=== PATIENT | male | born 1965 | race Caucasian/White ===

== ENCOUNTER 2019-05-23 15:41 | Emergency (ER) | payer MEDICAID, OTHER ==
[~2019-05-23] VITALS: Ht 176.5 cm; Wt 53.1 kg
[2019-05-23 16:18] LABS: WHITE BLOOD COUNT 4.7 10^3/uL (4.3-11.0)
[2019-05-23 16:19] LABS: EOSINOPHILS % (AUTO) 3 % (0-10); HEMATOCRIT 44 % (40-54); HEMOGLOBIN 15.2 G/DL (13.3-17.7); LYMPHOCYTES % (AUTO) 33 % (12-44); MEAN CORPUSCULAR HEMOGLOBIN 38 PG (25-34); MEAN CORPUSCULAR HGB CONC 34 G/DL (32-36); MEAN CORPUSCULAR VOLUME 110 FL (80-99); MEAN PLATELET VOLUME 10.6 FL (7.4-10.4); MONOCYTES % (AUTO) 8 % (0-12); NEUTROPHILS % (AUTO) 56 % (42-75); PLATELET COUNT 169 10^3/uL (130-400); RED CELL DISTRIBUTION WIDTH 13.9 % (10.0-14.5)
[2019-05-23 16:20] LABS: BASOPHILS % (AUTO) 1 % (0-10); EOSINOPHILS # (AUTO) 0.1 10^3/uL (0.0-0.3); LYMPHOCYTES # (AUTO) 1.6 X 10^3 (1.0-4.0); MONOCYTES # (AUTO) 0.4 X 10^3 (0.0-1.0); NEUTROPHILS # (AUTO) 2.6 X 10^3 (1.8-7.8)
--- NOTE | 2019-05-23 16:26 | Diagnostic Imaging Report ---
EXAMINATION: Chest one view. HISTORY: Cough. COMPARISON: No comparison available. FINDINGS: Lungs are clear. No edema. No pneumonia. No pleural effusion. No pneumothorax. Heart size is normal. IMPRESSION: Clear lungs. Dictated by: Dictated on workstation # [id number]
[2019-05-23 16:34] LABS: PROTHROMBIN TIME PATIENT 13.3 SEC (12.2-14.7)
[2019-05-23 16:54] LABS: POTASSIUM 3.8 MMOL/L (3.6-5.0); SODIUM 145 MMOL/L (135-145)
[2019-05-23 16:55] LABS: ALANINE AMINOTRANSFERASE 23 U/L (0-55); ALBUMIN 3.9 GM/DL (3.2-4.5); ALKALINE PHOSPHATASE 108 U/L (40-136); BILIRUBIN,TOTAL 0.4 MG/DL (0.1-1.0); BUN/CREATININE RATIO 9; CALCIUM 8.9 MG/DL (8.5-10.1); CARBON DIOXIDE 23 MMOL/L (21-32); CHLORIDE 103 MMOL/L (98-107); CREATININE SERUM 0.54 MG/DL (0.60-1.30); GFR ESTIMATED > 60; GLUCOSE 101 MG/DL (70-105)
--- NOTE | 2019-05-23 17:14 | ED Lower Extremity ---
General Chief Complaint: Lower Extremity Stated Complaint: LT LEG SWELLING Nursing Triage Note: Patient c/o pain, swelling, and redness in left lower leg. Patient states that he has lower extremity swelling since the year 2014 and the edema using subsides with elevation of his leg. He reports that the current episode of swelling has been going on for the past month and it has not improved with elevation. Nursing Sepsis Screen: No Definite Risk Source: patient Exam Limitations: no limitations History of Present Illness Date Seen by Provider: May 23, 2019 Time Seen by Provider: 13:30 Initial Comments Patient is a 53-year-old male with history of peripheral vascular disease and right gwngh-obe-gjmq amputation who presents with left leg swelling which is been prevalent for the past 3 years. Swelling is slightly over the past month. Patient denies trauma to this injury to this region. He has not followed up with his primary care physician and states that his past 3 appointments have been canceled. Patient denies fever chills, nausea vomiting and sweats. Patient smokes 20 unfiltered cigarettes daily drinks alcohol throughout the day. No other acute symptoms or complaints. Onset: other Pain/Injury Location: left leg, left knee, left thigh, left foot, left ankle, left heel Method of Injury: unknown Allergies and Home Medications Allergies Coded Allergies: No Known Drug Allergies (Unverified , 05/23/19) Patient Home Medication List Home Medication List Reviewed: Yes Review of Systems Constitutional: no symptoms reported EENTM: no symptoms reported Respiratory: no symptoms reported Cardiovascular: no symptoms reported Gastrointestinal: no symptoms reported Genitourinary: no symptoms reported Musculoskeletal: no symptoms reported Skin: see HPI Psychiatric/Neurological: No Symptoms Reported Past Swgqend-Aqdwef-Qcgrvy Hx Past Med/Social Hx: Reviewed Nursing Past Med/Soc Hx Patient Social History Alcohol Use: Regular Use Alcohol Beverage of Choice: Whiskey, [place] Recreational Drug Use: No Smoking Status: Current Everyday Smoker Type Used: Cigarettes 2nd Hand Smoke Exposure: No Recent Foreign Travel: No Contact w/Someone Who Travel: No Recent Infectious Disease Expo: No Recent Hopitalizations: No Physical Abuse: No Sexual Abuse: No Mistreated: No Fear: No Seasonal Allergies Seasonal Allergies: No Past Medical History Surgeries: Yes (R Above the knee amputation, ) Orthopedic Respiratory: No (Hypoxia) Cardiac: Yes (Buerger Disease) Hypertension, Peripheral Vascular Neurological: No Genitourinary: No Gastrointestinal: Yes (Chronic Alcohol gastritis) Gastroesophageal Reflux Musculoskeletal: Yes (Right above the knee amputation) Amputee HEENT: No Cancer: No Psychosocial: Yes (Substance abuse, Alcohol dependence) Integumentary: Yes (Cellulitis) Blood Disorders: No Physical Exam Vital Signs Vital Signs - First Documented 05/23/19 15:48 Temp 97.3 Pulse 88 Resp 20 B/P (MAP) 136/94 (108) Pulse Ox 91 O2 Delivery Nasal Cannula O2 Flow Rate 3.00 Capillary Refill : Less Than 3 Seconds Height, Weight, BMI Height: 5'9.50" Weight: 117lbs. oz. 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, no motor/sensory deficits, alert, oriented x 3 Skin: other (erythema left lower extremity) Progress/Results/Core Measures Results/Orders Lab Results Laboratory Tests Test 05/23/19 16:10 Range/Units White Blood Count 4.7 4.3-11.0 10^3/uL Red Blood Count 4.03 L 4.35-5.85 10^6/uL Hemoglobin 15.2 13.3-17.7 G/DL Hematocrit 44 40-54 % Mean Corpuscular Volume 110 H 80-99 FL Mean Corpuscular Hemoglobin 38 H 25-34 PG Mean Corpuscular Hemoglobin Concent 34 32-36 G/DL Red Cell Distribution Width 13.9 10.0-14.5 % Platelet Count 169 130-400 10^3/uL Mean Platelet Volume 10.6 H 7.4-10.4 FL Neutrophils (%) (Auto) 56 42-75 % Lymphocytes (%) (Auto) 33 12-44 % Monocytes (%) (Auto) 8 0-12 % Eosinophils (%) (Auto) 3 0-10 % Basophils (%) (Auto) 1 0-10 % Neutrophils # (Auto) 2.6 1.8-7.8 X 10^3 Lymphocytes # (Auto) 1.6 1.0-4.0 X 10^3 Monocytes # (Auto) 0.4 0.0-1.0 X 10^3 Eosinophils # (Auto) 0.1 0.0-0.3 10^3/uL Basophils # (Auto) 0.0 0.0-0.1 10^3/uL Prothrombin Time 13.3 12.2-14.7 SEC INR Comment 1.0 0.8-1.4 Activated Partial Thromboplast Time 26 24-35 SEC Sodium Level 145 135-145 MMOL/L Potassium Level 3.8 3.6-5.0 MMOL/L Chloride Level 103 98-107 MMOL/L Carbon Dioxide Level 23 21-32 MMOL/L Anion Gap 19 H 5-14 MMOL/L Blood Urea Nitrogen 5 L 7-18 MG/DL Creatinine 0.54 L 0.60-1.30 MG/DL Estimat Glomerular Filtration Rate > 60 BUN/Creatinine Ratio 9 Glucose Level 101 70-105 MG/DL Calcium Level 8.9 8.5-10.1 MG/DL Corrected Calcium 9.0 8.5-10.1 MG/DL Total Bilirubin 0.4 0.1-1.0 MG/DL Aspartate Amino Transf (AST/SGOT) 52 H 5-34 U/L Alanine Aminotransferase (ALT/SGPT) 23 0-55 U/L Alkaline Phosphatase 108 40-136 U/L Troponin I < 0.30 <0.30 NG/ML Pro-B-Type Natriuretic Peptide 128.7 H <75.0 PG/ML Total Protein 7.0 6.4-8.2 GM/DL Albumin 3.9 3.2-4.5 GM/DL My Orders Orders - TESSA CERVANTES DO Cbc With Automated Diff (05/23/19 15:58) Comprehensive Metabolic Panel (05/23/19 15:58) Protime With Inr (05/23/19 15:58) Partial Thromboplastin Time (05/23/19 15:58) Probnp Fs (05/23/19 15:58) Ekg Tracing (05/23/19 15:58) Troponin I (05/23/19 15:58) Chest 1 View Ap/Pa Only (05/23/19 15:58) Vital Signs/I&O 05/23/19 15:48 Temp 97.3 Pulse 88 Resp 20 B/P (MAP) 136/94 (108) Pulse Ox 91 O2 Delivery Nasal Cannula O2 Flow Rate 3.00 Blood Pressure Mean: 108 Departure Communication (Admissions) Patient with chronic left leg swelling setting of all cause him and artery disease. Patient with 1+ anterior tibial dorsalis pedis pulses. Suspect swelling is related to alcohol related disease or possible right-sided heart failure. Ne ither of which would appear to be acute process. Recommend staying from alcohol, tobacco, compression stocking, Lasix. Will also place on brief course of antibiotics and close PCP follow-up. Return precautions reviewed. History verbalizes understanding and agreement with discharge instructions prior to discharge. Impression Primary Impression: Peripheral edema Disposition: HOME, SELF-CARE Condition: Unchanged Departure-Patient Inst. Decision time for Depature: 17:15 Referrals: SARA HARTLEY MD (PCP/Family) Primary Care Physician Patient Instructions: Swelling Add. Discharge Instructions: Please take newly prescribed medications as directed. Keep leg elevated at rest and wear compression stocking at night. With your PCP in 3-5 days for reevaluation. Return to the ED if new or worsening symptoms All discharge instructions reviewed with patient and/or family. Voiced understanding. Scripts Furosemide (Lasix) 20 Mg Tablet 20 MG PO DAILY, #3 TAB Prov: TESSA CERVANTES DO 05/23/19 Cephalexin (Keflex) 500 Mg Capsule 500 MG PO TID, #30 CAP Prov: TESSA CERVANTES DO 05/23/19 TESSA CERVANTES DO May 23, 2019 17:14
[2019-05-23] MEDS ORDERED: CEPH-507 PO (17:16)
[2019-05-23] MEDS ORDERED: FURO-125 PO (17:16)
[2019-05-23 17:22] VITALS: BP 136/94
== END 2019-05-23 17:22 | disposition home or self-care (01) ==
LOC: ER FS 15:44
DX: R60.9 Edema, unspecified (principal); I73.9 Peripheral vascular disease, unspecified; I10 Essential (primary) hypertension; R09.02 Hypoxemia; F10.20 Alcohol dependence, uncomplicated; K21.9 Gastro-esophageal reflux disease without esophagitis; F17.210 Nicotine dependence, cigarettes, uncomplicated; Z89.611 Acquired absence of right leg above knee; Y90.9 Presence of alcohol in blood, level not specified
CPT/HCPCS: 36415; 71045; 80053; 83880; 84484; 85025; 85610; 85730; 93005

== ENCOUNTER 2019-08-03 12:58 | Emergency (ER) | payer MEDICAID | END 2019-08-03 13:22 | disposition home or self-care (01) | LOC: ER FS 12:58 ==

== ENCOUNTER 2019-08-10 10:52 | Emergency (ER) | payer MEDICAID ==
[~2019-08-10] VITALS: Ht 177.8 cm; Wt 53.2 kg
[~2019-08-10 10:52] MED LIST: BACI28.4 TP; CEPH-507 PO; FURO-125 PO
[2019-08-10] MEDS ORDERED: morphine INJ 10 MG/ML 1ML (SYR OR VIAL) IVP STA (11:13)
[2019-08-10] MEDS ORDERED: NS IV 1000 ML 1,000 ML IV SCH (11:13)
[2019-08-10] MEDS ORDERED: PIPERACILLIN/TAZOBACTAM (BULK) 3.375 GM in NS (IVPB) 100 ML IV ONE (11:15)
[2019-08-10] MEDS ORDERED: PIPERACILLIN/TAZO 4.5 GM VIAL (ZOSYN) IV ONE (11:36)
[2019-08-10] MEDS ORDERED: NS (IVPB) 100 ML ONE (11:36)
--- NOTE | 2019-08-10 11:45 | Diagnostic Imaging Report ---
PATIENT HISTORY: Left foot pain and swelling, Buerger's disease. TECHNIQUE: Three views of the left foot were performed. COMPARISON: None. FINDINGS: No acute fracture or dislocation is seen in the left foot. The alignment is normal. There is mild irregularity of the second proximal phalangeal head which may be from remote trauma. There is a bipartite medial hallux sesamoid. No cortical erosions are seen. There is moderate dorsal soft tissue swelling with a dorsal soft tissue ulceration. No soft tissue gas or radiopaque foreign body is seen. IMPRESSION: 1. Dorsal soft tissue swelling and ulceration with no soft tissue gas or radiopaque foreign body seen. 2. No acute osseous abnormality is seen in the left foot. Dictated by: Dictated on workstation # [id number]
--- NOTE | 2019-08-10 11:52 | ED Integumentary General ---
General Chief Complaint: Skin/Wound Problems Stated Complaint: LT FOOT PAIN Nursing Triage Note: PT HAS SWELLING, WEEPING, AND PAIN IN THE LEFT FOOT. 3 OF THE PTS TOES ARE TURNING BLACK. 3RD THRU 5TH TOES. History of Present Illness Date Seen by Provider: Aug 10, 2019 Time Seen by Provider: 11:00 Initial Comments The patient is a 53-year-old male with a history of hypertension, alcohol abuse, tobacco abuse, COPD and what is evidently a fairly recent diagnosis of Buerger disease / thromboangiitis obliterans. Patient is status post previous right mtudt-iyv-wsso amputation. He does not have a history of diabetes. The patient presents with concern for several days of worsening discomfort, erythema and swelling to the lateral aspect of his left forefoot and midfoot. Patient is followed up with his primary care physician within the past couple of days and was started on a course of Bactrim for this issue. He return to his primary for a follow-up appointment today and the third, fourth and fifth digits of his left foot as well as parts of his dorsal and plantar lateral forefoot and midfoot appeared dusky and ischemic and so he was sent to the emergency department for evaluation. Patient denies fevers, nausea or vomiting, chest pain, shortness of breath or any symptoms aside from quite significantly worsened discomfort to his left foot over the past couple of days. He continues to smoke. A strong dorsalis pedis pulse is Dopplerable on the left, but no pulse is palpable. Allergies and Home Medications Allergies Coded Allergies: No Known Drug Allergies (Unverified , 05/23/19) Home Medications Bacitracin 28.4 Gm Oint...g., 28.4 GM TP BID Prescribed by: JOSÉ MIGUEL BELLO on 08/03/19 1320 Cephalexin 500 Mg Capsule, 500 MG PO TID Prescribed by: TESSA CERVANTES on 05/23/19 171 Furosemide 20 Mg Tablet, 20 MG PO DAILY Prescribed by: TESSA CERVANTES on 05/23/19 1716 Patient Home Medication List Home Medication List Reviewed: Yes Review of Systems Review of Systems Constitutional: see HPI All Other Systems Reviewed Negative Unless Noted: Yes (Negative excepted noted.) Past Reywrok-Mhucxp-Uyfsmx Hx Past Med/Social Hx: Reviewed Nursing Past Med/Soc Hx Patient Social History Alcohol Use: Regular Use Alcohol Beverage of Choice: Whiskey Recreational Drug Use: No Smoking Status: Current Everyday Smoker Type Used: Cigarettes 2nd Hand Smoke Exposure: Yes Recent Foreign Travel: No Contact w/Someone Who Travel: No Recent Infectious Disease Expo: No Recent Hopitalizations: No Physical Abuse: No Sexual Abuse: No Mistreated: No Fear: No Seasonal Allergies Seasonal Allergies: No Past Medical History Surgeries: Yes (R Above the knee amputation, ) Orthopedic Respiratory: No (Hypoxia) Cardiac: Yes (Buerger Disease) Hypertension, Peripheral Vascular Neurological: No Genitourinary: No Gastrointestinal: Yes (Chronic Alcohol gastritis) Gastroesophageal Reflux Musculoskeletal: Yes (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, Insulin dep HEENT: No Cancer: No Psychosocial: Yes (Substance abuse, Alcohol dependence) Integumentary: Yes (Cellulitis) Blood Disorders: No Family Medical History Reviewed Nursing Family Hx Physical Exam Vital Signs Vital Signs - First Documented 08/10/19 11:37 Temp 37.0 Pulse 91 Resp 18 B/P (MAP) 100/61 (74) Pulse Ox 98 O2 Delivery Room Air Capillary Refill : Less Than 3 Seconds General Appearance: no apparent distress Comments This is an older male appearing nontoxic and in no acute distress. The patient appears disheveled and rather dirty. Head is normocephalic and atraumatic. Neck is supple and nontender. Oropharynx is moist. Lungs are clear to auscultation in all stations. There is a normal S1 and S2 without rubs or gallops and capillary refill is appropriate, less than 2 seconds globally. Abdomen is soft, nontender and nondistended. Skin is warm and dry without cyanosis, clubbing or edema. Psychiatrically, the patient demonstrates appropriate mood and affect and is alert. There is a right above-knee amputation. Evaluation of the left lower extremity is remarkable for tenderness and swelling to the lateral left midfoot and forefoot, as well as toes 3, 4 and 5, without crepitus / subcutaneous emphysema by exam. The digits noted are dusky and discolored. There are also areas of discoloration/duskiness to the lateral dorsal and plantar midfoot and forefoot. Strength and sensation are generally intact to the left foot. Capillary refill is mildly delayed. There is 2+ pitting edema to the foot. A dorsalis pedis pulse is Dopplerable but not palpable. Progress/Results/Core Measures Results/Orders Lab Results Laboratory Tests Test 08/10/19 11:25 Range/Units White Blood Count 7.4 4.3-11.0 10^3/uL Red Blood Count 3.53 L 4.35-5.85 10^6/uL Hemoglobin 12.8 L 13.3-17.7 G/DL Hematocrit 38 L 40-54 % Mean Corpuscular Volume 107 H 80-99 FL Mean Corpuscular Hemoglobin 36 H 25-34 PG Mean Corpuscular Hemoglobin Concent 34 32-36 G/DL Red Cell Distribution Width 13.5 10.0-14.5 % Platelet Count 326 130-400 10^3/uL Mean Platelet Volume 10.7 H 7.4-10.4 FL Neutrophils (%) (Auto) 78 H 42-75 % Lymphocytes (%) (Auto) 13 12-44 % Monocytes (%) (Auto) 7 0-12 % Eosinophils (%) (Auto) 0 0-10 % Basophils (%) (Auto) 1 0-10 % Neutrophils # (Auto) 5.8 1.8-7.8 X 10^3 Lymphocytes # (Auto) 1.0 1.0-4.0 X 10^3 Monocytes # (Auto) 0.5 0.0-1.0 X 10^3 Eosinophils # (Auto) 0.0 0.0-0.3 10^3/uL Basophils # (Auto) 0.0 0.0-0.1 10^3/uL My Orders Orders - JOS GILL MD Cbc With Automated Diff (08/10/19 11:13) Comprehensive Metabolic Panel (08/10/19 11:13) Erythrocyte Sedimentation Rate (08/10/19 11:13) Hs C Reactive Protein (08/10/19 11:13) Blood Culture (08/10/19 11:13) Lactic Acid Analyzer (08/10/19 11:13) Foot 3 View Left (08/10/19 11:13) Piperacillin/Tazobactam (Bulk) (Zosyn In (08/10/19 11:15) Morphine Injection (Morphine Injection (08/10/19 11:13) Alcohol (08/10/19 11:13) Ed Iv/Invasive Line Start (08/10/19 11:13) Ns Iv 1000 Ml (Sodium Chloride 0.9%) (08/10/19 11:13) Piperacillin Sodium/Tazobactam (Zosyn Vi (08/10/19 11:36) Ns (Ivpb) (Sodium Chloride 0.9% Ivpb Bag (08/10/19 11:36) Medications Given in ED Current Medications Medications Dose Ordered Sig/Junior Route Start Time Stop Time Status Last Admin Dose Admin Piperacillin Sod/ Tazobactam Sod 3.375 gm/Sodium Chloride 115 ml @ 240 mls/hr ONCE ONCE IV 08/10/19 11:15 08/10/19 11:43 DC 08/10/19 11:48 240 MLS/HR Vital Signs/I&O 08/10/19 11:37 Temp 37.0 Pulse 91 Resp 18 B/P (MAP) 100/61 (74) Pulse Ox 98 O2 Delivery Room Air Blood Pressure Mean: 74 Progress Progress Note : Time: 12:04 Progress Note Unfortunate 53-year-old gentleman with history of tobacco abuse and thromboangiitis obliterans who appears to be infarcting part of his left foot. Will start IV and give IV fluids and draw cultures and administer broad-spectrum parenteral antibiotics. We will obtain plain films. We will treat pain. Patient will require transfer for urgent vascular evaluation. No vascular surgery at [facility] per nursing staff so the patient will require outside hospital transfer. Discussed options with him and he requests [facility]. Contact made with who graciously accepted the patient in transfer. Patient will likely require CT angiography with runoff for further characterization of his left lower extremity vasculature but in discussion with the receiving center we will defer this study to them. Case discussed with Dr. Giang of vascular surgery who recommends that we heparinize the patient prior to transport which we will do. Departure Impression Primary Impression: Ischemia of left lower extremity Additional Impression: Cellulitis of left foot Disposition: XFER SHT-TRM HOSP Condition: Stable Departure-Patient Inst. Referrals: SARA HARTLEY MD (PCP/Family) Primary Care Physician JOS GILL MD Aug 10, 2019 11:52
[2019-08-10 12:05] LABS: BASOPHILS % (AUTO) 1 % (0-10); EOSINOPHILS % (AUTO) 0 % (0-10); HEMATOCRIT 38 % (40-54); HEMOGLOBIN 12.8 G/DL (13.3-17.7); LYMPHOCYTES % (AUTO) 13 % (12-44); MEAN CORPUSCULAR HEMOGLOBIN 36 PG (25-34); MEAN CORPUSCULAR HGB CONC 34 G/DL (32-36); MEAN CORPUSCULAR VOLUME 107 FL (80-99); MEAN PLATELET VOLUME 10.7 FL (7.4-10.4); MONOCYTES % (AUTO) 7 % (0-12); NEUTROPHILS % (AUTO) 78 % (42-75); PLATELET COUNT 326 10^3/uL (130-400); RED CELL DISTRIBUTION WIDTH 13.5 % (10.0-14.5); WHITE BLOOD COUNT 7.4 10^3/uL (4.3-11.0)
[2019-08-10 12:06] LABS: MONOCYTES # (AUTO) 0.5 X 10^3 (0.0-1.0); NEUTROPHILS # (AUTO) 5.8 X 10^3 (1.8-7.8)
[2019-08-10] MEDS ORDERED: HEParin DRIP 25000 UNIT/500ML 500 ML IV ONE (12:21)
[2019-08-10] MEDS ORDERED: HEParin 1000 UNIT/ML (10ML VIAL) FOR BOLUS IV ONE (12:30)
[2019-08-10 12:45] LABS: CHLORIDE 97 MMOL/L (98-107); POTASSIUM 3.5 MMOL/L (3.6-5.0); SODIUM 134 MMOL/L (135-145)
[2019-08-10 12:46] LABS: ALANINE AMINOTRANSFERASE 16 U/L (0-55); ALKALINE PHOSPHATASE 108 U/L (40-136); BILIRUBIN,TOTAL 0.4 MG/DL (0.1-1.0); BUN/CREATININE RATIO 10; CALCIUM 8.7 MG/DL (8.5-10.1); CARBON DIOXIDE 24 MMOL/L (21-32); GFR ESTIMATED > 60; GLUCOSE 94 MG/DL (70-105); TOTAL PROTEIN 6.8 GM/DL (6.4-8.2)
[2019-08-10 12:47] LABS: ALBUMIN 3.5 GM/DL (3.2-4.5)
[2019-08-10 13:03] LABS: ERYTHROCYTE SEDIMENTATION RATE 31 MM/HR (0-30)
[2019-08-10] MEDS ORDERED: fentaNYL INJECTION 100 MCG/2 ML AMP IVP PRN (16:15)
[2019-08-10] MEDS ORDERED: KCL 20 MEQ TAB (K-DUR) PO ONE (17:45)
--- NOTE | 2019-08-10 17:55 | NUR ---
[facility] HAS ACCEPTED FLIGHT FROM [facility]. [facility] CALLED AND THE BED RESERVED IS IN [place] AND THE VASCULAR SURGEON IS WAITING ON THE PT TO ARRIVE. DR. GILL ADVISED THIS RN TO CALL A FLIGHT SERVICE WITH THE LARGE DELAY IN TRASFERRING THE PT WE HAVE INCURRED WITH [facility]. THE ER STAFF WAS ADVISED THAT [facility] WOULD BE FURTHER DELAYED AT LEAST ANOTHER HOUR OR POSSIBLY MORE.
[2019-08-10 18:04] VITALS: BP 110/70
--- NOTE | 2019-08-10 18:28 | NUR ---
MED FLIGHT IS HERE AT THIS TIME. REPORT AND CARE TRANSFERRED TO THE [facility]W AT THIS TIME. REPORT GIVEN TO KETTY ALVARADO AT [facility].
== END 2019-08-10 18:35 | disposition short-term general hospital (02) ==
LOC: EDUNIT# 10:52 → ER FS 10:53
DX: I99.8 Other disorder of circulatory system (principal); L03.116 Cellulitis of left lower limb; I10 Essential (primary) hypertension; E11.9 Type 2 diabetes mellitus without complications; J44.9 Chronic obstructive pulmonary disease, unspecified; K21.9 Gastro-esophageal reflux disease without esophagitis; F17.210 Nicotine dependence, cigarettes, uncomplicated; Z89.611 Acquired absence of right leg above knee
CPT/HCPCS: 36415; 73630; 80053; 80320; 83605; 85025; 85652; 86141; 87040; 96374; 96375

== ENCOUNTER → 2019-08-27 | Outpatient (CLI) | payer MEDICAID | LOC: WOUNDCARE 13:53 | PROVIDERS: ATTEND Surgery | DX: L97.422 Non-pressure chronic ulcer of left heel and midfoot with fat layer exposed (principal); I70.244 Atherosclerosis of native arteries of left leg with ulceration of heel and midfoot; I73.1 Thromboangiitis obliterans [Buerger's disease]; J44.9 Chronic obstructive pulmonary disease, unspecified; T65.222A Toxic effect of tobacco cigarettes, intentional self-harm, initial encounter; F17.218 Nicotine dependence, cigarettes, with other nicotine-induced disorders | CPT/HCPCS: 99204 ==

== ENCOUNTER → 2019-09-03 | Outpatient (CLI) | payer MEDICAID | LOC: WOUNDCARE 11:41 | PROVIDERS: ATTEND Surgery | DX: I70.262 Atherosclerosis of native arteries of extremities with gangrene, left leg (principal); L97.422 Non-pressure chronic ulcer of left heel and midfoot with fat layer exposed; L97.522 Non-pressure chronic ulcer of other part of left foot with fat layer exposed; I73.1 Thromboangiitis obliterans [Buerger's disease]; J44.9 Chronic obstructive pulmonary disease, unspecified; T65.222A Toxic effect of tobacco cigarettes, intentional self-harm, initial encounter; F17.218 Nicotine dependence, cigarettes, with other nicotine-induced disorders | CPT/HCPCS: 99212 ==

== ENCOUNTER → 2019-09-10 | Outpatient (CLI) | payer MEDICAID | LOC: WOUNDCARE 13:52 | PROVIDERS: ATTEND Surgery | DX: I70.262 Atherosclerosis of native arteries of extremities with gangrene, left leg (principal); L97.522 Non-pressure chronic ulcer of other part of left foot with fat layer exposed; I73.1 Thromboangiitis obliterans [Buerger's disease]; J44.9 Chronic obstructive pulmonary disease, unspecified; T65.222A Toxic effect of tobacco cigarettes, intentional self-harm, initial encounter; F17.218 Nicotine dependence, cigarettes, with other nicotine-induced disorders | CPT/HCPCS: 99212 ==

== ENCOUNTER → 2019-09-24 | Outpatient (CLI) | payer MEDICAID | LOC: WOUNDCARE 13:47 | PROVIDERS: ATTEND Surgery | DX: L97.522 Non-pressure chronic ulcer of other part of left foot with fat layer exposed (principal); I70.234 Atherosclerosis of native arteries of right leg with ulceration of heel and midfoot; I73.1 Thromboangiitis obliterans [Buerger's disease]; J44.9 Chronic obstructive pulmonary disease, unspecified; T65.222A Toxic effect of tobacco cigarettes, intentional self-harm, initial encounter; F17.218 Nicotine dependence, cigarettes, with other nicotine-induced disorders | CPT/HCPCS: 99212 ==

== ENCOUNTER 2019-11-05 16:31 | Emergency (ER) | payer MEDICAID ==
[~2019-11-05] VITALS: Ht 175 cm; Wt 49.0 kg
[2019-11-05] MEDS ORDERED: NS IV 1000 ML 1,000 ML IV SCH (16:45)
--- NOTE | 2019-11-05 16:55 | Diagnostic Imaging Report ---
INDICATION: Weakness. COMPARISON: 05/23/2019 FINDINGS: Single frontal view of the chest demonstrates normal heart size and pulmonary vascularity. The lungs are well aerated and clear. No large pleural effusion or pneumothorax is seen. The visualized osseous structures show no acute abnormalities. IMPRESSION: 1. No acute cardiopulmonary process. Dictated by: Dictated on workstation # [id number]
[2019-11-05 17:20] LABS: HEMATOCRIT 37 % (40-54); HEMOGLOBIN 13.5 G/DL (13.3-17.7); MEAN CORPUSCULAR HEMOGLOBIN 37 PG (25-34); WHITE BLOOD COUNT 6.7 10^3/uL (4.3-11.0)
--- NOTE | 2019-11-05 17:20 | ED General ---
General Chief Complaint: General Problems/Pain Stated Complaint: NAUSEA Nursing Triage Note: PT REPORTS HE "IS SICKER THAN A DOG" AND CALLED EMS FOR LEG PAIN, CHRONIC NEUROPATHY. HE STATES HE ONLY HAD 4 SHOTS OF WHISKEY TODAY AND HE FEELS NAUSEATED. Nursing Sepsis Screen: No Definite Risk Source of Information: Patient, EMS Exam Limitations: No Limitations History of Present Illness Date Seen by Provider: Nov 05, 2019 Time Seen by Provider: 16:40 Initial Comments Patient is a chronic alcoholic and he has history of neuropathy. He called EMS today with complaint of having right leg pain. Patient denies having any fever or chills. He said he feels lightheaded and he also had a 4 shots of whiskey today. He denies having any chest pain and abdominal pain. He does have mild cough. He is afebrile in the emergency room. He does have good pedal pulse. He is a chronic smoker TOO. He is not taking his medications regularly. Timing/Duration: 1 Day Modifying Factors: worse with Eating, worse with Immobilization, worse with Medication, worse with Movement, worse with Rest Associated Systoms: No Chest Pain; Cough; No Fever/Chills, No Headaches; Weakness Allergies and Home Medications Allergies Coded Allergies: No Known Drug Allergies (Unverified , 05/23/19) Home Medications Bacitracin 28.4 Gm Oint...g., 28.4 GM TP BID Prescribed by: JOSÉ MIGUEL BELLO on 08/03/19 1320 Cephalexin 500 Mg Capsule, 500 MG PO TID Prescribed by: TESSA CERVANTES on 05/23/19 171 Furosemide 20 Mg Tablet, 20 MG PO DAILY Prescribed by: TESSA CERVANTES on 05/23/191715 Review of Systems Review of Systems Constitutional: see HPI EENTM: no symptoms reported Respiratory: cough; No short of breath Cardiovascular: no symptoms reported Gastrointestinal: other (PIGASTRIC) Genitourinary: see HPI Musculoskeletal: other (RT FOOT PAIN) Skin: dryness Psychiatric/Neurological: Other (LIGHTHEADED) Past Jwtvala-Pvsyzz-Qgspyf Hx Patient Social History Alcohol Use: Regular Use Number of Drinks Today: GG Alcohol Beverage of Choice: Whiskey Recreational Drug Use: No Smoking Status: Current Everyday Smoker Type Used: Cigarettes 2nd Hand Smoke Exposure: Yes Recent Foreign Travel: No Contact w/Someone Who Travel: No Recent Infectious Disease Expo: No Recent Hopitalizations: No Physical Abuse: No Sexual Abuse: No Mistreated: No Fear: No Seasonal Allergies Seasonal Allergies: No Past Medical History Surgeries: Yes (R Above the knee amputation, ) Orthopedic Respiratory: No (Hypoxia) Cardiac: Yes (Buerger Disease) Hypertension, Peripheral Vascular Neurological: Yes Stroke Genitourinary: No Gastrointestinal: Yes (Chronic Alcohol gastritis) Gastroesophageal Reflux Musculoskeletal: 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 oz. 53.453185dk; 16.00 BMI Method:Stated General Appearance: No Apparent Distress, WD/WN Eyes: Bilateral Eye Normal Inspection, Bilateral Eye PERRL, Bilateral Eye EOMI HEENT: PERRL/EOMI, TMs Normal, Normal ENT Inspection, Pharynx Normal Neck: Full Range of Motion, Normal Inspection, Non Tender, Supple, Carotid Bruit Respiratory: Chest Non Tender, Normal Breath Sounds, No Accessory Muscle Use, No Respiratory Distress, Wheezing (MILD) Cardiovascular: Regular Rate, Rhythm, No Edema, No Gallop, No JVD, No Murmur, Normal Peripheral Pulses Gastrointestinal: Normal Bowel Sounds, No Organomegaly, No Pulsatile Mass, Soft, Tenderness (IN EPIGASTRIC AREA) Back: Normal Inspection, No CVA Tenderness Extremity: Normal Capillary Refill, No Calf Tenderness, Other (NO RASH OR CELLULITIS) Neurologic/Psychiatric: Alert, Oriented x3, No Motor/Sensory Deficits, Normal Mood/Affect, magistrate II-XII Norm as Tested Skin: Normal Color Progress/Results/Core Measures Suspected Sepsis Recent Fever Within 48 Hours: No Infection Criteria Present: None New/Unexplained Altered Menta: No Sepsis Screen: No Definite Risk SIRS Temperature: Pulse: 115 Respiratory Rate: 18 Laboratory Tests 11/05/19 17:05: White Blood Count 6.7 Blood Pressure 128 /94 Mean: 105 Laboratory Tests 11/05/19 17:05: Creatinine 0.36L, INR Comment 0.9, Platelet Count 131, Total Bilirubin 1.2H Results/Orders Lab Results Laboratory Tests Test 11/05/19 17:05 Range/Units White Blood Count 6.7 4.3-11.0 10^3/uL Red Blood Count 3.62 L 4.35-5.85 10^6/uL Hemoglobin 13.5 13.3-17.7 G/DL Hematocrit 37 L 40-54 % Mean Corpuscular Volume 103 H 80-99 FL Mean Corpuscular Hemoglobin 37 H 25-34 PG Mean Corpuscular Hemoglobin Concent 36 32-36 G/DL Red Cell Distribution Width 17.1 H 10.0-14.5 % Platelet Count 131 130-400 10^3/uL Mean Platelet Volume 10.6 H 7.4-10.4 FL Neutrophils (%) (Auto) 63 42-75 % Lymphocytes (%) (Auto) 28 12-44 % Monocytes (%) (Auto) 8 0-12 % Eosinophils (%) (Auto) 1 0-10 % Basophils (%) (Auto) 0 0-10 % Neutrophils # (Auto) 4.2 1.8-7.8 X 10^3 Lymphocytes # (Auto) 1.9 1.0-4.0 X 10^3 Monocytes # (Auto) 0.6 0.0-1.0 X 10^3 Eosinophils # (Auto) 0.1 0.0-0.3 10^3/uL Basophils # (Auto) 0.0 0.0-0.1 10^3/uL Prothrombin Time 12.7 12.2-14.7 SEC INR Comment 0.9 0.8-1.4 Sodium Level 136 135-145 MMOL/L Potassium Level 3.1 L 3.6-5.0 MMOL/L Chloride Level 97 L 98-107 MMOL/L Carbon Dioxide Level 21 21-32 MMOL/L Anion Gap 18 H 5-14 MMOL/L Blood Urea Nitrogen 5 L 7-18 MG/DL Creatinine 0.36 L 0.60-1.30 MG/DL Estimat Glomerular Filtration Rate > 60 BUN/Creatinine Ratio 14 Glucose Level 109 H 70-105 MG/DL Calcium Level 8.6 8.5-10.1 MG/DL Corrected Calcium 8.8 8.5-10.1 MG/DL Total Bilirubin 1.2 H 0.1-1.0 MG/DL Aspartate Amino Transf (AST/SGOT) 48 H 5-34 U/L Alanine Aminotransferase (ALT/SGPT) 15 0-55 U/L Alkaline Phosphatase 152 H 40-136 U/L Total Protein 6.8 6.4-8.2 GM/DL Albumin 3.7 3.2-4.5 GM/DL Lipase 26 8-78 U/L Serum Alcohol 321 *H <10 MG/DL My Orders Orders - SHEELA BALDERAS MD Comprehensive Metabolic Panel (11/05/19 16:41) Lipase (11/05/19 16:41) Ua Culture If Indicated (11/05/19 16:41) Ed Iv/Invasive Line Start (11/05/19 16:41) Cbc With Automated Diff (11/05/19 16:41) Protime With Inr (11/05/19 16:41) Alcohol (11/05/19 16:41) Chest 1 View Ap/Pa Only (11/05/19 16:41) Ns Iv 1000 Ml (Sodium Chloride 0.9%) (11/05/19 16:45) Vital Signs/I&O 11/05/19 11/05/19 16:51 17:51 Temp 36.2 36.3 Pulse 115 92 Resp 18 18 B/P (MAP) 128/94 (105) 128/67 Pulse Ox 92 97 O2 Delivery Room Air Room Air Capillary Refill : Less Than 3 Seconds Blood Pressure Mean: 105 Progress Note : Time: 17:30 Progress Note Patient told nurse that he wants to leave and signed AMA PAPERS and left. Patient is clinically sober and ariented x3. adviced to return to ed if wants any treatment. Departure Impression Primary Impression: Alcohol abuse Disposition: 07 AGAINST MEDICAL ADVICE Condition: Against Medical Advice Departure-Patient Inst. Decision time for Depature: 18:01 Referrals: KRISTIAN BOYD APRN (PCP/Family) Primary Care Physician SHEELA BALDERAS MD Nov 05, 2019 17:20
[2019-11-05 17:21] LABS: MEAN CORPUSCULAR HGB CONC 36 G/DL (32-36); MEAN CORPUSCULAR VOLUME 103 FL (80-99); RED CELL DISTRIBUTION WIDTH 17.1 % (10.0-14.5)
[2019-11-05 17:22] LABS: BASOPHILS % (AUTO) 0 % (0-10); EOSINOPHILS % (AUTO) 1 % (0-10); LYMPHOCYTES % (AUTO) 28 % (12-44); MEAN PLATELET VOLUME 10.6 FL (7.4-10.4); MONOCYTES % (AUTO) 8 % (0-12); NEUTROPHILS % (AUTO) 63 % (42-75); PLATELET COUNT 131 10^3/uL (130-400)
[2019-11-05 17:23] LABS: EOSINOPHILS # (AUTO) 0.1 10^3/uL (0.0-0.3); LYMPHOCYTES # (AUTO) 1.9 X 10^3 (1.0-4.0); MONOCYTES # (AUTO) 0.6 X 10^3 (0.0-1.0); NEUTROPHILS # (AUTO) 4.2 X 10^3 (1.8-7.8)
[2019-11-05 17:35] LABS: INR 0.9 (0.8-1.4); PROTHROMBIN TIME PATIENT 12.7 SEC (12.2-14.7)
[2019-11-05 17:36] LABS: CARBON DIOXIDE 21 MMOL/L (21-32); CHLORIDE 97 MMOL/L (98-107); POTASSIUM 3.1 MMOL/L (3.6-5.0); SODIUM 136 MMOL/L (135-145)
[2019-11-05 17:37] LABS: ALANINE AMINOTRANSFERASE 15 U/L (0-55); ALBUMIN 3.7 GM/DL (3.2-4.5); ALKALINE PHOSPHATASE 152 U/L (40-136); BILIRUBIN,TOTAL 1.2 MG/DL (0.1-1.0); BUN/CREATININE RATIO 14; CALCIUM 8.6 MG/DL (8.5-10.1); CREATININE SERUM 0.36 MG/DL (0.60-1.30); GFR ESTIMATED > 60; GLUCOSE 109 MG/DL (70-105); TOTAL PROTEIN 6.8 GM/DL (6.4-8.2)
[2019-11-05 17:51] VITALS: BP 128/67
[2019-11-05 17:52] LABS: LIPASE 26 U/L (8-78)
--- NOTE | 2019-11-08 17:28 | NUR ---
[employer] laboratory assistant Narda, called about an hour ago stating a patient seen at [facility] had positive blood cultures, but there wasn't any orders. She stated she could not put the results in without an order. Dr. Patrick working today put in an order for the cultures. Narda was called back and notified. She stated she would send the results. She asked about sensitivity and Darnell stated to run it.
--- NOTE | 2019-11-08 17:34 | NUR ---
Patient was contacted at this time. Patient was asked how he was feeling and he said fine. Pt was informed that he had positive blood cultures and needs to follow up with his primary care doctor. He stated that Dr. Arredondo is his doctor and she is quitting. I informed him to call her tomorrow and get an appointment. He was informed that Dr. Arredondo will still be in town after the first of the year, but will be working for [employer]. Pt was informed that if he starts feeling bad, that he needs to come back to the ER. Pt asked if something was wrong and he was informed that his blood cultures came back positive, so he has some sort of infection that needs to be treated. Pt stated thank you.
== END 2019-11-05 17:50 | disposition left against medical advice (07) ==
LOC: EDUNIT# 16:31 → ER FS 16:32
DX: F10.20 Alcohol dependence, uncomplicated (principal); E11.40 Type 2 diabetes mellitus with diabetic neuropathy, unspecified; I10 Essential (primary) hypertension; K21.9 Gastro-esophageal reflux disease without esophagitis; F17.210 Nicotine dependence, cigarettes, uncomplicated; Z89.611 Acquired absence of right leg above knee; Z86.73 Personal history of transient ischemic attack (TIA), and cerebral infarction without residual deficits; Y90.8 Blood alcohol level of 240 mg/100 ml or more
CPT/HCPCS: 36415; 71045; 80053; 80320; 83690; 85025; 85610; 87040; 87077; 87186; 96360

== ENCOUNTER → 2019-12-05 | Outpatient (CLI) | payer MEDICAID ==
--- NOTE | 2019-12-05 13:53 | Diagnostic Imaging Report ---
INDICATION: Foot ulcers. FINDINGS: Three views of the left foot show no acute fracture or dislocation. There is no osteolysis. There are no radiopaque foreign objects. IMPRESSION: Unremarkable left foot. Dictated by: Dictated on workstation # [id number]
== END ==
LOC: RAD 13:20
PROVIDERS: ATTEND Orthopaedic Surgery Hand Surgery
DX: L97.523 Non-pressure chronic ulcer of other part of left foot with necrosis of muscle (principal); L97.522 Non-pressure chronic ulcer of other part of left foot with fat layer exposed; L03.032 Cellulitis of left toe; I73.1 Thromboangiitis obliterans [Buerger's disease]; R78.81 Bacteremia; Z72.0 Tobacco use
CPT/HCPCS: 73630

== ENCOUNTER → 2019-12-05 | Outpatient (CLI) | payer MEDICAID | LOC: WOUNDCARE 12:08 | PROVIDERS: ATTEND Orthopaedic Surgery Hand Surgery | DX: I96 Gangrene, not elsewhere classified (principal); L97.523 Non-pressure chronic ulcer of other part of left foot with necrosis of muscle; L97.522 Non-pressure chronic ulcer of other part of left foot with fat layer exposed; L03.032 Cellulitis of left toe; Z72.0 Tobacco use | CPT/HCPCS: 99214 ==

== ENCOUNTER → 2019-12-20 | Outpatient (CLI) | payer MEDICAID | LOC: WOUNDCARE 14:01 | PROVIDERS: ATTEND Orthopaedic Surgery Hand Surgery | DX: L97.523 Non-pressure chronic ulcer of other part of left foot with necrosis of muscle (principal); L97.522 Non-pressure chronic ulcer of other part of left foot with fat layer exposed; L97.529 Non-pressure chronic ulcer of other part of left foot with unspecified severity; I73.9 Peripheral vascular disease, unspecified; L03.032 Cellulitis of left toe; Z72.0 Tobacco use; I73.1 Thromboangiitis obliterans [Buerger's disease]; R78.81 Bacteremia | CPT/HCPCS: 99213 ==

== ENCOUNTER → 2020-01-03 | Outpatient (CLI) | payer MEDICAID | LOC: WOUNDCARE 12:16 | PROVIDERS: ATTEND Orthopaedic Surgery Hand Surgery | DX: L97.523 Non-pressure chronic ulcer of other part of left foot with necrosis of muscle (principal); L97.522 Non-pressure chronic ulcer of other part of left foot with fat layer exposed; I96 Gangrene, not elsewhere classified; L03.032 Cellulitis of left toe; R78.81 Bacteremia; R60.0 Localized edema; Z72.0 Tobacco use | CPT/HCPCS: 99213 ==

== ENCOUNTER → 2020-01-10 | Outpatient (CLI) | payer MEDICAID | LOC: WOUNDCARE 13:25 | PROVIDERS: ATTEND Orthopaedic Surgery Hand Surgery | DX: L97.523 Non-pressure chronic ulcer of other part of left foot with necrosis of muscle (principal); I73.9 Peripheral vascular disease, unspecified; L03.032 Cellulitis of left toe; I73.1 Thromboangiitis obliterans [Buerger's disease]; L97.528 Non-pressure chronic ulcer of other part of left foot with other specified severity; I96 Gangrene, not elsewhere classified; R60.0 Localized edema; R78.81 Bacteremia; Z72.0 Tobacco use | CPT/HCPCS: 99215 ==

== ENCOUNTER → 2020-01-17 | Outpatient (CLI) | payer MEDICAID | LOC: WOUNDCARE 13:04 | PROVIDERS: ATTEND Surgery | DX: I70.261 Atherosclerosis of native arteries of extremities with gangrene, right leg (principal); L97.523 Non-pressure chronic ulcer of other part of left foot with necrosis of muscle; T65.222A Toxic effect of tobacco cigarettes, intentional self-harm, initial encounter; I73.1 Thromboangiitis obliterans [Buerger's disease] | CPT/HCPCS: 99214 ==

== ENCOUNTER 2020-01-25 19:23 | Emergency (ER) | payer MEDICAID ==
[~2020-01-25] VITALS: Ht 175.2 cm; Wt 53.0 kg
--- NOTE | 2020-01-25 19:30 | ED Integumentary General ---
General Stated Complaint: LEG INFECTION Source: patient History of Present Illness Date Seen by Provider: Jan 25, 2020 Time Seen by Provider: 19:28 Initial Comments Patient brought in by EMS from urgent care. Patient reports he went to urgent care because he just wants his dressing changed on a wound on his left foot. Patient reports he has appointments Tuesday and Tuesday of next week with wound care. Patient states he has no idea why he is here because all he wanted was a wound change. Patient has no complaints at this time patient with extremely necrotic foot consistent with long-standing infection and peripheral vascular di sease. Patient is adamant he does not want anything else done. He will allow me to give him an IM Rocephin shot since he is oriented on Keflex. He reports he has an appointment Tuesday in [place] and he will go to that because he suspects they will admit him to the hospital. Patient voices understanding of his disease process and the risk and is willing to take it. Allergies and Home Medications Allergies Coded Allergies: No Known Drug Allergies (Unverified , 05/23/19) Home Medications Bacitracin 28.4 Gm Oint...g., 28.4 GM TP BID Prescribed by: JOSÉ MIGUEL BELLO on 08/03/19 1320 Cephalexin 500 Mg Capsule, 500 MG PO TID Prescribed by: TESSA CERVANTES on 05/23/19 171 Furosemide 20 Mg Tablet, 20 MG PO DAILY Prescribed by: TESSA CERVANTES on 05/23/191715 Patient Home Medication List Home Medication List Reviewed: Yes Review of Systems Review of Systems Constitutional: No chills, No fever Respiratory: no symptoms reported Cardiovascular: no symptoms reported Gastrointestinal: no symptoms reported Musculoskeletal: no symptoms reported Skin: see HPI Past Ymrafyu-Xuikyx-Qxdmkl Hx Past Med/Social Hx: Reviewed Nursing Past Med/Soc Hx Patient Social History Alcohol Beverage of Choice: Whiskey Type Used: Cigarettes 2nd Hand Smoke Exposure: Yes Recent Hopitalizations: No Seasonal Allergies Seasonal Allergies: No Past Medical History Surgeries: Yes (R Above the knee amputation, ) Orthopedic Respiratory: No (Hypoxia) Cardiac: Yes (Buerger Disease) Hypertension, Peripheral Vascular Neurological: Yes Stroke Genitourinary: No Gastrointestinal: Yes (Chronic Alcohol gastritis) Gastroesophageal Reflux Musculoskeletal: Yes (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, Insulin dep HEENT: No Cancer: No Psychosocial: Yes (Substance abuse, Alcohol dependence) Integumentary: Yes (Cellulitis) Blood Disorders: No Physical Exam Vital Signs Vital Signs - First Documented 01/25/20 19:36 Temp 36.3 Pulse 86 Resp 18 B/P (MAP) 104/74 (84) Pulse Ox 97 O2 Delivery Room Air Capillary Refill : General Appearance: other (very disheveled and unkept) Cardiovascular: normal peripheral pulses Respiratory: normal breath sounds, no respiratory distress Gastrointestinal: non tender, soft Extremities: other (right leg with a BKA, left foot with chronic infection with obvious peripheral artery disease with necrosis.) Progress/Results/Core Measures Results/Orders Vital Signs/I&O 01/25/20 19:36 Temp 36.3 Pulse 86 Resp 18 B/P (MAP) 104/74 (84) Pulse Ox 97 O2 Delivery Room Air Progress Progress Note : Time: 19:44 Progress Note Patient requested a dressing change and no further evaluation or workup. Due to patient's request we will do a dressing change. He was encouraged to keep his appointment with his primary care providers next week. Patient is discharged home as requested Departure Impression Primary Impression: Encounter for change of dressing Additional Impression: Buergers disease Disposition: HOME, SELF-CARE Condition: Stable Departure-Patient Inst. Referrals: NO,LOCAL PHYSICIAN (PCP/Family) Primary Care Physician Patient Instructions: Wound Care (DC), Diabetic Foot Ulcer (DC) Add. Discharge Instructions: Follow-up with your primary care provider next week with your appointments with already scheduled appointment BRYANNA CESPEDES DO Jan 25, 2020 19:30
[2020-01-25] MEDS ORDERED: cefTRIAXone 1,000 MG/2.86 ml vial (IM ONLY) ONE (20:08)
[2020-01-25] MEDS ORDERED: LIDOCAINE 1% INJ 20 ML 20 ML VIAL INJ ONE (20:15)
[2020-01-25 20:21] VITALS: BP 104/74
[2020-01-26] MEDS ORDERED: cefTRIAXone 1,000 MG/2.86 ml vial (IM ONLY) IM SCH (09:00)
--- OUTSIDE RECORDS SUMMARY | 2020-01-27 15:21 | XMS REPORT ---
Author Author Denys HARTLEY [facility]ARA [facility] Address [address] [place] [address] Care Team Providers Care Clinical Dental Technician Name Role Phone SARA HARTLEY Unavailable PROBLEMS Type Condition ICD9-CM Code SYF30-MF Code Onset Dates Condition S tatus SNOMED Code Problem Gastroesophageal reflux disease with esophagitis K 21.0 Active 021009919 Problem Chronic migraine G43.709 Active 377 50786 Problem PVD (peripheral vascular disease) I73.9 Active 242364248 Problem Urinary incontinence, unspecified type R32 Active 916747166 Problem Alcoholism F10.20 Active 3107916 Problem Essential hypertension I10 Active 05739199 Problem Other chronic pain G89.29 Active 8 4178253 Problem Skin ulcer of left foot with fat layer exposed L97 .522 Active 62079188 ALLERGIES No Information ENCOUNTERS Encounter Location Date Diagnosis [address] [place] [address] 16 Nov, 2019 [address] [place] [address] 10 Nov, 2019 [address] [place] [address] 09 Nov, [address] [place] [address] 08 Nov, 2019 PVD (peripheral vascular dis ease) I73.9 ; Essential hypertension I10 ; Infection of left foot L08.9 ; Skin ulcer of left foot with fat layer exposed L97.522 ; Urinary incontinence, unspecified type R32 and Diarrhea, unspecified type R19.7 [facility] [address] [id number] [place] [address] 02 Nov, [address] [place] [address] Oct, [facility] [place] [address] [place] [address] Oct, [facility] [place] [address] [place] [address] Oct, [facility] [place] [facility] [address] [place] [address] Oct, [facility] [place] [address] [place] [address] Sep, [facility] [place] [facility] [address] [place] [address] Sep, [facility] [place] [address] [place] [address] Sep, [facility] [place] [address] [place] [address] Aug, [facility] [place] [place] [address] [place] [address] Aug, [facility] [place] [place] [address] [place] [address] Aug, [facility] [place] [place] [address] [place] [address] Aug, PVD (peripheral vascular dis ease) I73.9 ; Skin ulcer of left foot with fat layer exposed L97.522 ; Alcoholism F10.20 ; Pain in left knee M25.562 and Other chronic pain G89.29 [facility] [address] [place] [address] Aug, [facility] [address] [facility] [id number] [place] [address] Aug, [facility] [place] [address] [place] [address] Aug, [facility] [place] [address] [place] [address] Aug, PVD (peripheral vascular dis ease) I73.9 ; 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 ; Shortness of breath R06.02 ; Pain at surgical incision L76.82 and Wound of left foot S91.302A [facility] [place] [address] [place] [address] Aug, [address] [place] [address] Aug, [address] [place] [address] Jul, [address] [place] [address] Jul, Cellulitis of left lower ext remity L03.116 and Black toe I96 [address] [place] [address] Jul, Infection of left foot L08.9 ; Encounter for immunization Z23 ; Foot pain, left M79.672 ; Tobacco abuse Z72.0 and Wheezing R06.[address] [place] [address] Jul, [address] [place] [address] Jul, [address] [place] [address] Jun, [address] [place] [address] May, [address] [place] [address] May, Buerger disease I73.1 ; Cell ulitis of left lower extremity L03.116 ; Tobacco abuse Z72.0 and Essential hypertension I10 [facility] [address] [facility] [id number] [place] [address] May, [address] [place] [address] May, [facility] [address] [place] [address] May, [facility] [address] [place] [address] May, [facility] [address] [place] [address] May, [facility] [address] [place] [address] Apr, [facility] [address] [place] [address] March, [facility] [address] [place] [address] Feb, [facility] [address] [place] [address] Feb, [facility] [address] [facility] [id number] [place] [address] Feb, [facility] [place] [place] [address] [place] [address] Feb, Essential hypertension I10 ; Alcoholism F10.20 ; Chronic migraine G43.709 ; Gastroesophageal reflux disease with esophagitis K21.0 ; Dysuria R30.0 and Colon cancer screening Z12.11 [facility] [place] [address] [place] [address] Jan, [facility] [address] [place] [address] Jan, IMMUNIZATIONS No Known Immunizations SOCIAL HISTORY Never Assessed REASON FOR VISIT Routine nurse call PLAN OF CARE VITAL SIGNS MEDICATIONS Unknown Medications RESULTS No Results PROCEDURES No Known procedures INSTRUCTIONS MEDICATIONS ADMINISTERED No Known Medications MEDICAL (GENERAL) HISTORY Type Description Date Medical History alcohol abuse Medical History tobacco use Medical History Buerger disease Medical History hypertension Medical History Rheumatoid arthritis Medical History scalp laceration Medical History chest pain Medical History right foot pain Medical History atherosclerotic peripheral vascular dise ase with rest pain Medical History alcohol dependence with intoxication wit h complication Medical History cellulitis of right lower extremity Medical History postoperatice wound dehiscence Medical History dermatomycosis Medical History noncompliance with treatment Medical History pain of right lower extremith Medical History seroma Medical History Vasculitis Medical History wrist injury, left, initial encounter Medical History headache around eyes Surgical History Hemodialysis Surgical History vascular surgery Surgical History bypass graft Surgical History amputate thigh, thru femur Hospitalization History Surgery(s) only
--- OUTSIDE RECORDS SUMMARY | 2020-01-27 15:21 | XMS REPORT | Continuity of Care Document ---
Author Organization Unknown Address Unknown Phone Unavailable Allergies Active Description Code Type Severity Reaction Onset Reported/Identified Relationship to Patient Clinical Status Yes No Known Drug Allergies [id number] Drug Allergy Unknown N/A 05/23/2019 Medications There is no data. Problems Date Dx Coded Attending Type Code Diagnosis Diagnosed By 05/23/2019 CERVANTES DO, TESAS Ot F10.20 ALCOHOL DEPENDENCE, UNCOMPLICATED 05/23/2019 CERVANTES DO, TESSA Ot F17.210 NICOTINE DEPENDENCE, CIGARETTES, UNCOMPL 05/23/2019 CERVANTES DO, TESSA Ot I10 ESSENTIAL (PRIMARY) HYPERTENSION 05/23/2019 CERVANTES DO, TESSA Ot I73.9 PERIPHERAL VASCULAR DISEASE, UNSPECIFIED 05/23/2019 CERVANTES DO, TESSA Ot K21.9 GASTRO-ESOPHAGEAL REFLUX DISEASE WITHOUT 05/23/2019 CERVANTES DO, TESSA Ot M79.89 OTHER SPECIFIED SOFT TISSUE DISORDERS 05/23/2019 CERVANTES DO, TESSA Ot R09.02 HYPOXEMIA 05/23/2019 CERVANTES DO, TESSA Ot R60.9 EDEMA, UNSPECIFIED 05/23/2019 CERVANTES DO, TESSA Ot Y90.9 PRESENCE OF ALCOHOL IN BLOOD, LEVEL NOT 05/23/2019 CERVANTES DO, TESSA Ot 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 05/29/2019 CERVANTES DO, TESSA Ot F10.20 ALCOHOL DEPENDENCE, UNCOMPLICATED 05/29/2019 CERVANTES DO, TESSA Ot F17.210 NICOTINE DEPENDENCE, CIGARETTES, UNCOMPL 05/29/2019 CERVANTES DO, TESSA Ot I10 ESSENTIAL (PRIMARY) HYPERTENSION 05/29/2019 CERVANTES DO, TESSA Ot I73.9 PERIPHERAL VASCULAR DISEASE, UNSPECIFIED 05/29/2019 CERVANTES DO, TESSA Ot K21.9 GASTRO-ESOPHAGEAL REFLUX DISEASE WITHOUT 05/29/2019 CERVANTES DO, TESSA Ot M79.89 OTHER SPECIFIED SOFT TISSUE DISORDERS 05/29/2019 CERVANTES DO, TESSA Ot R09.02 HYPOXEMIA 05/29/2019 CERVANTES DO, TESSA Ot R60.9 EDEMA, UNSPECIFIED 05/29/2019 CERVANTES DO, TESSA Ot Y90.9 PRESENCE OF ALCOHOL IN BLOOD, LEVEL NOT 05/29/2019 CERVANTES DO, TESSA Ot 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 08/03/2019 ROVENSTINE DO, JOSÉ MIGUEL L Ot E11.9 TYPE 2 DIABETES MELLITUS WITHOUT COMPLIC 08/03/2019 ROVENSTINE DO, JOSÉ MIGUEL L Ot F42.4 EXCORIATION (SKIN-PICKING) DISORDER 08/03/2019 ROVENSTINE DO, JOSÉ MIGUEL L Ot I10 ESSENTIAL (PRIMARY) HYPERTENSION 08/03/2019 ROVENSTINE DO, JOSÉ MIGUEL L Ot K21.9 GASTRO-ESOPHAGEAL REFLUX DISEASE WITHOUT 08/03/2019 ROVENSTINE DO, JOSÉ MIGUEL L Ot M79.605 PAIN IN LEFT LEG 08/03/2019 ROVENSTINE DO, JOSÉ MIGUEL L Ot R60.0 LOCALIZED EDEMA 08/03/2019 ROVENSTINE DO, JOSÉ MIGUEL L Ot 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 08/07/2019 ROVENSTINE DO, JOSÉ MIGUEL L Ot E11.9 TYPE 2 DIABETES MELLITUS WITHOUT COMPLIC 08/07/2019 ROVENSTINE DO, JOSÉ MIGUEL L Ot F42.4 EXCORIATION (SKIN-PICKING) DISORDER 08/07/2019 ROVENSTINE DO, JOSÉ MIGUEL L Ot I10 ESSENTIAL (PRIMARY) HYPERTENSION 08/07/2019 ROVENSTINE DO, JOSÉ MIGUEL L Ot K21.9 GASTRO-ESOPHAGEAL REFLUX DISEASE WITHOUT 08/07/2019 ROVENSTINE DO, JOSÉ MIGUEL L Ot M79.605 PAIN IN LEFT LEG 08/07/2019 ROVENSTINE DO, JOSÉ MIGUEL L Ot R60.0 LOCALIZED EDEMA 08/07/2019 ROVENSTINE DO, JOSÉ MIGUEL L Ot 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 9 TYPE 2 DIABETES MELLITUS WITHOUT COMPLIC 08/10/2019 JOS GILL MD, Ot F17.210 NICOTINE DEPENDENCE, CIGARETTES, UNCOMPL 08/10/2019 JOS GILL MD, Ot I10 ESSENTIAL (PRIMARY) HYPERTENSION 08/10/2019 JOS GILL MD Ot I99. 8 OTHER DISORDER OF CIRCULATORY SYSTEM 08/10/2019 JOS GILL MD, Ot J44. 9 CHRONIC OBSTRUCTIVE PULMONARY DISEASE, U 08/10/2019 JOS GILL MD, Ot K21. 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 9 TYPE 2 DIABETES MELLITUS WITHOUT COMPLIC 08/14/2019 JOS GILL MD, Ot F17.210 NICOTINE DEPENDENCE, CIGARETTES, UNCOMPL 08/14/2019 JOS GILL MD, Ot I10 ESSENTIAL (PRIMARY) HYPERTENSION 08/14/2019 JOS GILL MD Ot I99. 8 OTHER DISORDER OF CIRCULATORY SYSTEM 08/14/2019 JOS GILL MD, Ot J44. 9 CHRONIC OBSTRUCTIVE PULMONARY DISEASE, U 08/14/2019 JOS GILL MD, Ot K21. 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 09/02/2019 JAIMEE FUENTES MD, Ot F17.218 NICOTINE DEPENDENCE, CIGARETTES, W OTH D 09/02/2019 JAIMEE FUENTES MD Ot I70.244 ATHSCL [place] ART OF LEFT LEG W ULCER OF 09/02/2019 JAIMEE FUENTES MD, Ot I73 .1 THROMBOANGIITIS OBLITERANS [BUERGER'S DI 09/02/2019 JAIMEE FUENTES MD, Ot J44 .9 CHRONIC OBSTRUCTIVE PULMONARY DISEASE, U 09/02/2019 JAIMEE FUENTES MD Ot L97.422 NON-PRS CHR ULCER OF LEFT HEEL AND MIDFO 09/02/2019 JAIMEE FUENTES MD Ot T65.222A TOXIC EFFECT OF TOBACCO CIGARETTES, SELF 09/25/2019 JAIMEE FUENTES MD, Ot F17.218 NICOTINE DEPENDENCE, CIGARETTES, W OTH D 09/25/2019 JAIMEE FUENTES MD Ot I70.262 ATHSCL [place] ARTERIES OF EXTREMITIES W 09/25/2019 JAIMEE FUENTES MD, Ot I73 .1 THROMBOANGIITIS OBLITERANS [BUERGER'S DI 09/25/2019 JAIMEE FUENTES MD, Ot J44 .9 CHRONIC OBSTRUCTIVE PULMONARY DISEASE, U 09/25/2019 JAIMEE FUENTES MD, Ot L97.422 NON-PRS CHR ULCER OF LEFT HEEL AND MIDFO 09/25/2019 JAIMEE FUENTES MD, Ot L97.522 NON-PRS CHRONIC ULCER OTH PRT LEFT FOOT 09/25/2019 JAIMEE FUENTES MD, Ot T65.222A TOXIC EFFECT OF TOBACCO CIGARETTES, SELF 09/26/2019 JAIMEE FUENTES MD Ot F17.218 NICOTINE DEPENDENCE, CIGARETTES, W OTH D 09/26/2019 JAIMEE FUENTES MD Ot I70.262 ATHSCL [place] ARTERIES OF EXTREMITIES W 09/26/2019 JAIMEE FUENTES MD Ot I73 .1 THROMBOANGIITIS OBLITERANS [BUERGER'S DI 09/26/2019 JAIMEE FUENTES MD, Ot J44 .9 CHRONIC OBSTRUCTIVE PULMONARY DISEASE, U 09/26/2019 JAIMEE FUENTES MD, Ot L97.522 NON-PRS CHRONIC ULCER OTH PRT LEFT FOOT 09/26/2019 JAIMEE FUENTES MD Ot T65.222A TOXIC EFFECT OF TOBACCO CIGARETTES, SELF 10/10/2019 JAIMEE FUENTES MD Ot F17.218 NICOTINE DEPENDENCE, CIGARETTES, W OTH D 10/10/2019 JAIMEE FUENTES MD Ot I70.262 ATHSCL [place] ARTERIES OF EXTREMITIES W 10/10/2019 JAIMEE FUENTES MD Ot I73 .1 THROMBOANGIITIS OBLITERANS [BUERGER'S DI 10/10/2019 JAIMEE FUENTES MD Ot J44 .9 CHRONIC OBSTRUCTIVE PULMONARY DISEASE, U 10/10/2019 JAIMEE FUENTES MD Ot L97.522 NON-PRS CHRONIC ULCER OTH PRT LEFT FOOT 10/10/2019 JAIMEE FUENTES MD Ot T65.222A TOXIC EFFECT OF TOBACCO CIGARETTES, SELF 10/10/2019 JAIMEE FUENTES MD Ot F17.218 NICOTINE DEPENDENCE, CIGARETTES, W OTH D 10/10/2019 JAIMEE FUENTES MD Ot I70.234 ATHSCL [place] ART OF RIGHT LEG W ULCER O 10/10/2019 JAIMEE FUENTES MD Ot I73 .1 THROMBOANGIITIS OBLITERANS [BUERGER'S DI 10/10/2019 JAIMEE FUENTES MD, Ot J44 .9 CHRONIC OBSTRUCTIVE PULMONARY DISEASE, U 10/10/2019 JAIMEE FUENTES MD, Ot L97.522 NON-PRS CHRONIC ULCER OTH PRT LEFT FOOT 10/10/2019 JAIMEE FUENTES MD, Ot T65.222A TOXIC EFFECT OF TOBACCO CIGARETTES, SELF 11/05/2019 LISSA LAZAR MD Ot E11. 40 TYPE 2 DIABETES MELLITUS WITH DIABETIC N 11/05/2019 LISSA LAZAR MD Ot F10. 20 ALCOHOL DEPENDENCE, UNCOMPLICATED 11/05/2019 LISSA LAZAR MD Ot F17.210 NICOTINE DEPENDENCE, CIGARETTES, UNCOMPL 11/05/2019 LISSA LAZAR MD Ot I10 ESSENTIAL (PRIMARY) HYPERTENSION 11/05/2019 LISSA LAZAR MD Ot K21. 9 GASTRO-ESOPHAGEAL REFLUX DISEASE WITHOUT 11/05/2019 LISSA LAZAR MD Ot R11. 0 NAUSEA 11/05/2019 LISSA LAZAR MD Ot Y90. 8 BLOOD ALCOHOL LEVEL OF 240 MG/100 ML OR 11/05/2019 LISSA LAZAR MD Ot Z86. 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 40 TYPE 2 DIABETES MELLITUS WITH DIABETIC N 11/12/2019 LISSA LAZAR MD Ot F10. 20 ALCOHOL DEPENDENCE, UNCOMPLICATED 11/12/2019 LISSA LAZAR MD Ot F17.210 NICOTINE DEPENDENCE, CIGARETTES, UNCOMPL 11/12/2019 LISSA LAZAR MD Ot I10 ESSENTIAL (PRIMARY) HYPERTENSION 11/12/2019 LISSA LAZAR MD Ot K21. 9 GASTRO-ESOPHAGEAL REFLUX DISEASE WITHOUT 11/12/2019 LISSA LAZAR MD Ot R11. 0 NAUSEA 11/12/2019 LISSA LAZAR MD Ot Y90. 8 BLOOD ALCOHOL LEVEL OF 240 MG/100 ML OR 11/12/2019 LISSA LAZAR MD Ot Z86. 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 40 TYPE 2 DIABETES MELLITUS WITH DIABETIC N 11/13/2019 LISSA LAZAR MD Ot F10. 20 ALCOHOL DEPENDENCE, UNCOMPLICATED 11/13/2019 LISSA LAZAR MD Ot F17.210 NICOTINE DEPENDENCE, CIGARETTES, UNCOMPL 11/13/2019 LISSA LAZAR MD Ot I10 ESSENTIAL (PRIMARY) HYPERTENSION 11/13/2019 LISSA LAZAR MD Ot K21. 9 GASTRO-ESOPHAGEAL REFLUX DISEASE WITHOUT 11/13/2019 LISSA LAZAR MD Ot R11. 0 NAUSEA 11/13/2019 LISSA LAZAR MD Ot Y90. 8 BLOOD ALCOHOL LEVEL OF 240 MG/100 ML OR 11/13/2019 LISSA LAZAR MD Ot Z86. 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 12/07/2019 ERIBERTO SCOTT MD Ot I96 GANGRENE, NOT ELSEWHERE CLASSIFIED 12/07/2019 ERIBERTO SCOTT MD Ot L03.032 CELLULITIS OF LEFT TOE 12/07/2019 ERIBERTO SCOTT MD Ot L97.522 NON- PRS CHRONIC ULCER OTH PRT LEFT FOOT 12/07/2019 ERIBERTO SCOTT MD Ot L97.523 NON- PRS CHRONIC ULCER OTH PRT LEFT FOOT 12/07/2019 ERIBERTO SCOTT MD Ot Z72.0 TOBACCO USE 12/07/2019 ERIBERTO SCOTT MD Ot 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 12/07/2019 LO , KIRTIE Ot L03.032 CELLULITIS OF LEFT TOE 12/07/2019 LO , LATOYATIE Ot L97.522 NON- PRS CHRONIC ULCER OTH PRT LEFT FOOT 12/07/2019 LO , KIRTIE Ot L97.523 NON- PRS CHRONIC ULCER OTH PRT LEFT FOOT 12/07/2019 LO , KIRTIE Ot R78.81 BACTEREMIA 12/07/2019 LO , KIRTIE Ot Z72.0 TOBACCO USE 12/21/2019 LO , KIRTIE Ot 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 12/21/2019 LO , KIRTIE Ot I73.9 PERIPHERAL VASCULAR DISEASE, UNSPECIFIED 12/21/2019 SONIA WILL, KIRTIE Ot L03.032 CELLULITIS OF LEFT TOE 12/21/2019 SONIA WILL, LATOYATIE Ot L97.522 NON- PRS CHRONIC ULCER OTH PRT LEFT FOOT 12/21/2019 LO , KIRTIE Ot L97.523 NON- PRS CHRONIC ULCER OTH PRT LEFT FOOT 12/21/2019 SONIA WILL, KIRTIE Ot L97.529 NON- PRESSURE CHRONIC ULCER OTH PRT LEFT 12/21/2019 LO , KIRTIE Ot R78.81 BACTEREMIA 12/21/2019 LO , LATOYATIE Ot Z72.0 TOBACCO USE 12/26/2019 SONIA WILL, LATOYATIE Ot I96 GANGRENE, NOT ELSEWHERE CLASSIFIED 12/26/2019 SONIA WILL, KIRTIE Ot L03.032 CELLULITIS OF LEFT TOE 12/26/2019 SONIA WILL, LATOYATIE Ot L97.522 NON- PRS CHRONIC ULCER OTH PRT LEFT FOOT 12/26/2019 SONIA WILL, KIRTIE Ot L97.523 NON- PRS CHRONIC ULCER OTH PRT LEFT FOOT 12/26/2019 LO , KIRTIE Ot Z72.0 TOBACCO USE 12/26/2019 LO , LATOYATIE Ot 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 12/26/2019 SONIA WILL, KIRTIE Ot L03.032 CELLULITIS OF LEFT TOE 12/26/2019 SONIA WILL, LATOYATIE Ot L97.522 NON- PRS CHRONIC ULCER OTH PRT LEFT FOOT 12/26/2019 SONIA WILL, KIRTIE Ot L97.523 NON- PRS CHRONIC ULCER OTH PRT LEFT FOOT 12/26/2019 LO , ERIBERTO Ot R78.81 BACTEREMIA 12/26/2019 LO , ERIBERTO Ot Z72.0 TOBACCO USE 01/14/2020 SONIA WILL, ERIBERTO Ot 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 01/14/2020 LO , ERIBERTO Ot I73.9 PERIPHERAL VASCULAR DISEASE, UNSPECIFIED 01/14/2020 SONIA WILL, ERIBERTO Ot I96 GANGRENE, NOT ELSEWHERE CLASSIFIED 01/14/2020 SONIA WILL, ERIBERTO Ot L03.032 CELLULITIS OF LEFT TOE 01/14/2020 SONIA WILL, ERIBERTO Ot L97.523 NON- PRS CHRONIC ULCER OTH PRT LEFT FOOT 01/14/2020 LO , ERIBERTO Ot L97.528 NON- PRS CHRONIC ULCER OTH PRT LEFT FOOT 01/14/2020 SONIA WILL, LATOYATIE Ot R60.0 LOCALIZED EDEMA 01/14/2020 SONIA WILL, ERIBERTO Ot R78.81 BACTEREMIA 01/14/2020 LO , ERIBERTO Ot Z72.0 TOBACCO USE 01/23/2020 SONIA WILL, LATOYATIE Ot I96 GANGRENE, NOT ELSEWHERE CLASSIFIED 01/23/2020 LO , ERIBERTO Ot L03.032 CELLULITIS OF LEFT TOE 01/23/2020 LO , ERIBERTO Ot L97.522 NON- PRS CHRONIC ULCER OTH PRT LEFT FOOT 01/23/2020 SONIA WILL, ERIBERTO Ot L97.523 NON- PRS CHRONIC ULCER OTH PRT LEFT FOOT 01/23/2020 SONIA WILL, LATOYATIE Ot R60.0 LOCALIZED EDEMA 01/23/2020 SONIA WILL, ERIBERTO Ot R78.81 BACTEREMIA 01/23/2020 SONIA WILL, LATOYATIE Ot Z72.0 TOBACCO USE Procedures There is no data. Results Test Result Range UA W/ MICROSCOPY - 02/13/19 12:27 COLOR TNP NRG COMMENTS NRG VITAMIN B12/FOLATE, SERUM PANEL - 12:27 VITAMIN B12 573 pg/mL 200-1100 FOLATE, SERUM 4.9 ng/mL NRG Complete blood count (CBC) with automate d white blood cell (WBC) differential - 05/23/19 16:10 Blood leukocytes automated count (number/volume) 4.7 10*3/uL 4.3-11.0 Blood erythrocytes automated count (number/volume) 4.03 10*6/uL 4.35-5.85 Venous blood hemoglobin measurement (mass/volume) 15.2 g/dL 13.3-17.7 Blood hematocrit (volume fraction) 44 % 40-54 Automated erythrocyte mean corpuscular volume 110 [foz_us] 80-99 Automated erythrocyte mean corpuscular h emoglobin (mass per erythrocyte) 38 pg 25-34 Automated erythrocyte mean corpuscular h emoglobin concentration measurement (mass/volume) 34 g/dL 32-36 Automated erythrocyte distribution width ratio 13. 9 % 10.0- 14.5 Automated blood platelet count (count/volume) 169 10*3/uL 130-400 Automated blood platelet mean volume measurement 10.6 [foz_us] 7.4-10.4 Automated blood neutrophils/100 leukocytes 56 % 42-75 Automated blood lymphocytes/100 leukocytes 33 % 12-44 Blood monocytes/100 leukocytes 8 % 0-12 Automated blood eosinophils/100 leukocytes 3 % 0-10 Automated blood basophils/100 leukocytes 1 % 0-10 Blood neutrophils automated count (number/volume) 2.6 10*3 1.8-7.8 Blood lymphocytes automated count (number/volume) 1.6 10*3 1.0-4.0 Blood monocytes automated count (number/volume) 0. 4 10*3 0.0-1.0 Automated eosinophil count 0.1 10*3/uL 0 .0-0.3 Automated blood basophil count (count/volume) 0.0 10*3/uL 0.0-0.1 PT panel in platelet poor plasma by coag ulation assay - 05/23/19 16:10 Prothrombin time (PT) in platelet poor plasma by coagu lation assay 13.3 s 12.2-14.7 INR in platelet poor plasma or blood by coagulation as say 1.0 0.8-1.4 Activated partial thromboplastin time (a PTT) in platelet poor plasma bycoagulation assay - 05/23/19 16:10 Activated partial thromboplastin time (a PTT) in platelet poor plasma bycoagulation assay 26 s 24-35 Comprehensive metabolic panel - 05/23/19 16:10 Serum or plasma sodium measurement (moles/volume) 145 mmol/L 135-145 Serum or plasma potassium measurement (moles/volume) 3.8 mmol/L 3.6-5.0 Serum or plasma chloride measurement (moles/volume) 103 mmol/L 98-107 Carbon dioxide 23 mmol/L 21-32 Serum or plasma anion gap determination (moles/volume) 19 mmol/L 5-14 Serum or plasma urea nitrogen measurement (mass/volume ) 5 mg/dL 7-18 Serum or plasma creatinine measurement (mass/volume) 0.54 mg/dL 0.60-1.30 Serum or plasma urea nitrogen/creatinine mass ratio 9 NRG Serum or plasma creatinine measurement w ith calculation of estimated glomerular filtration rate > NRG Serum or plasma glucose measurement (mass/volume) 101 mg/dL 70-105 Serum or plasma calcium measurement (mass/volume) 8.9 mg/dL 8.5-10.1 Serum or plasma total bilirubin measurement (mass/volu me) 0.4 mg/dL 0.1-1.0 Serum or plasma alkaline phosphatase dejuan surement (enzymatic activity/volume) 108 U/L 40-136 Serum or plasma aspartate aminotransfera se measurement (enzymatic activity/volume) 52 U/L 5-34 Serum or plasma alanine aminotransferase measurement (enzymatic activity/volume) 23 U/L 0-55 Serum or plasma protein measurement (mass/volume) 7.0 g/dL 6.4-8.2 Serum or plasma albumin measurement (mass/volume) 3.9 g/dL 3.2-4.5 CALCIUM CORRECTED 9.0 mg/dL 8.5-10.1 Serum or plasma troponin i.cardiac measu rement (mass/volume) - 05/23/19 16:10 Serum or plasma troponin i.cardiac measurement (mass/v olume) < ng/mL <0.30 PROBNP FS - 05/23/19 16:10 PROBNP FS 128.7 pg/mL <75.0 Complete blood count (CBC) with automate d white blood cell (WBC) differential - 08/10/19 11:25 Blood leukocytes automated count (number/volume) 7.4 10*3/uL 4.3-11.0 Blood erythrocytes automated count (number/volume) 3.53 10*6/uL 4.35-5.85 Venous blood hemoglobin measurement (mass/volume) 12.8 g/dL 13.3-17.7 Blood hematocrit (volume fraction) 38 % 40-54 Automated erythrocyte mean corpuscular volume 107 [foz_us] 80-99 Automated erythrocyte mean corpuscular h emoglobin (mass per erythrocyte) 36 pg 25-34 Automated erythrocyte mean corpuscular h emoglobin concentration measurement (mass/volume) 34 g/dL 32-36 Automated erythrocyte distribution width ratio 13. 5 % 10.0- 14.5 Automated blood platelet count (count/volume) 326 10*3/uL 130-400 Automated blood platelet mean volume measurement 10.7 [foz_us] 7.4-10.4 Automated blood neutrophils/100 leukocytes 78 % 42-75 Automated blood lymphocytes/100 leukocytes 13 % 12-44 Blood monocytes/100 leukocytes 7 % 0-12 Automated blood eosinophils/100 leukocytes 0 % 0-10 Automated blood basophils/100 leukocytes 1 % 0-10 Blood neutrophils automated count (number/volume) 5.8 10*3 1.8-7.8 Blood lymphocytes automated count (number/volume) 1.0 10*3 1.0-4.0 Blood monocytes automated count (number/volume) 0. 5 10*3 0.0-1.0 Automated eosinophil count 0.0 10*3/uL 0 .0-0.3 Automated blood basophil count (count/volume) 0.0 10*3/uL 0.0-0.1 Blood lactic acid measurement (moles/vol ume) - 08/10/19 11:25 Blood lactic acid measurement (moles/volume) 2.45 mmol/L 0.50-2.00 Comprehensive metabolic panel - 08/10/19 11:25 Serum or plasma sodium measurement (moles/volume) 134 mmol/L 135-145 Serum or plasma potassium measurement (moles/volume) 3.5 mmol/L 3.6-5.0 Serum or plasma chloride measurement (moles/volume) 97 mmol/L 98-107 Carbon dioxide 24 mmol/L 21-32 Serum or plasma anion gap determination (moles/volume) 13 mmol/L 5-14 Serum or plasma urea nitrogen measurement (mass/volume ) 5 mg/dL 7-18 Serum or plasma creatinine measurement (mass/volume) 0.50 mg/dL 0.60-1.30 Serum or plasma urea nitrogen/creatinine mass ratio 10 NRG Serum or plasma creatinine measurement w ith calculation of estimated glomerular filtration rate > NRG Serum or plasma glucose measurement (mass/volume) 94 mg/dL 70-105 Serum or plasma calcium measurement (mass/volume) 8.7 mg/dL 8.5-10.1 Serum or plasma total bilirubin measurement (mass/volu me) 0.4 mg/dL 0.1-1.0 Serum or plasma alkaline phosphatase dejuan surement (enzymatic activity/volume) 108 U/L 40-136 Serum or plasma aspartate aminotransfera se measurement (enzymatic activity/volume) 46 U/L 5-34 Serum or plasma alanine aminotransferase measurement (enzymatic activity/volume) 16 U/L 0-55 Serum or plasma protein measurement (mass/volume) 6.8 g/dL 6.4-8.2 Serum or plasma albumin measurement (mass/volume) 3.5 g/dL 3.2-4.5 CALCIUM CORRECTED 9.1 mg/dL 8.5-10.1 Serum or plasma ethanol measurement (mas s/volume) - 08/10/19 11:25 Serum or plasma ethanol measurement (mass/volume) 7 mg/dL <10 Erythrocyte sedimentation rate by nikky gren method - 08/10/19 11:25 Erythrocyte sedimentation rate by westergren method 31 mm 0- 30 Bacterial blood culture - 08/10/19 11:25 Bacterial blood culture NG NRG Bacterial blood culture - 08/10/19 11:50 Bacterial blood culture NG NRG Complete blood count (CBC) with automate d white blood cell (WBC) differential - 11/05/19 17:05 Blood leukocytes automated count (number/volume) 6.7 10*3/uL 4.3-11.0 Blood erythrocytes automated count (number/volume) 3.62 10*6/uL 4.35-5.85 Venous blood hemoglobin measurement (mass/volume) 13.5 g/dL 13.3-17.7 Blood hematocrit (volume fraction) 37 % 40-54 Automated erythrocyte mean corpuscular volume 103 [foz_us] 80-99 Automated erythrocyte mean corpuscular h emoglobin (mass per erythrocyte) 37 pg 25-34 Automated erythrocyte mean corpuscular h emoglobin concentration measurement (mass/volume) 36 g/dL 32-36 Automated erythrocyte distribution width ratio 17. 1 % 10.0- 14.5 Automated blood platelet count (count/volume) 131 10*3/uL 130-400 Automated blood platelet mean volume measurement 10.6 [foz_us] 7.4-10.4 Automated blood neutrophils/100 leukocytes 63 % 42-75 Automated blood lymphocytes/100 leukocytes 28 % 12-44 Blood monocytes/100 leukocytes 8 % 0-12 Automated blood eosinophils/100 leukocytes 1 % 0-10 Automated blood basophils/100 leukocytes 0 % 0-10 Blood neutrophils automated count (number/volume) 4.2 10*3 1.8-7.8 Blood lymphocytes automated count (number/volume) 1.9 10*3 1.0-4.0 Blood monocytes automated count (number/volume) 0. 6 10*3 0.0-1.0 Automated eosinophil count 0.1 10*3/uL 0 .0-0.3 Automated blood basophil count (count/volume) 0.0 10*3/uL 0.0-0.1 PT panel in platelet poor plasma by coag ulation assay - 11/05/19 17:05 Prothrombin time (PT) in platelet poor plasma by coagu lation assay 12.7 s 12.2-14.7 INR in platelet poor plasma or blood by coagulation as say 0.9 0.8-1.4 Comprehensive metabolic panel - 11/05/19 17:05 Serum or plasma sodium measurement (moles/volume) 136 mmol/L 135-145 Serum or plasma potassium measurement (moles/volume) 3.1 mmol/L 3.6-5.0 Serum or plasma chloride measurement (moles/volume) 97 mmol/L 98-107 Carbon dioxide 21 mmol/L 21-32 Serum or plasma anion gap determination (moles/volume) 18 mmol/L 5-14 Serum or plasma urea nitrogen measurement (mass/volume ) 5 mg/dL 7-18 Serum or plasma creatinine measurement (mass/volume) 0.36 mg/dL 0.60-1.30 Serum or plasma urea nitrogen/creatinine mass ratio 14 NRG Serum or plasma creatinine measurement w ith calculation of estimated glomerular filtration rate > NRG Serum or plasma glucose measurement (mass/volume) 109 mg/dL 70-105 Serum or plasma calcium measurement (mass/volume) 8.6 mg/dL 8.5-10.1 Serum or plasma total bilirubin measurement (mass/volu me) 1.2 mg/dL 0.1-1.0 Serum or plasma alkaline phosphatase dejuan surement (enzymatic activity/volume) 152 U/L 40-136 Serum or plasma aspartate aminotransfera se measurement (enzymatic activity/volume) 48 U/L 5-34 Serum or plasma alanine aminotransferase measurement (enzymatic activity/volume) 15 U/L 0-55 Serum or plasma protein measurement (mass/volume) 6.8 g/dL 6.4-8.2 Serum or plasma albumin measurement (mass/volume) 3.7 g/dL 3.2-4.5 CALCIUM CORRECTED 8.8 mg/dL 8.5-10.1 Serum or plasma ethanol measurement (mas s/volume) - 11/05/19 17:05 Serum or plasma ethanol measurement (mass/volume) 321 mg/dL <10 Lipase - 11/05/19 17:05 Lipase 26 U/L 8-78 Bacterial blood culture - 11/05/19 17:05 FREE TEXT EXTERNAL NO SUSCEPTIBILITY PERFORMED NRG QUANTITY OF GROWTH Isolated NRG Bacterial blood culture [id number] NR [facility] - 11/05/19 17:0 5 Gentamicin susceptibility test by minimum inhibitory c oncentration <= NRG Trimethoprim/sulfamethoxazole susceptibi lity test by minimum inhibitoryconcentration S NRG Levofloxacin susceptibility test by minimum inhibitory concentration <= NRG Ceftriaxone susceptibility test by minimum inhibitory concentration 8 NRG Ciprofloxacin susceptibility test by minimum inhibitor y concentration S NRG Meropenem susceptibility test by minimum inhibitory co ncentration <= NRG Imipenem susceptibility test by minimum inhibitory con centration S NRG CMP - 11/21/19 12:01 GLUCOSE 92 mg/dL 65-99 UREA NITROGEN (BUN) 14 mg/dL 7-25 CREATININE 0.37 mg/dL 0.70-1.33 eGFR NON-AFR. ARMENIAN 138 mL/min/1.73m2 > OR = 60 eGFR 160 mL/min/1.73m2 > OR = 60 BUN/CREATININE RATIO 38 (calc) 6-22 SODIUM 138 mmol/L 135-146 POTASSIUM 5.1 mmol/L 3.5-5.3 CHLORIDE 103 mmol/L 98-110 CARBON DIOXIDE 28 mmol/L 20-32 CALCIUM 8.6 mg/dL 8.6-10.3 PROTEIN, TOTAL 5.9 g/dL 6.1-8.1 ALBUMIN 3.4 g/dL 3.6-5.1 GLOBULIN 2.5 g/dL (calc) 1.9-3.7 ALBUMIN/GLOBULIN RATIO 1.4 (calc) 1.0-2. 5 BILIRUBIN, TOTAL 0.4 mg/dL 0.2-1.2 ALKALINE PHOSPHATASE 119 U/L 40-115 AST 64 U/L 10-35 ALT 23 U/L 9-46 CBC - 11/21/19 12:01 WHITE BLOOD CELL COUNT 6.2 Thousand/uL 3 .8-10.8 RED BLOOD CELL COUNT 3.05 Million/uL 4.2 0-5.80 HEMOGLOBIN 11.8 g/dL 13.2-17.1 HEMATOCRIT 33.7 % 38.5-50.0 MCV 110.5 fL 80.0-100.0 MCH 38.7 pg 27.0-33.0 MCHC 35.0 g/dL 32.0-36.0 RDW 15.7 % 11.0-15.0 PLATELET COUNT 235 Thousand/uL 140-400 MPV 11.2 fL 7.5-12.5 ABSOLUTE NEUTROPHILS 4253 cells/uL 1500- 7800 ABSOLUTE LYMPHOCYTES 1252 cells/uL 850-3 900 ABSOLUTE MONOCYTES 608 cells/uL 200-950 ABSOLUTE EOSINOPHILS 37 cells/uL 15-500 ABSOLUTE BASOPHILS 50 cells/uL 0-200 NEUTROPHILS 68.6 % NRG LYMPHOCYTES 20.2 % NRG MONOCYTES 9.8 % NRG EOSINOPHILS 0.6 % NRG BASOPHILS 0.8 % NRG Encounters ACCT No. Visit Date/Time Discharge Status Pt. Type Provider Facility Loc./Unit Complaint [id number] 08/06/2019 10:00:00 08/06/2019 23:59: 59 CLS [facility] [id number] 11/21/2019 10:20:00 Document Registration [id number] 02/13/2019 11:15:00 Document Registration [id number] 01/17/2020 13:04:00 23:59:59 CLS Outpatient JAIMEE FUENTES MD Via [facility] [id number] 01/10/2020 13:25:00 23:59:59 CLS Outpatient ERIBERTO SCOTT MD Via [facility] [id number] 01/03/2020 12:16:00 23:59:59 CLS Outpatient ERIBERTO SCOTT MD Via [facility] [id number] 12/20/2019 14:01:00 23:59:59 CLS Outpatient ERIBERTO SCOTT MD Via [facility] [id number] 12/05/2019 13:20:00 23:59:59 CLS Outpatient ERIBERTO SCOTT MD Via [facility] RAD LEFT, CHRONIC ULCER [id number] 12/05/2019 12:08:00 23:59:59 CLS Outpatient ERIBERTO SCOTT MD Via [facility] [id number] 11/05/2019 16:32:00 17:50:00 DIS Emergency LISSA LAZAR MD Via [facility] ER FS NAUSEA [id number] 09/24/2019 13:47:00 23:59:59 CLS Outpatient JAIMEE FUENTES MD Via [facility] [id number] 09/10/2019 13:52:00 23:59:59 CLS Outpatient JAIMEE FUENTES MD Via [facility] [id number] 09/03/2019 11:41:00 23:59:59 CLS Outpatient JAIMEE FUENTES MD Via [facility] [id number] 08/27/2019 13:53:00 23:59:59 CLS Outpatient JAIMEE FUENTES MD Via [facility] [id number] 08/10/2019 10:53:00 18:35:00 DIS Emergency JOS GILL MD Via [facility] ER FS LT FOOT PAIN [id number] 08/03/2019 12:58:00 13:22:00 DIS Emergency MAGDALENOVENSTJOSÉ MIGUEL BARRIOS DO Via [facility] ER FS LT LEG PAIN [id number] 05/23/2019 15:44:00 17:22:00 DIS Emergency TESSA CERVANTES DO Via [facility] ER FS LT LEG SWELLING
== END 2020-01-25 20:21 | disposition home or self-care (01) ==
LOC: EDUNIT# 19:23 → ER FS 19:24
DX: S91.302D Unspecified open wound, left foot, subsequent encounter (principal); I73.1 Thromboangiitis obliterans [Buerger's disease]; I10 Essential (primary) hypertension; Z77.22 Contact with and (suspected) exposure to environmental tobacco smoke (acute) (chronic); Z89.611 Acquired absence of right leg above knee; Z86.73 Personal history of transient ischemic attack (TIA), and cerebral infarction without residual deficits; X58.XXXD Exposure to other specified factors, subsequent encounter

== ENCOUNTER 2020-02-16 19:00 | Emergency (ER) | payer MEDICAID ==
[~2020-02-16] VITALS: Ht 177.8 cm; Wt 48.7 kg
--- OUTSIDE RECORDS SUMMARY | 2020-02-16 19:05 | XMS REPORT | Continuity of Care Document ---
Author Organization Unknown Address Unknown Phone Unavailable Allergies Active Description Code Type Severity Reaction Onset Reported/Identified Relationship to Patient Clinical Status Yes No Known Drug Allergies [id number] Drug Allergy Unknown N/A 05/23/2019 Medications There is no data. Problems Date Dx Coded Attending Type Code Diagnosis Diagnosed By 05/23/2019 CERVANTES DO, TESSA Ot F10.20 ALCOHOL DEPENDENCE, UNCOMPLICATED 05/23/2019 CERVANTES [...] RIGHT LEG ABOVE KNEE 05/29/2019 CERVANTES DO, TESAS Ot F10.20 ALCOHOL DEPENDENCE, UNCOMPLICATED 05/29/2019 CERVANTES [...] 09/02/2019 JAIMEE FUENTES MD Ot I70.244 ATHSCL [place] ART OF LEFT LEG W ULCER OF [...] 09/25/2019 JAIMEE FUENTES MD Ot I70.262 ATHSCL [place] ARTERIES OF EXTREMITIES W 09/25/2019 JAIMEE FUENTES [...] 09/26/2019 JAIMEE FUENTES MD Ot I70.262 ATHSCL [place] ARTERIES OF EXTREMITIES W 09/26/2019 JAIMEE FUENTES MD Ot I73 .1 THROMBOANGIITIS OBLITERANS [BUERGER'S DI 09/26/2019 JAIMEE FUENTES MD, Ot J44 .9 CHRONIC OBSTRUCTIVE PULMONARY DISEASE, U 09/26/2019 JAIMEE FUENTES MD, Ot L97.522 NON-PRS CHRONIC ULCER OTH PRT LEFT FOOT 09/26/2019 JAIMEE FUENTSE MD Ot T65.222A TOXIC EFFECT OF TOBACCO CIGARETTES, SELF 10/10/2019 JAIMEE FUENTES MD Ot F17.218 NICOTINE DEPENDENCE, CIGARETTES, W OTH D 10/10/2019 JAIMEE FUENTES MD Ot I70.262 ATHSCL [place] ARTERIES OF EXTREMITIES W 10/10/2019 JAIMEE FUENTES [...] 10/10/2019 JAIMEE FUENTES MD Ot I70.234 ATHSCL [place] ART OF RIGHT LEG W ULCER O [...] DIABETES MELLITUS WITH DIABETIC N 11/12/2019 LISSA LAAZR MD Ot F10. 20 ALCOHOL DEPENDENCE, UNCOMPLICATED [...] MD Ot R11. 0 NAUSEA 11/13/2019 LISSA LZAAR MD Ot Y90. 8 BLOOD ALCOHOL LEVEL OF 240 MG/100 ML OR 11/13/2019 LISAS LAZAR MD Ot Z86. 73 PRSNL HX [...] CELLULITIS OF LEFT TOE 12/21/2019 SONIA WILL, LTAOYATIE Ot L97.522 NON- PRS CHRONIC ULCER OTH [...] LEFT FOOT 12/26/2019 LO , KIRTIE Ot R78.81 BACTEREMIA 12/26/2019 LO , KIRTIE Ot Z72.0 TOBACCO USE 01/14/2020 LO , KIRTIE Ot 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 01/14/2020 LO , KIRTIE Ot I73.9 PERIPHERAL VASCULAR DISEASE, UNSPECIFIED 01/14/2020 LO , KIRTIE Ot I96 GANGRENE, NOT ELSEWHERE CLASSIFIED 01/14/2020 LO , KIRTIE Ot L03.032 CELLULITIS OF LEFT TOE 01/14/2020 LO , KIRTIE Ot L97.523 NON- PRS CHRONIC ULCER OTH PRT LEFT FOOT 01/14/2020 LO , KIRTIE Ot L97.528 NON- PRS CHRONIC ULCER OTH PRT LEFT FOOT 01/14/2020 LO , KIRTIE Ot R60.0 LOCALIZED EDEMA 01/14/2020 LO , KIRTIE Ot R78.81 BACTEREMIA 01/14/2020 LO , KIRTIE Ot Z72.0 TOBACCO USE 01/23/2020 LO , KIRTIE Ot I96 GANGRENE, NOT ELSEWHERE CLASSIFIED 01/23/2020 LO , KIRTIE Ot L03.032 CELLULITIS OF LEFT TOE 01/23/2020 LO , KIRTIE Ot L97.522 NON- PRS CHRONIC ULCER OTH PRT LEFT FOOT 01/23/2020 LO , KIRTIE Ot L97.523 NON- PRS CHRONIC ULCER OTH PRT LEFT FOOT 01/23/2020 LO , KIRTIE Ot R60.0 LOCALIZED EDEMA 01/23/2020 SONIA WILL, KIRTIE Ot R78.81 BACTEREMIA 01/23/2020 LO , KIRTIE Ot Z72.0 TOBACCO USE 01/29/2020 Ot I10 ESSENT IAL (PRIMARY) HYPERTENSION 01/29/2020 Ot I73.1 THRO MBOANGIITIS OBLITERANS [BUERGER'S DI 01/29/2020 Ot S91.302D U NSPECIFIED OPEN WOUND, LEFT FOOT, SUBSE 01/29/2020 Ot X58.XXXD E XPOSURE TO OTHER SPECIFIED FACTORS, SUB 01/29/[address] W AND EXPSR TO ENVIRON TOBACCO SMO 01/29/2020 Ot 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 Results Test [...] - 08/10/19 11:50 Bacterial blood culture NG NR Complete blood count (CBC) with automate d [...] SUSCEPTIBILITY PERFORMED NRG QUANTITY OF GROWTH Isolated NR Bacterial blood culture [id number] NR [facility] - 11/05/19 [...] 7-25 CREATININE 0.37 mg/dL 0.70-1.33 eGFR NON-AFR. [place] 138 mL/min/1.73m2 > OR = 60 eGFR [...] Status Pt. Type Provider Facility Loc./Unit Complaint [id number] 01/30/2020 09:00:00 01/30/2020 23:59: 59 CLS Outpatient [facility] [id number] 11/21/2019 10:20:00 Document Registration [id number] 02/13/2019 11:15:00 Document Registration [id number] 01/17/2020 13:04:00 23:59:59 CLS Outpatient JAIMEE FUENTES MD [facility] [id number] 01/10/2020 13:25:00 23:59:59 CLS Outpatient ERIBERTO SCOTT MD [facility] [id number] 01/03/2020 12:16:00 23:59:59 CLS Outpatient ERIBERTO SCOTT MD [facility] [id number] 12/20/2019 14:01:00 23:59:59 CLS Outpatient ERIBERTO SCOTT MD [facility] [id number] 12/05/2019 13:20:00 23:59:59 CLS Outpatient ERIBERTO SCOTT MD Via [facility] RAD LEFT, CHRONIC ULCER [id number] 12/05/2019 12:08:00 23:59:59 CLS Outpatient ERIBERTO SCOTT MD [facility] [id number] 11/05/2019 16:32:00 17:50:00 DIS Emergency LISSA LAZAR MD Via [facility] ER FS NAUSEA [id number] 09/24/2019 13:47:00 23:59:59 CLS Outpatient JAIMEE FUENTES MD Via [facility] [id number] 09/10/2019 13:52:00 23:59:59 CLS Outpatient JAIMEE FUENTES MD [facility] [id number] 09/03/2019 11:41:00 23:59:59 CLS Outpatient JAIMEE FUENTES MD Via [facility] [id number] 08/27/2019 13:53:00 23:59:59 CLS Outpatient JAIMEE FUENTES MD Via [facility] [id number] 08/10/2019 10:53:00 18:35:00 DIS Emergency JOS GILL MD Via [facility] ER FS LT FOOT PAIN [id number] 08/03/2019 12:58:00 13:22:00 DIS Emergency JOSÉ MIGUEL BELLO DO Via [facility] ER FS LT LEG PAIN [id number] 05/23/2019 15:44:00 17:22:00 DIS Emergency TESSA CERVANTES DO Via [facility] ER FS LT LEG SWELLING [id number] 01/25/2020 19:24:00 Document Registration
[2020-02-16 19:08] VITALS: BP 121/93
--- NOTE | 2020-02-16 19:14 | NUR ---
pt brought in per ems and now states he wants to go home and is refusing treatment
[2020-02-16] MEDS ORDERED: NS IV 500 ML 500 ML IV SCH (19:15)
--- NOTE | 2020-02-16 19:16 | ED Integumentary General ---
General Chief Complaint: Skin/Wound Problems History of Present Illness Date Seen by Provider: Feb 16, 2020 Time Seen by Provider: 19:05 Initial Comments Discharged from [facility] yesterday after having a partial left foot amputation (and likely a bypass of his popliteal a.) .......called EMS to come to [facility] and shortly after initial eval he states he wants to go home and wants nothing done. Hx of alcoholism and R above the knee amputation. Currently intoxicated, admits to drinking whiskey today. Allergies and Home Medications Allergies Coded Allergies: No Known Drug Allergies (Unverified , 05/23/19) Home Medications Bacitracin 28.4 Gm Oint...g., 28.4 GM TP BID Prescribed by: JOSÉ MIGUEL BELLO on 08/03/19 1320 Cephalexin 500 Mg Capsule, 500 MG PO TID Prescribed by: TESSA CERVANTES on 05/23/19 171 Furosemide 20 Mg Tablet, 20 MG PO DAILY Prescribed by: TESSA CERVANTES on 05/23/191715 Patient Home Medication List Home Medication List Reviewed: Yes Review of Systems Review of Systems Constitutional: No chills, No fever; malaise Respiratory: No cough, No short of breath Cardiovascular: No chest pain, No edema, No palpitations, No syncope Gastrointestinal: No abdominal pain, No constipation, No diarrhea, No vomiting Musculoskeletal: other (LE pain (left foot)) Psychiatric/Neurological: See HPI Past Xsfypmm-Koubqs-Bxpxlc Hx Past Med/Social Hx: Reviewed Nursing Past Med/Soc Hx Patient Social History Alcohol Use: Denies Use Number of Drinks Today: GG Alcohol Beverage of Choice: Whiskey Recreational Drug Use: No Type Used: Cigarettes 2nd Hand Smoke Exposure: Yes Recent Hopitalizations: No Physical Abuse: No Sexual Abuse: No Mistreated: No Fear: No Seasonal Allergies Seasonal Allergies: No Past Medical History Surgeries: Yes (R Above the knee amputation, ) Orthopedic Respiratory: No (Hypoxia) Cardiac: Yes (Buerger Disease) Hypertension, Peripheral Vascular Neurological: Yes Stroke Genitourinary: No Gastrointestinal: Yes (Chronic Alcohol gastritis) Gastroesophageal Reflux Musculoskeletal: Yes (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, Insulin dep HEENT: No Cancer: No Psychosocial: Yes (Substance abuse, Alcohol dependence) Integumentary: Yes (Cellulitis) Blood Disorders: No Physical Exam Vital Signs Capillary Refill : General Appearance: no apparent distress, thin HEENT: normal ENT inspection Neck: non-tender, supple Cardiovascular: regular rate, rhythm, no edema Respiratory: chest non-tender, lungs clear Gastrointestinal: non tender, soft; No guarding, No rebound, No tenderness Neurologic/Psychiatric: alert, normal mood/affect Skin: normal color, warm/dry Departure Impression Primary Impression: Malaise Additional Impressions: Intoxication Peripheral vascular disease Disposition: HOME, SELF-CARE Condition: Stable Departure-Patient Inst. Referrals: NO,LOCAL PHYSICIAN (PCP/Family) Primary Care Physician Patient Instructions: Alcohol Abuse and Alcoholism (DC) JOSÉ MIGUEL BELLO DO Feb 16, 2020 19:16
== END 2020-02-16 19:22 | disposition home or self-care (01) ==
LOC: EDUNIT# 19:00 → ER FS 19:01
DX: F10.229 Alcohol dependence with intoxication, unspecified (principal); R53.81 Other malaise; E11.51 Type 2 diabetes mellitus with diabetic peripheral angiopathy without gangrene; Z89.611 Acquired absence of right leg above knee; Z77.22 Contact with and (suspected) exposure to environmental tobacco smoke (acute) (chronic); Z86.73 Personal history of transient ischemic attack (TIA), and cerebral infarction without residual deficits

== ENCOUNTER 2020-02-19 17:31 | Emergency (ER) | payer MEDICAID ==
[~2020-02-19] VITALS: Ht 177 cm; Wt 49.0 kg
[2020-02-19] MEDS ORDERED: NS IV 1000 ML 1,000 ML IV STA (17:38)
--- NOTE | 2020-02-19 17:44 | ED General ---
General Chief Complaint: Neuro-Stroke Like Symptoms Stated Complaint: RIGHT ARM WEAKNESS Source of Information: Patient, EMS, EMS Notes Reviewed, RN Notes Reviewed Exam Limitations: Intoxication History of Present Illness Date Seen by Provider: Feb 19, 2020 Time Seen by Provider: 17:42 Initial Comments This patient is a 54-year-old male with a well-known history of alcoholism presents to the emergency department complaining of numbness to his right hand. EMS reports that they were called to the scene early this morning around 8:00 for the same complaint patient was heavily intoxicated at that time refused transport. Patient admits that he is been drinking ulnae but is only had one glass of whiskey today the patient states he has not been in bed since yesterday. Some patient appears to be intoxicated which appears to be this patient's baseline. Patient is a qmuxt-zqh-erfw amputation on the right. And recently had told amputated on the left this past week. Patient has full range of motion of his right arm. And has no significant deficits and no. Patient does have old residual issues with the left arm that has been there for some time and is not a new finding. Patient understands his problems with alcoholism but stat es he still chooses to drink. We'll do medical evaluation treatment is needed. Timing/Duration: 12 Hours Severity: Mild Modifying Factors: worse with Cold Therapy, worse with Eating, worse with Immobilization, worse with Medication, worse with Movement, worse with Rest, worse with Other Associated Systoms: No Denies Symptoms, No Chest Pain, No Cough, No Diaphoresis, No Fever/Chills, No Headaches, No Loss of Appetite, No Malaise, No Nausea/Vomiting, No Rash, No Seizure, No Shortness of Air, No Syncope, No Weakness, No Other Allergies and Home Medications Allergies Coded Allergies: No Known Drug Allergies (Unverified , 05/23/19) Home Medications Bacitracin 28.4 Gm Oint...g., 28.4 GM TP BID Prescribed by: JOSÉ MIGUEL BELLO on 08/03/19 1320 Cephalexin 500 Mg Capsule, 500 MG PO TID Prescribed by: TESSA CERVANTES on 05/23/191715 Furosemide 20 Mg Tablet, 20 MG PO DAILY Prescribed by: TESSA CERVANTES on 05/23/19 171 Patient Home Medication List Home Medication List Reviewed: Yes Review of Systems Review of Systems Constitutional: No no symptoms reported; see HPI; No chills, No diaphoresis, No dizziness, No fever, No malaise, No weakness, No weight gain, No weight loss, No other EENTM: No see HPI, No no symptoms reported, No ear discharge, No hearing loss, No ear pain, No blurred vision, No double vision, No eye pain, No tearing, No vision loss, No dental problems, No hoarseness, No mouth pain, No mouth swelling, No epistaxis, No nose congestion, No nose pain, No throat pain, No throat swelling, No other Respiratory: No no symptoms reported, No see HPI, No cough, No dyspnea on exertion, No hemoptysis, No orthopnea, No phlegm, No short of breath, No stridor, No wheezing, No other Cardiovascular: No no symptoms reported, No see HPI, No chest pain, No edema, No Hx of Intervention, No palpitations, No syncope, No vascular heart diseas, No other Gastrointestinal: No RUQ, No LUQ, No RLQ, No LLQ, No no symptoms reported, No see HPI, No abdominal pain, No constipation, No diarrhea, No dysphagia, No he matemesis, No heartburn, No jaundice, No loss of appetite, No melena, No nausea, No vomiting, No other Musculoskeletal: No no symptoms reported, No see HPI, No back pain, No gout, No joint pain, No joint swelling, No muscle pain, No muscle stiffness, No muscle cramps, No muscle twitching, No muscle weakness, No neck pain, No other Skin: No no symptoms reported, No see HPI, No change in color, No change in hair/nails, No dryness, No hx of skin cancer, No lesions, No lumps, No pruritus, No rash, No other Psychiatric/Neurological: Denies No Symptoms Reported, Denies See HPI, Denies Anxiety, Denies Depressed, Denies Emotional Problems, Denies Headache; Numbness; Denies Paresthesia, Denies Pre-Existing Deficit, Denies Seizure, Denies Tingling, Denies Tremors, Denies Weakness, Denies Other All Other Systems Reviewed Negative Unless Noted: Yes Past Epyddgt-Ponigx-Igjaay Hx Patient Social History Alcohol Beverage of Choice: Whiskey Type Used: Cigarettes 2nd Hand Smoke Exposure: Yes Recent Hopitalizations: No Seasonal Allergies Seasonal Allergies: No Past Medical History Surgeries: Yes (R Above the knee amputation, ) Orthopedic Respiratory: No (Hypoxia) Cardiac: Yes (Buerger Disease) Hypertension, Peripheral Vascular Neurological: Yes Stroke Genitourinary: No Gastrointestinal: Yes (Chronic Alcohol gastritis) Gastroesophageal Reflux Musculoskeletal: Yes (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, Insulin dep HEENT: No Cancer: No Psychosocial: Yes (Substance abuse, Alcohol dependence) Integumentary: Yes (Cellulitis) Blood Disorders: No Physical Exam Vital Signs Vital Signs - First Documented 02/19/20 17:35 Temp 37.1 Pulse 100 Resp 18 B/P (MAP) 116/75 (89) Pulse Ox 93 O2 Delivery Room Air Capillary Refill : Height, Weight, BMI Height: 5'9.50" Weight: 117lbs. oz. 53.487152ov; 15.00 BMI Method:Stated General Appearance: No Apparent Distress, WD/WN, Thin, Other (patient appears to be intoxicated) Eyes: Bilateral Eye Normal Inspection, Bilateral Eye PERRL, Bilateral Eye EOMI HEENT: PERRL/EOMI, TMs Normal, Normal ENT Inspection, Pharynx Normal Neck: Full Range of Motion, Normal Inspection, Non Tender, Supple, Carotid Bruit Respiratory: Chest Non Tender, Lungs Clear, Normal Breath Sounds, No Accessory Muscle Use, No Respiratory Distress Cardiovascular: Regular Rate, Rhythm, No Edema, No Gallop, No JVD, No Murmur, Normal Peripheral Pulses Gastrointestinal: Normal Bowel Sounds, No Organomegaly, No Pulsatile Mass, Non Tender, Soft Extremity: Normal Capillary Refill, Normal Inspection, Normal Range of Motion, Non Tender, No Calf Tenderness, No Pedal Edema Neurologic/Psychiatric: Alert, Oriented x3, No Motor/Sensory Deficits, Normal Mood/Affect Skin: Normal Color, Warm/Dry Progress/Results/Core Measures Suspected Sepsis SIRS Temperature: Pulse: Respiratory Rate: Laboratory Tests 02/19/20 17:40: White Blood Count 5.9 Blood Pressure / Mean: Laboratory Tests 02/19/20 17:40: Creatinine 0.38L, Platelet Count 706H, Total Bilirubin 0.4 Results/Orders Lab Results Laboratory Tests Test 02/19/20 17:39 02/19/20 17:40 Range/Units Glucometer 117 H 70-110 MG/DL White Blood Count 5.9 4.3-11.0 10^3/uL Red Blood Count 3.09 L 4.35-5.85 10^6/uL Hemoglobin 11.5 L 13.3-17.7 G/DL Hematocrit 34 L 40-54 % Mean Corpuscular Volume 109 H 80-99 FL Mean Corpuscular Hemoglobin 37 H 25-34 PG Mean Corpuscular Hemoglobin Concent 37 H 32-36 G/DL Red Cell Distribution Width 12.1 10.0-14.5 % Platelet Count 706 H 130-400 10^3/uL Mean Platelet Volume 9.1 7.4-10.4 FL Neutrophils (%) (Auto) 60 42-75 % Lymphocytes (%) (Auto) 29 12-44 % Monocytes (%) (Auto) 7 0-12 % Eosinophils (%) (Auto) 3 0-10 % Basophils (%) (Auto) 1 0-10 % Neutrophils # (Auto) 3.5 1.8-7.8 X 10^3 Lymphocytes # (Auto) 1.7 1.0-4.0 X 10^3 Monocytes # (Auto) 0.4 0.0-1.0 X 10^3 Eosinophils # (Auto) 0.2 0.0-0.3 10^3/uL Basophils # (Auto) 0.1 0.0-0.1 10^3/uL Sodium Level 138 135-145 MMOL/L Potassium Level 3.9 3.6-5.0 MMOL/L Chloride Level 100 98-107 MMOL/L Carbon Dioxide Level 22 21-32 MMOL/L Anion Gap 16 H 5-14 MMOL/L Blood Urea Nitrogen 6 L 7-18 MG/DL Creatinine 0.38 L 0.60-1.30 MG/DL Estimat Glomerular Filtration Rate > 60 BUN/Creatinine Ratio 16 Glucose Level 109 H 70-105 MG/DL Calcium Level 9.2 8.5-10.1 MG/DL Corrected Calcium 9.5 8.5-10.1 MG/DL Total Bilirubin 0.4 0.1-1.0 MG/DL Aspartate Amino Transf (AST/SGOT) 43 H 5-34 U/L Alanine Aminotransferase (ALT/SGPT) 20 0-55 U/L Alkaline Phosphatase 104 40-136 U/L Total Protein 6.6 6.4-8.2 GM/DL Albumin 3.6 3.2-4.5 GM/DL Amylase Level 112 25-125 U/L Lipase 22 8-78 U/L Serum Alcohol 246 H <10 MG/DL My Orders Orders - MANDA HANSEN MD Comprehensive Metabolic Panel (02/19/20 17:38) Lipase (02/19/20 17:38) Amylase (02/19/20 17:38) Hcg,Qualitative Serum (02/19/20 17:38) Ed Iv/Invasive Line Start (02/19/20 17:38) Cbc With Automated Diff (02/19/20 17:38) Alcohol (02/19/20 17:38) Drug Screen Stat (Urine) (02/19/20 17:38) Urinalysis (02/19/20 17:38) Ns Iv 1000 Ml (Sodium Chloride 0.9%) (02/19/20 17:38) Ct Head Wo (02/19/20 17:38) Ekg Tracing (02/19/20 17:38) Vital Signs/I&O 02/19/20 17:35 Temp 37.1 Pulse 100 Resp 18 B/P (MAP) 116/75 (89) Pulse Ox 93 O2 Delivery Room Air Capillary Refill : Progress Note : Time: 18:47 Progress Note Patient is much improved after IV fluids. Has no complaints. Patient's had a negative exam in the emergency department. Other than elevated alcohol which is chronic for this patient. Patient is requested be discharged home multiple times throughout his stay. I did discuss at length with patient about options the patient declined wishes to be discharged home. Patient advised any stop drinking and he states understanding. Patient should seek alcohol anonymous or other avenues to stop drinking. Follow- up with his primary care physician. In 2-3 days. Encourage by mouth fluids. ECG Initial ECG Impression Date: Feb 19, 2020 Initial ECG Impression Time: 17:45 Initial ECG Rate: 94 Initial ECG Rhythm: Normal Sinus Initial ECG Intervals: Normal Initial ECG Impression: Nonspecific Changes Comment Sinus rhythm a rate 94. Left anterior fascicular block. Nonspecific ST changes. Nondiagnostic EKG. Departure Impression Primary Impression: Alcohol abuse Additional Impression: Chronic alcoholism Disposition: 01 HOME, SELF-CARE Condition: Stable Departure-Patient Inst. Decision time for Depature: 18:49 Referrals: NO,LOCAL PHYSICIAN (PCP/Family) Primary Care Physician Patient Instructions: Alcohol Abuse and Alcoholism (DC) Add. Discharge Instructions: Negative evaluation in the emergency department. Urine encourage to stop drinking. Follow-up with primary care physician and discuss possible alcohol rehabilitation options. Follow-up through primary care physician in 2-3 days. All discharge instructions reviewed with patient and/or family. Voiced understanding. MANDA HANSEN MD Feb 19, 2020 17:44
[2020-02-19 17:52] LABS: BASOPHILS # (AUTO) 0.1 10^3/uL (0.0-0.1); BASOPHILS % (AUTO) 1 % (0-10); EOSINOPHILS # (AUTO) 0.2 10^3/uL (0.0-0.3); EOSINOPHILS % (AUTO) 3 % (0-10); HEMATOCRIT 34 % (40-54); HEMOGLOBIN 11.5 G/DL (13.3-17.7); LYMPHOCYTES # (AUTO) 1.7 X 10^3 (1.0-4.0); LYMPHOCYTES % (AUTO) 29 % (12-44); MEAN CORPUSCULAR HEMOGLOBIN 37 PG (25-34); MEAN CORPUSCULAR HGB CONC 37 G/DL (32-36); MEAN CORPUSCULAR VOLUME 109 FL (80-99); MEAN PLATELET VOLUME 9.1 FL (7.4-10.4); MONOCYTES # (AUTO) 0.4 X 10^3 (0.0-1.0); MONOCYTES % (AUTO) 7 % (0-12); NEUTROPHILS # (AUTO) 3.5 X 10^3 (1.8-7.8); NEUTROPHILS % (AUTO) 60 % (42-75); PLATELET COUNT 706 10^3/uL (130-400); RED CELL DISTRIBUTION WIDTH 12.1 % (10.0-14.5); WHITE BLOOD COUNT 5.9 10^3/uL (4.3-11.0)
[2020-02-19 18:07] LABS: ALANINE AMINOTRANSFERASE 20 U/L (0-55); ALKALINE PHOSPHATASE 104 U/L (40-136); BILIRUBIN,TOTAL 0.4 MG/DL (0.1-1.0); BUN/CREATININE RATIO 16; CALCIUM 9.2 MG/DL (8.5-10.1); CARBON DIOXIDE 22 MMOL/L (21-32); CHLORIDE 100 MMOL/L (98-107); CREATININE SERUM 0.38 MG/DL (0.60-1.30); GFR ESTIMATED > 60; GLUCOSE 109 MG/DL (70-105); POTASSIUM 3.9 MMOL/L (3.6-5.0); SODIUM 138 MMOL/L (135-145)
[2020-02-19 18:08] LABS: ALBUMIN 3.6 GM/DL (3.2-4.5); AMYLASE 112 U/L (25-125); LIPASE 22 U/L (8-78); TOTAL PROTEIN 6.6 GM/DL (6.4-8.2)
--- NOTE | 2020-02-19 18:37 | Diagnostic Imaging Report ---
PROCEDURE: CT head without contrast. TECHNIQUE: Multiple contiguous axial images were obtained through the brain without the use of intravenous contrast. Auto Exposure Controls were utilized during the CT exam to meet ALARA standards for radiation dose reduction. INDICATION: Right-sided arm and head pain. Weakness. Slurred speech. FINDINGS: Noncontrasted images show diffuse cortical atrophy. Ventricles are slightly prominent throughout. No shift of the midline or mass effect. No extra-axial fluid collection. No intracranial hemorrhage. Basal cisterns are clear. Pituitary is not enlarged. Mastoid air cells are clear. Paranasal sinuses are clear where visualized. No evidence of calvarial fracture. IMPRESSION: Rather marked cortical atrophy with prominence of the ventricles. No acute abnormalities demonstrated. Dictated by: Dictated on workstation # [id number]
[2020-02-19 18:55] VITALS: BP 107/66
--- OUTSIDE RECORDS SUMMARY | 2020-02-19 21:58 | XMS REPORT | Continuity of Care Document ---
Author Organization Unknown Address Unknown Phone Unavailable Allergies Active Description Code Type Severity Reaction Onset Reported/Identified Relationship to Patient Clinical Status Yes No Known Drug Allergies [id number] Drug Allergy Unknown N/A 05/23/2019 Medications There [...] 09/02/2019 JAIMEE FUENTES MD Ot I70.244 ATHSCL [place] ART OF LEFT LEG W ULCER OF [...] 09/25/2019 JAIMEE FUENTES MD Ot I70.262 ATHSCL [place] ARTERIES OF EXTREMITIES W 09/25/2019 JAIMEE FUENTES [...] 09/26/2019 JAIMEE FUENTES MD Ot I70.262 ATHSCL [place] ARTERIES OF EXTREMITIES W 09/26/2019 JAIMEE FUENTES [...] 10/10/2019 JAIMEE FUENTES MD Ot I70.262 ATHSCL [place] ARTERIES OF EXTREMITIES W 10/10/2019 JAIMEE FUENTES [...] 10/10/2019 JAIMEE FUENTES MD Ot I70.234 ATHSCL [place] ART OF RIGHT LEG W ULCER O [...] 02/06/2020 JAIMEE FUENTES MD Ot I70.261 ATHSCL [place] ARTERIES OF EXTREMITIES W 02/06/2020 JAIMEE FUENTES [...] OF GROWTH Isolated NR Bacterial blood culture [id number] NR [facility] - 11/05/19 [...] 7-25 CREATININE 0.37 mg/dL 0.70-1.33 eGFR NON-AFR. [place] 138 mL/min/1.73m2 > OR = 60 eGFR [...] 0.6 % NRG BASOPHILS 0.8 % NRG Capillary blood glucose measurement by g lucometer (mass/volume) - 02/19/20 17:39 Capillary blood glucose measurement by glucometer (mas s/volume) 117 mg/dL 70-110 Complete blood count (CBC) with automate d white blood cell (WBC) differential - 02/19/20 17:40 Blood leukocytes automated count (number/volume) 5.9 10*3/uL 4.3-11.0 Blood erythrocytes automated count (number/volume) 3.09 10*6/uL 4.35-5.85 Venous blood hemoglobin measurement (mass/volume) 11.5 g/dL 13.3-17.7 Blood hematocrit (volume fraction) 34 % 40-54 Automated erythrocyte mean corpuscular volume 109 [foz_us] 80-99 Automated erythrocyte mean corpuscular h emoglobin (mass per erythrocyte) 37 pg 25-34 Automated erythrocyte mean corpuscular h emoglobin concentration measurement (mass/volume) 37 g/dL 32-36 Automated erythrocyte distribution width ratio 12. 1 % 10.0- 14.5 Automated blood platelet count (count/volume) 706 10*3/uL 130-400 Automated blood platelet mean volume measurement 9.1 [foz_us] 7.4-10.4 Automated blood neutrophils/100 leukocytes 60 % 42-75 Automated blood lymphocytes/100 leukocytes 29 % 12-44 Blood monocytes/100 leukocytes 7 % 0-12 Automated blood eosinophils/100 leukocytes 3 % 0-10 Automated blood basophils/100 leukocytes 1 % 0-10 Blood neutrophils automated count (number/volume) 3.5 10*3 1.8-7.8 Blood lymphocytes automated count (number/volume) 1.7 10*3 1.0-4.0 Blood monocytes automated count (number/volume) 0. 4 10*3 0.0-1.0 Automated eosinophil count 0.2 10*3/uL 0 .0-0.3 Automated blood basophil count (count/volume) 0.1 10*3/uL 0.0-0.1 Serum or plasma ethanol measurement (mas s/volume) - 02/19/20 17:40 Serum or plasma ethanol measurement (mass/volume) 246 mg/dL <10 Comprehensive metabolic panel - 02/19/20 17:40 Serum or plasma sodium measurement (moles/volume) 138 mmol/L 135-145 Serum or plasma potassium measurement (moles/volume) 3.9 mmol/L 3.6-5.0 Serum or plasma chloride measurement (moles/volume) 100 mmol/L 98-107 Carbon dioxide 22 mmol/L 21-32 Serum or plasma anion gap determination (moles/volume) 16 mmol/L 5-14 Serum or plasma urea nitrogen measurement (mass/volume ) 6 mg/dL 7-18 Serum or plasma creatinine measurement (mass/volume) 0.38 mg/dL 0.60-1.30 Serum or plasma urea nitrogen/creatinine mass ratio 16 NRG Serum or plasma creatinine measurement w ith calculation of estimated glomerular filtration rate > NRG Serum or plasma glucose measurement (mass/volume) 109 mg/dL 70-105 Serum or plasma calcium measurement (mass/volume) 9.2 mg/dL 8.5-10.1 Serum or plasma total bilirubin measurement (mass/volu me) 0.4 mg/dL 0.1-1.0 Serum or plasma alkaline phosphatase dejuan surement (enzymatic activity/volume) 104 U/L 40-136 Serum or plasma aspartate aminotransfera se measurement (enzymatic activity/volume) 43 U/L 5-34 Serum or plasma alanine aminotransferase measurement (enzymatic activity/volume) 20 U/L 0-55 Serum or plasma protein measurement (mass/volume) 6.6 g/dL 6.4-8.2 Serum or plasma albumin measurement (mass/volume) 3.6 g/dL 3.2-4.5 CALCIUM CORRECTED 9.5 mg/dL 8.5-10.1 Serum or plasma amylase measurement (enz ymatic activity/volume) - 02/19/20 17:40 Serum or plasma amylase measurement (enzymatic activit y/volume) 112 U/L 25-125 Lipase - 02/19/20 17:40 Lipase 22 U/L 8-78 Encounters ACCT No. Visit Date/Time Discharge Status Pt. Type Provider Facility Loc./Unit Complaint [id number] 01/30/2020 09:00:00 01/30/2020 23:59: 59 CLS Outpatient [facility] [id number] 11/21/2019 10:20:00 Document Registration [id number] 02/13/2019 11:15:00 Document Registration [id number] 02/16/2020 19:01:00 19:22:00 DIS Emergency ROVENSTINE JOSÉ MIGUEL KEITH [facility] ER FS [id number] 01/17/2020 13:04:00 23:59:59 CLS Outpatient JAIMEE FUENTES MD [facility] WOUNDCARE [id number] 01/10/2020 13:25:00 23:59:59 CLS Outpatient ERIBERTO SCOTT MD [facility] [id number] 01/03/2020 12:16:00 23:59:59 CLS Outpatient ERIBERTO SCOTT MD [facility] [id number] 12/20/2019 14:01:00 23:59:59 CLS Outpatient ERIBERTO SCOTT MD [facility] [id number] 12/05/2019 13:20:00 23:59:59 CLS Outpatient ERIBERTO SCOTT MD [facility] RAD LEFT, CHRONIC ULCER [id number] 12/05/2019 12:08:00 23:59:59 CLS Outpatient ERIBERTO SCOTT MD [facility] [id number] 11/05/2019 16:32:00 17:50:00 DIS Emergency LISSA LAZAR MD [facility] ER FS NAUSEA [id number] 09/24/2019 13:47:00 23:59:59 CLS Outpatient JAIMEE FUENTES MD [facility] WOUNDCARE [id number] 09/10/2019 13:52:00 23:59:59 CLS Outpatient JAIMEE FUENTES MD [facility] [id number] 09/03/2019 11:41:00 23:59:59 CLS Outpatient JAIMEE FUENTES MD [facility] WOUND[facility]ARE [id number] 08/27/2019 13:53:00 23:59:59 CLS Outpatient JAIMEE FUENTES MD G [facility] WOUND[facility] [id number] 08/10/2019 10:53:00 18:35:00 DIS Emergency BRIDGET WILL, JOS Walters [facility] ER FS LT FOOT PAIN [id number] 08/03/2019 12:58:00 13:22:00 DIS Emergency JOSÉ MIGUEL BELLO DO [facility] ER FS LT LEG PAIN [id number] 05/23/2019 15:44:00 17:22:00 DIS Emergency TESSA CERVANTES DO [facility] ER FS LT LEG SWELLING [id number] 02/19/2020 17:52:00 Document Registration [id number] 01/25/2020 19:24:00 Document Registration
== END 2020-02-19 18:51 | disposition home or self-care (01) ==
LOC: EDUNIT# 17:31 → ER FS 17:32
DX: F10.229 Alcohol dependence with intoxication, unspecified (principal); I10 Essential (primary) hypertension; E11.9 Type 2 diabetes mellitus without complications; Z77.22 Contact with and (suspected) exposure to environmental tobacco smoke (acute) (chronic); Z86.73 Personal history of transient ischemic attack (TIA), and cerebral infarction without residual deficits; Z89.611 Acquired absence of right leg above knee
CPT/HCPCS: 36415; 70450; 80053; 80320; 82150; 82962; 83690; 85025; 96360

== ENCOUNTER 2020-03-07 10:21 | Emergency (ER) | payer MEDICAID ==
[~2020-03-07] VITALS: Ht 177.8 cm; Wt 53.2 kg
--- OUTSIDE RECORDS SUMMARY | 2020-03-07 10:31 | XMS REPORT | Continuity of Care Document ---
Author Organization Unknown Address Unknown Phone Unavailable Allergies Active Description Code Type Severity Reaction Onset Reported/Identified Relationship to Patient Clinical Status Yes No Known Drug Allergies [id number] Drug Allergy Unknown N/A 05/23/2019 Medications There [...] F42.4 EXCORIATION (SKIN-PICKING) DISORDER 08/09/2019 ROVENSTINE DO, OJSÉ MIGUEL L Ot I10 ESSENTIAL (PRIMARY) HYPERTENSION 08/09/2019 ROVENSTINE DO, JOSÉ MIGUEL L Ot K21.9 GASTRO-ESOPHAGEAL REFLUX DISEASE WITHOUT 08/09/2019 ROVENSTINE DO, JOSÉ MIGEUL L Ot M79.605 PAIN IN LEFT LEG [...] 09/02/2019 JAIMEE FUENTES MD Ot I70.244 ATHSCL [place] ART OF LEFT LEG W ULCER OF [...] 09/25/2019 JAIMEE FUENTES MD Ot I70.262 ATHSCL [place] ARTERIES OF EXTREMITIES W 09/25/2019 JAIMEE FUENTES [...] 09/26/2019 JAIMEE FUENTES MD Ot I70.262 ATHSCL [place] ARTERIES OF EXTREMITIES W 09/26/2019 JAIMEE FUENTES [...] 10/10/2019 JAIMEE FUENTES MD Ot I70.262 ATHSCL [place] ARTERIES OF EXTREMITIES W 10/10/2019 JAIMEE FUENTES [...] 10/10/2019 JAIMEE FUENTES MD Ot I70.234 ATHSCL [place] ART OF RIGHT LEG W ULCER O [...] LO , KIRTIE Ot Z72.0 TOBACCO USE 01/25/2020 Ot I10 ESSENT IAL (PRIMARY) HYPERTENSION 01/25/2020 Ot I73.1 THRO MBOANGIITIS OBLITERANS [BUERGER'S DI 01/25/2020 Ot S91.302D U NSPECIFIED OPEN WOUND, LEFT FOOT, SUBSE 01/25/2020 Ot X58.XXXD E XPOSURE TO OTHER SPECIFIED FACTORS, SUB 01/25/[address] W AND EXPSR TO ENVIRON TOBACCO SMO 01/25/2020 Ot 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), AND CEREB INFRC W 01/25/2020 Ot Z89.611 AC QUIRED ABSENCE OF RIGHT LEG ABOVE KNEE 01/29/2020 Ot I10 ESSENT IAL (PRIMARY) HYPERTENSION [...] 02/06/2020 JAIMEE FUENTES MD Ot I70.261 ATHSCL [place] ARTERIES OF EXTREMITIES W 02/06/2020 JAIMEE FUENTES MD Ot I73 .1 THROMBOANGIITIS OBLITERANS [BUERGER'S DI 02/06/2020 JAIMEE FUENTES MD Ot L97.523 NON-PRS CHRONIC ULCER OTH PRT LEFT FOOT 02/06/2020 JAIMEE FUENTES MD Ot T65.222A TOXIC EFFECT OF TOBACCO CIGARETTES, SELF 02/19/2020 MANDA HANSEN MD Ot E11.9 TYPE 2 DIABETES MELLITUS WITHOUT COMPLIC 02/19/2020 MANDA HANSEN MD Ot F10.10 ALCOHOL ABUSE, UNCOMPLICATED 02/19/2020 MANDA HANSEN MD Ot F10.229 ALCOHOL DEPENDENCE WITH INTOXICATION, UN 02/19/2020 MANDA HANSEN MD Ot I1 0 ESSENTIAL (PRIMARY) HYPERTENSION 02/19/2020 MANDA HANSEN MD Ot Z77.22 CNTCT W AND EXPSR TO ENVIRON TOBACCO SMO 02/19/2020 MANDA HANSEN MD Ot Z86.73 PRSNL HX OF TIA (TIA), AND CEREB INFRC W 02/19/2020 MANDA HANSEN MD Ot 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 02/20/2020 ROVENSTINE DO, JOSÉ MIGUEL L Ot E11.51 TYPE 2 DIABETES W DIABETIC PERIPHERAL AN 02/20/2020 ROVENSTINE DO JOSÉ MIGUEL L Ot F10.229 ALCOHOL DEPENDENCE WITH INTOXICATION, UN 02/20/2020 ROVENSTINE DO, JOSÉ MIGUEL L Ot R53.81 OTHER MALAISE 02/20/2020 ROVENSTINE DO, JOSÉ MIGUEL Andrade Ot Z77.22 CNTCT W AND EXPSR TO ENVIRON TOBACCO SMO 02/20/2020 ROVENSTINE DO, JOSÉ MIGUEL Andrade Ot Z86.73 PRSNL HX OF TIA (TIA), AND CEREB INFRC W 02/20/2020 ROVENSTINE DO, JOSÉ MIGUEL Andrade Ot 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 02/21/2020 MANDA HANSEN MD Ot E11.9 TYPE 2 DIABETES MELLITUS WITHOUT COMPLIC 02/21/2020 MANDA HANSEN MD Ot F10.10 ALCOHOL ABUSE, UNCOMPLICATED 02/21/2020 MANDA HANSEN MD, Ot F10.229 ALCOHOL DEPENDENCE WITH INTOXICATION, UN 02/21/2020 MANDA HANSEN MD Ot I1 0 ESSENTIAL (PRIMARY) HYPERTENSION 02/21/2020 MANDA HANSEN MD, Ot Z77.22 CNTCT W AND EXPSR TO ENVIRON TOBACCO SMO 02/21/2020 MANDA HANSEN MD, Ot Z86.73 PRSNL HX OF TIA (TIA), AND CEREB INFRC W 02/21/2020 MANDA HANSEN MD, Ot 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 Procedures There is no data. Results Test [...] mg/dL 0.1-1.0 Serum or plasma alkaline phosphatase dejuna surement (enzymatic activity/volume) 152 U/L 40-136 Serum [...] OF GROWTH Isolated NRG Bacterial blood culture [id number] NRG [facility] - 11/05/19 17:0 [...] 7-25 CREATININE 0.37 mg/dL 0.70-1.33 eGFR NON-AFR. [place] 138 mL/min/1.73m2 > OR = 60 eGFR [...] Status Pt. Type Provider Facility Loc./Unit Complaint [id number] 01/30/2020 09:00:00 01/30/2020 23:59: 59 C[facility] [id number] 11/21/2019 10:20:00 Document Registration [id number] 02/13/2019 11:15:00 Document Registration [id number] 02/19/2020 17:32:00 18:51:00 DIS Emergency MANDA HANSEN MD [facility] ER FS RIGHT ARM WEAKNESS [id number] 02/16/2020 19:01:00 19:22:00 DIS Outpatient JOSÉ MIGUEL BELLO DO [facility] ER FS [id number] 01/17/2020 13:04:00 23:59:59 CLS Outpatient JAIMEE FUENTES MD [facility] WOUNDCARE [id number] 01/10/2020 13:25:00 23:59:59 CLS Outpatient ERIBERTO SCOTT MD [facility] WOUNDCARE [id number] 01/03/2020 12:16:00 23:59:59 CLS Outpatient ERIBERTO SCOTT MD [facility] WOUNDCARE [id number] 12/20/2019 14:01:00 23:59:59 CLS Outpatient ERIBERTO SCOTT MD [facility] WOUND[facility] [id number] 12/05/2019 13:20:00 23:59:59 CLS Outpatient ERIBERTO SCOTT MD [facility] RAD LEFT, CHRONIC ULCER [id number] 12/05/2019 12:08:00 23:59:59 CLS Outpatient ERIBERTO SCOTT MD [facility] WOUNDCARE [id number] 11/05/2019 16:32:00 17:50:00 DIS Emergency LISSA LAZAR MD [facility] ER FS NAUSEA [id number] 09/24/2019 13:47:00 23:59:59 CLS Outpatient JAIMEE FUENTES MD [facility] WOUNDCARE [id number] 09/10/2019 13:52:00 23:59:59 CLS Outpatient JAIMEE FUENTES MD [facility] WOUNDCARE [id number] 09/03/2019 11:41:00 23:59:59 CLS Outpatient JAIMEE FUENTES MD [facility] WOUNDC[facility] [id number] 08/27/2019 13:53:00 23:59:59 CLS Outpatient JAIMEE FUENTES MD [facility] WOUNDC[facility] [id number] 08/10/2019 10:53:00 18:35:00 DIS Emergency JOS GILL MD [facility] ER FS LT FOOT PAIN [id number] 08/03/2019 12:58:00 13:22:00 DIS Emergency JOSÉ MIGUEL BELLO DO [facility] ER FS LT LEG PAIN [id number] 05/23/2019 15:44:00 17:22:00 DIS Emergency TESSA CERVANTES DO [facility] ER FS LT LEG SWELLING [id number] 01/25/2020 19:24:00 Document Registration
--- NOTE | 2020-03-07 10:35 | ED Lower Extremity ---
General Chief Complaint: Lower Extremity Stated Complaint: FOOT PAIN Source: patient Exam Limitations: no limitations History of Present Illness Date Seen by Provider: Mar 07, 2020 Time Seen by Provider: 10:35 Initial Comments presents w swelling and redness of left leg and foot. Recent amputation of toes left foot and bypass of LLE (likely fem-pop) 2 weeks ago @ [facility] by Dr Gee. Has follow up scheduled 03/10. Started Bactrim 2 days ago per PCP. PmHx signif for RLE amputation, PVD and alcoholism. Allergies and Home Medications Allergies Coded Allergies: No Known Drug Allergies (Unverified , 05/23/19) Home Medications Bacitracin 28.4 Gm Oint...g., 28.4 GM TP BID Prescribed by: JOSÉ MIGUEL BELLO on 08/03/19 1320 Cephalexin 500 Mg Capsule, 500 MG PO TID Prescribed by: TESSA CERVANTES on 05/23/19 171 Furosemide 20 Mg Tablet, 20 MG PO DAILY Prescribed by: TESSA CERVANTES on 05/23/19 171 Patient Home Medication List Home Medication List Reviewed: Yes Review of Systems Constitutional: see HPI; No chills, No fever, No malaise Respiratory: No cough, No short of breath Cardiovascular: No chest pain; edema (Left leg/ foot); No palpitations Gastrointestinal: No abdominal pain, No constipation, No diarrhea, No vomiting Musculoskeletal: No back pain, No neck pain; other (Left leg pain and swelling) Skin: change in color, other (see HPI) Past Vprvnsd-Bjivos-Wvpifg Hx Past Med/Social Hx: Reviewed Nursing Past Med/Soc Hx Patient Social History Alcohol Beverage of Choice: Whiskey Type Used: Cigarettes 2nd Hand Smoke Exposure: Yes Recent Foreign Travel: No Contact w/Someone Who Travel: No Recent Hopitalizations: No Seasonal Allergies Seasonal Allergies: No Past Medical History Surgeries: Yes (R Above the knee amputation, Left toe amputations) Orthopedic Respiratory: No (Hypoxia) Cardiac: Yes (Buerger Disease) Hypertension, Peripheral Vascular Neurological: Yes Stroke Genitourinary: No Gastrointestinal: Yes (Chronic Alcohol gastritis) Gastroesophageal Reflux Musculoskeletal: Yes (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, Insulin dep HEENT: No Cancer: No Psychosocial: Yes (Substance abuse, Alcohol dependence) Integumentary: Yes (Cellulitis) Blood Disorders: No Physical Exam Vital Signs Vital Signs - First Documented 03/07/20 10:35 Temp 36.7 Pulse 92 Resp 16 B/P (MAP) 123/74 (90) Pulse Ox 97 O2 Delivery Room Air Capillary Refill : Height, Weight, BMI Height: 5'9.50" Weight: 117lbs. oz. 53.561660ry; 15.00 BMI Method:Stated General Appearance: no apparent distress, cachetic Neck: non-tender, supple Cardiovascular: regular rate, rhythm, no JVD Respiratory: chest non-tender, lungs clear, normal breath sounds Gastrointestinal: normal bowel sounds, non tender, soft Back: normal inspection, no CVA tenderness Neurologic/Psychiatric: alert, normal mood/affect, oriented x 3 Skin: other (circumferential warmth and erythema Left foot, ankle, leg) Progress/Results/Core Measures Results/Orders Lab Results Laboratory Tests Test 03/07/20 10:45 Range/Units White Blood Count 5.6 4.3-11.0 10^3/uL Red Blood Count 3.64 L 4.35-5.85 10^6/uL Hemoglobin 13.2 L 13.3-17.7 G/DL Hematocrit 38 L 40-54 % Mean Corpuscular Volume 105 H 80-99 FL Mean Corpuscular Hemoglobin 36 H 25-34 PG Mean Corpuscular Hemoglobin Concent 35 32-36 G/DL Red Cell Distribution Width 11.9 10.0-14.5 % Platelet Count 112 L 130-400 10^3/uL Mean Platelet Volume 11.2 H 7.4-10.4 FL Neutrophils (%) (Auto) 63 42-75 % Lymphocytes (%) (Auto) 27 12-44 % Monocytes (%) (Auto) 8 0-12 % Eosinophils (%) (Auto) 2 0-10 % Basophils (%) (Auto) 0 0-10 % Neutrophils # (Auto) 3.5 1.8-7.8 X 10^3 Lymphocytes # (Auto) 1.5 1.0-4.0 X 10^3 Monocytes # (Auto) 0.4 0.0-1.0 X 10^3 Eosinophils # (Auto) 0.1 0.0-0.3 10^3/uL Basophils # (Auto) 0.0 0.0-0.1 10^3/uL Sodium Level 138 135-145 MMOL/L Potassium Level 3.4 L 3.6-5.0 MMOL/L Chloride Level 98 98-107 MMOL/L Carbon Dioxide Level 23 21-32 MMOL/L Anion Gap 17 H 5-14 MMOL/L Blood Urea Nitrogen 4 L 7-18 MG/DL Creatinine 0.43 L 0.60-1.30 MG/DL Estimat Glomerular Filtration Rate > 60 BUN/Creatinine Ratio 9 Glucose Level 103 70-105 MG/DL Lactic Acid Level 2.32 *H 0.50-2.00 MMOL/L Calcium Level 9.3 8.5-10.1 MG/DL Corrected Calcium 9.4 8.5-10.1 MG/DL Total Bilirubin 0.7 0.1-1.0 MG/DL Aspartate Amino Transf (AST/SGOT) 50 H 5-34 U/L Alanine Aminotransferase (ALT/SGPT) 17 0-55 U/L Alkaline Phosphatase 132 40-136 U/L Total Protein 6.7 6.4-8.2 GM/DL Albumin 3.9 3.2-4.5 GM/DL Serum Alcohol 221 H <10 MG/DL My Orders Orders - JOSÉ MIGUEL BELLO DO Ed Iv/Invasive Line Start (03/07/20 10:36) Cbc With Automated Diff (03/07/20 10:36) Comprehensive Metabolic Panel (03/07/20 10:36) Lactic Acid Analyzer (03/07/20 10:36) Blood Culture (03/07/20 10:36) Alcohol (03/07/20 10:36) Blood Culture (03/07/20 10:52) Vital Signs/I&O 03/07/20 03/07/20 10:35 11:55 Temp 36.7 36.4 Pulse 92 83 Resp 16 18 B/P (MAP) 123/74 (90) 118/82 Pulse Ox 97 97 O2 Delivery Room Air Room Air Progress Progress Note : Progress Note Initial exam done while pt seated in his Wheelchair. After pt placed in gown and put in bed and supine, edema and erythema significantly better. No longer appears to have "cellulitis". Some erythema of foot consistent w post surgical healing and likely mild cellulitis of foot. Agree w continuing Bactrim. Will encourage to not sit in WC all day and to elevate leg 4 times daily. Also will see Dr Gee in 3 days for re-eval. Advised to Return to the ER if worse. Departure Impression Primary Impression: Cellulitis of left lower extremity Additional Impressions: Edema, leg History of left lower extremity amputation Disposition: XFER SHT-TRM HOSP Condition: Stable Departure-Patient Inst. Decision time for Depature: 11:49 Referrals: [facility] (PCP/Family) Primary Care Physician Patient Instructions: Foot Pumping Exercises, Swelling, Amputation of the Foot or Toe (DC) Add. Discharge Instructions: Keep your appointment with Dr Gee on Tuesday as previously scheduled. Elevate your leg above your chest 4 times daily for 15 minutes. Take all of your antibiotic as you were instructed. All discharge instructions reviewed with patient and/or family. Voiced understanding. JOSÉ MIGUEL BELLO DO Mar 07, 2020 10:35
[2020-03-07 10:57] LABS: HEMATOCRIT 38 % (40-54); HEMOGLOBIN 13.2 G/DL (13.3-17.7); MEAN CORPUSCULAR HEMOGLOBIN 36 PG (25-34); MEAN CORPUSCULAR HGB CONC 35 G/DL (32-36); MEAN CORPUSCULAR VOLUME 105 FL (80-99); WHITE BLOOD COUNT 5.6 10^3/uL (4.3-11.0)
[2020-03-07 10:58] LABS: BASOPHILS % (AUTO) 0 % (0-10); EOSINOPHILS # (AUTO) 0.1 10^3/uL (0.0-0.3); EOSINOPHILS % (AUTO) 2 % (0-10); LYMPHOCYTES # (AUTO) 1.5 X 10^3 (1.0-4.0); LYMPHOCYTES % (AUTO) 27 % (12-44); MEAN PLATELET VOLUME 11.2 FL (7.4-10.4); MONOCYTES # (AUTO) 0.4 X 10^3 (0.0-1.0); MONOCYTES % (AUTO) 8 % (0-12); NEUTROPHILS # (AUTO) 3.5 X 10^3 (1.8-7.8); NEUTROPHILS % (AUTO) 63 % (42-75); PLATELET COUNT 112 10^3/uL (130-400); RED CELL DISTRIBUTION WIDTH 11.9 % (10.0-14.5)
[2020-03-07 11:14] LABS: ALKALINE PHOSPHATASE 132 U/L (40-136); BILIRUBIN,TOTAL 0.7 MG/DL (0.1-1.0); BUN/CREATININE RATIO 9; CALCIUM 9.3 MG/DL (8.5-10.1); CARBON DIOXIDE 23 MMOL/L (21-32); CHLORIDE 98 MMOL/L (98-107); CREATININE SERUM 0.43 MG/DL (0.60-1.30); GFR ESTIMATED > 60; GLUCOSE 103 MG/DL (70-105); POTASSIUM 3.4 MMOL/L (3.6-5.0); SODIUM 138 MMOL/L (135-145)
[2020-03-07 11:15] LABS: ALANINE AMINOTRANSFERASE 17 U/L (0-55); ALBUMIN 3.9 GM/DL (3.2-4.5); TOTAL PROTEIN 6.7 GM/DL (6.4-8.2)
[2020-03-07 11:55] VITALS: BP 118/82
== END 2020-03-07 11:55 ==
LOC: EDUNIT# 10:21 → ER FS 10:23
DX: L03.116 Cellulitis of left lower limb (principal); I10 Essential (primary) hypertension; Z89.422 Acquired absence of other left toe(s); Z89.611 Acquired absence of right leg above knee; Z77.22 Contact with and (suspected) exposure to environmental tobacco smoke (acute) (chronic); Z86.73 Personal history of transient ischemic attack (TIA), and cerebral infarction without residual deficits
CPT/HCPCS: 36415; 80053; 80320; 83605; 85025; 87040

== ENCOUNTER 2020-03-26 09:58 | Emergency (ER) | payer MEDICAID ==
[~2020-03-26] VITALS: Ht 177 cm; Wt 53.0 kg
--- OUTSIDE RECORDS SUMMARY | 2020-03-26 10:25 | XMS REPORT | Continuity of Care Document ---
Author Organization Unknown Address Unknown Phone Unavailable Allergies Active Description Code Type Severity Reaction Onset Reported/Identified Relationship to Patient Clinical Status Yes No Known Drug Allergies [id number] Drug Allergy Unknown N/A 05/23/2019 Medications There [...] 09/02/2019 JAIMEE FUENTES MD Ot I70.244 ATHSCL [place] ART OF LEFT LEG W ULCER OF [...] 09/25/2019 JAIMEE FUENTES MD Ot I70.262 ATHSCL [place] ARTERIES OF EXTREMITIES W 09/25/2019 JAIMEE FUENTES [...] 09/26/2019 JAIMEE FUENTES MD Ot I70.262 ATHSCL [place] ARTERIES OF EXTREMITIES W 09/26/2019 JAIMEE FUENTES [...] 10/10/2019 JAIMEE FUENTES MD Ot I70.262 ATHSCL [place] ARTERIES OF EXTREMITIES W 10/10/2019 JAIMEE FUENTES [...] 10/10/2019 JAIMEE FUENTES MD Ot I70.234 ATHSCL [place] ART OF RIGHT LEG W ULCER O [...] F10. 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 02/21/2020 MANDA HANSEN MD Ot E11.9 TYPE 2 DIABETES MELLITUS WITHOUT COMPLIC 02/21/2020 MANDA HANSEN MD Ot F10.10 ALCOHOL ABUSE, UNCOMPLICATED 02/21/2020 MANDA HANSEN MD Ot F10.229 ALCOHOL DEPENDENCE WITH INTOXICATION, UN 02/21/2020 MANDA HANSEN MD Ot I1 0 ESSENTIAL (PRIMARY) HYPERTENSION 02/21/2020 MANDA HANSEN MD, Ot Z77.22 CNTCT W AND EXPSR TO ENVIRON TOBACCO SMO 02/21/2020 MANDA HANSEN MD, Ot Z86.73 PRSNL HX OF TIA (TIA), AND CEREB INFRC W 02/21/2020 MANDA HANSEN MD Ot 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 03/10/2020 ROVENSTINE DO, JOSÉ MIGUEL L Ot I10 ESSENTIAL (PRIMARY) HYPERTENSION 03/10/2020 ROVENSTINE DO, JOSÉ MIGUEL L Ot L03.116 CELLULITIS OF LEFT LOWER LIMB 03/10/2020 ROVENSTINE DO, JOSÉ MIGUEL Andrade Ot R60.0 LOCALIZED EDEMA 03/10/2020 ROVENSTINE DO, JOSÉ MIGUEL Andrade Ot Z77.22 CNTCT W AND EXPSR TO ENVIRON TOBACCO SMO 03/10/2020 ROVENSTINE DO, JOSÉ MIGUEL Lupe Ot Z86.73 PRSNL HX OF TIA (TIA), AND CEREB INFRC W 03/10/2020 ROVENSTINE DO, JOSÉ MIGUEL L Ot Z89.422 ACQUIRED ABSENCE OF OTHER LEFT TOE(S) 03/10/2020 ROVENSTINE DO, JOSÉ MIGUEL L Ot 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 03/13/2020 ROVENSTINE DO, JOSÉ MIGUEL L Ot I10 ESSENTIAL (PRIMARY) HYPERTENSION 03/13/2020 ROVENSTINE DO, JOSÉ MIGUEL L Ot L03.116 CELLULITIS OF LEFT LOWER LIMB 03/13/2020 ROVENSTINE DO, JOSÉ MIGUEL Andrade Ot R60.0 LOCALIZED EDEMA 03/13/2020 ROVENSTINE DO, JOSÉ MIGUEL Andrade Ot Z77.22 CNTCT W AND EXPSR TO ENVIRON TOBACCO SMO 03/13/2020 ROVENSTINE DO, JOSÉ MIGUEL Andrade Ot Z86.73 PRSNL HX OF TIA (TIA), AND CEREB INFRC W 03/13/2020 ROVENSTINE DO, JOSÉ MIGUEL Andrade Ot Z89.422 ACQUIRED ABSENCE OF OTHER LEFT TOE(S) 03/13/2020 ROVENSTINE DO, JOSÉ MIGUEL Andrade Ot Z89.611 [...] OF GROWTH Isolated NRG Bacterial blood culture [id number] NR [facility] - 11/05/19 [...] test by minimum inhibitory con centration S G CMP - 11/21/19 12:01 GLUCOSE 92 mg/dL 65-99 UREA NITROGEN (BUN) 14 mg/dL 7-25 CREATININE 0.37 mg/dL 0.70-1.33 eGFR NON-AFR. BOLIVIAN 138 mL/min/1.73m2 > OR = 60 eGFR [...] - 02/19/20 17:40 Lipase 22 U/L 8-78 Complete blood count (CBC) with automate d white blood cell (WBC) differential - 03/07/20 10:45 Blood leukocytes automated count (number/volume) 5.6 10*3/uL 4.3-11.0 Blood erythrocytes automated count (number/volume) 3.64 10*6/uL 4.35-5.85 Venous blood hemoglobin measurement (mass/volume) 13.2 g/dL 13.3-17.7 Blood hematocrit (volume fraction) 38 % 40-54 Automated erythrocyte mean corpuscular volume 105 [foz_us] 80-99 Automated erythrocyte mean corpuscular h emoglobin (mass per erythrocyte) 36 pg 25-34 Automated erythrocyte mean corpuscular h emoglobin concentration measurement (mass/volume) 35 g/dL 32-36 Automated erythrocyte distribution width ratio 11. 9 % 10.0- 14.5 Automated blood platelet count (count/volume) 112 10*3/uL 130-400 Automated blood platelet mean volume measurement 11.2 [foz_us] 7.4-10.4 Automated blood neutrophils/100 leukocytes 63 % 42-75 Automated blood lymphocytes/100 leukocytes 27 % 12-44 Blood monocytes/100 leukocytes 8 % 0-12 Automated blood eosinophils/100 leukocytes 2 % 0-10 Automated blood basophils/100 leukocytes 0 % 0-10 Blood neutrophils automated count (number/volume) 3.5 10*3 1.8-7.8 Blood lymphocytes automated count (number/volume) 1.5 10*3 1.0-4.0 Blood monocytes automated count (number/volume) 0. 4 10*3 0.0-1.0 Automated eosinophil count 0.1 10*3/uL 0 .0-0.3 Automated blood basophil count (count/volume) 0.0 10*3/uL 0.0-0.1 Comprehensive metabolic panel - 03/07/20 10:45 Serum or plasma sodium measurement (moles/volume) 138 mmol/L 135-145 Serum or plasma potassium measurement (moles/volume) 3.4 mmol/L 3.6-5.0 Serum or plasma chloride measurement (moles/volume) 98 mmol/L 98-107 Carbon dioxide 23 mmol/L 21-32 Serum or plasma anion gap determination (moles/volume) 17 mmol/L 5-14 Serum or plasma urea nitrogen measurement (mass/volume ) 4 mg/dL 7-18 Serum or plasma creatinine measurement (mass/volume) 0.43 mg/dL 0.60-1.30 Serum or plasma urea nitrogen/creatinine mass ratio 9 NRG Serum or plasma creatinine measurement w ith calculation of estimated glomerular filtration rate > NRG Serum or plasma glucose measurement (mass/volume) 103 mg/dL 70-105 Serum or plasma calcium measurement (mass/volume) 9.3 mg/dL 8.5-10.1 Serum or plasma total bilirubin measurement (mass/volu me) 0.7 mg/dL 0.1-1.0 Serum or plasma alkaline phosphatase dejuan surement (enzymatic activity/volume) 132 U/L 40-136 Serum or plasma aspartate aminotransfera se measurement (enzymatic activity/volume) 50 U/L 5-34 Serum or plasma alanine aminotransferase measurement (enzymatic activity/volume) 17 U/L 0-55 Serum or plasma protein measurement (mass/volume) 6.7 g/dL 6.4-8.2 Serum or plasma albumin measurement (mass/volume) 3.9 g/dL 3.2-4.5 CALCIUM CORRECTED 9.4 mg/dL 8.5-10.1 Serum or plasma ethanol measurement (mas s/volume) - 03/07/20 10:45 Serum or plasma ethanol measurement (mass/volume) 221 mg/dL <10 Blood lactic acid measurement (moles/vol ume) - 03/07/20 10:45 Blood lactic acid measurement (moles/volume) 2.32 mmol/L 0.50-2.00 Bacterial blood culture - 03/07/20 10:45 Bacterial blood culture NG NRG Bacterial blood culture - 03/07/20 10:52 Bacterial blood culture NG NRG Encounters ACCT No. Visit Date/Time Discharge Status Pt. Type Provider Facility Loc./Unit Complaint [id number] 01/30/2020 09:00:00 01/30/2020 23:59: 59 [facility] Outpatient [facility] [id number] 11/21/2019 10:20:00 Document Registration [id number] 02/13/2019 11:15:00 Document Registration [id number] 03/07/2020 10:23:00 11:55:00 DIS Outpatient ROJOSÉ MIGUEL BURGOS DO [facility] ER FS FOOT PAIN [id number] 02/19/2020 17:32:00 18:51:00 DIS Emergency MANDA HANSEN MD [facility] ER FS RIGHT ARM WEAKNESS [id number] 02/16/2020 19:01:00 19:22:00 DIS Outpatient ROVENSTINE DO JOSÉ MIGUEL Andrade [facility] ER FS [id number] 01/17/2020 13:04:00 23:59:59 CLS Outpatient JAIMEE FUENTES [id number] 01/10/2020 13:25:00 23:59:59 CLS Outpatient ERIBERTO SCOTT MD [facility] [id number] 01/03/2020 12:16:00 23:59:59 CLS Outpatient ERIBERTO SCOTT MD [facility] [id number] 12/20/2019 14:01:00 23:59:59 CLS Outpatient ERIBERTO SCOTT MD [facility] [id number] 12/05/2019 13:20:00 23:59:59 CLS Outpatient ERIBERTO SCOTT MD [facility] RAD LEFT, CHRONIC ULCER [id number] 12/05/2019 12:08:00 23:59:59 CLS Outpatient ERIBERTO SCOTT MD [facility] [id number] 11/05/2019 16:32:00 17:50:00 DIS Emergency LISSA LAZAR MD [facility] ER FS NAUSEA [id number] 09/24/2019 13:47:00 23:59:59 CLS Outpatient AJIMEE FUENTES MD [facility] WOUNDCARE [id number] 09/10/2019 13:52:00 23:59:59 CLS Outpatient JAIMEE FUENTES MD [facility] [id number] 09/03/2019 11:41:00 23:59:59 CLS Outpatient JAIMEE FUENTES MD [facility] [id number] 08/27/2019 13:53:00 23:59:59 CLS Outpatient JAIMEE FUENTES MD [facility] WOUNDCARE [id number] 08/10/2019 10:53:00 18:35:00 DIS Emergency JOS GILL MD [facility] ER FS LT FOOT PAIN [id number] 08/03/2019 12:58:00 13:22:00 DIS Emergency JOSÉ MIGUEL BELLO DO [facility] ER FS LT LEG PAIN [id number] 05/23/2019 15:44:00 17:22:00 DIS Emergency TESSA CERVANTES DO [facility] ER FS LT LEG SWELLING [id number] 01/25/2020 19:24:00 Document Registration
[2020-03-26] MEDS ORDERED: fentaNYL INJECTION 100 MCG/2 ML AMP IVP PRN (10:45)
--- NOTE | 2020-03-26 11:11 | Diagnostic Imaging Report ---
INDICATION: Foot pain. Time of exam 10:48 AM Comparison is made with prior chest from 11/05/2019. Heart size is normal. The lungs are clear. No infiltrates are detected. No effusion or pneumothorax is identified. IMPRESSION: No acute cardiopulmonary process is detected. Dictated by: Dictated on workstation # [id number]
--- NOTE | 2020-03-26 11:15 | Diagnostic Imaging Report ---
INDICATION: Left foot pain. TIME OF EXAM: 10:52 AM. COMPARISON: 12/05/2019. FINDINGS: Since the prior study, the patient has undergone partial amputation. Amputation is at the level of the distal metatarsals. The resection margins appear to be fairly smooth. No bony destructive changes are seen. There may be some skin ulceration and minimal soft tissue gas at the level of the stump. The midfoot and hindfoot are unremarkable. There is a questionable fracture at the level of the distal 5th metatarsal. IMPRESSION: Amputation at the level of the 1st through 4th distal metatarsals with smooth resection margins. There is some overlying soft tissue swelling as well as some ulceration and possible gas at the level of the stump. There is a questionable fracture involving the distal 5th metatarsal. Dictated by: Dictated on workstation # [id number]
[2020-03-26 11:21] LABS: HEMATOCRIT 37 % (40-54); HEMOGLOBIN 12.9 G/DL (13.3-17.7); LYMPHOCYTES % (AUTO) 23 % (12-44); MEAN CORPUSCULAR HEMOGLOBIN 37 PG (25-34); MEAN CORPUSCULAR HGB CONC 35 G/DL (32-36); MEAN CORPUSCULAR VOLUME 106 FL (80-99); MEAN PLATELET VOLUME 11.3 FL (7.4-10.4); NEUTROPHILS % (AUTO) 65 % (42-75); PLATELET COUNT 166 10^3/uL (130-400); RED CELL DISTRIBUTION WIDTH 13.9 % (10.0-14.5); WHITE BLOOD COUNT 4.5 10^3/uL (4.3-11.0)
[2020-03-26 11:22] LABS: BASOPHILS % (AUTO) 1 % (0-10); EOSINOPHILS # (AUTO) 0.1 10^3/uL (0.0-0.3); EOSINOPHILS % (AUTO) 2 % (0-10); MONOCYTES # (AUTO) 0.4 X 10^3 (0.0-1.0); MONOCYTES % (AUTO) 9 % (0-12); NEUTROPHILS # (AUTO) 2.9 X 10^3 (1.8-7.8)
[2020-03-26 12:03] LABS: INR 0.9 (0.8-1.4); PROTHROMBIN TIME PATIENT 12.6 SEC (12.2-14.7)
[2020-03-26 12:08] LABS: ALANINE AMINOTRANSFERASE 31 U/L (0-55); ALBUMIN 3.5 GM/DL (3.2-4.5); ALKALINE PHOSPHATASE 175 U/L (40-136); BILIRUBIN,TOTAL 0.4 MG/DL (0.1-1.0); BUN/CREATININE RATIO 15; CARBON DIOXIDE 25 MMOL/L (21-32); CHLORIDE 99 MMOL/L (98-107); GFR ESTIMATED > 60; GLUCOSE 97 MG/DL (70-105); POTASSIUM 3.3 MMOL/L (3.6-5.0); SODIUM 139 MMOL/L (135-145); TOTAL PROTEIN 6.3 GM/DL (6.4-8.2)
[2020-03-26 12:24] LABS: ERYTHROCYTE SEDIMENTATION RATE 1 MM/HR (0-30)
--- NOTE | 2020-03-26 13:00 | NUR ---
SECOND BUTLER INÉS WAS CALLED AT THIS TIME. SHE IS GOING TO HOTLINE PT. PT IS NOT TAKING GOOD CARE OF HIMSELF.
--- NOTE | 2020-03-26 14:07 | ED Lower Extremity ---
General Chief Complaint: Lower Extremity Stated Complaint: LT FOOT PAIN Nursing Triage Note: Pt to ED via [facility]. Pt has hx of recent L toe amputations. Pt reports his surgeon stated he should return to ED if increased pain. Pt reports pain to L foot since Tuesday (03/21). Nursing Sepsis Screen: No Definite Risk Source: patient, EMS Exam Limitations: intoxication History of Present Illness Date Seen by Provider: March 26, 2020 Time Seen by Provider: 10:00 Initial Comments Patient was brought in by ambulance because of pain in his left foot. He has a history of a recent forefoot amputation with open wound it's being treated with wound care at home. He is a right AK amputation for peripheral vascular disease no fever he has been drinking alcohol excessively today is any injury to the f oot Onset: other (chronic) Pain/Injury Location: left foot Method of Injury: incised Allergies and Home Medications Allergies Coded Allergies: No Known Drug Allergies (Unverified , 05/23/19) Home Medications Bacitracin 28.4 Gm Oint...g., 28.4 GM TP BID Prescribed by: JOSÉ MIGUEL BELLO on 08/03/19 1320 Cephalexin 500 Mg Capsule, 500 MG PO TID Prescribed by: TESSA CERVANTES on 05/23/19 171 Furosemide 20 Mg Tablet, 20 MG PO DAILY Prescribed by: TESSA CERVANTES on 05/23/19 171 Patient Home Medication List Home Medication List Reviewed: Yes Review of Systems Constitutional: no symptoms reported EENTM: no symptoms reported Respiratory: no symptoms reported Cardiovascular: no symptoms reported Musculoskeletal: see HPI Skin: see HPI Past Rwmklcr-Ankopr-Ewzlsy Hx Patient Social History Alcohol Use: Regular Use Number of Drinks Today: GG Alcohol Beverage of Choice: Whiskey Recreational Drug Use: No Type Used: Cigarettes 2nd Hand Smoke Exposure: Yes Recent Foreign Travel: No Contact w/Someone Who Travel: No Recent Infectious Disease Expo: No Recent Hopitalizations: No Seasonal Allergies Seasonal Allergies: No Past Medical History Surgeries: Yes (R Above the knee amputation, Left toes amputationed) Orthopedic Respiratory: No (Hypoxia) Cardiac: Yes (Buerger Disease) Hypertension, Peripheral Vascular Neurological: Yes Stroke Genitourinary: No Gastrointestinal: Yes (Chronic Alcohol gastritis) Gastroesophageal Reflux Musculoskeletal: Yes (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, Insulin dep HEENT: No Cancer: No Psychosocial: Yes (Substance abuse, Alcohol dependence) Integumentary: Yes (Cellulitis) Blood Disorders: No Physical Exam Vital Signs Vital Signs - First Documented 03/26/20 09:58 Temp 36.3 Pulse 92 Resp 18 B/P (MAP) 107/72 (84) Pulse Ox 99 O2 Delivery Room Air Capillary Refill : Greater Than 3 Seconds Height, Weight, BMI Height: 5'9.50" Weight: 117lbs. oz. 53.393041vb; 16.00 BMI Method:Stated General Appearance: WD/WN, no apparent distress, other HEENT: PERRL/EOMI (intoxicated), normal ENT inspection Neck: non-tender, full range of motion, supple Cardiovascular: regular rate, rhythm, no edema Respiratory: chest non-tender, lungs clear, normal breath sounds Gastrointestinal: normal bowel sounds, non tender, soft Back: normal inspection, no CVA tenderness Feet: left foot deformity (is a forefoot amputation wound is open the sutures are still intact there is no cellulitis there's no erythema is no discharge the Refill in the surrounding tissue is normal there is very minimal to no dorsalis pedis palpable 1+ edema from about mid tibia down) Neurologic/Tendon: normal sensation Neurologic/Psychiatric: visual manager II-XII nml as tested, no motor/sensory deficits Skin: normal color, warm/dry Progress/Results/Core Measures Results/Orders Lab Results Laboratory Tests Test 03/26/20 11:08 03/26/20 11:30 03/26/20 14:05 Range/Units White Blood Count 4.5 4.3-11.0 10^3/uL Red Blood Count 3.46 L 4.35-5.85 10^6/uL Hemoglobin 12.9 L 13.3-17.7 G/DL Hematocrit 37 L 40-54 % Mean Corpuscular Volume 106 H 80-99 FL Mean Corpuscular Hemoglobin 37 H 25-34 PG Mean Corpuscular Hemoglobin Concent 35 32-36 G/DL Red Cell Distribution Width 13.9 10.0-14.5 % Platelet Count 166 130-400 10^3/uL Mean Platelet Volume 11.3 H 7.4-10.4 FL Neutrophils (%) (Auto) 65 42-75 % Lymphocytes (%) (Auto) 23 12-44 % Monocytes (%) (Auto) 9 0-12 % Eosinophils (%) (Auto) 2 0-10 % Basophils (%) (Auto) 1 0-10 % Neutrophils # (Auto) 2.9 1.8-7.8 X 10^3 Lymphocytes # (Auto) 1.0 1.0-4.0 X 10^3 Monocytes # (Auto) 0.4 0.0-1.0 X 10^3 Eosinophils # (Auto) 0.1 0.0-0.3 10^3/uL Basophils # (Auto) 0.0 0.0-0.1 10^3/uL Erythrocyte Sedimentation Rate 1 0-30 MM/HR Prothrombin Time 12.6 12.2-14.7 SEC INR Comment 0.9 0.8-1.4 Sodium Level 139 135-145 MMOL/L Potassium Level 3.3 L 3.6-5.0 MMOL/L Chloride Level 99 98-107 MMOL/L Carbon Dioxide Level 25 21-32 MMOL/L Anion Gap 15 H 5-14 MMOL/L Blood Urea Nitrogen 6 L 7-18 MG/DL Creatinine 0.40 L 0.60-1.30 MG/DL Estimat Glomerular Filtration Rate > 60 BUN/Creatinine Ratio 15 Glucose Level 97 70-105 MG/DL Lactic Acid Level 1.58 0.50-2.00 MMOL/L Calcium Level 9.0 8.5-10.1 MG/DL Corrected Calcium 9.4 8.5-10.1 MG/DL Total Bilirubin 0.4 0.1-1.0 MG/DL Aspartate Amino Transf (AST/SGOT) 105 H 5-34 U/L Alanine Aminotransferase (ALT/SGPT) 31 0-55 U/L Alkaline Phosphatase 175 H 40-136 U/L C-Reactive Protein 0.56 H <0.50 MG/DL Total Protein 6.3 L 6.4-8.2 GM/DL Albumin 3.5 3.2-4.5 GM/DL Urine Color YELLOW Urine Clarity CLEAR Urine pH 7.0 5-9 Urine Specific [place] 1.015 L 1.016-1.022 Urine Protein NEGATIVE NEGATIVE Urine Glucose (UA) NEGATIVE NEGATIVE Urine Ketones NEGATIVE NEGATIVE Urine Nitrite NEGATIVE NEGATIVE Urine Bilirubin NEGATIVE NEGATIVE Urine Urobilinogen 1.0 < = 1.0 MG/DL Urine Leukocyte Esterase NEGATIVE NEGATIVE Urine RBC (Auto) NEGATIVE NEGATIVE Urine RBC NONE /HPF Urine WBC NONE /HPF Urine Squamous Epithelial Cells NONE /HPF Urine Crystals NONE /LPF Urine Leucine Crystals NONE /LPF Urine Bacteria TRACE /HPF Urine Mucus SMALL H /LPF Urine Culture Indicated NO My Orders Orders - GERA ESQUIVEL DO Cbc With Automated Diff (03/26/20 10:31) Comprehensive Metabolic Panel (03/26/20 10:31) Blood Culture (03/26/20 10:31) Urinalysis (03/26/20 10:31) Urine Culture (03/26/20 10:31) Protime With Inr (03/26/20 10:31) Chest 1 View Ap/Pa Only (03/26/20 10:31) Ed Iv/Invasive Line Start (03/26/20 10:31) Wound Culture (03/26/20 10:31) Lactic Acid Analyzer (03/26/20 10:31) Erythrocyte Sedimentation Rate (03/26/20 10:31) Foot 3 View Left (03/26/20 10:31) Fentanyl Injection (Sublimaze Injection (03/26/20 10:45) Crp Fs (03/26/20 11:30) Medications Given in ED Current Medications Medications Dose Ordered Sig/Junior Route Start Time Stop Time Status Last Admin Dose Admin Fentanyl Citrate 25 mcg Q1H PRN IVP 03/26/20 10:45 03/26/20 14:48 DC 03/26/20 12:29 25 MCG Vital Signs/I&O 03/26/20 03/26/20 09:58 14:46 Temp 36.3 37.0 Pulse 92 77 Resp 18 16 B/P (MAP) 107/72 (84) 142/80 Pulse Ox 99 98 O2 Delivery Room Air Room Air Blood Pressure Mean: 84 Progress Progress Note : Progress Note Patient is presented as a chronic alcoholic with peripheral vascular disease with an opened wound healing of his left distal forefoot with a right AK amputation. He has not really had close follow-up has been taking care of the wound home and it looks reasonably adequate. Implanted increasing pain today no fever no discharge the plan will be infectious screening cultures wound care try to arrange follow-up. 1400 had not been able to reach the vascular surgeon but it's not been amputated bowl issue at this point it is a matter of wound care so have contacted social work patient is declined intermediate placement does not seem to meet any specific admission criteria as he predominantly needs wound care we have contacted social work we have contacted home health to do every other day wound management at home Departure Communication (Admissions) Time/Spoke to Consulting Phy: 14:25 Spoke with the advanced practice nurse Daphne on-call for Dr. Gee at [facility]. Labs and case were presented outpatient follow-up was a rranged for next week. The office will call him he was given the phone number and home health/manager social work was also given the number to facilitate this follow-up Impression Primary Impression: Amput foot, unilat-complicated Additional Impression: Peripheral vascular disease Disposition: HOME, SELF-CARE Condition: Improved Transfer Method of Transfer: EMS (patient is a and bilateral amputee without his wheelchair and is bedbound and will require EMS transfer home due to his inabili ty to ambulate.) Departure-Patient Inst. Referrals: [facility] (PCP/Family) Primary Care Physician Patient needs close follow-up organize for home health every other day wound care needs to revisit his operative surgeon for follow-up will need transportation requirements social work is been contact Add. Discharge Instructions: Please have home health clean year wound and dress it every other day Please see Dr. Gee early next week concerning the wound management and need for further treatment Return for fever or chills or worsening drainage from the wound. All discharge instructions reviewed with patient and/or family. Voiced understanding. GERA ESQUIVEL DO March 26, 2020 14:07
--- NOTE | 2020-03-26 14:12 | NUR ---
CM/SS: Based on concerns for pt condition, self neglect, and frequent visits to the ER. Adult Protective Services Report is filed -ID number #[id number].
[2020-03-26 14:16] LABS: COLOR,URINE YELLOW
[2020-03-26 14:17] LABS: BILIRUBIN,URINE NEGATIVE (NEGATIVE); CLARITY,URINE CLEAR; GLUCOSE, URINE (UA) NEGATIVE (NEGATIVE); KETONES,URINE NEGATIVE (NEGATIVE); LEUKOCYTE ESTERASE ,URINE NEGATIVE (NEGATIVE); NITRITE,URINE NEGATIVE (NEGATIVE); PROTEIN,URINE NEGATIVE (NEGATIVE)
[2020-03-26 14:18] LABS: BACTERIA,URINE TRACE /HPF
[2020-03-26 14:46] VITALS: BP 142/80
--- NOTE | 2020-03-26 15:05 | NUR ---
Pt is bed bound and requires EMS to take pt home.
--- NOTE | 2020-03-26 15:19 | NUR ---
Appointment with Dr. Quiroga set for Tuesday at 1315. Wound care order for every other day.
--- NOTE | 2020-03-26 15:20 | NUR ---
EMS arrived at this time to take pt home, because he is bed bound and can't get himself home.
--- NOTE | 2020-03-26 15:20 | NUR ---
Dr. Gee's office is called at this moment to get follow-up appointment made.
--- NOTE | 2020-03-26 15:22 | NUR ---
Appointment was made at Dr. Gee's office on 04/10/2020 at 1000.
--- NOTE | 2020-03-26 15:39 | NUR ---
Spoke to Randy with [employer] transportation. Pt has transportation for appointment on tuesday. He will be picked up at 1130. Call # is [phone]. Has transportation [place] on 04/10 [place]15[place] [phone].
--- NOTE | 2020-03-26 15:47 | NUR ---
Called brother MAURO and let him know about his appointments and his pickup time.
== END 2020-03-26 14:48 | disposition home or self-care (01) ==
LOC: EDUNIT# 09:58 → ER FS 09:59
DX: T87.89 Other complications of amputation stump (principal); E11.51 Type 2 diabetes mellitus with diabetic peripheral angiopathy without gangrene; I10 Essential (primary) hypertension; Z77.22 Contact with and (suspected) exposure to environmental tobacco smoke (acute) (chronic); Z86.73 Personal history of transient ischemic attack (TIA), and cerebral infarction without residual deficits
CPT/HCPCS: 36415; 71045; 73630; 80053; 81000; 83605; 85025; 85610; 85652; 86141; 87040; 87070; 87088; 87205

== ENCOUNTER 2020-04-16 12:53 | Inpatient (IN) | payer MEDICAID ==
[~2020-04-16] VITALS: Ht 177.8 cm; Wt 53.0 kg
[2020-04-16] MEDS ORDERED: fentaNYL INJECTION 100 MCG/2 ML AMP IVP STA (13:39)
[2020-04-16 13:42] LABS: BASOPHILS % (AUTO) 0 % (0-10); EOSINOPHILS # (AUTO) 0.1 10^3/uL (0.0-0.3); EOSINOPHILS % (AUTO) 1 % (0-10); HEMATOCRIT 36 % (40-54); HEMOGLOBIN 13.1 G/DL (13.3-17.7); LYMPHOCYTES # (AUTO) 1.2 X 10^3 (1.0-4.0); LYMPHOCYTES % (AUTO) 14 % (12-44); MEAN CORPUSCULAR HEMOGLOBIN 37 PG (25-34); MEAN CORPUSCULAR HGB CONC 37 G/DL (32-36); MEAN CORPUSCULAR VOLUME 102 FL (80-99); MEAN PLATELET VOLUME 9.8 FL (7.4-10.4); MONOCYTES # (AUTO) 0.8 X 10^3 (0.0-1.0); MONOCYTES % (AUTO) 10 % (0-12); NEUTROPHILS # (AUTO) 6.2 X 10^3 (1.8-7.8); NEUTROPHILS % (AUTO) 75 % (42-75); PLATELET COUNT 381 10^3/uL (130-400); RED CELL DISTRIBUTION WIDTH 13.2 % (10.0-14.5); WHITE BLOOD COUNT 8.3 10^3/uL (4.3-11.0)
[2020-04-16 13:43] LABS: BILIRUBIN,URINE NEGATIVE (NEGATIVE); CLARITY,URINE CLEAR; COLOR,URINE DARK YELLOW; GLUCOSE, URINE (UA) NEGATIVE (NEGATIVE); KETONES,URINE NEGATIVE (NEGATIVE); LEUKOCYTE ESTERASE ,URINE NEGATIVE (NEGATIVE); NITRITE,URINE NEGATIVE (NEGATIVE); PROTEIN,URINE NEGATIVE (NEGATIVE)
[2020-04-16 13:56] LABS: ALBUMIN 3.4 GM/DL (3.2-4.5); CHLORIDE 99 MMOL/L (98-107); POTASSIUM 2.8 MMOL/L (3.6-5.0); SODIUM 136 MMOL/L (135-145)
[2020-04-16 13:57] LABS: INR 0.9 (0.8-1.4); PROTHROMBIN TIME PATIENT 12.6 SEC (12.2-14.7)
[2020-04-16 13:58] LABS: CALCIUM 8.5 MG/DL (8.5-10.1)
[2020-04-16 13:59] LABS: GLUCOSE 104 MG/DL (70-105); TOTAL PROTEIN 6.6 GM/DL (6.4-8.2)
[2020-04-16 14:00] LABS: CARBON DIOXIDE 23 MMOL/L (21-32)
[2020-04-16 14:01] LABS: BILIRUBIN,TOTAL 0.7 MG/DL (0.1-1.0)
[2020-04-16 14:02] LABS: ALKALINE PHOSPHATASE 184 U/L (40-136)
[2020-04-16 14:03] LABS: CREATININE SERUM 0.51 MG/DL (0.60-1.30); GFR ESTIMATED > 60
[2020-04-16 14:04] LABS: BUN/CREATININE RATIO 8
[2020-04-16 14:05] LABS: ALANINE AMINOTRANSFERASE 31 U/L (0-55)
[2020-04-16 14:07] LABS: BACTERIA,URINE TRACE /HPF
--- NOTE | 2020-04-16 14:11 | Diagnostic Imaging Report ---
INDICATION: Diabetes and sepsis. TECHNIQUE: Frontal chest obtained at 01:46 p.m. and compared to 03/26/2020. FINDINGS: Patient is somewhat rotated. Heart is normal in size. There is no focal infiltrate or pneumothorax or pleural fluid. IMPRESSION: No acute process in the chest. Dictated by: Dictated on workstation # [id number]
[2020-04-16] MEDS ORDERED: LACTATED RINGERS 1,000 ML IV ONE (14:20)
[2020-04-16] MEDS ORDERED: KETOROLAC 30 MG/ML VIAL IVP STA (14:20)
--- NOTE | 2020-04-16 14:22 | Diagnostic Imaging Report ---
INDICATION: Left foot pain and diabetes. TIME OF EXAM: 01:48 p.m. EXAMINATION: Three views of the left foot were obtained. FINDINGS: Postsurgical changes of amputation at the level of the distal metatarsals is noted. Resection margins appear to be fairly smooth. Overlying soft tissues do demonstrate some soft tissue gas. No definite bony destructive changes are seen. Midfoot and hindfoot are unremarkable. There are no fractures. IMPRESSION: Amputation of the forefoot with overlying soft tissue gas, perhaps owing to soft tissue infection. No bony destructive changes are seen to suggest osteomyelitis. If there is concern for osteomyelitis, MRI could be performed. Dictated by: Dictated on workstation # [id number]
[2020-04-16] MEDS ORDERED: VANCOMYCIN INJECTION 1,000 MG in NS (IVPB) 250 ML IV ONE (14:30)
[2020-04-16] MEDS ORDERED: HYDROmorphone 2 MG/ML VIAL (DILAUDID) IV ONE (14:30)
[2020-04-16] MEDS ORDERED: PIPERACILLIN SODIUM/TAZOBACTAM 4.5 GM in NS (IVPB) 100 ML IV ONE (14:30)
--- NOTE | 2020-04-16 14:47 | ED General ---
General Chief Complaint: Lower Extremity Stated Complaint: L FOOT PAIN Nursing Triage Note: PT TO ROOM 06 VIA W/C WITH C/O LEFT FOOT PAIN. PT SENT FROM [facility] IN [place] FOR ABX. 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 Nursing Sepsis Screen: No Definite Risk Source of Information: Patient Exam Limitations: No Limitations History of Present Illness Date Seen by Provider: Apr 16, 2020 Time Seen by Provider: 13:21 Initial Comments Here with report of foul-smelling drainage from the wound of the left foot. Does have long-standing wound care issues related to that foot and has had forefoot amputation. He was seen at clinic in [place] and they transported him here for further evaluation do to concerns of how smell and the need for wound care. Patient was adamant with him that he was not in and be admitted although he states he will at least listen to the story. He is concerned about amputation toes he does not want to go to the retirement. He was told by surgeon in [facility] that he needed his foot amputated due to the wound. Admits to drinking alcohol daily and states that he drinks quite a bit. Is complaining of pain to the foot currently. Does have dressing in place. Timing/Duration: Getting Worse, Other (weeks) Severity: Moderate Associated Systoms: No Chest Pain, No Cough, No Fever/Chills, No Nausea/Vomiting, No Shortness of Air; Weakness Allergies and Home Medications Allergies Coded Allergies: No Known Drug Allergies (Unverified , 05/23/19) Home Medications Bacitracin 28.4 Gm Oint...g., 28.4 GM TP BID Prescribed by: JOSÉ MIGUEL BELLO on 08/03/19 1320 Cephalexin 500 Mg Capsule, 500 MG PO TID Prescribed by: TESSA CERVANTES on 05/23/19 171 Furosemide 20 Mg Tablet, 20 MG PO DAILY Prescribed by: TESSA CERVANTES on 05/23/19 1716 Patient Home Medication List Home Medication List Reviewed: Yes Review of Systems Review of Systems Constitutional: see HPI; No chills, No fever EENTM: no symptoms reported Respiratory: no symptoms reported Cardiovascular: no symptoms reported Gastrointestinal: No diarrhea, No nausea, No vomiting Genitourinary: No dysuria, No pain Musculoskeletal: see HPI, joint pain, muscle pain Skin: change in color, lesions Psychiatric/Neurological: No Symptoms Reported All Other Systems Reviewed Negative Unless Noted: Yes Past Klkohtn-Xolipt-Xqmqhg Hx Past Med/Social Hx: Reviewed Nursing Past Med/Soc Hx Patient Social History Alcohol Use: Regular Use Number of Drinks Today: GG Alcohol Beverage of Choice: Whiskey Recreational Drug Use: Yes Drug of Choice: POT Smoking Status: Current Everyday Smoker Type Used: Cigarettes 2nd Hand Smoke Exposure: Yes Recent Foreign Travel: No Contact w/Someone Who Travel: No Recent Infectious Disease Expo: No Recent Hopitalizations: No Physical Abuse: No Sexual Abuse: No Mistreated: No Fear: No Seasonal Allergies Seasonal Allergies: No Past Medical History Surgeries: Yes (R Above the knee amputation, Left toes amputationed) Orthopedic Respiratory: No (Hypoxia) Cardiac: Yes (Buerger Disease) Hypertension, Peripheral Vascular Neurological: Yes Stroke Genitourinary: No Gastrointestinal: Yes (Chronic Alcohol gastritis) Gastroesophageal Reflux Musculoskeletal: Yes (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 oz. [id number]; 16.00 BMI Method:Stated General Appearance: No Apparent Distress, Chronically ill, Thin HEENT: PERRL/EOMI, Pharynx Normal, Other (poor dentition overall) Neck: Non Tender, Supple Respiratory: Lungs Clear, Normal Breath Sounds Cardiovascular: No Murmur, Tachycardia Gastrointestinal: Non Tender, Soft Back: Normal Inspection, No CVA Tenderness, No Vertebral Tenderness Extremity: Normal Range of Motion, Non Tender Neurologic/Psychiatric: Alert, Oriented x3 Skin: ulcerations, other (dressing to left lower extremity. This was taken down. Multiple wounds noted to the lower extremity below the knee. Erythema noted. Does have a forefoot amputation. Bones are exposed and 100s of maggots are noted in the wound and falling out of the dressing and foot wound onto the floor. Foul-smelling drainage noted from wound.) Focused Exam Lactate Level 04/16/20 13:13: Lactic Acid Level 2.39*H Lactic Acid Level Laboratory Tests Test 04/16/20 13:13 Lactic Acid Level 2.39 MMOL/L (0.50-2.00) *H Progress/Results/Core Measures Suspected Sepsis Recent Fever Within 48 Hours: No Infection Criteria Present: None New/Unexplained Altered Menta: No Sepsis Screen: No Definite Risk SIRS Temperature: Pulse: 112 Respiratory Rate: 17 Laboratory Tests 04/16/20 13:13: White Blood Count 8.3 Blood Pressure 102 /75 Mean: 84 04/16/20 13:13: Lactic Acid Level 2.39*H Laboratory Tests 04/16/20 13:11: Creatinine 0.51L, INR Comment 0.9, Total Bilirubin 0.7 04/16/20 13:13: Platelet Count 381 Results/Orders Lab Results Laboratory Tests Test 04/16/20 13:11 04/16/20 13:13 Range/Units Prothrombin Time 12.6 12.2-14.7 SEC INR Comment 0.9 0.8-1.4 Activated Partial Thromboplast Time 27 24-35 SEC Sodium Level 136 135-145 MMOL/L Potassium Level 2.8 L 3.6-5.0 MMOL/L Chloride Level 99 98-107 MMOL/L Carbon Dioxide Level 23 21-32 MMOL/L Anion Gap 14 5-14 MMOL/L Blood Urea Nitrogen 4 L 7-18 MG/DL Creatinine 0.51 L 0.60-1.30 MG/DL Estimat Glomerular Filtration Rate > 60 BUN/Creatinine Ratio 8 Glucose Level 104 70-105 MG/DL Calcium Level 8.5 8.5-10.1 MG/DL Corrected Calcium 9.0 8.5-10.1 MG/DL Total Bilirubin 0.7 0.1-1.0 MG/DL Aspartate Amino Transf (AST/SGOT) 69 H 5-34 U/L Alanine Aminotransferase (ALT/SGPT) 31 0-55 U/L Alkaline Phosphatase 184 H 40-136 U/L C-Reactive Protein High Sensitivity 1.42 H 0.00-0.50 MG/DL Total Protein 6.6 6.4-8.2 GM/DL Albumin 3.4 3.2-4.5 GM/DL Serum Alcohol 204 H <10 MG/DL White Blood Count 8.3 4.3-11.0 10^3/uL Red Blood Count 3.50 L 4.35-5.85 10^6/uL Hemoglobin 13.1 L 13.3-17.7 G/DL Hematocrit 36 L 40-54 % Mean Corpuscular Volume 102 H 80-99 FL Mean Corpuscular Hemoglobin 37 H 25-34 PG Mean Corpuscular Hemoglobin Concent 37 H 32-36 G/DL Red Cell Distribution Width 13.2 10.0-14.5 % Platelet Count 381 130-400 10^3/uL Mean Platelet Volume 9.8 7.4-10.4 FL Neutrophils (%) (Auto) 75 42-75 % Lymphocytes (%) (Auto) 14 12-44 % Monocytes (%) (Auto) 10 0-12 % Eosinophils (%) (Auto) 1 0-10 % Basophils (%) (Auto) 0 0-10 % Neutrophils # (Auto) 6.2 1.8-7.8 X 10^3 Lymphocytes # (Auto) 1.2 1.0-4.0 X 10^3 Monocytes # (Auto) 0.8 0.0-1.0 X 10^3 Eosinophils # (Auto) 0.1 0.0-0.3 10^3/uL Basophils # (Auto) 0.0 0.0-0.1 10^3/uL Urine Color DARK YELLOW Urine Clarity CLEAR Urine pH 7.0 5-9 Urine Specific [place] 1.010 L 1.016-1.022 Urine Protein NEGATIVE NEGATIVE Urine Glucose (UA) NEGATIVE NEGATIVE Urine Ketones NEGATIVE NEGATIVE Urine Nitrite NEGATIVE NEGATIVE Urine Bilirubin NEGATIVE NEGATIVE Urine Urobilinogen 2.0 < = 1.0 MG/DL Urine Leukocyte Esterase NEGATIVE NEGATIVE Urine RBC (Auto) NEGATIVE NEGATIVE Urine RBC NONE /HPF Urine WBC NONE /HPF Urine Crystals NONE /LPF Urine Bacteria TRACE /HPF Urine Casts NONE /LPF Urine Mucus NEGATIVE /LPF Urine Culture Indicated CULTURE PENDING Lactic Acid Level 2.39 *H 0.50-2.00 MMOL/L My Orders Orders - ELEONORA CORNELL MD Cbc With Automated Diff (04/16/20 13:19) Comprehensive Metabolic Panel (04/16/20 13:19) Blood Culture (04/16/20 13:19) Sputum Culture (04/16/20 13:19) Urinalysis (04/16/20 13:19) Urine Culture (04/16/20 13:19) Protime With Inr (04/16/20 13:19) Partial Thromboplastin Time (04/16/20 13:19) Chest 1 View, Ap/Pa Only (04/16/20 13:19) Ed Iv/Invasive Line Start (04/16/20 13:19) Vital Signs Adult Sepsis Patie Q15M (04/16/20 13:19) O2 (04/16/20 13:19) Remove Rings In Anticipation O (04/16/20 13:19) Lactic Acid Analyzer (04/16/20 13:19) Alcohol (04/16/20 13:19) Hs C Reactive Protein (04/16/20 13:38) Foot, Left, 3 Views (04/16/20 13:39) Fentanyl Injection (Sublimaze Injection (04/16/20 13:39) Hydromorphone Injection (Dilaudid Inject (04/16/20 14:30) Ketorolac Injection (Toradol Injection) (04/16/20 14:20) Lactated Ringers (Lr 1000 Ml Iv Solution (04/16/20 14:20) Piperacillin Sodium/Tazobactam (Zosyn Vi (04/16/20 14:30) Vancomycin Injection (Vancomycin Injecti (04/16/20 14:30) Medications Given in ED Current Medications Medications Dose Ordered Sig/Junior Route Start Time Stop Time Status Last Admin Dose Admin Hydromorphone HCl 0.5 mg ONCE ONCE IV 04/16/20 14:30 04/16/20 14:31 DC 04/16/20 14:28 0.5 MG Lactated Ringer's 1,000 ml @ 0 mls/hr Q0M ONCE IV 04/16/20 14:20 04/16/20 14:23 DC 04/16/20 14:27 999 MLS/HR Vital Signs/I&O 04/16/20 13:07 Temp 36.6 Pulse 112 Resp 17 B/P (MAP) 102/75 (84) O2 Delivery Room Air Capillary Refill : Less Than 3 Seconds Blood Pressure Mean: 84 Progress Note : Progress Note Seen and evaluated. IV, labs, blood cultures, lactic acid, chest x-ray and left foot x-ray ordered. Wound dressing taken down and wound exposed. Significant foul-smelling, purulent drainage and maggots noted in and around wound. Able to visualize within the foot. Bones are exposed and obviously visually infected. Patient initially resistant to inpatient admission and amputation. I did discuss with him that this is a serious concern for infection and potential for loss of life. He did express his concerns related to retirement placement and his desire to stay at home. Was informed that that is still a possibility but it would not matter if he denies for which he agreed. He has agreed to stay and surgical evaluation and amputation of needed. I did discuss the case with Dr. Jose, on-call for [facility] and she accepts patient for admission, inpatient status. I consult Dr. Cortes who accepts patient in consult. We did initiate Zosyn and vancomycin her sepsis protocol. Patient did receive fentanyl 50 g IV and Toradol 15 mg IV. He also received Dilaudid 0.5 mg IV for continued pain which seems to have helped. Admit, inpatient status. Patient agrees to plan. Diagnostic Imaging Diagonstic Imaging: Xray Plain Films/CT/US/NM/MRI: chest Comments [facility] [place] [place] NAME: [facility] REC#: [id number] PT STATUS: REG ER : 1965 PHYSICIAN: ELEONORA CORNELL MD ADMIT DATE: 04/16/20/ER Draft Date of Exam:04/16/20 CHEST 1 VIEW, AP/PA ONLY INDICATION: Diabetes and sepsis. TECHNIQUE: Frontal chest obtained at 01:46 p.m. and compared to 03/26/2020. FINDINGS: Patient is somewhat rotated. Heart is normal in size. There is no focal infiltrate or pneumothorax or pleural fluid. IMPRESSION: No acute process in the chest. Dictated on workstation # [id number] Dict: 04/16/20 1406 Trans: 04/16/20 1410 [id number] Interpreted by: RIMA JAMES MD Electronically signed by: Diagonstic Imaging: Xray Plain Films/CT/US/NM/MRI: other Comments [facility] [place] [place] NAME: [facility]UL [facility] REC#: [id number] PT STATUS: REG ER : 1965 PHYSICIAN: ELEOONRA CORNELL MD ADMIT DATE: 04/16/20/ER Draft Date of Exam:04/16/20 FOOT, LEFT, 3 VIEWS INDICATION: Left foot pain and diabetes. TIME OF EXAM: 01:48 p.m. EXAMINATION: Three views of the left foot were obtained. FINDINGS: Postsurgical changes of amputation at the level of the distal metatarsals is noted. Resection margins appear to be fairly smooth. Overlying soft tissues do demonstrate some soft tissue gas. No definite bony destructive changes are seen. Midfoot and hindfoot are unremarkable. There are no fractures. IMPRESSION: Amputation of the forefoot with overlying soft tissue gas, perhaps owing to soft tissue infection. No bony destructive changes are seen to suggest osteomyelitis. If there is concern for osteomyelitis, MRI could be performed. Dictated on workstation # [id number] Dict: 04/16/20 1416 Trans: 04/16/20 1422 [facility] [id number] Interpreted by: FERNANDO MELCHOR MD Electronically signed by: Departure Communication (Admissions) Time/Spoke to Admitting Phy: 14:25 Time/Spoke to Consulting Phy: 14:26 Impression Primary Impression: Cellulitis of left foot Additional Impressions: Foot osteomyelitis, left Qualified Codes: M86.9 - Osteomyelitis, unspecified Sepsis Qualified Codes: A41.9 - Sepsis, unspecified organism Leg wound, left Qualified Codes: S81.802A - Unspecified open wound, left lower leg, initial encounter Alcohol abuse Disposition: ADMITTED INPATIENT Condition: Stable Admissions Decision to Admit Reason: Admit from ER (General) Decision to Admit/Date: Apr 16, 2020 Time/Decision to Admit Time: 14:25 Departure-Patient Inst. Referrals: [facility] [place] (PCP/Family) Primary Care Physician ELEONORA CORNELL MD Apr 16, 2020 14:47
--- OUTSIDE RECORDS SUMMARY | 2020-04-16 16:05 | XMS REPORT | Continuity of Care Document ---
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 OF 09/02/2019 JAIMEE FUENTES MD, Ot I73 .1 THROMBOANGIITIS OBLITERANS [BUERGER'S DI 09/02/2019 JAIMEE FUENETS MD, Ot J44 .9 CHRONIC OBSTRUCTIVE PULMONARY DISEASE, U 09/02/2019 JAIMEE FUENTES MD Ot L97.422 NON-PRS CHR ULCER OF LEFT HEEL AND MIDFO 09/02/2019 JAIMEE FUENTES MD Ot T65.222A TOXIC EFFECT OF TOBACCO CIGARETTES, SELF 09/25/2019 JAIMEE FUENTES MD, Ot F17.218 NICOTINE DEPENDENCE, CIGARETTES, W OTH D 09/25/2019 JAIMEE FUENTES MD Ot I70.262 A[facility]CL [place] ARTERIES OF EXTREMITIES W 09/25/2019 JAIMEE FUENTES [...] 09/26/2019 JAIMEE FUENTES MD Ot I70.262 ATHSCL [place] ARTERIES OF EXTREMITIES W 09/26/2019 JAIMEE FUENTES [...] 10/10/2019 JAIMEE FUENTES MD Ot I70.262 A[facility]CL [place] ARTERIES OF EXTREMITIES W 10/10/2019 JAIMEE FUENTES [...] 10/10/2019 JAIMEE FUENTES MD Ot I70.234 ATHSCL [place] ART OF RIGHT LEG W ULCER O [...] 02/06/2020 JAIMEE FUENTES MD Ot I70.261 A[facility]SCL [place] ARTERIES OF EXTREMITIES W 02/06/2020 JAIMEE FUENTES [...] L03.116 CELLULITIS OF LEFT LOWER LIMB 03/13/2020 [facility], JOSÉ MIGUEL Andrade Ot R60.0 LOCALIZED EDEMA 03/13/2020 [facility], JOSÉ MIGUEL Andrade Ot Z77.22 CNTCT W AND EXPSR TO ENVIRON TOBACCO SMO 03/13/2020 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 03/28/2020 [facility], GERA Rivera Ot E11.5 1 TYPE 2 DIABETES W DIABETIC PERIPHERAL AN 03/28/2020 [facility], GERA Rivera Ot I10 ESSENTIAL (PRIMARY) HYPERTENSION 03/28/2020 [facility], GERA Rivera Ot M79.6 72 PAIN IN LEFT FOOT 03/28/2020 [facility], [place] Rivera Ot T87.8 9 OTHER COMPLICATIONS OF AMPUTATION STUMP 03/28/2020 [facility], [place]ERA Rivera Ot Z77.2 2 CNTCT W AND EXPSR TO ENVIRON TOBACCO [facility] [place] [facility] [place]/28/2020 [facility], GERA Rivera Ot Z86.7 3 PRSNL HX OF TIA (TIA), AND CEREB INFRC W Procedures There is no data. Results Test [...] mg/dL 0.1-1.0 Serum or plasma alkaline phosphatase deujan surement (enzymatic activity/volume) 108 U/L 40-136 Serum [...] OF GROWTH Isolated NRG Bacterial blood culture [id number] NRG [facility] - 11/05/19 [...] 7-25 CREATININE 0.37 mg/dL 0.70-1.33 eGFR NON-AFR. UZBEK 138 mL/min/1.73m2 > OR = 60 eGFR [...] - 03/07/20 10:45 Bacterial blood culture NG NR Bacterial blood culture - 03/07/20 10:52 Bacterial blood culture NG NR Complete blood count (CBC) with automate d white blood cell (WBC) differential - 03/26/20 11:08 Blood leukocytes automated count (number/volume) 4.5 10*3/uL 4.3-11.0 Blood erythrocytes automated count (number/volume) 3.46 10*6/uL 4.35-5.85 Venous blood hemoglobin measurement (mass/volume) 12.9 g/dL 13.3-17.7 Blood hematocrit (volume fraction) 37 % 40-54 Automated erythrocyte mean corpuscular volume 106 [foz_us] 80-99 Automated erythrocyte mean corpuscular h emoglobin (mass per erythrocyte) 37 pg 25-34 Automated erythrocyte mean corpuscular h emoglobin concentration measurement (mass/volume) 35 g/dL 32-36 Automated erythrocyte distribution width ratio 13. 9 % 10.0- 14.5 Automated blood platelet count (count/volume) 166 10*3/uL 130-400 Automated blood platelet mean volume measurement 11.3 [foz_us] 7.4-10.4 Automated blood neutrophils/100 leukocytes 65 % 42-75 Automated blood lymphocytes/100 leukocytes 23 % 12-44 Blood monocytes/100 leukocytes 9 % 0-12 Automated blood eosinophils/100 leukocytes 2 % 0-10 Automated blood basophils/100 leukocytes 1 % 0-10 Blood neutrophils automated count (number/volume) 2.9 10*3 1.8-7.8 Blood lymphocytes automated count (number/volume) 1.0 10*3 1.0-4.0 Blood monocytes automated count (number/volume) 0. 4 10*3 0.0-1.0 Automated eosinophil count 0.1 10*3/uL 0 .0-0.3 Automated blood basophil count (count/volume) 0.0 10*3/uL 0.0-0.1 Erythrocyte sedimentation rate by nikky gren method - 03/26/20 11:08 Erythrocyte sedimentation rate by westergren method 1 mm 0- 30 Bacterial blood culture - 03/26/20 11:08 Bacterial blood culture NG NRG PT panel in platelet poor plasma by coag ulation assay - 03/26/20 11:30 Prothrombin time (PT) in platelet poor plasma by coagu lation assay 12.6 s 12.2-14.7 INR in platelet poor plasma or blood by coagulation as say 0.9 0.8-1.4 Blood lactic acid measurement (moles/vol ume) - 03/26/20 11:30 Blood lactic acid measurement (moles/volume) 1.58 mmol/L 0.50-2.00 Comprehensive metabolic panel - 03/26/20 11:30 Serum or plasma sodium measurement (moles/volume) 139 mmol/L 135-145 Serum or plasma potassium measurement (moles/volume) 3.3 mmol/L 3.6-5.0 Serum or plasma chloride measurement (moles/volume) 99 mmol/L 98-107 Carbon dioxide 25 mmol/L 21-32 Serum or plasma anion gap determination (moles/volume) 15 mmol/L 5-14 Serum or plasma urea nitrogen measurement (mass/volume ) 6 mg/dL 7-18 Serum or plasma creatinine measurement (mass/volume) 0.40 mg/dL 0.60-1.30 Serum or plasma urea nitrogen/creatinine mass ratio 15 NRG Serum or plasma creatinine measurement w ith calculation of estimated glomerular filtration rate > NRG Serum or plasma glucose measurement (mass/volume) 97 mg/dL 70-105 Serum or plasma calcium measurement (mass/volume) 9.0 mg/dL 8.5-10.1 Serum or plasma total bilirubin measurement (mass/volu me) 0.4 mg/dL 0.1-1.0 Serum or plasma alkaline phosphatase dejuan surement (enzymatic activity/volume) 175 U/L 40-136 Serum or plasma aspartate aminotransfera se measurement (enzymatic activity/volume) 105 U/L 5-34 Serum or plasma alanine aminotransferase measurement (enzymatic activity/volume) 31 U/L 0-55 Serum or plasma protein measurement (mass/volume) 6.3 g/dL 6.4-8.2 Serum or plasma albumin measurement (mass/volume) 3.5 g/dL 3.2-4.5 CALCIUM CORRECTED 9.4 mg/dL 8.5-10.1 CRP FS - 03/26/20 11:30 CRP FS 0.56 mg/dL <0.50 Bacterial blood culture - 03/26/20 11:50 Bacterial blood culture NG NRG Gram stain microscopy - 03/26/20 13:10 Gram stain microscopy MIXED BACTERIAL BENJIE NRG Bacteria identification in wound by cult ure - 03/26/20 13:10 Bacteria identification in wound by culture [id number] NRG QUANTITY OF GROWTH LARGE AMOUNT NRG SUSCEPTIBILITY NO BETA STREP, STAPH AUREUS, OR NRG MRSA SCREEN PSEUDOMONAS ISOLATED NRG Complete urinalysis with reflex to cultu re - 03/26/20 14:05 Urine color determination YELLOW NRG Urine clarity determination CLEAR NR G Urine pH measurement by test strip 7.0 5-9 Specific gravity of urine by test strip 1.015 1.016-1.022 Urine protein assay by test strip, semi-quantitative NEGATIVE NEGATIVE Urine glucose detection by automated test strip NE GATIVE NEGATIVE Erythrocytes detection in urine sediment by light micr oscopy NEGATIVE NEGATIVE Urine ketones detection by automated test strip NE GATIVE NEGATIVE Urine nitrite detection by test strip NEGATIVE NEGATIVE Urine total bilirubin detection by test strip NEGA TIVE NEGATIVE Urine urobilinogen measurement by automated test strip (mass/volume) 1.0 mg/dL < = 1.0 Urine leukocyte esterase detection by dipstick NEG ATIVE NEGATIVE Automated urine sediment erythrocyte cou nt by microscopy (number/high power field) NONE NRG Automated urine sediment leukocyte count by microscopy (number/high power field) NONE NRG Bacteria detection in urine sediment by light microsco py TRACE NRG Squamous epithelial cells detection in u rine sediment by light microscopy NONE NRG Crystals detection in urine sediment by light microsco py NONE NRG Casts detection in urine sediment by light microscopy NONE NRG Mucus detection in urine sediment by light microscopy SMALL NRG Complete urinalysis with reflex to culture NO NRG Leucine crystals detection in urine sediment by light microscopy NONE NRG Bacterial urine culture - 03/26/20 14:05 Bacterial urine culture NG NRG Comprehensive metabolic panel - 04/16/20 13:11 Serum or plasma sodium measurement (moles/volume) 136 mmol/L 135-145 Serum or plasma potassium measurement (moles/volume) 2.8 mmol/L 3.6-5.0 Serum or plasma chloride measurement (moles/volume) 99 mmol/L 98-107 Carbon dioxide 23 mmol/L 21-32 Serum or plasma anion gap determination (moles/volume) 14 mmol/L 5-14 Serum or plasma urea nitrogen measurement (mass/volume ) 4 mg/dL 7-18 Serum or plasma creatinine measurement (mass/volume) 0.51 mg/dL 0.60-1.30 Serum or plasma urea nitrogen/creatinine mass ratio 8 NRG Serum or plasma creatinine measurement w ith calculation of estimated glomerular filtration rate > NRG Serum or plasma glucose measurement (mass/volume) 104 mg/dL 70-105 Serum or plasma calcium measurement (mass/volume) 8.5 mg/dL 8.5-10.1 Serum or plasma total bilirubin measurement (mass/volu me) 0.7 mg/dL 0.1-1.0 Serum or plasma alkaline phosphatase dejuan surement (enzymatic activity/volume) 184 U/L 40-136 Serum or plasma aspartate aminotransfera se measurement (enzymatic activity/volume) 69 U/L 5-34 Serum or plasma alanine aminotransferase measurement (enzymatic activity/volume) 31 U/L 0-55 Serum or plasma protein measurement (mass/volume) 6.6 g/dL 6.4-8.2 Serum or plasma albumin measurement (mass/volume) 3.4 g/dL 3.2-4.5 CALCIUM CORRECTED 9.0 mg/dL 8.5-10.1 PT panel in platelet poor plasma by coag ulation assay - 04/16/20 13:11 Prothrombin time (PT) in platelet poor plasma by coagu lation assay 12.6 s 12.2-14.7 INR in platelet poor plasma or blood by coagulation as say 0.9 0.8-1.4 Activated partial thromboplastin time (a PTT) in platelet poor plasma bycoagulation assay - 04/16/20 13:11 Activated partial thromboplastin time (a PTT) in platelet poor plasma bycoagulation assay 27 s 24-35 Serum or plasma C reactive protein measu rement (mass/volume) - 04/16/20 13:11 Serum or plasma C reactive protein measurement (mass/v olume) 1.42 mg/dL 0.00-0.50 Serum or plasma ethanol measurement (mas s/volume) - 04/16/20 13:11 Serum or plasma ethanol measurement (mass/volume) 204 mg/dL <10 Complete blood count (CBC) with automate d white blood cell (WBC) differential - 04/16/20 13:13 Blood leukocytes automated count (number/volume) 8.3 10*3/uL 4.3-11.0 Blood erythrocytes automated count (number/volume) 3.50 10*6/uL 4.35-5.85 Venous blood hemoglobin measurement (mass/volume) 13.1 g/dL 13.3-17.7 Blood hematocrit (volume fraction) 36 % 40-54 Automated erythrocyte mean corpuscular volume 102 [foz_us] 80-99 Automated erythrocyte mean corpuscular h emoglobin (mass per erythrocyte) 37 pg 25-34 Automated erythrocyte mean corpuscular h emoglobin concentration measurement (mass/volume) 37 g/dL 32-36 Automated erythrocyte distribution width ratio 13. 2 % 10.0- 14.5 Automated blood platelet count (count/volume) 381 10*3/uL 130-400 Automated blood platelet mean volume measurement 9.8 [foz_us] 7.4-10.4 Automated blood neutrophils/100 leukocytes 75 % 42-75 Automated blood lymphocytes/100 leukocytes 14 % 12-44 Blood monocytes/100 leukocytes 10 % 0-12 Automated blood eosinophils/100 leukocytes 1 % 0-10 Automated blood basophils/100 leukocytes 0 % 0-10 Blood neutrophils automated count (number/volume) 6.2 10*3 1.8-7.8 Blood lymphocytes automated count (number/volume) 1.2 10*3 1.0-4.0 Blood monocytes automated count (number/volume) 0. 8 10*3 0.0-1.0 Automated eosinophil count 0.1 10*3/uL 0 .0-0.3 Automated blood basophil count (count/volume) 0.0 10*3/uL 0.0-0.1 Complete urinalysis with reflex to cultu re - 04/16/20 13:13 Urine color determination DARK YELLOW N RG Urine clarity determination CLEAR NR G Urine pH measurement by test strip 7.0 5-9 Specific gravity of urine by test strip 1.010 1.016-1.022 Urine protein assay by test strip, semi-quantitative NEGATIVE NEGATIVE Urine glucose detection by automated test strip NE GATIVE NEGATIVE Erythrocytes detection in urine sediment by light micr oscopy NEGATIVE NEGATIVE Urine ketones detection by automated test strip NE GATIVE NEGATIVE Urine nitrite detection by test strip NEGATIVE NEGATIVE Urine total bilirubin detection by test strip NEGA TIVE NEGATIVE Urine urobilinogen measurement by automated test strip (mass/volume) 2.0 mg/dL < = 1.0 Urine leukocyte esterase detection by dipstick NEG ATIVE NEGATIVE Automated urine sediment erythrocyte cou nt by microscopy (number/high power field) NONE NRG Automated urine sediment leukocyte count by microscopy (number/high power field) NONE NRG Bacteria detection in urine sediment by light microsco py TRACE NRG Crystals detection in urine sediment by light microsco py NONE NRG Casts detection in urine sediment by light microscopy NONE NRG Mucus detection in urine sediment by light microscopy NEGATIVE NRG Complete urinalysis with reflex to culture CULTURE PENDING NRG Blood lactic acid measurement (moles/vol ume) - 04/16/20 13:13 Blood lactic acid measurement (moles/volume) 2.39 mmol/L 0.50-2.00 Encounters ACCT No. Visit Date/Time Discharge Status Pt. Type Provider Facility Loc./Unit Complaint [id number] 03/31/2020 12:00:00 03/31/2020 23:59: 59 CLS Outpatient [facility] [id number] 11/21/2019 10:20:00 Document Registration [id number] 02/13/2019 11:15:00 Document Registration [id number] 03/26/2020 09:59:00 14:48:00 DIS Outpatient GERA ESQUIVEL DO [facility] ER FS LT FOOT PAIN [id number] 03/07/2020 10:23:00 11:55:00 DIS Outpatient ROJOSÉ MIGUEL BURGOS DO [facility] ER FS FOOT PAIN [id number] 02/19/2020 17:32:00 18:51:00 DIS Emergency MANDA HANSEN MD [facility] ER FS RIGHT ARM WEAKNESS [id number] 02/16/2020 19:01:00 19:22:00 DIS Outpatient JOSÉ MIGUEL BELLO DO [facility] ER FS [id number] 01/17/2020 13:04:00 23:59:59 CLS Outpatient JAIMEE FUENTES MD [facility] WOUNDCARE [id number] 01/10/2020 13:25:00 23:59:59 CLS Outpatient ERIBERTO SCOTT MD [facility] WOUNDCARE [id number] 01/03/2020 12:16:00 23:59:59 CLS Outpatient ERIBERTO SCOTT MD [facility] WOUNDCARE [id number] 12/20/2019 14:01:00 23:59:59 CLS Outpatient ERIBERTO SCOTT MD [facility] WOUNDC[facility] [id number] 12/05/2019 13:20:00 23:59:59 CLS Outpatient ERIBERTO SCOTT MD [facility] RAD LEFT, CHRONIC ULCER [id number] 12/05/2019 12:08:00 23:59:59 CLS Outpatient ERIBERTO SCOTT MD [facility] WOUNDCARE [id number] 11/05/2019 16:32:00 17:50:00 DIS Emergency LISSA LAZAR MD [facility] ER FS NAUSEA [id number] 09/24/2019 13:47:00 23:59:59 CLS Outpatient JAIMEE FUENTES MD [facility] WOUNDCARE [id number] 09/10/2019 13:52:00 23:59:59 CLS Outpatient JAIMEE FUENTES MD [facility] WOUNDCARE [id number] 09/03/2019 11:41:00 23:59:59 CLS Outpatient JAIMEE FUENTES MD [facility] WOUNDCARE [id number] 08/27/2019 13:53:00 23:59:59 CLS Outpatient JAIMEE FUENTES MD [facility] WOUNDC[facility] [id number] 08/10/2019 10:53:00 18:35:00 DIS Emergency JOS GILL MD [facility] ER FS LT FOOT PAIN [id number] 08/03/2019 12:58:00 13:22:00 DIS Emergency MAGDALENOVENJOSÉ MIGUEL GAVIN DO [facility] ER FS LT LEG PAIN [id number] 05/23/2019 15:44:00 17:22:00 DIS Emergency TESSA CERVANTES DO [facility] ER FS LT LEG SWELLING [id number] 04/16/2020 14:50:[address] Inpatient BROWN SANTOYO DO [facility] 4TH LLE WOUND/CELLULITIS/OSTEOMY LITIS [id number] 01/25/2020 19:24:00 Document Registration
--- NOTE | 2020-04-16 16:10 | NUR ---
JOHN PAUL VILLAVICENCIO admitted to room 425-1, with an admitting diagnosis of LLE cellulitis, on 04/16/20 from ED via stretcher, accompanied by WC. JOHN PAUL VILLAVICENCIO introduced to surroundings, call light, bed controls, phone, TV, temperature control, lights, meal times, smoking policy, visitor policy, side rail policy, bathrooms and showers. Patient Rights given to patient in the handbook. JOHN PAUL VILLAVICENCIO verbalizes understanding that [facility] is not responsible for the loss or damage to any personal effects or valuables that are kept in the patients posession during their hospitalization. Patient and/or family were informed about the Rapid Response Team and its purpose.
[2020-04-16 16:18] VITALS: BP 111/77
--- NOTE | 2020-04-16 16:24 | History & Physical-Hospitalist ---
History of Present Illness HPI/Chief Complaint CC: Left leg gangrene with infection in need of amputation HENRIQUE HPI: This is a 54yoWM clinic patient of [facility] Michael Trevino who has a h/o right AKA in 2017 who continues to smoke who presented to the [facility] ER in need of management for the left leg draining wounds. Maggots were on the leg and were cleaned off revealing gangrene and infection in need of amputation per Dr Cortes scheduled for tomorrow. I have difficulty understanding more details from the patient due to speech impediment. Source: patient, RN/MD Exam Limitations: physical impairment (speech impediment) Date Seen 04/16/20 Time Seen by a Provider: 16:00 Attending Physician Erna Jose DO [facility] Referring Physician Date of Admission Apr 16, 2020 at 14:50 Home Medications & Allergies Home Medications Reviewed patient Home Medication Reconciliation performed by pharmacy medication reconciliations coil repair technician and/or nursing. Patients Allergies have been reviewed. Allergies Allergies Coded Allergies No Known Drug Allergies (Unverified05/23/19) Past Djqvmyk-Ogcefq-Bpwueu Hx Past Med/Social Hx: Reviewed Nursing Past Med/Soc Hx, Reviewed and Corrections made Patient Social History Marrital Status: single Employed/Student: unemployed Alcohol Use: Regular Use Number of Drinks Today: GG Alcohol Beverage of Choice: Whiskey Recreational Drug Use: Yes Drug of Choice: POT Smoking Status: Current Everyday Smoker Type Used: Cigarettes 2nd Hand Smoke Exposure: Yes Recent Foreign Travel: No Contact w/other who traveled: No Recent Hopitalizations: No Recent Infectious Disease Expo: No Seasonal Allergies Seasonal Allergies: No Past Medical History Surgeries: Orthopedic Respiratory: COPD, Pneumonia Cardiac: Hypertension, Peripheral Vascular Neurological: Neuropathy, Stroke Gastrointestinal: Gastroesophageal Reflux Musculoskeletal: Amputee Endocrine: Diabetes, Insulin dep History of Blood Disorders: No Family History Reviewed Nursing Family Hx Review of Systems Constitutional: see HPI, chills, dizziness, fever, malaise, weakness Musculoskeletal: other (left leg pain) Physical Exam Physical Exam Vital Signs Vital Signs - First Documented 04/16/20 04/16/20 13:07 15:50 Temp 36.6 Pulse 112 Resp 17 B/P (MAP) 102/75 (84) Pulse Ox 96 O2 Delivery Room Air Capillary Refill : Less Than 3 Seconds Height, Weight, BMI Height: 5'9.50" Weight: 117lbs. oz. 53.324126dl; 16.79 BMI Method:Stated General Appearance: Anxious, Chronically ill, Thin Eyes: Right Eye Normal Inspection, Right Eye PERRL HEENT: PERRL/EOMI, Normal ENT Inspection, Pharynx Normal, Moist Mucous Membranes Neck: Full Range of Motion, Normal Inspection, Non Tender Respiratory: Chest Non Tender, Lungs Clear, Normal Breath Sounds, No Accessory Muscle Use, No Respiratory Distress Cardiovascular: Regular Rate, Rhythm, No Edema, No Gallop, No JVD, No Murmur, Normal Peripheral Pulses Gastrointestinal: Normal Bowel Sounds, No Organomegaly, No Pulsatile Mass, Non Tender, Soft Back: Normal Inspection, No CVA Tenderness, No Vertebral Tenderness Extremity: Normal Capillary Refill, Normal Inspection, Normal Range of Motion, Non Tender, Calf Tenderness, Inflammation, Swelling, Other (right AKA) Neurologic/Psychiatric: Alert, Oriented x3, No Motor/Sensory Deficits, Normal Mood/Affect, spring inspector II-XII Norm as Tested Skin: Normal Color, Warm/Dry, Rash (left leg wounds draining pus) Lymphatic: No Adenopathy Results Results/Procedures Labs Laboratory Tests 04/16/20 13:11 04/16/20 13:13 Patient resulted labs reviewed. Assessment/Plan Admission Diagnosis Assessment: Left leg DM wound infection in need of AKA tomorrow per Dr Cortes DM ETOHism Smoker Left AKA Plan: Amputation tomorrow IV abx Pain meds Admission Status: Inpatient Order (span 2 midnights) Reason for Inpatient Admission: left leg infection in need of amputation AKA Diagnosis/Problems Diagnosis/Problems (1) Cellulitis of left foot Status: Acute (2) Leg wound, left Status: Acute Qualifiers: Encounter type: initial encounter Qualified Codes: S81.802A - Unspecified open wound, left lower leg, initial encounter (3) Foot osteomyelitis, left Status: Acute Qualifiers: Osteomyelitis type: unspecified type Qualified Codes: M86.9 - Osteomyelitis, unspecified (4) Sepsis Status: Acute Qualifiers: Sepsis type: sepsis due to unspecified organism Sepsis acute organ dysfunction status: without acute organ dysfunction Qualified Codes: A41.9 - Sepsis, unspecified organism (5) Alcohol abuse Status: Acute (6) Chronic pain Status: Acute (7) Peripheral vascular disease Status: Acute (8) Edema, leg Status: Acute (9) Infestation by maggots (10) Smoker (11) Complete above-knee amputation of right lower extremity ERNA JOSE DO Apr 16, 2020 16:24
--- NOTE | 2020-04-16 16:36 | NUR ---
CR 0.51; CR CL > 60; WT 53.1 KG; VANCO 1000 MG IV GIVEN IN ER; CONTINUE WITH VANCO 1000 MG IV Q12H X 3 DAYS
[2020-04-16] MEDS ORDERED: 1/2 NS IV SOLUTION 1,000 ML IV PRN (16:38)
[2020-04-16] MEDS ORDERED: ONDANSETRON 4 MG/2 ML (SDV) Z0FRAN IV PRN (16:45)
[2020-04-16] MEDS ORDERED: LORazepam INJ 2 MG/ML (ATIVAN) VIAL IM/IV PRN (16:45)
[2020-04-16] MEDS ORDERED: D5 1/2 NS 1000 ML IV SOLUTION 1,000 ML IV PRN (16:45)
[2020-04-16] MEDS ORDERED: SENNA W/DOCUSATE (SENOKOT S) TABLET PO PRN (16:45)
[2020-04-16] MEDS ORDERED: CATHETER FLUSH 10 ML SYR IV PRN (16:45)
[2020-04-16] MEDS ORDERED: ONDANSETRON 4 MG (ZOFRAN) ORAL DISSOLVE TAB SL PRN (16:45)
[2020-04-16] MEDS ORDERED: LORazepam 1 MG (ATIVAN) TAB PO PRN (16:45)
[2020-04-16] MEDS ORDERED: ANTACID SUSP 30 ML UDC (MYLANTA) PO PRN (16:45)
[2020-04-16] MEDS: THIAMINE INJECTION 100 MG, FOLIC ACID INJECTION 1 MG, MAGNESIUM SULFATE 2 GM, VITAMIN M... IV SCH ×5 (17:26)
[2020-04-16] MEDS: HYDROmorphone 2 MG/ML VIAL (DILAUDID) IV PRN (17:26)
[2020-04-16] MEDS: D5 1/2 NS W/KCL 20 MEQ/L 1,000 ML IV SCH (18:43)
--- NOTE | 2020-04-16 19:10 | NUR ---
DR. HU ON FLOOR TO SEE PT THIS RN WAS ADVISED THAT PT WILL BE GOING TO SURGERY ON 04/17/20 FOR LEFT ABOVE THE KNEE AMPUTATION-CONSENT TO BE OBTAINED.
[2020-04-16] MEDS ORDERED: diphenhydrAMINE 25 MG TAB (BENADRYL) PO PRN (19:45)
[2020-04-16] MEDS ORDERED: guaiFENesin/CODEINE (ROBITUSSIN AC) 10ML UDC PO PRN (19:45)
[2020-04-16] MEDS ORDERED: DOCUSATE SODIUM 100 MG (COLACE) CAP PO PRN (19:45)
[2020-04-16] MEDS ORDERED: ONDANSETRON 4 MG/2 ML (SDV) Z0FRAN IVP PRN (19:45)
[2020-04-16] MEDS ORDERED: CALCIUM CARBONATE 500 MG (TUMS) TAB.CHEW PO PRN (19:45)
[2020-04-16] MEDS ORDERED: BISACODYL 10 MG SUPP (DULCOLAX) PR PRN (19:45)
[2020-04-16] MEDS ORDERED: MELATONIN 3 MG TABLET PO PRN (19:45)
[2020-04-16 19:47] VITALS: BP 123/73
--- OUTSIDE RECORDS SUMMARY | 2020-04-16 19:48 | XMS REPORT | Continuity of Care Document ---
Author Organization Unknown Address Unknown Phone Unavailable Allergies Active Description Code Type Severity Reaction Onset Reported/Identified Relationship to Patient Clinical Status Yes No Known Drug Allergies [id number] Drug Allergy Unknown N/A 05/23/2019 Medications There [...] RIGHT LEG ABOVE KNEE 08/03/2019 ROVENSTINE DO, OJSÉ MIGUEL L Ot E11.9 TYPE 2 DIABETES [...] 09/02/2019 JAIMEE FUENTES MD Ot I70.244 ATHSCL UTE ART OF LEFT LEG W ULCER OF [...] 09/25/2019 JAIMEE FUENTES MD Ot I70.262 ATHSCL UTE ARTERIES OF EXTREMITIES W 09/25/2019 JAIMEE FUENTES [...] 09/26/2019 JAIMEE FUENTES MD Ot I70.262 ATHSCL UTE ARTERIES OF EXTREMITIES W 09/26/2019 JAIMEE FUENTES [...] 10/10/2019 JAIMEE FUENTES MD Ot I70.262 ATHSCL UTE ARTERIES OF EXTREMITIES W 10/10/2019 JAIMEE FUENTES [...] NICOTINE DEPENDENCE, CIGARETTES, W OTH D 10/10/2019 JIAMEE FUENTES MD Ot I70.234 ATHSCL UTE ART OF RIGHT LEG W ULCER O [...] 02/06/2020 JAIMEE FUENTES MD Ot I70.261 ATHSCL UTE ARTERIES OF EXTREMITIES W 02/06/2020 JAIMEE FUENTES [...] LOCALIZED EDEMA 03/10/2020 ROVENSTINE DO, JOSÉ MIGUEL Adnrade Ot Z77.22 CNTCT W AND EXPSR TO [...] L03.116 CELLULITIS OF LEFT LOWER LIMB 03/13/2020 [facility], JOSÉ MIGUEL Andrade Ot R60.0 LOCALIZED EDEMA 03/13/2020 [facility], JOSÉ MIGUEL Andrade Ot Z77.22 CNTCT W AND EXPSR TO ENVIRON TOBACCO SMO 03/13/2020 [facility], JOSÉ MIGUEL Andrade Ot Z86.73 PRSNL HX OF TIA (TIA), AND CEREB INFRC W 03/13/2020 [facility], JOSÉ MIGUEL Andrade Ot Z89.422 ACQUIRED ABSENCE OF OTHER LEFT TOE(S) 03/13/2020 [facility], JOSÉ MIGUEL Andrade Ot 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 03/28/2020 [facility], GERA Rivera Ot E11.5 1 TYPE 2 DIABETES W DIABETIC PERIPHERAL AN 03/28/2020 [facility], GERA Rivera Ot I10 ESSENTIAL (PRIMARY) HYPERTENSION 03/28/2020 [facility], GERA Rivera Ot M79.6 72 PAIN IN LEFT FOOT 03/28/2020 [facility], GERA Rivera Ot T87.8 9 OTHER COMPLICATIONS OF AMPUTATION STUMP 03/28/2020 [facility], GERA Rivera Ot Z77.2 2 CNTCT W AND EXPSR TO ENVIRON TOBACCO [facility] 03/28/2020 [facility], GERA Rivera Ot Z86.7 3 PRSNL HX [...] OF GROWTH Isolated NRG Bacterial blood culture [id number] NRG [facility] - 11/05/19 [...] 7-25 CREATININE 0.37 mg/dL 0.70-1.33 eGFR NON-AFR. [place] 138 mL/min/1.73m2 > OR = 60 eGFR [...] 13:10 Bacteria identification in wound by culture [id number] NRG QUANTITY OF GROWTH LARGE AMOUNT [...] lactic acid measurement (moles/volume) 2.39 mmol/L 0.50-2.00 Serum or plasma lactate measurement (mol es/volume) - 04/16/20 16:24 Serum or plasma lactate measurement (moles/volume) 1.70 mmol/L 0.50-2.00 Encounters ACCT No. Visit Date/Time Discharge Status Pt. Type Provider Facility Loc./Unit Complaint [id number] 03/31/2020 12:00:00 03/31/2020 23:59: 59 CLS Outpatient [facility] [id number] 11/21/2019 10:20:00 Document Registration [id number] 02/13/2019 11:15:00 Document Registration [id number] 03/26/2020 09:59:00 14:48:00 DIS Outpatient GERA ESQUIEVL DO Via [facility] ER FS LT FOOT PAIN [id number] 03/07/2020 10:23:00 11:55:00 DIS Outpatient JOSÉ MIGUEL BELLO DO Via [facility] ER FS FOOT PAIN [id number] 02/19/2020 17:32:00 18:51:00 DIS Emergency MANDA HANSEN MD Via [facility] ER FS RIGHT ARM WEAKNESS [id number] 02/16/2020 19:01:00 19:22:00 DIS Outpatient ROJOSÉ MIGUEL BURGOS DO Via [facility] ER FS [id number] 01/17/2020 13:04:00 23:59:59 CLS Outpatient JAIMEE FUENTES MD Via [facility] WOUNDCARE [id number] 01/10/2020 13:25:00 23:59:59 CLS Outpatient ERIBERTO SCOTT MD Via [facility] WOUNDCARE [id number] 01/03/2020 12:16:00 23:59:59 CLS Outpatient ERIBERTO SCOTT MD Via [facility] WOUNDCARE [id number] 12/20/2019 14:01:00 23:59:59 CLS Outpatient ERIBERTO SCOTT MD Via [facility] WOUNDCARE [id number] 12/05/2019 13:20:00 23:59:59 CLS Outpatient ERIBERTO SCOTT MD Via [facility] RAD LEFT, CHRONIC ULCER [id number] 12/05/2019 12:08:00 23:59:59 CLS Outpatient ERIBERTO SCOTT MD Via [facility] WOUNDCARE [id number] 11/05/2019 16:32:00 17:50:00 DIS Emergency LISSA LAZAR MD Via [facility] ER FS NAUSEA [id number] 09/24/2019 13:47:00 23:59:59 CLS Outpatient JAIMEE FUENTES MD Via [facility] WOUNDCARE [id number] 09/10/2019 13:52:00 23:59:59 CLS Outpatient JAIMEE FUENTES MD Via [facility] WOUNDCARE [id number] 09/03/2019 11:41:00 23:59:59 CLS Outpatient JAIMEE FUENTES MD Via [facility] WOUNDCARE [id number] 08/27/2019 13:53:00 23:59:59 CLS Outpatient JAIMEE FUENTES MD Via [facility] WOUNDCARE [id number] 08/10/2019 10:53:00 18:35:00 DIS Emergency JOS GILL MD Via [facility] ER FS LT FOOT PAIN [id number] 08/03/2019 12:58:00 13:22:00 DIS Emergency JOSÉ MIGUEL BELLO DO Via [facility] ER FS LT LEG PAIN [id number] 05/23/2019 15:44:00 17:22:00 DIS Emergency TESSA CERVANTES DO Via [facility] ER FS LT LEG SWELLING [id number] 04/16/2020 14:50:[address] Inpatient BROWN SANTOYO DO Via [facility] 4TH LLE WOUND/CELLULITIS/OSTEOMY LITIS [id number] 01/25/2020 19:24:00 Document Registration
--- NOTE | 2020-04-16 20:01 | Consultation - Surgery ---
History of Present Illness History of Present Illness Patient Consulted On(pilo/time) 04/16/20 19:50 Time Seen by Provider: 19:33 History of Present Illness Surgery asked to consult regarding Left leg cellulitis and possible amputation. HPI per ED: Here with report of foul-smelling drainage from the wound of the left foot. Does have long-standing wound care issues related to that foot and has had forefoot amputation. He was seen at clinic in [place] and they transported him here for further evaluation do to concerns of how smell and the need for wound care. Patient was adamant with him that he was not in and be admitted although he states he will at least listen to the story. He is concerned about amputation toes he does not want to go to the assisted. He was told by surgeon in [facility] that he needed his foot amputated due to the wound. Admits to drinking alcohol daily and states that he drinks quite a bit. Is complaining of pain to the foot currently. Does have dressing in place. Timing/Duration: Getting Worse, Other (weeks) Severity: Moderate Associated Systoms: No Chest Pain, No Cough, No Fever/Chills, No Nausea/Vomiting, No Shortness of Air; Weakness When I spoke to pt he stated the pain in his leg is at least an 8 out of 10. He states he has not wanted to have an amputation, but he knows that he needs one "that's what the doc in [place] told me". He told me he wanted to go home and get a couple of things in order before he has any surgery. States nothing makes the pain worse. When he drinks it doesn't hurt as bad. Allergies and Home Medications Allergies Coded Allergies: No Known Drug Allergies (Unverified , 05/23/19) Home Medications Bacitracin 28.4 Gm Oint...g., 28.4 GM TP BID Prescribed by: JOSÉ MIGUEL BELLO on 08/03/19 1320 Cephalexin 500 Mg Capsule, 500 MG PO TID Prescribed by: TESSA CERVANTES on 05/23/19 1716 Furosemide 20 Mg Tablet, 20 MG PO DAILY Prescribed by: TESSA CERVANTES on 05/23/19 1716 Patient Home Medication List Home Medication List Reviewed: Yes Past Wdsqleh-Jyeywk-Wtmtva Hx Patient Social History Alcohol Use: Regular Use Number of Drinks Today: GG Recreational Drug Use: Yes Drug of Choice: POT Smoking Status: Current Everyday Smoker Type Used: Cigarettes 2nd Hand Smoke Exposure: Yes Recent Foreign Travel: No Contact w/Someone Who Travel: No Recent Infectious Disease Expo: No Recent Hopitalizations: No Seasonal Allergies Seasonal Allergies: No Surgeries History of Surgeries: Yes (R Above the knee amputation, Left toes amputationed) Surgeries: Orthopedic (Right AKA) Respiratory History of Respiratory Disorde: No (Hypoxia) Cardiovascular History of Cardiac Disorders: Yes (Buerger Disease) Cardiac Disorders: Hypertension, Peripheral Vascular Neurological History of Neurological Disord: Yes Neurological Disorders: Neuropathy, Stroke Genitourinary History of Genitourinary Disor: No Gastrointestinal History of Gastrointestinal Di: Yes (Chronic Alcohol gastritis) Gastrointestinal Disorders: Gastroesophageal Reflux Musculoskeletal History of Musculoskeletal Dis: Yes (Right above the knee amputation) Musculoskeletal Disorders: Amputee Endocrine Endocrine Disorders: Diabetes, Insulin dep HEENT History of HEENT Disorders: No Cancer History of Cancer: No Psychosocial History of Psychiatric Problem: Yes (Substance abuse, Alcohol dependence) Integumentary History of Skin or Integumenta: Yes (Cellulitis) Blood Transfusions History of Blood Disorders: No Family Medical History Significant Family History: Cancer (Father had prostate Cancer (he thinks, states not sure just know prostate problems)), Hypertension (Father) Review of Systems-General Constitutional: No diaphoresis; malaise, weakness EENTM: mouth pain; No blurred vision, No double vision, No mouth swelling, No epistaxis Respiratory: No cough, No dyspnea on exertion, No hemoptysis Cardiovascular: No chest pain, No palpitations Gastrointestinal: No abdominal pain, No jaundice, No nausea, No vomiting Genitourinary: No dysuria, No frequency, No hematuria Musculoskeletal: joint pain, joint swelling, muscle pain, muscle stiffness Skin: No pruritus, No rash Psychiatric/Neurological: Denies Anxiety, Denies Depressed, Denies Seizure, Denies Tingling Other pt denies any hx of abnormal bleeding or bruising Physical Exam-General Problems Physical Exam Vital Signs Vital Signs - First Documented 04/16/20 04/16/20 13:07 15:50 Temp 36.6 Pulse 112 Resp 17 B/P (MAP) 102/75 (84) Pulse Ox 96 O2 Delivery Room Air Capillary Refill : Less Than 3 Seconds General Appearance: mild distress, cachetic Eyes: Bilateral Eye PERRL, Bilateral Eye EOMI HEENT: pharynx normal; No scleral icterus (R), No scleral icterus (L); other (poor dentition, missing multiple teeth) Neck: supple; No thyromegaly Respiratory: lungs clear, normal breath sounds, no respiratory distress, no accessory muscle use Cardiovascular: no murmur, tachycardia Gastrointestinal: normal bowel sounds, non tender, soft, no pulsatile mass Back: no CVA tenderness, no vertebral tenderness Extremities: other (pt has right AKA, Left leg has necrotic wound with fibula visible, small ulcers all over extremity below the knee, leg is erythemaous and swollen from mid-smith down, left foot has necrotic tissue) Neurologic/Psychiatric: hoop expander II-XII nml as tested, alert, oriented x 3 Skin: ecchymosis (both arms), other (pt has at least grade II decub on left hip at neck of femur, skin break down across buttock and sacral area as well) Lymphatic: no adenopathy (neck, axilla or groin) Data Review Labs Laboratory Tests 04/16/20 13:11: Prothrombin Time 12.6, INR Comment 0.9, Activated Partial Thromboplast Time 27, Sodium Level 136, Potassium Level 2.8L, Chloride Level 99, Carbon Dioxide Level 23, Anion Gap 14, Blood Urea Nitrogen 4L, Creatinine 0.51L, Estimat Glomerular Filtration Rate > 60, BUN/Creatinine Ratio 8, Glucose Level 104, Calcium Level 8.5, Corrected Calcium 9.0, Total Bilirubin 0.7, Aspartate Amino Transf (AST/SGOT) 69H, Alanine Aminotransferase (ALT/SGPT) 31, Alkaline Phosphatase 184H, C-Reactive Protein High Sensitivity 1.42H, Total Protein 6.6, Albumin 3.4, Serum Alcohol 204H 04/16/20 13:13: White Blood Count 8.3, Red Blood Count 3.50L, Hemoglobin 13.1L, Hematocrit 36L, Mean Corpuscular Volume 102H, Mean Corpuscular Hemoglobin 37H, Mean Corpuscular Hemoglobin Concent 37H, Red Cell Distribution Width 13.2, Platelet Count 381, Mean Platelet Volume 9.8, Neutrophils (%) (Auto) 75, Lymphocytes (%) (Auto) 14, Monocytes (%) (Auto) 10, Eosinophils (%) (Auto) 1, Basophils (%) (Auto) 0, Neutrophils # (Auto) 6.2, Lymphocytes # (Auto) 1.2, Monocytes # (Auto) 0.8, Eosinophils # (Auto) 0.1, Basophils # (Auto) 0.0, Urine Color DARK YELLOW, Urine Clarity CLEAR, Urine pH 7.0, Urine Specific [place] 1.010L, Urine Protein NEGATIVE, Urine Glucose (UA) NEGATIVE, Urine Ketones NEGATIVE, Urine Nitrite NEGATIVE, Urine Bilirubin NEGATIVE, Urine Urobilinogen 2.0, Urine Leukocyte Esterase NEGATIVE, Urine RBC (Auto) NEGATIVE, Urine RBC NONE, Urine WBC NONE, Urine Crystals NONE, Urine Bacteria TRACE, Urine Casts NONE, Urine Mucus NEGATIVE, Urine Culture Indicated CULTURE PENDING, Lactic Acid Level 2.39*H 04/16/20 16:24: Lactic Acid Level 1.70 Assessment/Plan Assessment/Plan Assessment/Plan Left Foot Cellulitis Left leg ulcerations and erythema ?? Dry gangrene over fibula with exposed bone EtOH intoxication and abuse HTN Pt's left leg is not salvagable; there appears to be a gangrenous wound and ulcerations all over lower portion, with edema and erythema. Pt needs an Above the Knee Amputation of his left leg; he asked if he could go home first and "get some things in order". I told him I didn't think he was going to be stable enough that medicine would allow him to go home for a couple of days anyway. I did tell him that he had a choice and could go home (probably AMA) and could have surgery at later date; but, I didn't think that was a good choice. He is mainly concerned with pain afterwards and does not want to go to rehab. He agreed that surgery needed to be done; because he was told the same thing before, and stated "let's just go ahead and do this now". Plan to make NPO after mi dnight, get consent for Left AKA and do surgery tomorrow. Went over risks and complications; not limited to pain, bleeding, infection, scar and need for further procedure and all questions answered. Clinical Quality Measures DVT/VTE Risk/Contraindication: Risk Factor Score Per Nursin RFS Level Per Nursing on Admit: 4+=Very High REE HU DO Apr 16, 2020 20:01
[2020-04-16] MEDS: SENNA W/DOCUSATE (SENOKOT S) TABLET PO SCH (21:19)
[2020-04-16] MEDS: PIPERACILLIN/TAZO 4.5 GM/NS 100 ML IV SCH ×2 (21:42)
[2020-04-16 23:35] VITALS: BP 139/71
[2020-04-17] VITALS (9 sets, daily range): BP systolic 125–145; BP diastolic 72–109
[2020-04-17] MEDS: HYDROmorphone 2 MG/ML VIAL (DILAUDID) IV PRN ×5 (00:08→16:44)
[2020-04-17] MEDS: D5 1/2 NS W/KCL 20 MEQ/L 1,000 ML IV SCH ×4 (01:44→16:41)
[2020-04-17] MEDS: VANCOMYCIN 1 GM/NS 250 ML IVPB IV SCH ×4 (04:58→16:41)
[2020-04-17] MEDS: PIPERACILLIN/TAZO 4.5 GM/NS 100 ML IV SCH ×6 (04:58→22:05)
[2020-04-17 06:32] LABS: BASOPHILS % (AUTO) 0 % (0-10); EOSINOPHILS % (AUTO) 0 % (0-10); HEMATOCRIT 34 % (40-54); HEMOGLOBIN 11.7 G/DL (13.3-17.7); LYMPHOCYTES # (AUTO) 0.9 X 10^3 (1.0-4.0); LYMPHOCYTES % (AUTO) 11 % (12-44); MEAN CORPUSCULAR HEMOGLOBIN 37 PG (25-34); MEAN CORPUSCULAR HGB CONC 35 G/DL (32-36); MEAN CORPUSCULAR VOLUME 105 FL (80-99); MEAN PLATELET VOLUME 9.7 FL (7.4-10.4); MONOCYTES # (AUTO) 0.9 X 10^3 (0.0-1.0); MONOCYTES % (AUTO) 10 % (0-12); NEUTROPHILS # (AUTO) 6.9 X 10^3 (1.8-7.8); NEUTROPHILS % (AUTO) 79 % (42-75); PLATELET COUNT 281 10^3/uL (130-400); RED CELL DISTRIBUTION WIDTH 13.1 % (10.0-14.5); WHITE BLOOD COUNT 8.7 10^3/uL (4.3-11.0)
--- NOTE | 2020-04-17 06:58 | Progress Note - Hospitalist ---
Subjective HPI/CC On Admission Date Seen by Provider: Apr 17, 2020 Time Seen by Provider: 09:00 CC: Left leg gangrene with infection in need of amputation HENRIQUE HPI: This is a 54yoWM clinic patient of [facility] who has a h/o right AKA in 2017 who continues to smoke who presented to the [facility] ER in need of management for the left leg draining wounds. Maggots were on the leg and were cleaned off revealing gangrene and infection in need of amputation per Dr Cortes scheduled for tomorrow. I have difficulty understanding more details from the patient due to speech impediment. Subjective/Events-last exam S/P surgery for left leg Gangrene and non-healing wound with maggot infestation. Pain is always an issue Will need to be in inpatient rehab after medically stable Focused Exam Lactate Level 04/16/20 13:13: Lactic Acid Level 2.39*H 04/16/20 16:24: Lactic Acid Level 1.70 Objective Exam Vital Signs Vital Signs Date Time Temp Pulse Resp B/P (MAP) Pulse Ox O2 Delivery O2 Flow Rate FiO2 04/17/20 20:00 37.9 105 18 132/76 (94) 93 Room Air 04/17/20 12:44 5 Capillary Refill : Less Than 3 Seconds General Appearance: No Apparent Distress, WD/WN, Chronically ill Respiratory: Lungs Clear Cardiovascular: Regular Rate, Rhythm Results/Procedures Lab Laboratory Tests 04/17/20 06:23 Patient resulted labs reviewed. Assessment/Plan Assessment and Plan Assess & Plan/Chief Complaint Assessment: Left leg DM wound infection s/p AKA per Dr Cortes POD # 0 DM ETOHism Smoker Left AKA Plan: Amputation IV abx Pain meds Diagnosis/Problems Diagnosis/Problems (1) Cellulitis of left foot Status: Acute (2) Leg wound, left Status: Acute Qualifiers: Encounter type: initial encounter Qualified Codes: S81.802A - Unspecified open wound, left lower leg, initial encounter (3) Foot osteomyelitis, left Status: Acute Qualifiers: Osteomyelitis type: unspecified type Qualified Codes: M86.9 - Osteomyelitis, unspecified (4) Sepsis Status: Acute Qualifiers: Sepsis type: sepsis due to unspecified organism Sepsis acute organ dysfunction status: without acute organ dysfunction Qualified Codes: A41.9 - Sepsis, unspecified organism (5) Alcohol abuse Status: Acute (6) Chronic pain Status: Acute (7) Peripheral vascular disease Status: Acute (8) Edema, leg Status: Acute (9) Infestation by maggots (10) Smoker (11) Complete above-knee amputation of right lower extremity Clinical Quality Measures DVT/VTE Risk/Contraindication: Risk Factor Score Per Nursin RFS Level Per Nursing on Admit: 4+=Very High BROWN SANTOYO DO Apr 17, 2020 06:58
[2020-04-17 07:01] LABS: ALANINE AMINOTRANSFERASE 23 U/L (0-55); ALBUMIN 2.8 GM/DL (3.2-4.5); ALKALINE PHOSPHATASE 146 U/L (40-136); BILIRUBIN,TOTAL 1.6 MG/DL (0.1-1.0); BUN/CREATININE RATIO 8; CALCIUM 7.5 MG/DL (8.5-10.1); CARBON DIOXIDE 26 MMOL/L (21-32); CHLORIDE 99 MMOL/L (98-107); GFR ESTIMATED > 60; GLUCOSE 112 MG/DL (70-105); SODIUM 132 MMOL/L (135-145); TOTAL PROTEIN 5.6 GM/DL (6.4-8.2)
--- NOTE | 2020-04-17 07:57 | NUR ---
PT WAS MADE NPO AT 0000.
[2020-04-17] MEDS: SENNA W/DOCUSATE (SENOKOT S) TABLET PO SCH ×2 (08:54→22:07)
[2020-04-17] MEDS ORDERED: ONDANSETRON 4 MG/2 ML (SDV) Z0FRAN ONE (09:36)
[2020-04-17] MEDS ORDERED: proPOfol 200 MG/20 ML (DIPRIVAN) VIAL IV ONE (09:36)
[2020-04-17] MEDS ORDERED: SUCCINYLCHOLINE INJ 100 MG/5 ML SYR ONE (09:36)
[2020-04-17] MEDS ORDERED: LIDOCAINE PF 2% 5 ML (XYLOCAINE) VIAL ONE (09:36)
[2020-04-17] MEDS ORDERED: fentaNYL INJECTION 100 MCG/2 ML AMP ONE ×2 (09:37→10:55)
[2020-04-17] MEDS ORDERED: MIDAZOLAM 2 MG/2 ML (VERSED) VIAL ONE (09:37)
[2020-04-17] MEDS ORDERED: SEVOFLURANE (ULTANE) 15 ML INHAL SOLN ONE (11:04)
--- NOTE | 2020-04-17 11:19 | Progress Note-Post Operative ---
Post-Operative Progess Note Surgeon (s)/Natural Gas Basis Trader (s) Surgeon REE HU DO Natural Gas Basis Trader: Rene Pre-Operative Diagnosis Left Leg Cellulitis, Ulcerations, Dry Gangrene, ??Osteomyelitis Post-Operative Diagnosis Same pending path Procedure & Operative Findings Date of Procedure 04/17/20 Procedure Performed/Findings Left AKA Anesthesia Type GET Estimated Blood Loss Estimated blood loss (mL): 40ml Specimens/Packing Specimens Removed left leg REE HU DO Apr 17, 2020 11:19
--- NOTE | 2020-04-17 12:38 | NUR ---
PATIENT BACK TO 4TH FLOOR AT THIS TIME.
[2020-04-17] MEDS: THIAMINE INJECTION 100 MG, FOLIC ACID INJECTION 1 MG, MAGNESIUM SULFATE 2 GM, VITAMIN M... IV SCH ×5 (13:46)
[2020-04-17] MEDS ORDERED: APIX5TAB PO (14:10)
[2020-04-17] MEDS ORDERED: IBUP-2473 PO (14:10)
[2020-04-17] MEDS ORDERED: METO-451 PO (14:10)
--- NOTE | 2020-04-17 14:11 | NUR ---
SPOKE WITH THE PT,WENT THRU THE EXT MED HISTORY AND CALLED [facility] TO COMPLETE THE MED REC PT GETS THE FOLLOWING MEDICATIONS THROUGH THE REPOSITORY: 01-15-2020 METOPROLOL TART 50MG #90/90DS 01-18-2020 ELIQUIS 5MG #180/90DS OTC MEDS: IBUPROFEN
--- NOTE | 2020-04-17 14:41 | OPERATIVE REPORT ---
DATE OF SERVICE: 04/17/2020 PREOPERATIVE DIAGNOSES: Left leg cellulitis, dry gangrene, ulcerations, edema and erythema. POSTOPERATIVE DIAGNOSES: Left leg cellulitis, dry gangrene, ulcerations, edema and erythema, pending pathology. PROCEDURE PERFORMED: Left above the knee amputation. SURGEON: Toby Cortes DO. PROCESSOR INSPECTOR: Obdulio López DO. ANESTHESIA: General endotracheal tube. SPECIMEN: Left leg. BLOOD LOSS: Less than 40 mL. FLUIDS: Per anesthesia. POSTOPERATIVE CONDITION: Stable. INDICATION FOR PROCEDURE: The patient is a 54-year-old male, who had maggots on his foot with cellulitis, possibly osteomyelitis. He has left leg had edema, erythema, multiple ulcerations in the area of what looked like dry gangrene with exposed fibula and needed an above the knee amputation. FINDINGS: The patient had above the knee amputation. PROCEDURE NOTE: After informed consent was obtained, the patient was brought to the operating room, placed on the operating table in supine position and sterilely prepped and draped in normal fashion. A tourniquet was placed on the left upper thigh, was then turned on to 250 mm and I then made a fish mouth type incision approximately four fingers above the patella, carried down to just below the patella and then around and then behind the leg with a #10 blade, then carried down through the skin and subcutaneous tissue with Bovie electrocautery, going through fat and muscle getting down to the femur using ostial elevator to go up on the femur on the superior aspect as well as the side and then carefully starting to go under, encountered a posterior nerve, tied this off and then cut through this and then carefully freed up the muscle and fat until we were able to find the posterior vascular bundle, found the posterior vascular bundle able to get around it and then tied with 0 Vicryl two in the superior portion and one in the inferior portion and then cut in the middle with a Bovie electrocautery and then used the ostial elevator on the posterior aspect of the femur. We then took the tourniquet down. There was no bleeding. Copiously irrigated with normal saline. Hemostasis was obtained and then elected to close the incision with 0 Prolene suture. Approximately, 10 vertical mattress sutures were used and two single sutures and then closed the skin with vinayak. Area was cleaned and dried. A Telfa dressing placed as well as Kerlix and a Coban and then Kerlix to make a tight wrap. The patient tolerated the procedure. The sponge, instrument and needle counts correct at the end of the case. Dr. López assisted in this case helping to make incision, close incision, identify anatomy and hold anatomy out of the way. Job ID: [id number] DocumentID: [id number] Dictated Date: 04/17/2020 11:17:29 Fuel Cell Binder Date: 04/17/2020 14:40:56 Dictated By: DO ROSALIND AGUIRRE
[2020-04-17] MEDS: ACETAMINOPHEN 500 MG TAB (TYLENOL) PO PRN (22:05)
[2020-04-18] MEDS: D5 1/2 NS W/KCL 20 MEQ/L 1,000 ML IV SCH ×3 (00:33→15:19)
[2020-04-18 00:43] VITALS: BP 115/68
[2020-04-18] MEDS: VANCOMYCIN 1 GM/NS 250 ML IVPB IV SCH ×4 (03:48→18:00)
[2020-04-18 04:00] VITALS: BP 130/72
[2020-04-18] MEDS: PIPERACILLIN/TAZO 4.5 GM/NS 100 ML IV SCH ×6 (05:14→21:12)
[2020-04-18 06:15] LABS: BASOPHILS % (AUTO) 0 % (0-10); EOSINOPHILS % (AUTO) 0 % (0-10); HEMATOCRIT 33 % (40-54); HEMOGLOBIN 11.4 G/DL (13.3-17.7); LYMPHOCYTES # (AUTO) 0.9 X 10^3 (1.0-4.0); LYMPHOCYTES % (AUTO) 9 % (12-44); MEAN CORPUSCULAR HEMOGLOBIN 37 PG (25-34); MEAN CORPUSCULAR HGB CONC 35 G/DL (32-36); MEAN CORPUSCULAR VOLUME 106 FL (80-99); MEAN PLATELET VOLUME 10.3 FL (7.4-10.4); MONOCYTES # (AUTO) 0.9 X 10^3 (0.0-1.0); MONOCYTES % (AUTO) 8 % (0-12); NEUTROPHILS # (AUTO) 8.9 X 10^3 (1.8-7.8); NEUTROPHILS % (AUTO) 83 % (42-75); PLATELET COUNT 242 10^3/uL (130-400); RED CELL DISTRIBUTION WIDTH 12.6 % (10.0-14.5); WHITE BLOOD COUNT 10.7 10^3/uL (4.3-11.0)
[2020-04-18] MEDS: HYDROmorphone 2 MG/ML VIAL (DILAUDID) IV PRN ×4 (06:26→18:36)
[2020-04-18 06:50] LABS: ALANINE AMINOTRANSFERASE 23 U/L (0-55); ALBUMIN 2.6 GM/DL (3.2-4.5); ALKALINE PHOSPHATASE 125 U/L (40-136); BILIRUBIN,TOTAL 1.5 MG/DL (0.1-1.0); BUN/CREATININE RATIO 4; CALCIUM 7.1 MG/DL (8.5-10.1); CARBON DIOXIDE 24 MMOL/L (21-32); CHLORIDE 98 MMOL/L (98-107); CREATININE SERUM 0.47 MG/DL (0.60-1.30); GFR ESTIMATED > 60; GLUCOSE 134 MG/DL (70-105); POTASSIUM 3.6 MMOL/L (3.6-5.0); SODIUM 129 MMOL/L (135-145); TOTAL PROTEIN 5.2 GM/DL (6.4-8.2)
[2020-04-18] MEDS: SENNA W/DOCUSATE (SENOKOT S) TABLET PO SCH ×2 (08:31→21:13)
[2020-04-18] MEDS: ACETAMINOPHEN 500 MG TAB (TYLENOL) PO PRN (08:41)
[2020-04-18] MEDS: LOPERAMIDE 2 MG (IMODIUM) TABLET PO PRN ×3 (08:41→13:28)
[2020-04-18] MEDS: THIAMINE INJECTION 100 MG, FOLIC ACID INJECTION 1 MG, MAGNESIUM SULFATE 2 GM, VITAMIN M... IV SCH ×5 (08:42)
--- NOTE | 2020-04-18 10:55 | Anesthesia-General Post-Op ---
General Patient Condition Mental Status/LOC: Same as Preop Cardiovascular: Satisfactory Nausea/Vomiting: Absent Respiratory: Satisfactory Pain: Controlled Complications: Absent Post Op Complications Complications None Follow Up Care/Instructions Patient Instructions None needed. Anesthesia/Patient Condition Patient Condition Patient is doing well, C/O some pain which is to be expected post-op, stable vital signs, no apparent adverse anesthesia problems. IRVING GARCIA DO Apr 18, 2020 10:55
--- NOTE | 2020-04-18 11:54 | Progress Note - Surgery ---
Subjective Time Seen by a Provider: 11:10 Subjective/Events-last exam Pt seen and examined, states he is doing well just has some pain and wanted pills for it. Review of Systems General: No Chills, No Night Sweats Cardiovascular: No: Chest Pain, Palpitations Gastrointestinal: No: Nausea, Vomiting Focused Exam Lactate Level 04/16/20 13:13: Lactic Acid Level 2.39*H 04/16/20 16:24: Lactic Acid Level 1.70 Objective Exam Vital Signs Date Time Temp Pulse Resp B/P (MAP) Pulse Ox O2 Delivery O2 Flow Rate FiO2 04/18/20 08:00 Nasal Cannula 1.00 04/18/20 04:00 36.6 92 21 130/72 (91) 93 Room Air 04/18/20 00:43 36.4 98 19 115/68 (84) 91 Room Air 04/18/20 00:36 36.4 04/17/20 22:05 38.2 04/17/20 20:00 37.9 105 18 132/76 (94) 93 Room Air 04/17/20 20:00 Nasal Cannula 1.00 04/17/20 16:00 36.8 92 20 132/86 (101) 96 Room Air 04/17/20 12:44 Room Air 5 04/17/20 12:24 OxyMask 5 04/17/20 12:20 37.2 18 125/72 (89) 92 Room Air 04/17/20 12:11 OxyMask 10 04/17/20 12:10 37.2 17 131/109 (116) 92 OxyMask 5 04/17/20 12:00 37.2 16 128/77 (94) 93 OxyMask 10 I & O 04/18/20 07:00 Intake Total 1290 ml Output Total 2650 ml Balance -1360 ml Capillary Refill : Less Than 3 Seconds General Appearance: No Apparent Distress, Chronically ill HEENT: PERRL/EOMI, Moist Mucous Membranes Respiratory: Lungs Clear, No Accessory Muscle Use, No Respiratory Distress Cardiovascular: Regular Rate, Rhythm, No Murmur Extremity: Other (right AKA, L AKA still wrapped looks good) Skin: Rash (left leg wounds draining pus) Results Lab Laboratory Tests 04/18/20 06:05: White Blood Count 10.7, Red Blood Count 3.11L, Hemoglobin 11.4L, Hematocrit 33L, Mean Corpuscular Volume 106H, Mean Corpuscular Hemoglobin 37H, Mean Corpuscular Hemoglobin Concent 35, Red Cell Distribution Width 12.6, Platelet Count 242, Mean Platelet Volume 10.3, Neutrophils (%) (Auto) 83H, Lymphocytes (%) (Auto) 9L , Monocytes (%) (Auto) 8, Eosinophils (%) (Auto) 0, Basophils (%) (Auto) 0, Neutrophils # (Auto) 8.9H, Lymphocytes # (Auto) 0.9L, Monocytes # (Auto) 0.9, Eosinophils # (Auto) 0.0, Basophils # (Auto) 0.0, Sodium Level 129L, Potassium Level 3.6, Chloride Level 98, Carbon Dioxide Level 24, Anion Gap 7, Blood Urea Nitrogen < 2L, Creatinine 0.47L, Estimat Glomerular Filtration Rate > 60, BUN/Creatinine Ratio 4, Glucose Level 134H, Calcium Level 7.1L, Corrected Calcium 8.2L, Total Bilirubin 1.5H, Aspartate Amino Transf (AST/SGOT) 72H, Alanine Aminotransferase (ALT/SGPT) 23, Alkaline Phosphatase 125, Total Protein 5.2L, Albumin 2.6L Microbiology 04/17/20 MRSA Screen - Final, Complete MRSA not isolated 04/16/20 Blood Culture - Preliminary, Resulted No growth 04/16/20 Urine Culture - Final, Complete 3 or more isolates Assessment/Plan Assessment/Plan Assessment/Plan S/P L AKA Pain control, PT/OT ???rehab, will follow along. Clinical Quality Measures DVT/VTE Risk/Contraindication: Risk Factor Score Per Nursin RFS Level Per Nursing on Admit: 4+=Very High REE HU DO Apr 18, 2020 11:54
--- NOTE | 2020-04-18 13:31 | Physician Query Clarification ---
PQ-Uncertain Diagnosis Admission/Discharge Admission Date: Apr 16, 2020 at 14:50 Discharge Date: The medical record reflects the following clinical scenario: History/Risk Factors: Left leg gangrene with infection/possible osteomyelitis. 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 Clinical Findings: WBC 8.3, T 36.6, P 112 Resp 17, BP 102/75, Lactic acid 2.39. Preliminary blood culture-no growth. Treatment: IV Vancomycin HCI 1,000mg/Sodium Chloride, IV Zosyn 4.5gm/Sodium Chloride. Question: Is Sepsis a clinically valid diagnosis? Sepsis was documented in the ED, Dr. Garcia and in the qualifier codes only on your H&P, but not listed in your Assessment diagnoses. Please clarify. Please document a response in Progress Note or Discharge Summary. 1. Yes, clinically valid, condition resolved. 2. No, condition ruled out. 3. Other, with explanation of clinical findings. 4. Undetermined, no explanation for clinical findings. PHYSICIAN RESPONSE Diagnosis clinically valid: Yes, Conditon resolved Please remember a lack of response to the above will prompt a phone page by CDI/Coding staff. In responding to this query, please exercise your independent professional judgment. The purpose of this communication is to more accurately reflect the complexity of your patients condition. The fact that a question is asked does not imply that any particular answer is desired or expected. Thank you for your timely response to this clarification. Requestors name: Myra Parnell [facility] Phone # ext [phone] or [phone] THIS PHYSICIAN QUERY FORM IS A PERMANENT PART OF THE MEDICAL RECORD MYRA PARNELL Apr 18, 2020 13:31 BROWN SANTOYO DO Apr 18, 2020 16:45
--- NOTE | 2020-04-18 13:40 | NUR ---
"RD ASSESSMENT PMHx: R AKA; polysubstance use/abuse (tobacco; THC; methamphetamine); COPD; pneumonia; HTN; stroke; GERD; DM; s/p L AKA PT INTERACTION: Pt was awake and pleasant during nutrition assessment. Note pt was difficult to understand as I received answers to diet questions. Pt states current appetite is poor. Note pt has refused 2 meals per chart review. Pt states following a regular diet at home, and has no issues with chewing/swallowing food. Note pt is missing teeth, per visual assessment. Pt states some recent issues with nausea, vomiting, constipation, and diarrhea. Note last BM was 6/5, and pt currently on bowel regimen of senna BID, per chart review. Pt states unsure of recent wt changes. Note unable to determine recent wt hx, per chart review. Pt states that he has currently good control of DM. Note unable to determine recent HbA1c, per chart review. Note pt has wound from recent surgery on left leg, per chart review. ABNORMAL NUTRITION-RELATED LAB VALUES LOW: Na 129; BUN <2; cr 0.47; Ca 7.1; Pro 5.2; alb 2.6 HIGH: glu 134; bili 1.5; AST 72 Est. kcal needs: 6615-7246 kcal | 25-30 kcal/kg Est. Pro needs: 64-74 g Pro | 1.2-1.4 g Pro/kg PES STATEMENT: Inadequate oral intake (NI-2.1) related to loss of appetite | nausea | vomiting | constipation | diarrhea as evidenced by pt interview | pt refused 2 meals INTERVENTION: Continue with current diet order of Clear Liquid diet. Would recommend advancing diet when medically able and as tolerated. Offered diet education on DM management, but pt declined at this time. Will attempt to offer again prior to discharge. Will continue to follow and reassess as pt needs, intake, and status change. MONITOR/EVALUATE: PO Intake; Plan of Care; Hydration Status; Weight Status; Lab Values Nolan Baptiste, , RD, LD"
--- NOTE | 2020-04-18 13:44 | Physician Query Clarification ---
PQ-Further Specificity Admission/Discharge Admission Date: Apr 16, 2020 at 14:50 Discharge Date: The medical record reflects the following clinical scenario: History/Risk Factors: Left leg diabetic wound infection/possible osteomyelitis. Left lower limb cellulitis. Clinical Findings: Lactic acid 2.39 Treatment: IV Vancomycin HCI and IV Zosyn 4.5gm, IV lactated Ringer's. Question: Can you further specify elevated lactic acid of 2.39 per the clinical indicators above? Please document a response in the Progress Notes or Discharge Summary. 1. Lactic acidosis due to severe sepsis. 2. Lactic acidosis only without the diagnosis of severe sepsis. 3. Other, with explanation of the clinical findings. 4. Clinically undetermined, no explanation for the clinical findings. PHYSICIAN RESPONSE Can you specify per above: 2 Please remember a lack of response to the above will prompt a phone page by CDI/Coding staff. In responding to this query, please exercise your independent professional judgment. The purpose of this communication is to more accurately reflect the complexity of your patients condition. The fact that a question is asked does not imply that any particular answer is desired or expected. Thank you for your timely response to this clarification. Requestors name: Myra Bush [facility] Phone # ext [phone] or [phone] THIS PHYSICIAN QUERY FORM IS A PERMANENT PART OF THE MEDICAL RECORD MYRA BUSH Apr 18, 2020 13:44 BROWN SANTOYO DO Apr 18, 2020 16:46
--- NOTE | 2020-04-18 14:35 | NUR ---
CM/SS visited with the patient for discharge planning. CM/SS spoke with February in Inpatient Rehab who stated they will submit to insurance today for Tuesday. CM/SS visited the patient to discuss plans for discharge. The patient reports he lives with his brother in [place]. He gets around in the home with a wheelchair but his wheelchair is at his home. He kept asking about his wheelchair; this ss asked if his brother could bring it and he stated no. CM/SS asked the patient if he had caregivers and at first he said no, but later in the conversation he stated he had a female caregiver who he trusted. He does not report any financial concerns at this time. The patient reports he would not like anyone to go over to his house because he has "crap" everywhere and he's embarrassed. CM/SS asked if the patient would be willing to got to inpatient rehab and he stated he would think about it. CM/SS had some difficulties understanding patients speech. The professor of social work Roque informed this ss that he had an open Adult Protective Service report (poor living conditions) and this ss informed the physician. CM/SS will continue to follow patient for discharge planning.
--- NOTE | 2020-04-18 14:35 | NUR ---
PT CONTINUES TO C/O PAIN AFTER DILAUDID IVP ADMIN. DR HU NOTIFIED AND ORDERED LORTAB 10/325 MG Q6H PRN PAIN.
--- NOTE | 2020-04-18 14:37 | Progress Note - Hospitalist ---
Subjective HPI/CC On Admission Date Seen by Provider: Apr 18, 2020 Time Seen by Provider: 12:00 CC: Left leg gangrene with infection in need of amputation HENRIQUE HPI: This is a 54yoWM clinic patient of [facility] who has a h/o right AKA in 2017 who continues to smoke who presented to the [facility] ER in need of management for the left leg draining wounds. Maggots were on the leg and were cleaned off revealing gangrene and infection in need of amputation per Dr Cortes scheduled for tomorrow. I have difficulty understanding more details from the patient due to speech impediment. Subjective/Events-last exam Patient currently is without complaints. He's eating green Jell-O. He notes that he needs to be cleaned up because he's been incontinent of stool. Denies having chest pain or shortness of breath. Review of Systems Gastrointestinal: Diarrhea Musculoskeletal: leg pain Focused Exam Lactate Level 04/16/20 13:13: Lactic Acid Level 2.39*H 04/16/20 16:24: Lactic Acid Level 1.70 Objective Exam Vital Signs Vital Signs Date Time Temp Pulse Resp B/P (MAP) Pulse Ox O2 Delivery O2 Flow Rate FiO2 04/18/20 13:11 Room Air 04/18/20 12:57 5 04/18/20 04:00 36.6 92 21 130/72 (91) 93 Capillary Refill : Less Than 3 Seconds General Appearance: Chronically ill HEENT: Other (Very poor dentition with dysarthria) Neck: Non Tender, Supple Respiratory: Chest Non Tender, Lungs Clear, Normal Breath Sounds, No Accessory Muscle Use, No Respiratory Distress Cardiovascular: Regular Rate, Rhythm, No Edema, No Gallop, No Murmur Gastrointestinal: Non Tender, Soft Rectal: Deferred Back: Normal Inspection Extremity: Other Neurologic/Psychiatric: Alert, Oriented x3, Normal Mood/Affect Results/Procedures Lab Laboratory Tests 04/18/20 06:05 Patient resulted labs reviewed. Assessment/Plan Assessment and Plan Assess & Plan/Chief Complaint Status post left AKA Previous right AKA Peripheral vascular disease Tobaccoism Alcohol abuse Poor social situation Elevated liver function tests Hyponatremia Plan to try and transfer patient to rehabilitation when approved by his insurance as the patient will have to learn to either be in a wheelchair or ambu late with prosthesis Clinical Quality Measures DVT/VTE Risk/Contraindication: Risk Factor Score Per Nursin RFS Level Per Nursing on Admit: 4+=Very High AUGIE RAMIREZ MD Apr 18, 2020 14:37
[2020-04-18] MEDS: HYDROcodone/APAP 10 MG/325 MG (LORTAB) TAB PO PRN ×3 (15:11→21:43)
--- NOTE | 2020-04-18 15:50 | NUR ---
IRF Evaluation Dr. Gill questioning patient's ability to qualify for rehab. This machine sign writer states it's quite likely the patient will qualify as he has a qualifying diagnosis. It is noted patient's primary insurance provider is LEATHA Aldrich; therefore, insurance authorization will need to be obtained prior to admission. Pre-admission screening initiated. Submission to insurance can not be completed until PT/OT perform their initial evaluations as it is a requirement by insurance. Will continue to follow. Thank you for this referral.
--- NOTE | 2020-04-18 16:03 | Physical Therapy Evaluation ---
PT Evaluation-General Medical Diagnosis Admission Date Apr 16, 2020 at 14:50 Medical Diagnosis: left AKA Onset Date: Apr 17, 2020 Therapy Diagnosis Therapy Diagnosis: impaired mobility, strength, endurance, balance Height/Weight Height (Feet): 5 Height (Inches): 9.50 Weight (Pounds): 117 Precautions Precautions/Isolations: Fall Prevention Weight Bear Status Right Lower Extremity: Right Non Weight Bearing Left Lower Extremity: Left Non Weight Bearing Referral Physician: Jairo Reason for Referral: Evaluation/Treatment Medical History Additional Medical History Past Medical History Surgeries: Orthopedic Respiratory: COPD, Pneumonia Cardiac: Hypertension, Peripheral Vascular Neurological: Neuropathy, Stroke Gastrointestinal: Gastroesophageal Reflux Musculoskeletal: Amputee Endocrine: Diabetes, Insulin dep Reviewed History: Yes Social History Home: Single Level Current Living Status: Other Family Entry Into Home: Ramp Prior Prior Level of Function SCALE: Activities may be completed with or without assistive devices. 2-Ijbfwzwram-cjwaoer completes the activity by him/herself with no assistance from a helper. 5-Set-up or Clean-up Assistance-helper sets up or cleans up; patient completes activity. [place] assists only prior to or following the activity. 4-Supervision or Touching Assistance-helper provides verbal cues and/or touching/steadying and/or contact guard assistance as patient completes activity. Assistance may be provided throughout the activity or intermittently. 3-Partial/Moderate Assistance-helper does LESS THAN HALF the effort. [place] lifts, holds or supports trunk or limbs, but provides less than half the effort. 2-Substantial/Maximal Assistance-helper does MORE THAN HALF the effort. [place] lifts or holds trunk or limbs and provides more than half the effort. 1-Szoehcgtc-rokhqc does ALL the effort. Patient does none of the effort to complete the activity. Or, the assistance of 2 or more helpers is required for the patient to complete the activity. If activity was not attempted, code reason: 7-Patient Refused. 9-Not Applicable-not attempted and the patient did not perform the activity before the current illness, exacerbation or injury. 10-Not Attempted due to Environmental Limitations-(lack of equipment, weather restraints, etc.). 88-Not Attempted due to Medical Conditions or Safety Concerns. Bed Mobility: 6 Transfers (B,C,W/C): 6 Wheelchair Mobility: 6 Prior Devices Use: Manual wheelchair PT Evaluation-Current Subjective Patient in bed pre tx, agrees to PT, has no complaints of pain. Patient's speech is very hard to understand. Patient has had a previous right AKA Pt/Family Goals none stated Objective Patient Orientation: Person, Mumbles Attachments: IV ROM/Strength ROM Lower Extremities good general hip ROM bilaterally. Sensory Vision: Functional Hearing: Functional Sensation Right Lower Extremit: Intact Sensation Left Lower Extremity: Intact Transfers Roll Left to Right (QC): 2 Sit to Lying (QC): 3 Lying to Sitting/Side of Bed(Q: 2 Patient is able to sit on the side of the bed for about 15 min with CGA, uses both arms to keep balance, is able to only use one arm a few times. Balance Sitting Static: Poor Sitting Dynamic: Poor Assessment/Needs Patient has impaired mobility, strength, endurance, balance. Patient in bed post tx with nurse call,phone, tray, all needs met, bed alarm on and telesitter in room. Rehab Potential: Guarded PT [facility] Goals [facility] Goals PT [facility] Goals Time Frame: Apr 25, 2020 Roll Left & Right (QC): 4 Sit to Lying (QC): 4 Lying-Sitting on Side/Bed(QC): 4 Chair/Zmg-hv-Ieims Xfer(QC): 3 PT Plan Problem List Problem List: Activity Tolerance, Functional Strength, Safety, Balance, Transfer, Bed Mobility, ROM Treatment/Plan Treatment Plan: Continue Plan of Care Treatment Plan: Bed Mobility, Education, Functional Activity Jose Luis, Functional Strength, Safety, Therapeutic Exercise, Transfers Treatment Duration: Apr 25, 2020 Frequency: 6 times per week Estimated Hrs Per Day: .25 hour per day Patient and/or Family Agrees t: Yes Safety Risks/Education Patient Education: Transfer Techniques, Correct Positioning, Safety Issues Teaching Recipient: Patient Teaching Methods: Demonstration, Discussion Response to Teaching: Reinforcement Needed Discharge Recommendations Plan Patient will perform bed mobility and transfer training, balance and endurance training, functional strengthening, and education, to improve functional mobility and independence at home. Therapy Discharge Recommendati: Other, See Comments (NH), Home & Family Time/GCodes Time In: 1530 Time Out: 1555 Total Billed Treatment Time: 25 Total Billed Treatment 1 visit EVM 10' FA 15' BHARAT MCCOLLUM PT Apr 18, 2020 16:03
[2020-04-18 16:23] VITALS: BP 130/86
--- NOTE | 2020-04-18 16:54 | Occupational Therapy Eval ---
OT Evaluation-General/PLF Medical Diagnosis Admission Date Apr 16, 2020 at 14:50 Medical Diagnosis: left AKA Onset Date: Apr 17, 2020 Therapy Diagnosis Therapy Diagnosis: Decreased ADL status. Height/Weight Height (Feet): 5 Height (Inches): 9.50 Weight (Pounds): 117 Precautions Precautions/Isolations: Fall Prevention Referral Physician: Jairo Referral Reason: Activity Tolerance, Self Care, Evaluation/Treatment, Strengthening/ROM Medical History Additional Medical History R AKA 2017, COPD, pneumonia, HTN, PVD, neuropathy, stroke, GERD, DM, smoker. Current History L BKA 04/17 due to gangrene. Reviewed History: Yes Social History Home: Single Level Current Living Status: Other Family Entry Into Home: Ramp ADL-Prior Level of Function SCALE: Activities may be completed with or without assistive devices. 2-Ecaojjxyna-oajdjsn completes the activity by him/herself with no assistance from a helper. 5-Set-up or Clean-up Assistance-helper sets up or cleans up; patient completes activity. [place] assists only prior to or following the activity. 4-Supervision or Touching Assistance-helper provides verbal cues and/or touching/steadying and/or contact guard assistance as patient completes activity. Assistance may be provided throughout the activity or intermittently. 3-Partial/Moderate Assistance-helper does LESS THAN HALF the effort. [place] lifts, holds or supports trunk or limbs, but provides less than half the effort. 2-Substantial/Maximal Assistance-helper does MORE THAN HALF the effort. [place] lifts or holds trunk or limbs and provides more than half the effort. 1-Allokxkbp-essgtv does ALL the effort. Patient does none of the effort to complete the activity. Or, the assistance of 2 or more helpers is required for the patient to complete the activity. If activity was not attempted, code reason: 7-Patient Refused. 9-Not Applicable-not attempted and the patient did not perform the activity before the current illness, exacerbation or injury. 10-Not Attempted due to Environmental Limitations-(lack of equipment, weather restraints, etc.). 88-Not Attempted due to Medical Conditions or Safety Concerns. ADL PLOF Comments Pt states IND with ADLs, assist required with IADLs. Self Care: Independent Functional Cognition: Independent DME/Equipment: Bath Chair, Tub/Shower DME/Equipment Comments w/c, sc, and tub/ shower. Occupation: disabled. Drive Self: No Leisure Interests: cats OT Current Status Subjective Pt seen in bed, alert/ awake. Pt states pain in L LE (knee), states sharp/ shooting. Pt agrees to therapy though hesitant. Mental Status/Objective Patient Orientation: Person, Place, Situation Attachments: IV Current Glasses/Contacts: No Hearing Aids: No Dentures/Partials: No Hand Dominance: Right Upper Extremity ROM WFL BUE Upper Extremity Coordination WFL BUE Upper Extremity Sensation WFL BUE Upper Extremity Strength WFL (4-/5) bilaterally ADL-Treatment Eating (QC): 6 Other Treatments Pt seen in bed. Pt denies movement at first, provides hx and agrees to therapy. Pt lives with brother who assists with IADLs, states pt's brother has "bad back" and unable to physically assist. Pt completes bed mob (supine to EOB) with mod A. Pt sits EOB ~10 min, requires time for balance. Pt completes UE raises with opposite UE stabilizing pt EOB. Pt requires min A to right at times. Pt continues to c/o pain, able to return to supine without assist. Pt left with all needs met,call light in reach. Education OT Patient Education: Correct positioning, Purpose of tx/functional activities, Transfer techniques Teaching Recipient: Patient Teaching Methods: Demonstration, Discussion Response to Teaching: Verbalize Understanding, Return Demonstration OT Skilled Nursing Goals Skilled Nursing Goals Time Frame: May 02, 2020 Eating (QC): 6 Oral Hygiene (QC): 6 Toileting Hygiene (QC): 4 Shower/Bathe Self (QC): 3 Upper Body Dressing (QC): 5 Lower Body Dressing (QC): 3 On/Off Footwear (QC): 09 Additional Goals: 1-Demonstrate ADL Tasks, 2-Verbalize Understanding, 3- ImproveStrength/Jose Luis 1=Demonstrate adherence to instructed precautions during ADL tasks. 2=Patient will verbalize/demonstrate understanding of assistive devices/modifications for ADL. 3=Patient will improve strength/tolerance for activity to enable patient to perform ADL's. OT Education/Plan Problem List/Assessment Assessment: Decreased Activ Tolerance, Decreased UE Strength, Dependent Transfers, Impaired Bed Mobility, Impaired Funct Balance, Impaired I ADL's, Impaired Self-Care Skills Discharge Recommendations Plan/Recommendations: Continue POC Therapy Discharge Recommendati: 24 Hour Supervision, Scheduled Assistance, Bath Aide Equpiment Recommendations-D/C: Extended Bath Bench, Wire Galvanizer Treatment Plan/Plan of Care Treatment,Training & Education: Yes Patient would benefit from OT for education, treatment and training to promote independence in ADL's, mobility, safety and/or upper extremity function for ADL's. Plan of Care: ADL Retraining, Caregiver Training, Functional Mobility, Group Exercise/Act as Ind, UE Funct Exercise/Act, W/C Management Training Treatment Duration: May 02, 2020 Frequency: 5 times per week Estimated Hrs Per Day: .25 hour per day Agreement: Yes Rehab Potential: Guarded Time/GCodes Start Time: 15:30 Stop Time: 15:55 Total Time Billed (hr/min): 25 Billed Treatment Time 1, SEFERINO FALCON (25) SHREYA TANNER OTR Apr 18, 2020 16:54
--- NOTE | 2020-04-18 17:30 | NUR ---
PT C/O ABOUT CLEAR LIQUID DIET. THIS RN CONTACTED DR HU AND HE ORDERED TO ADVANCE TOLERATED. PT REQUESTED MECH SOFT DUE TO POOR DENTATION.
--- NOTE | 2020-04-18 17:55 | NUR ---
PT ASKED WHERE HIS WALLET, MONEY, CELL PHONE AND CLOTHES ARE AT. HE HAS ONE SHIRT AND PAIR OF JEANS HERE IN HIS HOSPITAL ROOM. THIS RN ASKED HIM WHERE HE LEFT THEM, HE SAID HE ISNT SURE. THIS RN CALLED [facility] AND [facility], AT BOTH LOCATIONS THEY REPORTED TO THIS RN THAT HIS BELONGINGS WERE NOT THERE. PT TOLD THIS INFO NUMEROUS TIMES AND HE SAID THAT MAYBE HIS BROTHER HAS HIS THINGS AT HOME.
[2020-04-18 19:42] VITALS: BP 137/82
[2020-04-18] MEDS: ENOXAPARIN 30 MG/0.3 ML (LOVENOX) SYR SC SCH (21:12)
[2020-04-19] VITALS: BP 118/77
[2020-04-19] MEDS ORDERED: FUROSEMIDE 40 MG/4 ML INJ (LASIX) IVP ONE (00:15)
--- NOTE | 2020-04-19 00:15 | NUR ---
PT EXHIBITING WET BREATH SOUNDS WITH INCREASED SWELLING NOTED TO BUE. PT DENIES SOA. 02 SATS READING 91-92% ON RA. B/P- 118/77, PULSE- 103, RESPIRATORY RATE 20. CALL PLACED TO DR. RAMIREZ TO NOTIFY OF CHANGE IN CONDITION. ORDER RECEIVED TO DC SCHEDULED FLUIDS AND TO CHANGE ORDER TO TKO. ADDITIONAL ORDER RECEIVED FOR IV LASIX 10MG ONCE.
[2020-04-19] MEDS: HYDROmorphone 2 MG/ML VIAL (DILAUDID) IV PRN ×4 (00:57→20:07)
[2020-04-19] MEDS: D5 1/2 NS W/KCL 20 MEQ/L 1,000 ML IV SCH (00:58)
[2020-04-19] MEDS ORDERED: FUROSEMIDE 40 MG/4 ML INJ (LASIX) ONE (01:13)
[2020-04-19] MEDS ORDERED: D5 1/2 NS W/KCL 20 MEQ/L 1,000 ML IV PRN (01:15)
[2020-04-19 04:00] VITALS: BP 147/71
[2020-04-19] MEDS: VANCOMYCIN 1 GM/NS 250 ML IVPB IV SCH ×2 (05:07)
[2020-04-19] MEDS: PIPERACILLIN/TAZO 4.5 GM/NS 100 ML IV SCH ×6 (06:21→20:14)
[2020-04-19 06:49] LABS: BASOPHILS % (AUTO) 0 % (0-10); EOSINOPHILS # (AUTO) 0.1 10^3/uL (0.0-0.3); EOSINOPHILS % (AUTO) 2 % (0-10); HEMATOCRIT 33 % (40-54); HEMOGLOBIN 11.3 G/DL (13.3-17.7); LYMPHOCYTES # (AUTO) 0.9 X 10^3 (1.0-4.0); LYMPHOCYTES % (AUTO) 11 % (12-44); MEAN CORPUSCULAR HEMOGLOBIN 36 PG (25-34); MEAN CORPUSCULAR HGB CONC 34 G/DL (32-36); MEAN CORPUSCULAR VOLUME 106 FL (80-99); MEAN PLATELET VOLUME 10.3 FL (7.4-10.4); MONOCYTES # (AUTO) 0.5 X 10^3 (0.0-1.0); MONOCYTES % (AUTO) 6 % (0-12); NEUTROPHILS # (AUTO) 6.9 X 10^3 (1.8-7.8); NEUTROPHILS % (AUTO) 81 % (42-75); PLATELET COUNT 238 10^3/uL (130-400); RED CELL DISTRIBUTION WIDTH 12.6 % (10.0-14.5); WHITE BLOOD COUNT 8.5 10^3/uL (4.3-11.0)
[2020-04-19 07:02] LABS: ALBUMIN 2.7 GM/DL (3.2-4.5); CHLORIDE 98 MMOL/L (98-107); POTASSIUM 3.2 MMOL/L (3.6-5.0); SODIUM 130 MMOL/L (135-145)
[2020-04-19 07:04] LABS: CALCIUM 7.4 MG/DL (8.5-10.1); GLUCOSE 95 MG/DL (70-105)
[2020-04-19 07:05] LABS: TOTAL PROTEIN 5.3 GM/DL (6.4-8.2)
[2020-04-19 07:06] LABS: CARBON DIOXIDE 23 MMOL/L (21-32)
[2020-04-19 07:07] LABS: BILIRUBIN,TOTAL 0.8 MG/DL (0.1-1.0)
[2020-04-19 07:08] LABS: ALKALINE PHOSPHATASE 114 U/L (40-136); CREATININE SERUM 0.48 MG/DL (0.60-1.30); GFR ESTIMATED > 60
[2020-04-19 07:09] LABS: BUN/CREATININE RATIO 4
[2020-04-19 07:11] LABS: ALANINE AMINOTRANSFERASE 19 U/L (0-55)
[2020-04-19] MEDS: SENNA W/DOCUSATE (SENOKOT S) TABLET PO SCH ×2 (07:26→20:05)
[2020-04-19] MEDS: HYDROcodone/APAP 10 MG/325 MG (LORTAB) TAB PO PRN ×2 (07:53→18:36)
[2020-04-19 08:00] VITALS: BP 125/81
--- NOTE | 2020-04-19 10:51 | NUR ---
PT BUTTOCKS CONTINUE TO BE RED AND BLANCHABLE. THIS RN CONTACTED DR RAMIREZ AND SHE SAID WE COULD CHANGE OUT BED TO AIR MATTRESS BED. THIS RN ALONG WITH PCT MOVED NEW BED WITH AIR MATTRESS IN AND TRANSFERRED PT TO NEW BED. PT REPORTED TO THIS NURSE ORNAMENTAL METAL WORKER HELPER THAT THE MATTRESS WAS MUCH MORE COMFORTABLE.
--- NOTE | 2020-04-19 11:29 | NUR ---
DR MOSCOSO RUBBER STAMPS AND DIES SUPERVISOR FOR DR HU, ORDERED MAT PRO FOR PT D/T INCREASED WHEEZING/CRACKLES. RN PUT IN ORDER AND NOTIFIED RT LEAD THERAPIST
[2020-04-19 12:00] VITALS: BP 114/75
--- NOTE | 2020-04-19 12:13 | Physical Therapy Daily Note ---
PT Daily Note-Current Subjective Pt initially refused treatment, but he finally agreed to participate. Pain Numeric Pain Scale: 4 Location: Posterior Location Body Site: Sacrum Pain Description: Ache, Dull Comment: Pt was able to sit up and help alleviate the sacral/gluteal pain. Mental Status Patient Orientation: Person, Place Transfers SCALE: Activities may be completed with or without assistive devices. 7-Hqfvpsgnvc-qxgxrzh completes the activity by him/herself with no assistance from a helper. 5-Set-up or Clean-up Assistance-helper sets up or cleans up; patient completes activity. [place] assists only prior to or following the activity. 4-Supervision or Touching Assistance-helper provides verbal cues and/or touching/steadying and/or contact guard assistance as patient completes activity. Assistance may be provided throughout the activity or intermittently. 3-Partial/Moderate Assistance-helper does LESS THAN HALF the effort. [place] lifts, holds or supports trunk or limbs, but provides less than half the effort. 2-Substantial/Maximal Assistance-helper does MORE THAN HALF the effort. [place] lifts or holds trunk or limbs and provides more than half the effort. 0-Ayohpgrrx-onrseo does ALL the effort. Patient does none of the effort to complete the activity. Or, the assistance of 2 or more helpers is required for the patient to complete the activity. If activity was not attempted, code reason: 7-Patient Refused. 9-Not Applicable-not attempted and the patient did not perform the activity before the current illness, exacerbation or injury. 10-Not Attempted due to Environmental Limitations-(lack of equipment, weather restraints, etc.). 88-Not Attempted due to Medical Conditions or Safety Concerns. Roll Left & Right (QC): 4 Sit to Lying (QC): 4 Lying to Sitting/Side of Bed(Q: 4 Weight Bearing Right Lower Extremity: Right Non Weight Bearing Left Lower Extremity: Left Non Weight Bearing Gait Training Does the Patient Walk?: No and Walking Goal NOT indicated Wheelchair Training Does the Pt Use a Wheelchair?: Yes Type of Wheelchair: Manual Pt does not have his wheelchair. He plans to have his brother bring it when he is ready to go home. Exercises Supine Ex: LE Protocol Supine Reps: 20 Treatments Pt performed supine to sit with contact assist. He was able to sit edge of bed using (B) UEs for support. He sat edge of bed for 7 minutes. He required CGA for return to supine. Assessment Current Status: Good Progress Pt has poor motor control in the (L) LE but was able to eventually complete the activity as directed. He noted reduction of gluteal pain after sitting up. PT Mesh Worker Goals Mesh Worker Goals PT Detention Goals Time Frame: Apr 25, 2020 Roll Left & Right (QC): 4 Sit to Lying (QC): 4 Lying-Sitting on Side/Bed(QC): 4 Chair/Qqf-jf-Dybce Xfer(QC): 3 PT Plan Treatment/Plan Treatment Plan: Continue Plan of Care Treatment Plan: Bed Mobility, Education, Functional Activity Jose Luis, Functional Strength, Safety, Therapeutic Exercise, Transfers Treatment Duration: Apr 25, 2020 Frequency: 6 times per week Estimated Hrs Per Day: .25 hour per day Patient and/or Family Agrees t: Yes Time/GCodes Time In: 1042 Time Out: 1058 Total Billed Treatment Time: 16 Total Billed Treatment 1, fa 16 TESSA REILLY PT Apr 19, 2020 12:13
--- NOTE | 2020-04-19 13:21 | Progress Note - Hospitalist ---
Subjective HPI/CC On Admission Date Seen by Provider: Apr 19, 2020 Time Seen by Provider: 11:30 CC: Left leg gangrene with infection in need of amputation HENRIQUE HPI: This is a 54yoWM clinic patient of [facility] who has a h/o right AKA in 2017 who continues to smoke who presented to the [facility] ER in need of management for the left leg draining wounds. Maggots were on the leg and were cleaned off revealing gangrene and infection in need of amputation per Dr Cortes scheduled for tomorrow. I have difficulty understanding more details from the patient due to speech impediment. Subjective/Events-last exam patient complains primarily of pain in his left leg. He requests pain medication frequently. He also doesn't think he needs to go to rehabilitation and is anxious to go home he thinks he can transfer thumb from the bed to his wheelchair without problems. He has 2 cats at home that his brothers taking care of that he doesn't think he's taking care of very well Review of Systems Neurological: Weakness Focused Exam Lactate Level 04/16/20 16:24: Lactic Acid Level 1.70 Objective Exam Vital Signs Vital Signs Date Time Temp Pulse Resp B/P (MAP) Pulse Ox O2 Delivery O2 Flow Rate FiO2 04/19/20 12:00 35.8 92 20 114/75 (88) 94 Room Air 04/18/20 12:57 5 Capillary Refill : Less Than 3 Seconds General Appearance: Other (dysarthric) HEENT: Other (poor dentition) Neck: Limited Range of Motion Respiratory: Crackles, Rales Cardiovascular: Regular Rate, Rhythm, No Gallop Gastrointestinal: Non Tender, Soft Back: Normal Inspection Extremity: Other (absent lower legs) Neurologic/Psychiatric: Alert, Oriented x3 Lymphatic: No Adenopathy Results/Procedures Lab Laboratory Tests 04/19/20 06:38 Patient resulted labs reviewed. Assessment/Plan Assessment and Plan Assess & Plan/Chief Complaint Status post left AKA Previous right AKA Peripheral vascular disease Tobaccoism Alcohol abuse Poor social situation Elevated liver function tests Hyponatremia phantom pain we'll start Neurontin Plan to try and transfer patient to rehabilitation when approved by his insur gita as the patient will have to learn to either be in a wheelchair or ambulate with prosthesis Clinical Quality Measures DVT/VTE Risk/Contraindication: Risk Factor Score Per Nursin RFS Level Per Nursing on Admit: 4+=Very High AUGIE RAMIREZ MD Apr 19, 2020 13:21
[2020-04-19] MEDS: GABAPENTIN 100 MG (NEURONTIN) CAP PO SCH ×2 (13:23→20:04)
[2020-04-19] MEDS ORDERED: RT-ALBUTEROL/IPRATROPIUM 3 ML (DUONEB) VIAL INH PRN (15:00)
[2020-04-19] MEDS: LORazepam INJ 2 MG/ML (ATIVAN) VIAL IV PRN ×3 (15:39→20:10)
--- NOTE | 2020-04-19 15:47 | NUR ---
ARACELI, RT, SUGGESTED THAT PT MIGHT BENEFIT FROM CHEST XRAY. SHE SAID HIS LAST CHEST XRAY WAS CLEAR ON 04/16/20. DR MOSCOSO NOTIFIED AND OK'D ORDER FOR XRAY. ARACELI ALSO SAID THAT PT IS USING INCENTIVE SPIROMETER AND HITTING 2500.
--- NOTE | 2020-04-19 16:07 | Diagnostic Imaging Report ---
EXAMINATION: Chest radiograph, portable AP view. DATE: 04/19/2020 4:02 p.m. INDICATION: 54-year-old male, increased wheezing. Shortness of breath. COMPARISON: April 16, 2020. FINDINGS: Heart size and mediastinal contours are unremarkable. There is no identified pneumothorax. There is no large pleural effusion. There are mild linear opacities in the left midlung which are an interval change. IMPRESSION: Mild linear opacities in the left midlung which are an interval change since comparison exam. This could be infectious or inflammatory in etiology. Atelectasis would also be considered. Dictated by: Dictated on workstation # [id number]
[2020-04-19 16:26] VITALS: BP 115/83
--- NOTE | 2020-04-19 16:34 | Progress Note - Surgery ---
Subjective Date Seen by a Provider: Apr 19, 2020 Time Seen by a Provider: 10:37 Subjective/Events-last exam Patient states she's doing okay. He still having pain in the left lower extremity from surgery. Patient tolerating diet. He denies any nausea vomiting fever sweats chills shortness of breath or chest pain. Objective Exam Vital Signs Date Time Temp Pulse Resp B/P (MAP) Pulse Ox O2 Delivery O2 Flow Rate FiO2 04/19/20 14:42 81 94 04/19/20 12:00 35.8 92 20 114/75 (88) 94 Room Air 04/19/20 08:00 Room Air 04/19/20 08:00 36.2 101 16 125/81 (96) 97 Room Air 04/19/20 04:00 36.5 75 20 147/71 (96) 97 Room Air 04/19/20 00:00 37.3 103 20 118/77 (91) 92 Room Air 04/18/20 19:42 35.6 97 18 137/82 (100) 95 Room Air 04/18/20 19:40 Room Air I & O 04/19/20 07:00 Intake Total 4060 ml Output Total 1850 ml Balance 2210 ml Capillary Refill : Less Than 3 Seconds General Appearance: No Apparent Distress HEENT: PERRL/EOMI, Other (poor dentition) Neck: Supple, Limited Range of Motion Respiratory: Chest Non Tender, No Accessory Muscle Use, No Respiratory Distress, Crackles, Rales Cardiovascular: Regular Rate, Rhythm, No Gallop Gastrointestinal: non tender, soft Extremity: Other (Right AKA and left AKA with vinayak and sutures intact some slight old blood and dressing wound appears intact without infection) Neurologic/Psychiatric: Alert, Oriented x3 Skin: Normal Color, Warm/Dry Lymphatic: No Adenopathy Results Lab Laboratory Tests 04/19/20 06:38: White Blood Count 8.5, Red Blood Count 3.11L, Hemoglobin 11.3L, Hematocrit 33L, Mean Corpuscular Volume 106H, Mean Corpuscular Hemoglobin 36H, Mean Corpuscular Hemoglobin Concent 34, Red Cell Distribution Width 12.6, Platelet Count 238, Mean Platelet Volume 10.3, Neutrophils (%) (Auto) 81H, Lymphocytes (%) (Auto) 11L, Monocytes (%) (Auto) 6, Eosinophils (%) (Auto) 2, Basophils (%) (Auto) 0, Neutrophils # (Auto) 6.9, Lymphocytes # (Auto) 0.9L, Monocytes # (Auto) 0.5, Eosinophils # (Auto) 0.1, Basophils # (Auto) 0.0, Sodium Level 130L, Potassium Level 3.2L, Chloride Level 98, Carbon Dioxide Level 23, Anion Gap 9, Blood Urea Nitrogen 2L, Creatinine 0.48L, Estimat Glomerular Filtration Rate > 60, BUN/Creatinine Ratio 4, Glucose Level 95, Calcium Level 7.4L, Corrected Calcium 8.4L, Total Bilirubin 0.8, Aspartate Amino Transf (AST/SGOT) 40H, Alanine Aminotransferase (ALT/SGPT) 19, Alkaline Phosphatase 114, Total Protein 5.3L, Albumin 2.7L Microbiology 04/17/20 MRSA Screen - Final, Complete MRSA not isolated 04/16/20 Blood Culture - Preliminary, Resulted No growth 04/16/20 Urine Culture - Final, Complete 3 or more isolates Assessment/Plan Assessment/Plan Assessment/Plan S/P L AKA Pain control, PT/OT await rehab, dressing change, we'll place on mat protocol encouraged incentive spirometer, obtain chest x-ray Clinical Quality Measures DVT/VTE Risk/Contraindication: Risk Factor Score Per Nursin RFS Level Per Nursing on Admit: 4+=Very High LUKE MOSCOSO DO Apr 19, 2020 16:34
--- NOTE | 2020-04-19 16:37 | NUR ---
DR MOSCOSO NOTIFIED OF XRAY RESULTS. HE SAID THAT PT SHOULD BE DOING INCENTIVE SPIROMETER Q1H. UPDATED FREQUENCY IN INTERVENTIONS.
--- NOTE | 2020-04-19 17:45 | NUR ---
PT IS A TURN Q2H. IF AGREES TO TURN HE WILL LAY ON LEFT SIDE ONLY THEN GO BACK TO SUPINE. THIS RN DID CHANGE HIS BED TO AN AIRMATRESS TO HELP PREVENT ANY MORE BREAKDOWN. BUTTOCKS CONTINUE TO BE RED. HE IS ALSO INCONTINENT OF BOWEL AND AT AT TIMES, BLADDER.
[2020-04-19] MEDS: RT-ALBUTEROL/IPRATROPIUM 3 ML (DUONEB) VIAL INH SCH (19:19)
[2020-04-19] MEDS: ENOXAPARIN 30 MG/0.3 ML (LOVENOX) SYR SC SCH (20:05)
[2020-04-19 20:21] VITALS: BP 112/77
[2020-04-20 00:44] VITALS: BP 111/75
[2020-04-20 04:00] VITALS: BP 116/75
[2020-04-20] MEDS: PIPERACILLIN/TAZO 4.5 GM/NS 100 ML IV SCH ×6 (04:29→21:30)
[2020-04-20] MEDS: HYDROcodone/APAP 10 MG/325 MG (LORTAB) TAB PO PRN ×4 (04:29→21:31)
[2020-04-20 08:00] VITALS: BP 118/72
[2020-04-20] MEDS: SENNA W/DOCUSATE (SENOKOT S) TABLET PO SCH ×2 (08:06→21:24)
[2020-04-20] MEDS: GABAPENTIN 100 MG (NEURONTIN) CAP PO SCH ×3 (08:19→21:31)
[2020-04-20] MEDS: HYDROmorphone 2 MG/ML VIAL (DILAUDID) IV PRN ×2 (09:03→13:54)
[2020-04-20] MEDS: RT-ALBUTEROL/IPRATROPIUM 3 ML (DUONEB) VIAL INH SCH ×2 (09:25→18:47)
[2020-04-20 12:00] VITALS: BP 118/75
--- NOTE | 2020-04-20 12:52 | NUR ---
PT CONTINUES TO TAKE OFF ALLYVEN PROTECTORS FROM BOTTOM, SPINE AND HIP AREAS. PT IS REMINDED THAT THE ALLEVYNS ARE THERE TO PROTECT HIS SKIN. PT SAYS TO STAFF THAT HE WANTS TO AIR OUT HIS OPEN AREAS BECAUSE THAT WILL HEAL THEM BETTER THAN COVERING THEM. BUTTOCKS CONTINUE TO BE RED AND BLANCHABLE. THIS RN UPDATED DR RAMIREZ REGARDING SKIN ISSUES WELL.
--- NOTE | 2020-04-20 13:00 | Progress Note - Hospitalist ---
Subjective HPI/CC On Admission Date Seen by Provider: Apr 20, 2020 Time Seen by Provider: 12:15 CC: Left leg gangrene with infection in need of amputation HENRIQUE HPI: This is a 54yoWM clinic patient of [facility] who has a h/o right AKA in 2017 who continues to smoke who presented to the [facility] ER in need of management for the left leg draining wounds. Maggots were on the leg and were cleaned off revealing gangrene and infection in need of amputation per Dr Cortes scheduled for tomorrow. I have difficulty understanding more details from the patient due to speech impediment. Subjective/Events-last exam Nursing staff notes that in the evenings. He becomes belligerent and confused. In addition, she remains very noncompliant about staying off his buttocks. He is having increased maceration of the sacral area. Also because he is incontinent of stool and urine. He's pretty adamant he doesn't want to go to rehabilitation because all he needs to knows how to transfer to his wheelchair from his bed when he goes home. Because of his lack of insight and judgment, and possible low mental competency, . He remains at high risk for failure of his wounds to heal and for sacral decubitus that may be a life altering. Otherwise he is without specific complaint today other than related to his pain in the requests for more pain medicines. The stump is slightly red on the left and with little bit of serous drainage. Review of Systems Musculoskeletal: leg pain Objective Exam Vital Signs Vital Signs Date Time Temp Pulse Resp B/P (MAP) Pulse Ox O2 Delivery O2 Flow Rate FiO2 04/20/20 12:00 36.4 96 18 118/75 (89) 95 Room Air 04/18/20 12:57 5 Capillary Refill : Greater Than 3 SecondsLess Than 3 Seconds General Appearance: Chronically ill, Other (Dysarthric with poor dentition) Neck: Limited Range of Motion Respiratory: Rhonci (. Scattered) Cardiovascular: Regular Rate, Rhythm, No Gallop, No Murmur Gastrointestinal: Soft Extremity: Other (Left AKA with erythema. No increased heat and slight serosanguineous drainage) Results/Procedures Lab Patient resulted labs reviewed. Assessment/Plan Assessment and Plan Assess & Plan/Chief Complaint Status post left AKA Previous right AKA Peripheral vascular disease Tobaccoism Alcohol abuse Poor social situation Elevated liver function tests Hyponatremia phantom pain we'll start Neurontin Noncompliance with nursing instruction and hygiene Probable vascular dementia with sundowning Plan to try and transfer patient to rehabilitation when approved by his insurance as the patient will have to learn to either be in a wheelchair or ambulate with prosthesis Clinical Quality Measures DVT/VTE Risk/Contraindication: Risk Factor Score Per Nursin RFS Level Per Nursing on Admit: 4+=Very High AUGIE RAMIREZ MD Apr 20, 2020 13:00
[2020-04-20] MEDS: LOPERAMIDE 2 MG (IMODIUM) TABLET PO PRN (15:26)
[2020-04-20] MEDS: LORazepam INJ 2 MG/ML (ATIVAN) VIAL IV PRN (16:11)
[2020-04-20 16:20] VITALS: BP 117/78
[2020-04-20 19:53] VITALS: BP 109/72
[2020-04-20] MEDS: ENOXAPARIN 30 MG/0.3 ML (LOVENOX) SYR SC SCH (21:33)
--- NOTE | 2020-04-20 23:01 | Progress Note - Surgery ---
Subjective Date Seen by a Provider: Apr 20, 2020 Time Seen by a Provider: 12:30 Subjective/Events-last exam Patient states he's doing well. Has episodes of confusion. Pain fairly controlled. Not wanting to be compliant with nurses instructions. Objective Exam Vital Signs Date Time Temp Pulse Resp B/P (MAP) Pulse Ox O2 Delivery O2 Flow Rate FiO2 04/20/20 21:30 Room Air 04/20/20 19:53 36.0 110 17 109/72 (84) 92 Room Air 04/20/20 19:21 93 Room Air 04/20/20 16:20 36.6 98 15 117/78 (91) 93 Room Air 04/20/20 12:00 36.4 96 18 118/75 (89) 95 Room Air 04/20/20 09:26 94 Room Air 04/20/20 08:00 Room Air 04/20/20 08:00 36.6 70 16 118/72 (87) 94 Room Air 04/20/20 04:00 36.8 81 20 116/75 (89) 92 Room Air 04/20/20 00:44 37.4 104 18 111/75 (87) 97 Room Air I & O 04/20/20 07:00 Intake Total 1530 ml Output Total 420 ml Balance 1110 ml Capillary Refill : Greater Than 3 SecondsLess Than 3 Seconds General Appearance: Chronically ill, Other (Dysarthric with poor dentition) HEENT: PERRL/EOMI, Other (poor dentition) Neck: Limited Range of Motion Respiratory: Chest Non Tender, No Accessory Muscle Use, No Respiratory Distress, Rhonci (. Scattered) Cardiovascular: Regular Rate, Rhythm Gastrointestinal: non tender, soft Extremity: Other (Left AKA with slight erythema and slight serosanguineous drainage) Neurologic/Psychiatric: Alert, Oriented x3 Skin: Normal Color, Warm/Dry Lymphatic: No Adenopathy Results Lab Microbiology 04/17/20 MRSA Screen - Final, Complete MRSA not isolated 04/16/20 Blood Culture - Preliminary, Resulted No growth 04/16/20 Urine Culture - Final, Complete 3 or more isolates Assessment/Plan Assessment/Plan Assessment/Plan S/P L AKA Pain control, PT/OT await rehab, dressing change, on mat protocol encouraged i ncentive spirometer discussed need for compliance some slight erythema at left stump, may be due to pressure, will watch closely. Clinical Quality Measures DVT/VTE Risk/Contraindication: Risk Factor Score Per Nursin RFS Level Per Nursing on Admit: 4+=Very High LUKE MOSCOSO DO Apr 20, 2020 23:01
[2020-04-21] VITALS (7 sets, daily range): BP systolic 102–117; BP diastolic 68–75
[2020-04-21] MEDS: PIPERACILLIN/TAZO 4.5 GM/NS 100 ML IV SCH ×4 (06:25→14:05)
[2020-04-21] MEDS: RT-ALBUTEROL/IPRATROPIUM 3 ML (DUONEB) VIAL INH SCH ×2 (07:25→18:28)
[2020-04-21] MEDS: GABAPENTIN 100 MG (NEURONTIN) CAP PO SCH ×3 (07:59→22:06)
[2020-04-21] MEDS: HYDROcodone/APAP 10 MG/325 MG (LORTAB) TAB PO PRN ×3 (07:59→22:06)
[2020-04-21] MEDS: SENNA W/DOCUSATE (SENOKOT S) TABLET PO SCH ×2 (07:59→20:05)
--- NOTE | 2020-04-21 09:07 | NUR ---
[facility] Prior authorization process initiated and clinical information submitted for review. Will continue to follow. Addendum: 04/21/20 at 1542 by FEBRUARY Roberto CLINE Insurance approval for admission received. Anticipate admission, 04/22/20.
--- NOTE | 2020-04-21 10:29 | Physical Therapy Daily Note ---
PT Daily Note-Current Subjective Patient agrees to PT. Pain Numeric Pain Scale: 5-Moderate Pain Location: Left, Soft Tissue Pain Description: Burning Comment: left stump (AKA) Mental Status Patient Orientation: Normal For Age Transfers SCALE: Activities may be completed with or without assistive devices. 7-Mxfqxgudzf-fglqoil completes the activity by him/herself with no assistance from a helper. 5-Set-up or Clean-up Assistance-helper sets up or cleans up; patient completes activity. [place] assists only prior to or following the activity. 4-Supervision or Touching Assistance-helper provides verbal cues and/or touching/steadying and/or contact guard assistance as patient completes activity. Assistance may be provided throughout the activity or intermittently. 3-Partial/Moderate Assistance-helper does LESS THAN HALF the effort. [place] lifts, holds or supports trunk or limbs, but provides less than half the effort. 2-Substantial/Maximal Assistance-helper does MORE THAN HALF the effort. [place] lifts or holds trunk or limbs and provides more than half the effort. 3-Nedfbstzo-dtxmdr does ALL the effort. Patient does none of the effort to complete the activity. Or, the assistance of 2 or more helpers is required for the patient to complete the activity. If activity was not attempted, code reason: 7-Patient Refused. 9-Not Applicable-not attempted and the patient did not perform the activity before the current illness, exacerbation or injury. 10-Not Attempted due to Environmental Limitations-(lack of equipment, weather restraints, etc.). 88-Not Attempted due to Medical Conditions or Safety Concerns. Roll Left & Right (QC): 5 Lying to Sitting/Side of Bed(Q: 3 Patient is minimal assist with transferring bed to w/c performing a back in transfer to w/c. Weight Bearing Right Lower Extremity: Right Non Weight Bearing Left Lower Extremity: Left Non Weight Bearing Gait Training Does the Patient Walk?: No and Walking Goal NOT indicated Wheelchair Training Does the Pt Use a Wheelchair?: Yes Wheel 50 ft with 2 turns (QC): 6 Wheel 150 ft (QC): 6 Type of Wheelchair: Manual Exercises Supine Ex: Quad Set, Straight leg raise, Hip abd/add Supine Reps: 12 Seated Therapy Exercises: Tricep (w/c pushups) Seated Reps: 12 Assessment Patient incontinent BM requiring assistance to cleanse and change patient. Patient performs w/c mobility independently and is able to negotiate in tight spaces independently. PT Assisted Goals Assisted Goals PT Assisted Goals Time Frame: Apr 25, 2020 Roll Left & Right (QC): 4 Sit to Lying (QC): 4 Lying-Sitting on Side/Bed(QC): 4 Chair/Vhe-xb-Mndjh Xfer(QC): 3 PT Plan Treatment/Plan Treatment Plan: Continue Plan of Care Treatment Plan: Bed Mobility, Education, Functional Activity Jose Luis, Functional Strength, Safety, Therapeutic Exercise, Transfers Treatment Duration: Apr 25, 2020 Frequency: 6 times per week Estimated Hrs Per Day: .25 hour per day Patient and/or Family Agrees t: Yes Time/GCodes Time In: 1000 Time Out: 1023 Total Billed Treatment Time: 23 Total Billed Treatment 1 visit EX 12 min [facility] 11 min CHHAYA EPPERSON PT Apr 21, 2020 10:29
--- NOTE | 2020-04-21 14:55 | Occupational Ther Daily Note ---
OT Current Status-Daily Note Subjective Pt alert, lying in bed. Nrsg in room. Pt agrees to therapy. Mental Status/Objective Patient Orientation: Person, Place, Time, Situation Attachments: IV ADL-Treatment Pt able to place urinal, assist to dump. Pt incontinent of bowel, dependent with cleansing. Assist to don/doff brief. Pt able to roll side to side to assist with dressing and cleansing. Pt set own self up to eat. Therapy Code Descriptions/Definitions Functional [place] Measure: 0=Not Assessed/NA 4=Minimal Assistance 1=Total Assistance 5=Supervision or Setup 2=Maximal Assistance 6=Modified [place] 3=Moderate Assistance 7=Complete IndependenceSCALE: Activities may be completed with or without assistive devices. 9-Abrexxhwyz-mhmmtxf completes the activity by him/herself with no assistance from a helper. 5-Set-up or Clean-up Assistance-helper sets up or cleans up; patient completes activity. [place] assists only prior to or following the activity. 4-Supervision or Touching Assistance-helper provides verbal cues and/or touching/steadying and/or contact guard assistance as patient completes activity. Assistance may be provided throughout the activity or intermittently. 3-Partial/Moderate Assistance-helper does LESS THAN HALF the effort. [place] lifts, holds or supports trunk or limbs, but provides less than half the effort. 2-Substantial/Maximal Assistance-helper does MORE THAN HALF the effort. [place] lifts or holds trunk or limbs and provides more than half the effort. 4-Poucjyzki-nvilsg does ALL the effort. Patient does none of the effort to complete the activity. Or, the assistance of 2 or more helpers is required for the patient to complete the activity. If activity was not attempted, code reason: 7-Patient Refused. 9-Not Applicable-not attempted and the patient did not perform the activity before the current illness, exacerbation or injury. 10-Not Attempted due to Environmental Limitations-(lack of equipment, weather restraints, etc.). 88-Not Attempted due to Medical Conditions or Safety Concerns. Eating (QC): 6 Lower Body Dressing (QC): 2 Toileting Hygiene (QC): 1 Other Treatment Pt completed 3 B UE exercises 1 set 10 reps. After session, pt lying in bed with call light/phone in reach. All needs met in room. OT Care Home Goals Jazz Musician Goals Time Frame: May 02, 2020 Eating (QC): 6 Oral Hygiene (QC): 6 Toileting Hygiene (QC): 4 Shower/Bathe Self (QC): 3 Upper Body Dressing (QC): 5 Lower Body Dressing (QC): 3 On/Off Footwear (QC): 09 Additional Goals: 1-Demonstrate ADL Tasks, 2-Verbalize Understanding, 3- ImproveStrength/Jose Luis 1=Demonstrate adherence to instructed precautions during ADL tasks. 2=Patient will verbalize/demonstrate understanding of assistive devices/modifications for ADL. 3=Patient will improve strength/tolerance for activity to enable patient to perform ADL's. OT Education/Plan Problem List/Assessment Assessment: Decreased Activ Tolerance, Decreased UE Strength, Impaired Self- Care Skills Discharge Recommendations Plan/Recommendations: Continue POC Treatment Plan/Plan of Care Patient would benefit from OT for education, treatment and training to promote independence in ADL's, mobility, safety and/or upper extremity function for ADL's. Plan of Care: ADL Retraining, Caregiver Training, Functional Mobility, Group Exercise/Act as Ind, UE Funct Exercise/Act, W/C Management Training Treatment Duration: May 02, 2020 Frequency: 5 times per week Estimated Hrs Per Day: .25 hour per day Agreement: Yes Rehab Potential: Guarded Time/GCodes Start Time: 14:15 Stop Time: 14:30 Total Time Billed (hr/min): 15 Billed Treatment Time 1 visit-FA 1 (15 min) ANA TELLEZ Apr 21, 2020 14:55
[2020-04-21] MEDS: ENOXAPARIN 30 MG/0.3 ML (LOVENOX) SYR SC SCH (22:06)
--- NOTE | 2020-04-21 22:20 | Progress Note ---
Subjective Subjective/Events-last exam States that he is feeling better. Was able to transfer to wheelchair better this AM. Still having LLE limp pain. Tolerating PO diet. Review of Systems General: No Chills Pulmonary: No Dyspnea; Cough Cardiovascular: No: Chest Pain, Palpitations Gastrointestinal: No: Nausea, Vomiting, Diarrhea, Constipation Neurological: Weakness, Confusion Objective Exam Last Set of Vital Signs Vital Signs Date Time Temp Pulse Resp B/P (MAP) Pulse Ox O2 Delivery O2 Flow Rate FiO2 04/21/20 20:22 36.8 69 18 116/72 (87) 96 Room Air 04/21/20 08:00 0.00 Capillary Refill : Greater Than 3 SecondsLess Than 3 Seconds I&O Intake and Output 04/21/20 00:00 Intake Total 2790 ml Output Total 750 ml Balance 2040 ml Intake Oral 2790 ml Output Urine Total 750 ml # Voids 5 # Urine Diapers 1 # Bowel Movements 4 General: Alert, Cooperative, No Acute Distress HEENT: Mucous Memb Moist/[place] Lungs: Clear to Auscultation, Normal Air Movement Heart: Regular Rate, No Murmurs Abdomen: Normal Bowel Sounds, Soft, No Tenderness, No Masses Extremities: Other (No swelling or erythema in LLE, ttp left thigh) Results/Procedures Lab Microbiology 04/17/20 MRSA Screen - Final, Complete MRSA not isolated 04/16/20 Blood Culture - Final, Complete No growth 04/16/20 Urine Culture - Final, Complete 3 or more isolates Assessment/Plan Assessment/Plan (1) PVD (peripheral vascular disease) Status: Chronic Assessment & Plan: 04/21: H/o R AKHemal, now with Lupe JOYCE, discussed the importance of tobacco cessation and patient is not interested in quitting at this time (2) Left above-knee amputee Status: Acute (3) Hyponatremia Status: Acute Assessment & Plan: 04/21: Continue to monitor (4) Phantom limb pain Status: Acute Assessment & Plan: 04/21: Started on gabapentin during this admission (5) Chronic pain Status: Acute Qualifiers: Qualified Codes: G89.4 - Chronic pain syndrome (6) Tobacco abuse Status: Chronic (7) Alcohol abuse Status: Chronic Clinical Quality Measures DVT/VTE Risk/Contraindication: Risk Factor Score Per Nursin RFS Level Per Nursing on Admit: 4+=Very High HECTOR CEE MD Apr 21, 2020 22:20
[2020-04-22 00:31] VITALS: BP 116/71
[2020-04-22 04:00] VITALS: BP 127/84
[2020-04-22] MEDS: HYDROcodone/APAP 10 MG/325 MG (LORTAB) TAB PO PRN ×2 (04:58→08:59)
[2020-04-22 05:40] LABS: BASOPHILS % (AUTO) 0 % (0-10); EOSINOPHILS # (AUTO) 0.1 10^3/uL (0.0-0.3); EOSINOPHILS % (AUTO) 1 % (0-10); HEMATOCRIT 32 % (40-54); HEMOGLOBIN 11.2 G/DL (13.3-17.7); LYMPHOCYTES # (AUTO) 1.4 X 10^3 (1.0-4.0); LYMPHOCYTES % (AUTO) 26 % (12-44); MEAN CORPUSCULAR HEMOGLOBIN 37 PG (25-34); MEAN CORPUSCULAR HGB CONC 35 G/DL (32-36); MEAN CORPUSCULAR VOLUME 106 FL (80-99); MEAN PLATELET VOLUME 10.2 FL (7.4-10.4); MONOCYTES # (AUTO) 0.5 X 10^3 (0.0-1.0); MONOCYTES % (AUTO) 10 % (0-12); NEUTROPHILS # (AUTO) 3.3 X 10^3 (1.8-7.8); NEUTROPHILS % (AUTO) 62 % (42-75); PLATELET COUNT 277 10^3/uL (130-400); RED CELL DISTRIBUTION WIDTH 12.4 % (10.0-14.5); WHITE BLOOD COUNT 5.2 10^3/uL (4.3-11.0)
[2020-04-22 06:05] LABS: ALBUMIN 2.6 GM/DL (3.2-4.5); CHLORIDE 103 MMOL/L (98-107); POTASSIUM 3.2 MMOL/L (3.6-5.0); SODIUM 135 MMOL/L (135-145)
[2020-04-22 06:07] LABS: CALCIUM 7.9 MG/DL (8.5-10.1)
[2020-04-22 06:08] LABS: GLUCOSE 104 MG/DL (70-105); TOTAL PROTEIN 5.1 GM/DL (6.4-8.2)
[2020-04-22 06:09] LABS: CARBON DIOXIDE 23 MMOL/L (21-32)
[2020-04-22 06:10] LABS: BILIRUBIN,TOTAL 0.4 MG/DL (0.1-1.0)
[2020-04-22 06:11] LABS: ALKALINE PHOSPHATASE 97 U/L (40-136); CREATININE SERUM 0.51 MG/DL (0.60-1.30); GFR ESTIMATED > 60
[2020-04-22 06:13] LABS: BUN/CREATININE RATIO 4
[2020-04-22 06:14] LABS: ALANINE AMINOTRANSFERASE 14 U/L (0-55)
[2020-04-22 07:29] VITALS: BP 127/84
[2020-04-22] MEDS: RT-ALBUTEROL/IPRATROPIUM 3 ML (DUONEB) VIAL INH SCH (07:29)
[2020-04-22 08:00] VITALS: BP 118/75
[2020-04-22] MEDS: SENNA W/DOCUSATE (SENOKOT S) TABLET PO SCH (08:58)
[2020-04-22] MEDS: GABAPENTIN 100 MG (NEURONTIN) CAP PO SCH (08:59)
--- NOTE | 2020-04-22 10:24 | Discharge Summary ---
Diagnosis/Chief Complaint Date of Admission Apr 16, 2020 at 14:50 Date of Discharge Discharge Diagnosis Problems/Diagnosis: (1) PVD (peripheral vascular disease) Assessment & Plan: 04/21: H/o Roberto JOYCE, now with Lupe JOYCE, discussed the importance of tobacco cessation and patient is not interested in quitting at this time Status: Chronic (2) Left above-knee amputee Status: Acute (3) Hyponatremia Assessment & Plan: 04/21: Continue to monitor Status: Acute (4) Phantom limb pain Assessment & Plan: 04/21: Started on gabapentin during this admission Status: Acute (5) Chronic pain Qualifiers: Qualified Codes: G89.4 - Chronic pain syndrome Status: Acute (6) Tobacco abuse Status: Chronic (7) Alcohol abuse Status: Chronic Discharge Summary-Simple/Stand Consultations Discharge Physical Examination Allergies: Coded Allergies: No Known Drug Allergies (Unverified , 05/23/19) Vitals & I&Os Vital Sign - Last 12Hours Date Time Temp Pulse Resp B/P (MAP) Pulse Ox O2 Delivery O2 Flow Rate FiO2 04/22/20 08:00 96 Room Air 0.00 04/22/20 08:00 36.6 87 20 118/75 (89) Intake and Output 04/22/20 00:00 Intake Total 1866 ml Output Total 2075 ml Balance -209 ml Hospital Course See final discharge diagnosis. Discharge Instructions to patient/family Please see electronic discharge instructions given to patient. Discharge Medications Reviewed and agree with Discharge Medication list on patient's Discharge Instruction sheet Clinical Quality Measures DVT/VTE Risk/Contraindication: Risk Factor Score Per Nursin RFS Level Per Nursing on Admit: 4+=Very High HECTOR CEE MD Apr 22, 2020 10:24
[2020-04-22] MEDS ORDERED: ACHYD1T PO (10:26)
[2020-04-22] MEDS ORDERED: SENN-20 PO (10:26)
[2020-04-22] MEDS ORDERED: GABA-486 PO (10:26)
--- NOTE | 2020-04-22 10:27 | Discharge Summary ---
Discharge [facility] Reconcile Patient Problems Problems Reviewed?: Yes Discharge Medications New Medications: Gabapentin (Gabapentin) 100 Mg Capsule 100 MG PO TID for 30 Days, CAP Hydrocodone Bit/Acetaminophen (HYDROcodone/APAP 10/325 TABLET) 1 Ea Tab 1 EA PO Q6HR PRN for PAIN-MODERATE (5-7) for 14 Days, TAB Sennosides/Docusate Sodium (Senna-Time S Tablet) 1 Each Tablet 2 EA PO BID for 30 Days, TAB Continued Medications: Apixaban (Eliquis) 5 Mg Tablet 50 MG PO BID, TAB Metoprolol Tartrate (Lopressor) 50 Mg Tablet 25 MG PO BID, TAB TAKES OF A 50MG TAB TWICE DAILY Discontinued Medications: Ibuprofen (Ibuprofen) 200 Mg Tablet 400 MG PO Q8H PRN for PAIN-MILD (1-4), TAB Patient Instructions Goal/Follow Up Appt: Will see patient 1-2 weeks after discharge for Rehab Activity & Diet Discharge Diet: Cardiac Diet Activity as Tolerated: Yes HECTOR CEE MD Apr 22, 2020 10:27
--- NOTE | 2020-04-22 11:10 | NUR ---
"RD ASSESSMENT PMHx: R AKA; polysubstance use (tobacco, ETOH; THC; methamphetamine); COPD; pneumonia; HTN; stroke; GERD; DM; s/p L AKA PT INTERACTION: Pt was awake and pleasant during nutrition follow-up. Pt states he has been eating well since last assessment. Note avg PO intake 48# x4d, per chart review. Pt states no issues with nausea or vomiting since last assessment. Pt states some issues with constipation and diarrhea since last assessment. Note last BM was 04/21, and pt currently on bowel regimen of senna BID, per chart review. ABNORMAL NUTRITION-RELATED LAB VALUES LOW: K 3.2; BUN <2; cr 0.51; Ca 7.9; Pro 5.1; alb 2.6 HIGH: Est. kcal needs: 2281-2516 kcal | 25-30 kcal/kg Est. Pro needs: 64-74 g Pro | 1.2-1.4 g Pro/kg PES STATEMENT: Inadequate oral intake (NI-2.1) related to loss of appetite | constipation | diarrhea as evidenced by pt interview | avg PO intake INTERVENTION: Continue with current diet order of DYS2 Mechanically Altered diet. Pt may benefit from consistent CHO restriction if blood glucose levels become elevated. Add Glucerna (vary) to meals TID, for increased kcal intake. Provides 220 kcal and 10 g Pro per serving. Will continue to follow and reassess as pt needs, intake, and status change. MONITOR/EVALUATE: PO Intake; Plan of Care; Hydration Status; Weight Status; Lab Values Nolan Baptiste, MS, RD, LD"
--- NOTE | 2020-04-22 12:36 | NUR ---
CM/SS finalized discharge. Plan: The patient will discharge to inpatient rehab. CM/SS contacted the patients vp care management Savannah Parmar to inform her of the patients discharge to Acute rehab unit. She verbalized understanding and will follow his care with certified social workers in health care Susu HORAN. No further interventions needed at this time.
[2020-04-23] MEDS ORDERED: IBUP-2185 PO (09:58)
== END 2020-04-22 11:20 | DRG 854 ==
LOC: EDUNIT# 12:53 → ER 12:54 → 4TH 14:50
PROVIDERS: ADMIT Internal Medicine; ATTEND Family Medicine
PROC: 0Y6D0Z3 Detachment at Left Upper Leg, Low, Open Approach (ICD-10-PCS; principal; 2020-04-17 10:41)
DX: A41.9 Sepsis, unspecified organism (principal); E11.69 Type 2 diabetes mellitus with other specified complication; M86.9 Osteomyelitis, unspecified; L03.116 Cellulitis of left lower limb; E11.52 Type 2 diabetes mellitus with diabetic peripheral angiopathy with gangrene; E87.2 Acidosis; E87.1 Hypo-osmolality and hyponatremia; R47.1 Dysarthria and anarthria; G54.6 Phantom limb syndrome with pain; F17.210 Nicotine dependence, cigarettes, uncomplicated; L89.222 Pressure ulcer of left hip, stage 2; E11.622 Type 2 diabetes mellitus with other skin ulcer; I73.1 Thromboangiitis obliterans [Buerger's disease]; B87.1 Wound myiasis; F10.229 Alcohol dependence with intoxication, unspecified; K29.20 Alcoholic gastritis without bleeding; I10 Essential (primary) hypertension; J44.9 Chronic obstructive pulmonary disease, unspecified; K21.9 Gastro-esophageal reflux disease without esophagitis; E11.40 Type 2 diabetes mellitus with diabetic neuropathy, unspecified; Z89.432 Acquired absence of left foot; Z89.611 Acquired absence of right leg above knee; Z79.4 Long term (current) use of insulin; Z86.73 Personal history of transient ischemic attack (TIA), and cerebral infarction without residual deficits; F01.50 Vascular dementia, unspecified severity, without behavioral disturbance, psychotic disturbance, mood disturbance, and anxiety
CPT/HCPCS: 36415; 71045; 73630; 80053; 80320; 81000; 83605; 85025; 85610; 85730; 86141; 87040; 87081; 87088; 94640; 94664; 94760; 96361; 96374; 96375

== ENCOUNTER 2020-04-22 08:52 | Inpatient (IN) | payer MEDICAID ==
[~2020-04-22] VITALS: Ht 177.8 cm; Wt 39.1 kg
[~2020-04-22 08:52] MED LIST changes: +APIX5TAB PO; +IBUP-2473 PO; +METO-451 PO
[2020-04-22] MEDS ORDERED: FLEET ENEMA ADULT 1 EA BTL PR PRN (09:45)
[2020-04-22] MEDS ORDERED: ALPRAZolam 0.25 MG (XANAX) TAB PO PRN (09:45)
[2020-04-22] MEDS ORDERED: ONDANSETRON 4 MG (ZOFRAN) ORAL DISSOLVE TAB PO PRN (09:45)
[2020-04-22] MEDS ORDERED: DOCUSATE SODIUM 100 MG (COLACE) CAP PO PRN ×2 (09:45→13:15)
[2020-04-22] MEDS ORDERED: MELATONIN 3 MG TABLET PO PRN ×2 (09:45→13:15)
[2020-04-22] MEDS ORDERED: guaiFENesin/CODEINE (ROBITUSSIN AC) 10ML UDC PO PRN ×2 (09:45→13:15)
[2020-04-22] MEDS ORDERED: ACETAMINOPHEN 500 MG TAB (TYLENOL) PO PRN ×2 (09:45→13:15)
[2020-04-22] MEDS ORDERED: LACTULOSE SYRUP 10GM/15ML (ENULOSE) 30ML UDC PO PRN (09:45)
[2020-04-22] MEDS ORDERED: CALCIUM CARBONATE 500 MG (TUMS) TAB.CHEW PO PRN ×2 (09:45→13:15)
[2020-04-22] MEDS ORDERED: BISACODYL 10 MG SUPP (DULCOLAX) PR PRN ×2 (09:45→13:15)
[2020-04-22] MEDS ORDERED: LOPERAMIDE 2 MG (IMODIUM) TABLET PO PRN ×2 (09:45→13:15)
[2020-04-22] MEDS ORDERED: diphenhydrAMINE 25 MG TAB (BENADRYL) PO PRN ×2 (09:45→13:15)
[2020-04-22] MEDS ORDERED: ACHYD1T PO (10:26)
[2020-04-22] MEDS ORDERED: SENN-20 PO (10:26)
[2020-04-22] MEDS ORDERED: GABA-486 PO (10:26)
--- NOTE | 2020-04-22 11:00 | NUR ---
JOHN PAUL VILLAVICENCIO admitted to room 227, with an admitting diagnosis of LEFT AKA, on 04/22/20 from FOURTH FLOOR via WHEELCHAIR, accompanied by THERAPY. JOHN PAUL VILLAVICENCIO introduced to surroundings, call light, bed controls, phone, TV, temperature control, lights, meal times, smoking policy, visitor policy, side rail policy, bathrooms and showers. Patient Rights given to patient in the handbook. JOHN PAUL VILLAVICENCIO verbalizes understanding that [facility] is not responsible for the loss or damage to any personal effects or valuables that are kept in the patient's possession during their hospitalization. The following Patient Care Plans were discussed with the PATIENT: Discharge Planning, IMPAIRED MOBILITY, HIGH RISK: IMPAIRED SKIN INTEGRITY, HIGH RISK: INJURY, PAIN, HIGH RISK: POST OP COMPLICATIONS, and KNOWLEDGE DEFICIT. JOHN PAUL VILLAVICENCIO verbalizes understanding of Interdisciplinary Patient Education. Patient received Patient Rights Booklet, which includes Privacy Act Statement and Data Collection Information Summary.
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
--- NOTE | 2020-04-22 12:12 | NUR ---
I SPOKE WITH THE PT AND COMPLETED THE MED REC ON 04-17-2020 WHEN THE PT WAS ON 4TH FLOOR AFTER MEDICATIONS ARE CONTINUED I WILL CONVERT THE MED REC BACK TO WHAT THE PT WAS TAKING WHEN HE WAS ADMITTED Addendum: 04/23/20 at 1009 by PRISCILLA ELLISON CPhT WHEN PT WAS ON THE 4TH FLOOR THE FOLLOWING MEDS WERE ORDERED BUT THE PT DID NOT TAKE THEM BEFORE HIS HOSPITAL (FOR THAT REASON THEY HAVE BEEN REMOVED FROM THE MED REC): GABAPENTIN 100MG HYDROCODONE 10 SENNA S MEDICATIONS THAT WERE DISCONTINUED BUT PATIENT WAS TAKING BEFORE HIS 4TH FLOOR STAY: IBUPROFEN 200MG
[2020-04-22 12:29] VITALS: BP 145/83
[2020-04-22] MEDS ORDERED: RT-ALBUTEROL/IPRATROPIUM 3 ML (DUONEB) VIAL INH PRN (13:15)
[2020-04-22] MEDS ORDERED: ONDANSETRON 4 MG (ZOFRAN) ORAL DISSOLVE TAB SL PRN (13:15)
[2020-04-22] MEDS ORDERED: LORazepam INJ 2 MG/ML (ATIVAN) VIAL IM/IV PRN (13:15)
[2020-04-22] MEDS ORDERED: ENOXAPARIN 30 MG/0.3 ML (LOVENOX) SYR SC SCH (13:15)
[2020-04-22] MEDS ORDERED: HYDROmorphone 2 MG/ML VIAL (DILAUDID) IV PRN (13:15)
[2020-04-22] MEDS ORDERED: ANTACID SUSP 30 ML UDC (MYLANTA) PO PRN (13:15)
[2020-04-22] MEDS ORDERED: CATHETER FLUSH 10 ML SYR IV PRN (13:15)
[2020-04-22] MEDS ORDERED: ONDANSETRON 4 MG/2 ML (SDV) Z0FRAN IVP PRN (13:15)
--- NOTE | 2020-04-22 13:15 | PM&R Post Admission Assessment ---
PM&R Date of Visit: Apr 22, 2020 Time of Visit: 11:30 History of Present Illness CC: Left above the knee amputation HPI: This is a 54yoWM that I admitted to the med surg service last week due to severe left leg wound infection with maggot infestation who subsequently had a left above the knee amputation performed by Dr. López and Dr. Cortes and is currently in the process of transferring to inpatient rehab to begin recovery co nsidering he had a right above the knee amputation a couple of years. ago. He does have a hx of severe peripheral vascular disease and DM and continues to smoke. At this current time pt reports some phantom pain at the left amputation site that he did not have when he had his right above the knee amputation. His bowels are moving, they are loose, and he is urinating well. At this current time pt denies any significant issues and his prior level of functioning was mostly independent at home with his family in a wheelchair. Past Byubuhh-Iteemo-Hfsvbj Hx Past Med/Social Hx: Reviewed Nursing Past Med/Soc Hx, Reviewed and Corrections made Patient Social History Marrital Status: single Employed/Student: unemployed Alcohol Beverage of Choice: Whiskey Drug of Choice: POT Smoking Status: Current Everyday Smoker Type Used: Cigarettes 2nd Hand Smoke Exposure: Yes Recent Foreign Travel: No Contact w/other who traveled: No Recent Hopitalizations: No Recent Infectious Disease Expo: No Seasonal Allergies Seasonal Allergies: No Past Medical History Surgeries: Orthopedic Respiratory: COPD, Pneumonia Currently Using CPAP: No Currently Using BIPAP: No Cardiac: Hypertension, Peripheral Vascular Neurological: Neuropathy, Stroke Gastrointestinal: Gastroesophageal Reflux Musculoskeletal: Amputee Endocrine: Diabetes, Insulin dep History of Blood Disorders: No Family History Cancer, Hypertension Prior Level of Function Bed Mobility: 6 Transfers: 6 Gait: 9 Stairs: 9 Wheelchair Mobility: 6 Indoor Mobility (Ambulation): Not Applicalbe Stairs: Not Applicalbe Prior Devices Use: Manual wheelchair Occupation: disabled. Current Level of Fuctioning Roll Left to Right: 5 Sit to Lyin Lying to Sitting/Side of Bed: 3 Sit to Stand: 9 Chair/Wet-kc-Wdvrv Xfer: 3 Car Transfer: 3 Does the Patient Walk: No and Walking Goal NOT indicated Walk 10 feet: 9 Walk 50 ft with 2 Turns: 9 Walk 150 ft: 9 Walking 10ft on uneven surface: 9 Does the Pt Use a Wheelchair: Yes Wheelchair Distance: >400' Wheel 50 ft with 2 turns: 5 Wheel 150 ft: 5 Type of Wheelchair: Manual 1 Step (curb): 9 4 Steps: 9 12 Steps: 9 Picking up an Object: 88 PM&R Allergy/Meds/Data Review Allergies Coded Allergies: No Known Drug Allergies (Unverified , 05/23/19) Home Medications Scheduled Apixaban (Eliquis), 50 MG PO BID, (Reported) Gabapentin (Gabapentin), 100 MG PO TID Metoprolol Tartrate (Lopressor), 25 MG PO BID, (Reported) Sennosides/Docusate Sodium (Senna-Time S Tablet), 2 EA PO BID Scheduled PRN Hydrocodone Bit/Acetaminophen (HYDROcodone/APAP 10/325 TABLET), 1 EA PO Q6HR PRN for PAIN-MODERATE (5-7) Discontinued Medications Bacitracin (Bacitracin), 28.4 GM TP BID Discontinued Reason: No Longer Taking Cephalexin (Keflex), 500 MG PO TID Discontinued Reason: No Longer Taking Furosemide (Lasix), 20 MG PO DAILY Discontinued Reason: No Longer Taking Ibuprofen (Ibuprofen), 400 MG PO Q8H PRN for PAIN-MILD (1-4), (Reported) Current Medications Current Medications Reviewed Review of Systems Constitutional: see HPI, weakness EENTM: no symptoms reported Respiratory: no symptoms reported Cardiovascular: no symptoms reported Gastrointestinal: no symptoms reported Genitourinary: no symptoms reported Musculoskeletal: back pain, joint pain Psychiatric/Neurological: Depressed All Other Systems Reviewed Negative Unless Noted: Yes Physical Exam Physical Exam Vital Signs Vital Signs - First Documented 04/22/20 12:29 Temp 36.2 Pulse 92 Resp 18 B/P (MAP) 145/83 Pulse Ox 100 O2 Delivery Room Air Capillary Refill : Height, Weight, BMI Height: 5'9.50" Weight: 117lbs. oz. 53.782307ow; 79.55 BMI Method:Stated General Appearance: No Apparent Distress, WD/WN, Chronically ill, Thin Eyes: Bilateral Eye Normal Inspection, Bilateral Eye PERRL HEENT: PERRL/EOMI, Normal ENT Inspection, Pharynx Normal Neck: Full Range of Motion, Normal Inspection, Non Tender, Supple, Carotid Bruit Respiratory: Chest Non Tender, Lungs Clear, No Accessory Muscle Use, No Respiratory Distress, Decreased Breath Sounds Cardiovascular: Regular Rate, Rhythm, No Gallop, No JVD, No Murmur, Normal Per ipheral Pulses Gastrointestinal: Normal Bowel Sounds, No Organomegaly, No Pulsatile Mass, Non Tender, Soft Back: Normal Inspection, No CVA Tenderness, No Vertebral Tenderness Extremity: Normal Capillary Refill, Normal Inspection (except b/l AKA's), Normal Range of Motion (of thighs only), Non Tender Neurologic/Psychiatric: Alert, Oriented x3, No Motor/Sensory Deficits, Normal Mood/Affect, roller varnisher II-XII Norm as Tested Skin: Normal Color, Warm/Dry Lymphatic: No Adenopathy PM&R Medical Assessment & Plan REHAB/MEDICAL ASSESSMENT AND PLAN: REHAB IMPAIRMENT GROUP: Left AKA ETIOLOGIC DIAGNOSIS: Left AKA The comorbidities that impact the patients function and/or functional outcome by: previous right AKA, smoker, DM, non-compliance, cachexia REHAB PLAN: The patient is being admitted to our comprehensive inpatient rehabilitation facility and can tolerate the intensity of service consisting of at least: 180 minutes of therapy a day, 5 out of 7 days a week Rehab treatment will consist of: PT OT will help patient navigate wheelchair and use assistive devices in order to regain independent ADL's and fall prevention The patient/family has a good understanding of our discharge process and will benefit from an interdisciplinary inpatient rehabilitation program. The patient has potential to make improvement and is in need of at least two of the following multidisciplinary therapies including but not limited to physical, occupational, speech, and prosthetics and orthotics. Additionally the patient will need services from respiratory, nutritional services, wound care, psychology, etc. (Customize this to each patient). Given the patients complex condition and risk of further medical complications, rehabilitation services cannot be safely or effectively provided at a lower level of care such as a fdc facility. BARRIERS TO DISCHARGE: B/L AKA's ESTIMATED LOS: 10 days DISPOSITION: Home RELEVANT CHANGES SINCE PREADMISSION SCREENING: I have compared the patients medical and functional status at the time of the preadmission screening and there are: no changes PROGNOSIS: Good REHABILITATION GOALS: 1. PT OT will help patient navigate wheelchair and use assistive devices in order to regain independent ADL's and fall prevention All the above goals were reviewed with the patient and he/she is in agreement. By signing this document, I acknowledge that I have personally performed a full physical examination on this patient within 24 hours of admission to this inpatient rehabilitation facility and have determined the patient to be able to tolerate the above course of treatment at an intensive level for a reasonable period of time. I will be completing a detailed individualized Plan of Care for this patient by day #4 of the patients stay based upon the Preadmission Screen, the Post-Admission Evaluation, and the therapy evaluations. Admission Dx/Comorbidities: (1) Left above-knee amputee Status: Acute ICD Codes: Z89.612 - Acquired absence of left leg above knee (2) Infestation by maggots ICD Codes: B87.9 - Myiasis, unspecified (3) Complete above-knee amputation of right lower extremity ICD Codes: S78.111A - Complete traumatic amputation at level between right hip and knee, initial encounter (4) Phantom limb pain Status: Acute ICD Codes: G54.6 - Phantom limb syndrome with pain (5) Tobacco abuse Status: Chronic ICD Codes: Z72.0 - Tobacco use (6) PVD (peripheral vascular disease) Status: Chronic ICD Codes: I73.9 - Peripheral vascular disease, unspecified (7) Chronic pain Status: Acute ICD Codes: G89.29 - Other chronic pain (8) Malaise Status: Acute ICD Codes: R53.81 - Other malaise BROWN SANTOYO DO Apr 22, 2020 13:14
--- NOTE | 2020-04-22 13:31 | Physical Therapy Daily Note ---
PT Daily Note-Current Subjective Patient is in good spirits and agrees to PT. Pain Numeric Pain Scale: 5-Moderate Pain Location: Left, Soft Tissue (stump) Mental Status Patient Orientation: Person, Time, Situation Transfers SCALE: Activities may be completed with or without assistive devices. 5-Pammacxcrr-clsgkpf completes the activity by him/herself with no assistance from a helper. 5-Set-up or Clean-up Assistance-helper sets up or cleans up; patient completes activity. [place] assists only prior to or following the activity. 4-Supervision or Touching Assistance-helper provides verbal cues and/or touching/steadying and/or contact guard assistance as patient completes activity. Assistance may be provided throughout the activity or intermittently. 3-Partial/Moderate Assistance-helper does LESS THAN HALF the effort. [place] lifts, holds or supports trunk or limbs, but provides less than half the effort. 2-Substantial/Maximal Assistance-helper does MORE THAN HALF the effort. [place] lifts or holds trunk or limbs and provides more than half the effort. 5-Wifddejzl-fyomhm does ALL the effort. Patient does none of the effort to complete the activity. Or, the assistance of 2 or more helpers is required for the patient to complete the activity. If activity was not attempted, code reason: 7-Patient Refused. 9-Not Applicable-not attempted and the patient did not perform the activity before the current illness, exacerbation or injury. 10-Not Attempted due to Environmental Limitations-(lack of equipment, weather restraints, etc.). 88-Not Attempted due to Medical Conditions or Safety Concerns. Roll Left & Right (QC): 5 Lying to Sitting/Side of Bed(Q: 3 Chair/Djk-yp-Qkykm Xfer(QC): 3 Weight Bearing Right Lower Extremity: Right Non Weight Bearing Left Lower Extremity: Left Non Weight Bearing Wheelchair Training Does the Pt Use a Wheelchair?: Yes Wheel 50 ft with 2 turns (QC): 6 Wheel 150 ft (QC): 6 Type of Wheelchair: Manual >1000'/500' x 2/up and down ramp Exercises Supine Ex: Quad Set, Rolling, Glut sets, Scooting, Straight leg raise, Hip abd/add Supine Reps: 15 Assessment Patient tolerated treatment well and is motivated with progress. Patient remains up in w/c to eat lunch with assist to set up. PT to increase activity as tolerated by patient. 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 Time Frame: May 24, 2020 Roll Left & Right (QC): 6 Sit to Lying (QC): 6 Lying-Sitting on Side/Bed(QC): 6 Sit to Stand (QC): 9 Chair/Axy-qu-Zkepq Xfer(QC): 6 Toilet Transfer (QC): 6 Car Transfer (QC): 6 Does the Patient Walk: No and Walking Goal NOT indicated Walk 10 feet (QC): 9 Walk 50ft with 2 Turns (QC): 9 Walk 150 ft (QC): 9 Walking 10ft on Uneven Surface: 9 1 Step (curb) (QC): 9 4 Steps (QC): 9 12 Steps (QC): 9 Picking up an Object (QC): 4 Does the Pt use WC or Scooter?: Yes Wheel 50 feet with 2 turns (QC: 6 Type: Manual Wheel 150 feet: 6 Type: Manual PT Plan Treatment/Plan Treatment Plan: Continue Plan of Care Treatment Plan: Bed Mobility, Concurrent Therapy, Education, Functional Activity Jose Luis, Functional Strength, Group Therapy, Safety, Therapeutic Exercise, Transfers Treatment Duration: May 24, 2020 Frequency: At least 5 of 7 days/Wk (IRF) Estimated Hrs Per Day: 1.5 hours per day Patient and/or Family Agrees t: Yes Time/GCodes Time In: 1225 Time Out: 1325 Total Billed Treatment Time: 60 Total Billed Treatment 1 visit [facility] x 3 40 min EX 20 min CHHAYA EPPERSON PT Apr 22, 2020 13:31
--- NOTE | 2020-04-22 14:32 | NUR ---
SEIZURE PRECAUTIONS AND TELE-SITTER PLACED ON FOURTH FLOOR D/T POTENTIAL ALCOHOL WITHDRAWAL. REC'D IN REPORT THAT CIWA HAS BEEN 0 FOR THE PAST FEW DAYS. DR. SANTOYO NOTIFIED AND OK TO DC TELE-SITTER AND SEIZURE PRECAUTIONS.
--- OUTSIDE RECORDS SUMMARY | 2020-04-22 14:36 | XMS REPORT | Continuity of Care Document ---
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 08/03/2019 [...] 09/02/2019 JAIMEE FUENTES MD Ot I70.244 ATHSCL AMBLER ART OF LEFT LEG W ULCER OF [...] 09/25/2019 JAIMEE FUENTES MD Ot I70.262 ATHSCL AMBLER ARTERIES OF EXTREMITIES W 09/25/2019 JAIMEE FUENTES [...] 09/26/2019 JAIMEE FUENTES MD Ot I70.262 ATHSCL AMBLER ARTERIES OF EXTREMITIES W 09/26/2019 JAIMEE FUENTES [...] 10/10/2019 JAIMEE FUENTES MD Ot I70.262 ATHSCL AMBLER ARTERIES OF EXTREMITIES W 10/10/2019 JAIMEE FUENTES [...] 10/10/2019 JAIMEE FUENTES MD Ot I70.234 ATHSCL AMBLER ART OF RIGHT LEG W ULCER O [...] (TIA), AND CEREB INFRC W 11/05/2019 LISSA ALZAR MD Ot Z89.611 ACQUIRED ABSENCE OF RIGHT [...] 02/06/2020 JAIMEE FUENTES MD Ot I70.261 ATHSCL AMBLER ARTERIES OF EXTREMITIES W 02/06/2020 JAIMEE FUENTES [...] TO ENVIRON TOBACCO SMO 03/10/2020 ROVENSTINE DO, JSOÉ MIGUEL Lupe Ot Z86.73 PRSNL HX OF [...] LOWER LIMB 03/13/2020 ROVENSTINE DO, JOSÉ MIGUEL L Ot R60.0 LOCALIZED EDEMA 03/[facility] MIGUEL Andrade Ot Z77.22 CNTCT W AND EXPSR TO ENVIRON TOBACCO SMO 03/13/2020 [facility]OS[facility] MIGUEL Andrade Ot Z86.73 PRSNL HX OF TIA (TIA), AND CEREB INFRC W 03/13/2020 ROVENSTINE DO, JOSÉ MIGUEL Andrade Ot Z89.422 ACQUIRED ABSENCE OF OTHER LEFT TOE(S) 03/13/2020 [facility] JOSÉ MIGUEL L Ot 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 03/28/2020 [place] DO, GERA Rivera Ot E11.5 1 TYPE 2 DIABETES W DIABETIC PERIPHERAL AN 03/28/2020 [facility], GERA Rivera Ot I10 ESSENTIAL (PRIMARY) HYPERTENSION 03/28/2020 [facility], GERA Rivera Ot M79.6 72 PAIN IN LEFT FOOT 03/28/2020 [facility], GERA Rivera Ot T87.8 9 OTHER COMPLICATIONS OF AMPUTATION STUMP 03/28/2020 [facility], GERA Rivera Ot Z77.2 2 CNTCT W AND EXPSR TO ENVIRON TOBACCO [facility] 03/28/2020 [place] DO, GERA Rivera Ot Z86.7 3 PRSNL HX OF TIA (TIA), AND CEREB INFRC W 04/21/2020 HECTOR CEE MD Ot A41.9 SEPSIS, UNSPECIFIED ORGANISM 04/21/2020 HECTOR CEE MD Ot B87.1 WOUND MYIASIS 04/21/2020 HECTOR CEE MD Ot E11.4 0 TYPE 2 DIABETES MELLITUS WITH DIABETIC N 04/21/2020 HECTOR CEE MD Ot E11.5 2 TYPE 2 DIABETES W DIABETIC PERIPHERAL AN 04/21/2020 HECTOR CEE MD, Ot E11.6 22 TYPE 2 DIABETES MELLITUS WITH OTHER SKIN 04/21/2020 HECTOR CEE MD, Ot E11.6 9 TYPE 2 DIABETES MELLITUS WITH OTHER SPEC 04/21/2020 HECTOR CEE MD Ot E87.2 ACIDOSIS 04/21/2020 HECTOR CEE MD, Ot F10.2 29 ALCOHOL DEPENDENCE WITH INTOXICATION, UN 04/21/2020 HECTOR CEE MD, Ot F17.2 10 NICOTINE DEPENDENCE, CIGARETTES, UNCOMPL 04/21/2020 HECTOR CEE MD Ot I10 ESSENTIAL (PRIMARY) HYPERTENSION 04/21/2020 HECTOR CEE MD, Ot 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 04/21/2020 HECTOR CEE MD, Ot J44.9 CHRONIC OBSTRUCTIVE PULMONARY DISEASE, U 04/21/2020 HECTOR CEE MD, Ot K21.9 GASTRO-ESOPHAGEAL REFLUX DISEASE WITHOUT 04/21/2020 HECTOR CEE MD, Ot K29.2 0 ALCOHOLIC GASTRITIS WITHOUT BLEEDING 04/21/2020 HECTOR CEE MD, Ot L03.1 16 CELLULITIS OF LEFT LOWER LIMB 04/21/2020 HECTOR CEE MD, Ot L89.2 22 PRESSURE ULCER OF LEFT HIP, STAGE 2 04/21/2020 HECTOR CEE MD, Ot M86.9 OSTEOMYELITIS, UNSPECIFIED 04/21/2020 HECTOR CEE MD, Ot R47.9 UNSPECIFIED SPEECH DISTURBANCES 04/21/2020 HECTOR CEE MD, Ot Z79.4 CUSTODIAL (CURRENT) USE OF INSULIN 04/21/2020 HECTOR CEE MD, Ot Z86.7 3 PRSNL HX OF TIA (TIA), AND CEREB INFRC W 04/21/2020 HECTOR CEE MD, Ot Z89.4 32 ACQUIRED ABSENCE OF LEFT FOOT 04/21/2020 HECTOR CEE MD, Ot Z89.6 11 ACQUIRED ABSENCE OF RIGHT LEG ABOVE KNEE Procedures Code Description Performed By Per chepe On [id number] DE TACHMENT AT LEFT UPPER LEG, HIGH, OPEN 04/17/2020 Results Test Result Range UA W/ MICROSCOPY [...] OF GROWTH Isolated NRG Bacterial blood culture [id number] NR [facility] - 11/05/19 [...] 7-25 CREATININE 0.37 mg/dL 0.70-1.33 eGFR NON-AFR. [place] 138 mL/min/1.73m2 > OR = 60 eGFR [...] 0.0 10*3/uL 0.0-0.1 Comprehensive metabolic panel - 04/24/20 10:45 Serum or plasma sodium measurement (moles/volume) [...] 03/07/20 10:52 Bacterial blood culture NG NRG Complete blood [...] 13:10 Bacteria identification in wound by culture [id number] NRG QUANTITY OF GROWTH LARGE AMOUNT [...] lactic acid measurement (moles/volume) 2.39 mmol/L 0.50-2.00 Bacterial blood culture - 04/16/20 13:13 Bacterial blood culture NG NRG Bacterial blood culture - 04/16/20 13:57 Bacterial blood culture NG NRG Serum or plasma lactate measurement (mol es/volume) - 04/16/20 16:24 Serum or plasma lactate measurement (moles/volume) 1.70 mmol/L 0.50-2.00 Complete blood count (CBC) with automate d white blood cell (WBC) differential - 04/17/20 06:23 Blood leukocytes automated count (number/volume) 8.7 10*3/uL 4.3-11.0 Blood erythrocytes automated count (number/volume) 3.20 10*6/uL 4.35-5.85 Venous blood hemoglobin measurement (mass/volume) 11.7 g/dL 13.3-17.7 Blood hematocrit (volume fraction) 34 % 40-54 Automated erythrocyte mean corpuscular volume 105 [foz_us] 80-99 Automated erythrocyte mean corpuscular h emoglobin (mass per erythrocyte) 37 pg 25-34 Automated erythrocyte mean corpuscular h emoglobin concentration measurement (mass/volume) 35 g/dL 32-36 Automated erythrocyte distribution width ratio 13. 1 % 10.0- 14.5 Automated blood platelet count (count/volume) 281 10*3/uL 130-400 Automated blood platelet mean volume measurement 9.7 [foz_us] 7.4-10.4 Automated blood neutrophils/100 leukocytes 79 % 42-75 Automated blood lymphocytes/100 leukocytes 11 % 12-44 Blood monocytes/100 leukocytes 10 % 0-12 Automated blood eosinophils/100 leukocytes 0 % 0-10 Automated blood basophils/100 leukocytes 0 % 0-10 Blood neutrophils automated count (number/volume) 6.9 10*3 1.8-7.8 Blood lymphocytes automated count (number/volume) 0.9 10*3 1.0-4.0 Blood monocytes automated count (number/volume) 0. 9 10*3 0.0-1.0 Automated eosinophil count 0.0 10*3/uL 0 .0-0.3 Automated blood basophil count (count/volume) 0.0 10*3/uL 0.0-0.1 Comprehensive metabolic panel - 04/17/20 06:23 Serum or plasma sodium measurement (moles/volume) 132 mmol/L 135-145 Serum or plasma potassium measurement (moles/volume) 3.0 mmol/L 3.6-5.0 Serum or plasma chloride measurement (moles/volume) 99 mmol/L 98-107 Carbon dioxide 26 mmol/L 21-32 Serum or plasma anion gap determination (moles/volume) 7 mmol/L 5-14 Serum or plasma urea nitrogen measurement (mass/volume ) 4 mg/dL 7-18 Serum or plasma creatinine measurement (mass/volume) 0.50 mg/dL 0.60-1.30 Serum or plasma urea nitrogen/creatinine mass ratio 8 NRG Serum or plasma creatinine measurement w ith calculation of estimated glomerular filtration rate > NRG Serum or plasma glucose measurement (mass/volume) 112 mg/dL 70-105 Serum or plasma calcium measurement (mass/volume) 7.5 mg/dL 8.5-10.1 Serum or plasma total bilirubin measurement (mass/volu me) 1.6 mg/dL 0.1-1.0 Serum or plasma alkaline phosphatase dejuan surement (enzymatic activity/volume) 146 U/L 40-136 Serum or plasma aspartate aminotransfera se measurement (enzymatic activity/volume) 44 U/L 5-34 Serum or plasma alanine aminotransferase measurement (enzymatic activity/volume) 23 U/L 0-55 Serum or plasma protein measurement (mass/volume) 5.6 g/dL 6.4-8.2 Serum or plasma albumin measurement (mass/volume) 2.8 g/dL 3.2-4.5 CALCIUM CORRECTED 8.5 mg/dL 8.5-10.1 Methicillin resistant Staphylococcus aur eus (MRSA) screening culture - 04/17/20 06:55 Methicillin resistant Staphylococcus aureus (MRSA) scr eening culture NEG NRG Complete blood count (CBC) with automate d white blood cell (WBC) differential - 04/18/20 06:05 Blood leukocytes automated count (number/volume) 10.7 10*3/uL 4.3-11.0 Blood erythrocytes automated count (number/volume) 3.11 10*6/uL 4.35-5.85 Venous blood hemoglobin measurement (mass/volume) 11.4 g/dL 13.3-17.7 Blood hematocrit (volume fraction) 33 % 40-54 Automated erythrocyte mean corpuscular volume 106 [foz_us] 80-99 Automated erythrocyte mean corpuscular h emoglobin (mass per erythrocyte) 37 pg 25-34 Automated erythrocyte mean corpuscular h emoglobin concentration measurement (mass/volume) 35 g/dL 32-36 Automated erythrocyte distribution width ratio 12. 6 % 10.0- 14.5 Automated blood platelet count (count/volume) 242 10*3/uL 130-400 Automated blood platelet mean volume measurement 10.3 [foz_us] 7.4-10.4 Automated blood neutrophils/100 leukocytes 83 % 42-75 Automated blood lymphocytes/100 leukocytes 9 % 12-44 Blood monocytes/100 leukocytes 8 % 0-12 Automated blood eosinophils/100 leukocytes 0 % 0-10 Automated blood basophils/100 leukocytes 0 % 0-10 Blood neutrophils automated count (number/volume) 8.9 10*3 1.8-7.8 Blood lymphocytes automated count (number/volume) 0.9 10*3 1.0-4.0 Blood monocytes automated count (number/volume) 0. 9 10*3 0.0-1.0 Automated eosinophil count 0.0 10*3/uL 0 .0-0.3 Automated blood basophil count (count/volume) 0.0 10*3/uL 0.0-0.1 Comprehensive metabolic panel - 04/18/20 06:05 Serum or plasma sodium measurement (moles/volume) 129 mmol/L 135-145 Serum or plasma potassium measurement (moles/volume) 3.6 mmol/L 3.6-5.0 Serum or plasma chloride measurement (moles/volume) 98 mmol/L 98-107 Carbon dioxide 24 mmol/L 21-32 Serum or plasma anion gap determination (moles/volume) 7 mmol/L 5-14 Serum or plasma urea nitrogen measurement (mass/volume ) < mg/dL 7-18 Serum or plasma creatinine measurement (mass/volume) 0.47 mg/dL 0.60-1.30 Serum or plasma urea nitrogen/creatinine mass ratio 4 NRG Serum or plasma creatinine measurement w ith calculation of estimated glomerular filtration rate > NRG Serum or plasma glucose measurement (mass/volume) 134 mg/dL 70-105 Serum or plasma calcium measurement (mass/volume) 7.1 mg/dL 8.5-10.1 Serum or plasma total bilirubin measurement (mass/volu me) 1.5 mg/dL 0.1-1.0 Serum or plasma alkaline phosphatase dejuan surement (enzymatic activity/volume) 125 U/L 40-136 Serum or plasma aspartate aminotransfera se measurement (enzymatic activity/volume) 72 U/L 5-34 Serum or plasma alanine aminotransferase measurement (enzymatic activity/volume) 23 U/L 0-55 Serum or plasma protein measurement (mass/volume) 5.2 g/dL 6.4-8.2 Serum or plasma albumin measurement (mass/volume) 2.6 g/dL 3.2-4.5 CALCIUM CORRECTED 8.2 mg/dL 8.5-10.1 Complete blood count (CBC) with automate d white blood cell (WBC) differential - 04/19/20 06:38 Blood leukocytes automated count (number/volume) 8.5 10*3/uL 4.3-11.0 Blood erythrocytes automated count (number/volume) 3.11 10*6/uL 4.35-5.85 Venous blood hemoglobin measurement (mass/volume) 11.3 g/dL 13.3-17.7 Blood hematocrit (volume fraction) 33 % 40-54 Automated erythrocyte mean corpuscular volume 106 [foz_us] 80-99 Automated erythrocyte mean corpuscular h emoglobin (mass per erythrocyte) 36 pg 25-34 Automated erythrocyte mean corpuscular h emoglobin concentration measurement (mass/volume) 34 g/dL 32-36 Automated erythrocyte distribution width ratio 12. 6 % 10.0- 14.5 Automated blood platelet count (count/volume) 238 10*3/uL 130-400 Automated blood platelet mean volume measurement 10.3 [foz_us] 7.4-10.4 Automated blood neutrophils/100 leukocytes 81 % 42-75 Automated blood lymphocytes/100 leukocytes 11 % 12-44 Blood monocytes/100 leukocytes 6 % 0-12 Automated blood eosinophils/100 leukocytes 2 % 0-10 Automated blood basophils/100 leukocytes 0 % 0-10 Blood neutrophils automated count (number/volume) 6.9 10*3 1.8-7.8 Blood lymphocytes automated count (number/volume) 0.9 10*3 1.0-4.0 Blood monocytes automated count (number/volume) 0. 5 10*3 0.0-1.0 Automated eosinophil count 0.1 10*3/uL 0 .0-0.3 Automated blood basophil count (count/volume) 0.0 10*3/uL 0.0-0.1 Comprehensive metabolic panel - 04/19/20 06:38 Serum or plasma sodium measurement (moles/volume) 130 mmol/L 135-145 Serum or plasma potassium measurement (moles/volume) 3.2 mmol/L 3.6-5.0 Serum or plasma chloride measurement (moles/volume) 98 mmol/L 98-107 Carbon dioxide 23 mmol/L 21-32 Serum or plasma anion gap determination (moles/volume) 9 mmol/L 5-14 Serum or plasma urea nitrogen measurement (mass/volume ) 2 mg/dL 7-18 Serum or plasma creatinine measurement (mass/volume) 0.48 mg/dL 0.60-1.30 Serum or plasma urea nitrogen/creatinine mass ratio 4 NRG Serum or plasma creatinine measurement w ith calculation of estimated glomerular filtration rate > NRG Serum or plasma glucose measurement (mass/volume) 95 mg/dL 70-105 Serum or plasma calcium measurement (mass/volume) 7.4 mg/dL 8.5-10.1 Serum or plasma total bilirubin measurement (mass/volu me) 0.8 mg/dL 0.1-1.0 Serum or plasma alkaline phosphatase dejuan surement (enzymatic activity/volume) 114 U/L 40-136 Serum or plasma aspartate aminotransfera se measurement (enzymatic activity/volume) 40 U/L 5-34 Serum or plasma alanine aminotransferase measurement (enzymatic activity/volume) 19 U/L 0-55 Serum or plasma protein measurement (mass/volume) 5.3 g/dL 6.4-8.2 Serum or plasma albumin measurement (mass/volume) 2.7 g/dL 3.2-4.5 CALCIUM CORRECTED 8.4 mg/dL 8.5-10.1 Complete blood count (CBC) with automate d white blood cell (WBC) differential - 04/22/20 05:30 Blood leukocytes automated count (number/volume) 5.2 10*3/uL 4.3-11.0 Blood erythrocytes automated count (number/volume) 3.07 10*6/uL 4.35-5.85 Venous blood hemoglobin measurement (mass/volume) 11.2 g/dL 13.3-17.7 Blood hematocrit (volume fraction) 32 % 40-54 Automated erythrocyte mean corpuscular volume 106 [foz_us] 80-99 Automated erythrocyte mean corpuscular h emoglobin (mass per erythrocyte) 37 pg 25-34 Automated erythrocyte mean corpuscular h emoglobin concentration measurement (mass/volume) 35 g/dL 32-36 Automated erythrocyte distribution width ratio 12. 4 % 10.0- 14.5 Automated blood platelet count (count/volume) 277 10*3/uL 130-400 Automated blood platelet mean volume measurement 10.2 [foz_us] 7.4-10.4 Automated blood neutrophils/100 leukocytes 62 % 42-75 Automated blood lymphocytes/100 leukocytes 26 % 12-44 Blood monocytes/100 leukocytes 10 % 0-12 Automated blood eosinophils/100 leukocytes 1 % 0-10 Automated blood basophils/100 leukocytes 0 % 0-10 Blood neutrophils automated count (number/volume) 3.3 10*3 1.8-7.8 Blood lymphocytes automated count (number/volume) 1.4 10*3 1.0-4.0 Blood monocytes automated count (number/volume) 0. 5 10*3 0.0-1.0 Automated eosinophil count 0.1 10*3/uL 0 .0-0.3 Automated blood basophil count (count/volume) 0.0 10*3/uL 0.0-0.1 Comprehensive metabolic panel - 04/22/20 05:30 Serum or plasma sodium measurement (moles/volume) 135 mmol/L 135-145 Serum or plasma potassium measurement (moles/volume) 3.2 mmol/L 3.6-5.0 Serum or plasma chloride measurement (moles/volume) 103 mmol/L 98-107 Carbon dioxide 23 mmol/L 21-32 Serum or plasma anion gap determination (moles/volume) 9 mmol/L 5-14 Serum or plasma urea nitrogen measurement (mass/volume ) < mg/dL 7-18 Serum or plasma creatinine measurement (mass/volume) 0.51 mg/dL 0.60-1.30 Serum or plasma urea nitrogen/creatinine mass ratio 4 NRG Serum or plasma creatinine measurement w ith calculation of estimated glomerular filtration rate > NRG Serum or plasma glucose measurement (mass/volume) 104 mg/dL 70-105 Serum or plasma calcium measurement (mass/volume) 7.9 mg/dL 8.5-10.1 Serum or plasma total bilirubin measurement (mass/volu me) 0.4 mg/dL 0.1-1.0 Serum or plasma alkaline phosphatase dejuan surement (enzymatic activity/volume) 97 U/L 40-136 Serum or plasma aspartate aminotransfera se measurement (enzymatic activity/volume) 24 U/L 5-34 Serum or plasma alanine aminotransferase measurement (enzymatic activity/volume) 14 U/L 0-55 Serum or plasma protein measurement (mass/volume) 5.1 g/dL 6.4-8.2 Serum or plasma albumin measurement (mass/volume) 2.6 g/dL 3.2-4.5 CALCIUM CORRECTED 9.0 mg/dL 8.5-10.1 Encounters ACCT No. Visit Date/Time Discharge Status Pt. Type Provider Facility Loc./Unit Complaint [id number] 04/16/2020 11:30:00 04/16/2020 23:59: [facility] [id number] 11/21/2019 10:20:00 Document Registration [id number] 02/13/2019 11:15:00 Document Registration [id number] 04/16/2020 14:50:00 11:20:00 DIS Inpatient COLEMAN WILL, HECTOR Mejia [facility] 4TH LLE WOUND/CELLULITIS/OS TEOMYLITIS [id number] 03/26/2020 09:59:00 14:48:00 DIS Outpatient GERA ESQUIVEL DO [facility] ER FS LT FOOT PAIN [id number] 03/07/2020 10:23:00 11:55:00 DIS Outpatient ROVENSTJOSÉ MIGUEL BARRIOS DO [facility] ER FS FOOT PAIN [id number] 02/19/2020 17:32:00 18:51:00 DIS Emergency MANDA HANSEN MD [facility] ER FS RIGHT ARM WEAKNESS [id number] 02/16/2020 19:01:00 19:22:00 DIS Outpatient ROVENSTJOSÉ MIGUEL BARRIOS DO [facility] ER FS [id number] 01/17/2020 13:04:00 23:59:59 CLS Outpatient JAIMEE FUENTES MD [facility] WOUNDCARE [id number] 01/10/2020 13:25:00 23:59:59 CLS Outpatient ERIBERTO SCOTT MD [id number] 01/03/2020 12:16:00 23:59:59 CLS Outpatient ERIBERTO SCOTT MD [facility] [id number] 12/20/2019 14:01:00 23:59:59 CLS Outpatient ERIBERTO SCOTT MD [facility] [id number] 12/05/2019 13:20:00 23:59:59 CLS Outpatient ERIBERTO SCOTT MD [facility] RAD LEFT, CHRONIC ULCER [id number] 12/05/2019 12:08:00 23:59:59 CLS Outpatient ERIBERTO SCOTT MD [facility] [id number] 11/05/2019 16:32:00 17:50:00 DIS Emergency LISSA LAZAR MD [facility] ER FS NAUSEA [id number] 09/24/2019 13:47:00 23:59:59 CLS Outpatient JAIMEE FUENTES MD [facility] WOUNDCARE [id number] 09/10/2019 13:52:00 23:59:59 CLS Outpatient JAIMEE FUENTES MD [facility] WOUNDCARE [id number] 09/03/2019 11:41:00 23:59:59 CLS Outpatient JAIMEE FUENTES MD [facility] [id number] 08/27/2019 13:53:00 23:59:59 CLS Outpatient JAIMEE FUENTES MD [facility] WOUNDCARE [id number] 08/10/2019 10:53:00 18:35:00 DIS Emergency JOS GILL MD [facility] ER FS LT FOOT PAIN [id number] 08/03/2019 12:58:00 13:22:00 DIS Emergency JOSÉ MIGUEL BELLO DO [facility] ER FS LT LEG PAIN [id number] 05/23/2019 15:44:00 17:22:00 DIS Emergency TESSA CERVANTES DO [facility] ER FS LT LEG SWELLING [id number] 04/22/2020 11:00:[address] Inpatient BROWN SANTOYO DO [facility] [place] IRF L AKA [id number] 01/25/2020 19:24:00 Document Registration
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
[2020-04-22] MEDS: HYDROcodone/APAP 10 MG/325 MG (LORTAB) TAB PO PRN ×2 (15:26→21:32)
--- NOTE | 2020-04-22 17:36 | NUR ---
DR. HU NOTIFIED OF CONSULT. HAS BEEN IN TO ASSESS LEFT AKA INCISION.
[2020-04-22 17:46] VITALS: BP 126/78
--- NOTE | 2020-04-22 17:56 | Progress Note - Surgery ---
Subjective Time Seen by a Provider: 17:26 Subjective/Events-last exam Pt seen and examined, complains of some leg pain. Eating dinner without difficulty. Review of Systems General: No Chills, No Night Sweats Pulmonary: No Dyspnea, No Cough Cardiovascular: No: Chest Pain, Palpitations Objective Exam Vital Signs Date Time Temp Pulse Resp B/P (MAP) Pulse Ox O2 Delivery O2 Flow Rate FiO2 04/22/20 17:46 36.6 107 18 126/78 (94) 99 Room Air 04/22/20 15:05 Room Air 04/22/20 12:29 36.2 92 18 145/83 100 Room Air Capillary Refill : General Appearance: No Apparent Distress Respiratory: Lungs Clear, Normal Breath Sounds, No Accessory Muscle Use Cardiovascular: Regular Rate, Rhythm, No Murmur Extremity: Other (Left AKA looks good, minimal edema and some serous drainage from incision, no erythema) Assessment/Plan Assessment/Plan Assessment/Plan S/P L AKA Continue current care, leg looks good. Clinical Quality Measures DVT/VTE Risk/Contraindication: Risk Factor Score Per Nursin RFS Level Per Nursing on Admit: 4+=Very High REE HU DO Apr 22, 2020 17:56
[2020-04-22] MEDS ORDERED: SENNA W/DOCUSATE (SENOKOT S) TABLET PO SCH (21:00)
[2020-04-22] MEDS: SENNA W/DOCUSATE (SENOKOT S) TABLET PO SCH (21:31)
[2020-04-22] MEDS: GABAPENTIN 100 MG (NEURONTIN) CAP PO SCH (21:31)
[2020-04-22] MEDS: ENOXAPARIN 30 MG/0.3 ML (LOVENOX) SYR SC SCH (21:31)
[2020-04-22] MEDS: polyethylene glycoL POWDER 17 GM (MIRALAX) PACK PO SCH (21:33)
[2020-04-23] MEDS: HYDROcodone/APAP 10 MG/325 MG (LORTAB) TAB PO PRN ×3 (03:27→21:33)
[2020-04-23 04:53] LABS: BASOPHILS % (AUTO) 1 % (0-10); EOSINOPHILS # (AUTO) 0.1 10^3/uL (0.0-0.3); EOSINOPHILS % (AUTO) 2 % (0-10); HEMATOCRIT 31 % (40-54); HEMOGLOBIN 10.7 G/DL (13.3-17.7); LYMPHOCYTES # (AUTO) 1.4 X 10^3 (1.0-4.0); LYMPHOCYTES % (AUTO) 30 % (12-44); MEAN CORPUSCULAR HEMOGLOBIN 36 PG (25-34); MEAN CORPUSCULAR HGB CONC 34 G/DL (32-36); MEAN CORPUSCULAR VOLUME 107 FL (80-99); MEAN PLATELET VOLUME 10.2 FL (7.4-10.4); MONOCYTES # (AUTO) 0.5 X 10^3 (0.0-1.0); MONOCYTES % (AUTO) 11 % (0-12); NEUTROPHILS # (AUTO) 2.7 X 10^3 (1.8-7.8); NEUTROPHILS % (AUTO) 57 % (42-75); PLATELET COUNT 283 10^3/uL (130-400); RED CELL DISTRIBUTION WIDTH 12.9 % (10.0-14.5); WHITE BLOOD COUNT 4.9 10^3/uL (4.3-11.0)
[2020-04-23 05:03] LABS: ALBUMIN 2.6 GM/DL (3.2-4.5); CHLORIDE 105 MMOL/L (98-107); POTASSIUM 3.3 MMOL/L (3.6-5.0); SODIUM 137 MMOL/L (135-145)
[2020-04-23 05:06] LABS: GLUCOSE 99 MG/DL (70-105)
[2020-04-23 05:07] LABS: CARBON DIOXIDE 22 MMOL/L (21-32)
[2020-04-23 05:08] LABS: BILIRUBIN,TOTAL 0.4 MG/DL (0.1-1.0)
[2020-04-23 05:09] LABS: ALKALINE PHOSPHATASE 108 U/L (40-136); CREATININE SERUM 0.52 MG/DL (0.60-1.30)
[2020-04-23 05:10] LABS: GFR ESTIMATED > 60
[2020-04-23 05:11] LABS: BUN/CREATININE RATIO 6
[2020-04-23 05:12] LABS: ALANINE AMINOTRANSFERASE 16 U/L (0-55)
[2020-04-23 06:00] VITALS: BP 133/66
--- NOTE | 2020-04-23 07:22 | Individualized Plan of Care ---
Individualized Plan of Care Rehab Nursing IPOC Order Admission Date Apr 22, 2020 at 11:00 Current Orders Orders Admission Order(Inpt,Obs,Sdc) (04/22/20 09:31) Vital Signs: Per Unit Policy ( 08,16,00 (04/22/20 09:31) Dayne Browne 09,21 (04/22/20 09:31) Sequential Compression Device Q4H (04/22/20 09:31) Video Poker Floorman-Inpt Rehab Con (04/22/20:31) Rehab Nursing Orders-Ipoc (04/22/20 09:31) Physical Therapy Rehab Orders (04/22/20:31) Occupational Therapy Rehab Ord (04/22/20:31) Speech Therapy Rehab Orders (04/22/20:31) Cbc With Automated Diff (04/23/20 06:00) Comprehensive Metabolic Panel (04/23/20 06:00) General/Regular (04/22/20 Lunch) Intake & Output 06,14,22 (04/22/20 09:31) Precautions (Aru) (04/22/20 09:31) Weekly Weight WEEK (04/22/20:31) Rehab-Intensity Of Therapy (04/22/20 09:31) Initiate Admission Nursing Pro .admission (04/22/20 09:31) Acetaminophen Tablet (Tylenol Tablet) (04/22/20 09:45) Alprazolam Tablet (Xanax Tablet) (04/22/20 09:45) Calcium Carbonate Chew Tablet (Antacid C (04/22/20 09:45) Diphenhydramine Tablet (Benadryl Tablet) (04/22/20 09:45) Docusate Sodium Capsule (Colace Capsule) (04/22/20 09:45) Bisacodyl Suppository (Dulcolax Supposit (04/22/20 09:45) Lactulose Oral Solution (Enulose Oral So (04/22/20 09:45) Na Phos/Na Biphos Enema (Fleet Enema Hemant (04/22/20 09:45) Guaifenesin/Codeine Syrup (Robitussin Ac (04/22/20 09:45) Loperamide Tablet (Imodium Tablet) (04/22/20 09:45) Melatonin Tablet (Melatonin Tablet) (04/22/20 09:45) Polyethylene Glycol Powder Pkt (Miralax (04/22/20 21:00) Ondansetron Oral Dissolve Tab (Zofran (04/22/20 09:45) Senna S Tablet (Senokot S Tablet) (04/22/20 21:00) Initiate Admission Nursing Pro .admission (04/22/20 09:31) Admission Arrival Bed Request (04/22/20 11:33) Ambulate 08,12,20 (04/22/20 12:13) Sequential Compression Device Q4H (04/22/20 12:13) Dvt/Vte Risk - Notifiy Physici Q4H (04/22/20 12:13) Enoxaparin Injection (Lovenox Injection) (04/22/20 21:00) Code/Resuscitation (04/22/20 13:06) Dressing Order (Intervention) DAILY (04/22/20 13:06) Incentive Spirometry (Nursing) Q2H (04/22/20 13:06) Dys2 Mechanically Altered (04/22/20 Dinner) Glucerna (04/22/20 Dinner) Acetaminophen Tablet (Tylenol Tablet) (04/22/20 13:15) Albuterol/Ipra Inhalation Soln (Duoneb I (04/22/20 13:15) Bisacodyl Suppository (Dulcolax Supposit (04/22/20 13:15) Calcium Carbonate Chew Tablet (Antacid C (04/22/20 13:15) Docusate Sodium Capsule (Colace Capsule) (04/22/20 13:15) Enoxaparin Injection (Lovenox Injection) (04/22/20 13:15) Gabapentin Capsule/Tablet (Neurontin Cap (04/22/20 21:00) Hydrocodone/Apap 10/325 Tablet (Lortab 1 (04/22/20 13:15) Hydromorphone Injection (Dilaudid Inject (04/22/20 13:15) Lorazepam Injection (Ativan Injection) (04/22/20 13:15) Loperamide Tablet (Imodium Tablet) (04/22/20 13:15) Antacid Suspension (Mylanta Suspension (04/22/20 13:15) Melatonin Tablet (Melatonin Tablet) (04/22/20 13:15) Ondansetron Injection (Zofran Injectio (04/22/20 13:15) Ondansetron Oral Dissolve Tab (Zofran (04/22/20 13:15) Senna S Tablet (Senokot S Tablet) (04/22/20 21:00) Sodium Chloride Flush (Catheter Flush Sy (04/22/20 13:15) Diphenhydramine Tablet (Benadryl Tablet) (04/22/20 13:15) Guaifenesin/Codeine Syrup (Robitussin Ac (04/22/20 13:15) Consult General Surgery (04/22/20 13:06) Mat Initiate Protocol (04/22/20 13:06) Svn Small Volume Nebulizer (04/22/20 13:06) Svn Small Volume Nebulizer (04/22/20 13:06) Oxycodone Immediate Rel Tablet (Oxyir Ta (04/22/20 13:15) Potassium Chloride (Tablet) (Klor Con Ta (04/23/20 07:00) Patient Visit (04/22/20 ) Pt Eval Moderate Complexity (04/22/20 ) Wheelchair Mgmt/Propulsn 15min (04/22/20 ) Exercise Therap, Ea 15 Min (04/22/20 ) Patient Visit (04/22/20 ) Speech Sound Lang Comp (04/22/20 ) General/Regular (04/23/20 Lunch) Patient Visit (04/23/20 ) Exercise Therap, Ea 15 Min (04/23/20 ) Functional Activities, Ea 15 (04/23/20 ) Wheelchair Mgmt/Propulsn 15min (04/23/20 ) Patient Visit (04/23/20 ) Rehab Nursing Orders: Ongoing Assess. of Cognitive Status, Ongoing Assess. of Function Status, Bladder Management, Bladder Scan, Bladder Training, Bowel Management, Bowel Training, Disease Management & Educaiton, DVT Prophylaxis, Fall Prevention, Fluid/Electrolyte/Nutrition Mgmt, Infection Prevention, Medication Management & Education, Management of Risks & Complications, Management of Skin Intergrity, Nutrition Management, Pain Management, Patient/Family Support, Safety Management, Swallow Precautions Intensity of Therapy to be met Patient to be seen: Min.3h per day/5 of 7d PT IPOC Problem List: Activity Tolerance, Functional Strength, Safety, Balance, Transfer, Bed Mobility Treatment Plan: Continue Plan of Care Bed Mobility, Concurrent Therapy, Education, Functional Activity Jose Luis, Functional Strength, Group Therapy, Safety, Therapeutic Exercise, Transfers Treatment Duration: May 24, 2020 Frequency: At least 5 of 7 days/Wk (IRF) Estimated Hrs Per Day: 1.5 hours per day OT IPOC Problems: Decreased Activ Tolerance, Decreased UE Strength, Dependent Transfers, Impaired Funct Balance, Impaired I ADL's, Impaired Self-Care Skills OT Treatment, Training and Edu: Yes OT Problems Pt s/p left AKA with decreased ADL functioning, mobility, activity tolerance, and strength. Pt to benefit from skilled OT intervention for ADL training, transfers, strengthening, and home safety education to increase level of independence and allow safe discharge plan. Plan of Care: ADL Retraining, Functional Mobility, Group Exercise/Act as Ind, UE Funct Exercise/Act Treatment Duration: May 13, 2020 Frequency: At least 5 of 7 days/Wk (IRF) Estimated Hrs Per Day: 1.[address] IPOC Speech Therapy Treatment Plan: Discontinue ST Treatment Duration: Apr 22, 2020 Frequency: 1 time per week Estimated Hrs Per Day: .25 hour per day Video Poker Floorman/Case Mgmt Video Poker Floorman/Case Managemen: Discharge Planning Dietitian/Retail Selling Floor Leader Dietitian/Retail Selling Floor Leader to monitor nutritional status and make changes and/or recommendations as needed and work with speech pathology on dietary upgrades as the occur. Physician IPOC Medical Issues being managed closely and that require the 24 hour availability of a physician: Recent sepsis and subsequent left leg gangrene s/p left AKA with h/o right AKA will need close monitoring for recurrent acute illness and fall risks Medical Issues: Bowel/Bladder Function, DVT Prophylaxis, Falls Precautions, Fluid/Electrolyte/Nutrition Balance, Infection Protection, Pain Management, Wound Care Brief Synthesis of Preadmission Screen, Post-Admission Evaluation, and Therapy Evaluations: PT OT will focus on regaining ADL's given new left AKA added to the h/o right AKA in need of fall risk prevention and wheelchair mobility and increase use of assistive devices to regain ADL's Medical Prognosis: Good Anticipated Length of Stay: 10 days BROWN SANTOYO DO Apr 23, 2020 07:22
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
[2020-04-23] MEDS: KCL 10 MEQ TAB (MICRO K) PO SCH (08:03)
[2020-04-23] MEDS: polyethylene glycoL POWDER 17 GM (MIRALAX) PACK PO SCH ×2 (09:08→21:34)
[2020-04-23] MEDS: GABAPENTIN 100 MG (NEURONTIN) CAP PO SCH ×3 (09:09→21:33)
[2020-04-23] MEDS: SENNA W/DOCUSATE (SENOKOT S) TABLET PO SCH ×2 (09:09→21:33)
[2020-04-23] MEDS ORDERED: IBUP-2185 PO (09:58)
--- NOTE | 2020-04-23 10:56 | Occupational Ther Daily Note ---
OT Current Status-Daily Note Subjective Pt in bed, agrees to therapy. Pt reports being very tired today. Reports pain in left residual limb, but doesn't rate. ADL-Treatment Pt used urinal with set up while in bed. Pt completed partial sponge bath while in bed. Pt doffed Depends without assist. Washed lower body with SBA. Pt donned Depends with SBA. Able to roll left and right without assist to complete pant hike. Pt brushed hair and washed face with set up. Declined to complete oral care or change shirt at this time. Increased time for ADL tasks. Therapy Code Descriptions/Definitions Functional [place] Measure: 0=Not Assessed/NA 4=Minimal Assistance 1=Total Assistance 5=Supervision or Setup 2=Maximal Assistance 6=Modified [place] 3=Moderate Assistance 7=Complete IndependenceSCALE: Activities may be completed with or without assistive devices. 7-Gktiqiwtxd-ypbzjck completes the activity by him/herself with no assistance from a helper. 5-Set-up or Clean-up Assistance-helper sets up or cleans up; patient completes activity. [place] assists only prior to or following the activity. 4-Supervision or Touching Assistance-helper provides verbal cues and/or touching/steadying and/or contact guard assistance as patient completes activity. Assistance may be provided throughout the activity or intermittently. 3-Partial/Moderate Assistance-helper does LESS THAN HALF the effort. [place] lifts, holds or supports trunk or limbs, but provides less than half the effort. 2-Substantial/Maximal Assistance-helper does MORE THAN HALF the effort. [place] lifts or holds trunk or limbs and provides more than half the effort. 8-Uwumcahwh-pzecyy does ALL the effort. Patient does none of the effort to complete the activity. Or, the assistance of 2 or more helpers is required for the patient to complete the activity. If activity was not attempted, code reason: 7-Patient Refused. 9-Not Applicable-not attempted and the patient did not perform the activity before the current illness, exacerbation or injury. 10-Not Attempted due to Environmental Limitations-(lack of equipment, weather restraints, etc.). 88-Not Attempted due to Medical Conditions or Safety Concerns. Oral Hygiene (QC): 7 Toileting Hygiene (QC): 4 (Urinal only) Other Treatment Pt completed bilateral UE exercises to increase strength needed for ADLs and transfers. Pt performed shoulder flexion, abduction, biceps curls, and triceps extension exercises x15 reps with moderate resistance (red) theraband. Pt takes multiple rest breaks during exercises secondary to c/o fatigue. Skilled cues required for proper exercise technique. Pt resting in bed with needs met and RN present after session. 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 2=Patient will verbalize/demonstrate understanding of assistive devices/modifications for ADL. 3=Patient will improve strength/tolerance for activity to enable patient to perform ADL's. OT Education/Plan Discharge Recommendations Plan/Recommendations: Continue POC Treatment Plan/Plan of Care Patient would benefit from OT for education, treatment and training to promote independence in ADL's, mobility, safety and/or upper extremity function for ADL's. Plan of Care: ADL Retraining, Functional Mobility, Group Exercise/Act as Ind, UE Funct Exercise/Act Treatment Duration: May 13, 2020 Frequency: At least 5 of 7 days/Wk (IRF) Estimated Hrs Per Day: 1.5 hours per day Rehab Potential: Fair Time/GCodes Start Time: 08:15 Stop Time: 09:15 Total Time Billed (hr/min): 60 Billed Treatment Time 1 visit, ADLx2(35minutes), EXx2(25minutes) DANIA ROLON OT Apr 23, 2020 10:56
--- NOTE | 2020-04-23 10:58 | Physical Therapy Daily Note ---
PT Daily Note-Current Subjective Pt. explains his recent and past medical history. Pt. feels he will manage ok at home. Pt. also explains that he has drank for 30 yrs and although he would really like to have a drink right now "first things first" and wants to get as strong as he can before returning home etc. Pain Numeric Pain Scale: 3 Location: Left Location Body Site: Thigh (AKA incision site) Pain Description: Throbbing Mental Status Patient Orientation: Person, Place, Time, Situation, [place] Transfers SCALE: Activities may be completed with or without assistive devices. 3-Omckqwhiao-dwudgce completes the activity by him/herself with no assistance from a helper. 5-Set-up or Clean-up Assistance-helper sets up or cleans up; patient completes activity. [place] assists only prior to or following the activity. 4-Supervision or Touching Assistance-helper provides verbal cues and/or touching/steadying and/or contact guard assistance as patient completes activity. Assistance may be provided throughout the activity or intermittently. 3-Partial/Moderate Assistance-helper does LESS THAN HALF the effort. [place] lifts, holds or supports trunk or limbs, but provides less than half the effort. 2-Substantial/Maximal Assistance-helper does MORE THAN HALF the effort. [place] lifts or holds trunk or limbs and provides more than half the effort. 1-Zfevitrjh-jjlybt does ALL the effort. Patient does none of the effort to complete the activity. Or, the assistance of 2 or more helpers is required for the patient to complete the activity. If activity was not attempted, code reason: 7-Patient Refused. 9-Not Applicable-not attempted and the patient did not perform the activity before the current illness, exacerbation or injury. 10-Not Attempted due to Environmental Limitations-(lack of equipment, weather restraints, etc.). 88-Not Attempted due to Medical Conditions or Safety Concerns. Roll Left & Right (QC): 6 Sit to Lying (QC): 6 Lying to Sitting/Side of Bed(Q: 6 Sit to Stand (QC): 88 Chair/Rnh-ip-Zeewb Xfer(QC): 3 Pt. TRFd out of bed by backing straight backwards into w/c on his bottom, pt. very ataxic and fell over mult directions several times. with assist of one at gait belt and at ha belt loop pt. was guided into w/c . gait belt was used as w/c seat belt. Weight Bearing Right Lower Extremity: Right Non Weight Bearing Left Lower Extremity: Left Non Weight Bearing Wheelchair Training Does the Pt Use a Wheelchair?: Yes Wheel 50 ft with 2 turns (QC): 6 Wheel 150 ft (QC): 6 Type of Wheelchair: Manual pt. demonstrated indep in forward, backing, fig 8s and 360 deg turns both directions with good control. Exercises Supine Ex: Rolling, Glut sets, Scooting (up in bed indep), Straight leg raise, Hip abd/add Supine Reps: 20 Assessment Current Status: Good Progress very ataxic, pt. states this is "because I have drank for 30 yrs" PT Short Term Goals Short Term Goals Time Frame: May 07, 2020 Roll Left & Right: 6 Sit to lyin Lying to sitting on side of be: 5 Sit to stand: 9 Chair/yuh-br-iyztr transfer: 4 Toilet transfer: 4 PT Half-Way Goals Strapper And Buffer Goals PT Strapper And Buffer Goals Time Frame: May 24, 2020 Roll Left & Right (QC): 6 Sit to Lying (QC): 6 Lying-Sitting on Side/Bed(QC): 6 Sit to Stand (QC): 9 Chair/Swq-nj-Qyebn Xfer(QC): 6 Toilet Transfer (QC): 6 Car Transfer (QC): 6 Does the Patient Walk: No and Walking Goal NOT indicated Walk 10 feet (QC): 9 Walk 50ft with 2 Turns (QC): 9 Walk 150 ft (QC): 9 Walking 10ft on Uneven Surface: 9 1 Step (curb) (QC): 9 4 Steps (QC): 9 12 Steps (QC): 9 Picking up an Object (QC): 4 Does the Pt use WC or Scooter?: Yes Wheel 50 feet with 2 turns (QC: 6 Type: Manual Wheel 150 feet: 6 Type: Manual PT Plan Treatment/Plan Treatment Plan: Continue Plan of Care Treatment Plan: Bed Mobility, Concurrent Therapy, Education, Functional Activity Jose Luis, Functional Strength, Group Therapy, Safety, Therapeutic Exercise, Transfers Treatment Duration: May 24, 2020 Frequency: At least 5 of 7 days/Wk (IRF) Estimated Hrs Per Day: 1.5 hours per day Patient and/or Family Agrees t: Yes Safety Risks/Education Patient Education: Transfer Techniques, Correct Positioning, W/C Management, Disease Process, Safety Issues Teaching Recipient: Patient Teaching Methods: Demonstration, Discussion Response to Teaching: Verbalize Understanding, Return Demonstration, Reinforcement Needed Time/GCodes Time In: 1000 Time Out: 1100 Total Billed Treatment Time: 60 Total Billed Treatment 1,EX15m,FA25m,ythp33j ANAMARIA STANLEY OB GYN Apr 23, 2020 10:58
--- NOTE | 2020-04-23 14:42 | Therapy Group Daily Note ---
Therapy Daily Group Note Patient Education Topic Home Safety, Home Safety, Exercises, Other List Below (pain managment) Exercises LE Seated Exercise, ROM, Gross Motor, UE Exercise Session Ratio (pt:therapist): 3:1 Goal of Session: Home Safety Strategies, UE/LE Strengthing Goal Met for this Session: Yes Pt Benefit of Group: Contributions to Others, F/U Use of Strategies @Home, Increased Functional Safety, Increased Functional Strength, Recognition of Peers, Socialization Other/Notes Pt propels self to group with use of w/c. Pt sits and introduces self, completes ice breaker activity. Pt participates with fair attention and appropriateness throughout session, requires min cues for attention. Education provided upon safety within the home to increase safety and awareness of environment upon d/c. Pt able to state safe/ unsafe situations and appropriately attends and responds to questions. Education provided on home exercise with common items through home. Pt able to complete functional UE/LE exercises to increase strength, functional endurance, and encourage higher activity level once d/c'd. Education provided on diaphragmatic breathing and benefits, return- demonstrates with min cues. Pt returns to room and returns to chair, all needs met, call light in reach. Start Time: 13:00 Stop Time: 14:00 Total Billed Treatment Time: 60 Total Billed Treatment 1, GRP 4 (60) SHREYA TANNER OTR Apr 23, 2020 14:42
[2020-04-23 17:47] VITALS: BP 120/71
[2020-04-23] MEDS: ENOXAPARIN 30 MG/0.3 ML (LOVENOX) SYR SC SCH (21:33)
[2020-04-24 05:40] VITALS: BP 132/81
--- NOTE | 2020-04-24 06:30 | PM&R Progress Note ---
Subjective HPI/CC On Admission Date Seen by Provider: Apr 24, 2020 Time Seen by Provider: 10:00 Subjective/Events-last exam Pt doing pretty well Working on transfers so he can go home Denies any significant pain except for phantom pain No falls Wound care as ordered by Dr Cortes Checked meds and labs Reviewed therapy notes Conferred with tobacco sprayer of Systems Musculoskeletal: leg pain Objective Exam Vital Signs Vital Signs Date Time Temp Pulse Resp B/P (MAP) Pulse Ox O2 Delivery O2 Flow Rate FiO2 04/24/20 16:00 36.6 77 16 109/71 (84) 98 Room Air Capillary Refill : General Appearance: No Apparent Distress, WD/WN, Chronically ill, Thin HEENT: PERRL/EOMI, Normal ENT Inspection, Pharynx Normal Neck: Full Range of Motion, Normal Inspection, Non Tender, Supple, Carotid Bruit Respiratory: Chest Non Tender, Lungs Clear, No Accessory Muscle Use, No Respiratory Distress, Decreased Breath Sounds Cardiovascular: Regular Rate, Rhythm, No Gallop, No JVD, No Murmur, Normal Per ipheral Pulses Gastrointestinal: Normal Bowel Sounds, No Organomegaly, No Pulsatile Mass, Non Tender, Soft Back: Normal Inspection, No CVA Tenderness, No Vertebral Tenderness Extremity: Normal Capillary Refill, Normal Inspection (except b/l AKA's), Normal Range of Motion (of thighs only), Non Tender Neurologic/Psychiatric: Alert, Oriented x3, No Motor/Sensory Deficits, Normal 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 FIM Transfers Therapy Code Descriptions/Definitions Functional [place] Measure: 0=Not Assessed/NA 4=Minimal Assistance 1=Total Assistance 5=Supervision or Setup 2=Maximal Assistance 6=Modified [place] 3=Moderate Assistance 7=Complete IndependenceSCALE: Activities may be completed with or without assistive devices. 4-Wkhdsqtchp-arjuxnq completes the activity by him/herself with no assistance from a helper. 5-Set-up or Clean-up Assistance-helper sets up or cleans up; patient completes activity. [place] assists only prior to or following the activity. 4-Supervision or Touching Assistance-helper provides verbal cues and/or touching/steadying and/or contact guard assistance as patient completes acti vity. Assistance may be provided throughout the activity or intermittently. 3-Partial/Moderate Assistance-helper does LESS THAN HALF the effort. [place] lifts, holds or supports trunk or limbs, but provides less than half the effort. 2-Substantial/Maximal Assistance-helper does MORE THAN HALF the effort. [place] lifts or holds trunk or limbs and provides more than half the effort. 2-Wkqupbzxq-jdvebi does ALL the effort. Patient does none of the effort to complete the activity. Or, the assistance of 2 or more helpers is required for the patient to complete the activity. If activity was not attempted, code reason: 7-Patient Refused. 9-Not Applicable-not attempted and the patient did not perform the activity before the current illness, exacerbation or injury. 10-Not Attempted due to Environmental Limitations-(lack of equipment, weather restraints, etc.). 88-Not Attempted due to Medical Conditions or Safety Concerns. Roll Left to Right (QC): 6 Sit to Lying (QC): 6 Sit to Stand (QC): 88 Chair/Sdr-zj-Mwnof Xfer(QC): 3 Car Transfer (QC): 3 Gait Training Does the Patient Walk?: No and Walking Goal NOT indicated Walk 10 feet (QC): 9 Walk 50 ft with 2 Turns(QC): 9 Walk 150 ft (QC): 9 Walking 10ft/uneven surface-QC: 9 Wheelchair Training Does the Pt Use a Wheelchair?: Yes Distance: >400' Wheel 50 ft with 2 turns (QC): 6 Wheel 150 ft (QC): 6 Type of Wheelchair: Manual Stair Training 1 Step (curb) (QC): 9 4 Steps (QC): 9 12 Steps (QC): 9 Balance Picking up an Object (QC): 88 ADL-Treatment Eating (QC): 5 Oral Hygiene (QC): 7 Shower/Bathe Self (QC): 3 (Upper body bathing completed with set up while seated in w/c. Pt complete lower body bathing with min assist while supine in bed.) Upper Body Dressing (QC): 5 (Pt donned pullover shirt with set up while seated in w/c.) Lower Body Dressing (QC): 3 (Pt doffed Depends while supine in bed. Pt donned Depends and shorts while in bed. Rolled side to side to complete pant hike. 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
[2020-04-24] MEDS: HYDROcodone/APAP 10 MG/325 MG (LORTAB) TAB PO PRN ×2 (06:32→16:46)
[2020-04-24] MEDS: KCL 10 MEQ TAB (MICRO K) PO SCH (06:32)
--- NOTE | 2020-04-24 09:00 | Occupational Ther Daily Note ---
OT Current Status-Daily Note Subjective Pt laying in bed, agreeable to OT tx. ADL-Treatment Therapy Code Descriptions/Definitions Functional [place] Measure: 0=Not Assessed/NA 4=Minimal Assistance 1=Total Assistance 5=Supervision or Setup 2=Maximal Assistance 6=Modified [place] 3=Moderate Assistance 7=Complete IndependenceSCALE: Activities may be completed with or without assistive devices. 0-Velbmqzjbq-upsverj completes the activity by him/herself with no assistance from a helper. 5-Set-up or Clean-up Assistance-helper sets up or cleans up; patient completes activity. [place] assists only prior to or following the activity. 4-Supervision or Touching Assistance-helper provides verbal cues and/or touching/steadying and/or contact guard assistance as patient completes activity. Assistance may be provided throughout the activity or intermittently. 3-Partial/Moderate Assistance-helper does LESS THAN HALF the effort. [place] lifts, holds or supports trunk or limbs, but provides less than half the effort. 2-Substantial/Maximal Assistance-helper does MORE THAN HALF the effort. [place] lifts or holds trunk or limbs and provides more than half the effort. 4-[place]-zdtivi does ALL the effort. Patient does none of the effort to com plete the activity. Or, the assistance of 2 or more helpers is required for the patient to complete the activity. If activity was not attempted, code reason: 7-Patient Refused. 9-Not Applicable-not attempted and the patient did not perform the activity before the current illness, exacerbation or injury. 10-Not Attempted due to Environmental Limitations-(lack of equipment, weather restraints, etc.). 88-Not Attempted due to Medical Conditions or Safety Concerns. Eating (QC): 6 (Pt able to eat fruit off of breakfast tray without difficulty) Oral Hygiene (QC): 5 (set up at bed level) Shower/Bathe Self (QC): 4 (SBA sponge bath at bed level, pt able to wash all parts by rolling side to side.) Upper Body Dressing (QC): 5 (pt able to don/doff pullover shirt at bed level with HOB elevated) Lower Body Dressing (QC): 3 (pt able to doff pants/underwear without difficulty. Min A donning brief due to brief rolling in the back, OT assisted pt with untangling the back of the brief, pt then able to finish donning brief and pants.) On/Off Footwear: 9 Toileting Hygiene (QC): 5 (pt able to use urinal without difficulty, OT then emptied urinal for pt.) Other Treatment Pt laying in bed, agreeable to OT tx with focus on ADLs. Pt completed sponge bath and dressing at bed level. Pt then washed his hair with set up of a shower cap, then he dried hair with a towel. Pt brushed his teeth, stating one of his teeth hurt and he needs to get it pulled, he was able to brush the rest of his t eeth to his tolerance. OT cleaned up from ADL session, pt then used his urinal and OT emptied urinal. Post OT Session, pt laying in bed, call light in reach and all needs met. 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 2=Patient will verbalize/demonstrate understanding of assistive devices/modifications for ADL. 3=Patient will improve strength/tolerance for activity to enable patient to perform ADL's. OT Education/Plan Problem List/Assessment Assessment: Decreased Activ Tolerance, Decreased UE Strength, Impaired Funct Balance, Impaired I ADL's, Impaired Self-Care Skills Discharge Recommendations Plan/Recommendations: Continue POC Treatment Plan/Plan of Care Patient would benefit from OT for education, treatment and training to promote independence in ADL's, mobility, safety and/or upper extremity function for ADL's. Plan of Care: ADL Retraining, Functional Mobility, Group Exercise/Act as Ind, UE Funct Exercise/Act Treatment Duration: May 13, 2020 Frequency: At least 5 of 7 days/Wk (IRF) Estimated Hrs Per Day: 1.5 hours per day Rehab Potential: Fair Time/GCodes Start Time: 08:00 Stop Time: 09:00 Total Time Billed (hr/min): 60 Billed Treatment Time 1, ADL 4 MIHAI NUNEZ OT Apr 24, 2020 09:00
[2020-04-24] MEDS: polyethylene glycoL POWDER 17 GM (MIRALAX) PACK PO SCH ×2 (09:07→21:29)
[2020-04-24] MEDS: GABAPENTIN 100 MG (NEURONTIN) CAP PO SCH ×3 (09:07→21:16)
[2020-04-24] MEDS: SENNA W/DOCUSATE (SENOKOT S) TABLET PO SCH ×2 (09:07→21:29)
--- NOTE | 2020-04-24 10:02 | Physical Therapy Daily Note ---
PT Daily Note-Current Subjective Pt. initially c/o pain in left incisional AKA incision at 10/10. Nursing present and gives pain meds, pt. states at end of Rx pain is at 7/10. Pt. states he feels he is making progress with regards to TRFs and trunk control. Pain Numeric Pain Scale: 7 Location: Left Location Body Site: Thigh Pain Description: Sharp Mental Status Patient Orientation: Person, Place, Time, Situation, [place] Transfers SCALE: Activities may be completed with or without assistive devices. 5-Wjryxhsovp-ewlokhh completes the activity by him/herself with no assistance from a helper. 5-Set-up or Clean-up Assistance-helper sets up or cleans up; patient completes activity. [place] assists only prior to or following the activity. 4-Supervision or Touching Assistance-helper provides verbal cues and/or touching/steadying and/or contact guard assistance as patient completes activity. Assistance may be provided throughout the activity or intermittently. 3-Partial/Moderate Assistance-helper does LESS THAN HALF the effort. [place] lifts, holds or supports trunk or limbs, but provides less than half the effort. 2-Substantial/Maximal Assistance-helper does MORE THAN HALF the effort. [place] lifts or holds trunk or limbs and provides more than half the effort. 9-Lfejuqnve-cinqpo does ALL the effort. Patient does none of the effort to complete the activity. Or, the assistance of 2 or more helpers is required for the patient to complete the activity. If activity was not attempted, code reason: 7-Patient Refused. 9-Not Applicable-not attempted and the patient did not perform the activity before the current illness, exacerbation or injury. 10-Not Attempted due to Environmental Limitations-(lack of equipment, weather restraints, etc.). 88-Not Attempted due to Medical Conditions or Safety Concerns. Roll Left & Right (QC): 6 Sit to Lying (QC): 6 Lying to Sitting/Side of Bed(Q: 5 Sit to Stand (QC): 88 Chair/Zti-rf-Bchjv Xfer(QC): 3 pt. pushes self up in bed using UEs only with bed flat. rolls indep. sup to sit SBA to Mod I, TRF method used to go from bed to w/c as follows. front seat edge of w/c was brought flush to side of bed. Pt. backs into w/c with min to Mod assist for trunk control using UEs to lift self then reaching backward for arms of w/c. Weight Bearing Right Lower Extremity: Right Non Weight Bearing Left Lower Extremity: Left Non Weight Bearing Wheelchair Training Does the Pt Use a Wheelchair?: Yes Wheel 50 ft with 2 turns (QC): 6 Wheel 150 ft (QC): 6 Type of Wheelchair: Manual fig 8s, will trial ramp in PM Exercises Supine Ex: Rolling, Glut sets, Straight leg raise, Hip abd/add Supine Reps: 15 Assessment Current Status: Good Progress this CONSUMER SALES REPRESENTATIVE feels pt. would not be indep to TRF via slide brd. Hoping to patent TRF without slide brd as pts ataxic movement patterns cause such poor balance adding managing sld brd complicates TRF PT Short Term Goals Short Term Goals Time Frame: May 07, 2020 Roll Left & Right: 6 Sit to lyin Lying to sitting on side of be: 5 Sit to stand: 9 Chair/fdk-ne-xnbjv transfer: 4 Toilet transfer: 4 PT Accuracy Expert Goals Accuracy Expert Goals PT Accuracy Expert Goals Time Frame: May 24, 2020 Roll Left & Right (QC): 6 Sit to Lying (QC): 6 Lying-Sitting on Side/Bed(QC): 6 Sit to Stand (QC): 9 Chair/Get-ti-Xtmsb Xfer(QC): 6 Toilet Transfer (QC): 6 Car Transfer (QC): 6 Does the Patient Walk: No and Walking Goal NOT indicated Walk 10 feet (QC): 9 Walk 50ft with 2 Turns (QC): 9 Walk 150 ft (QC): 9 Walking 10ft on Uneven Surface: 9 1 Step (curb) (QC): 9 4 Steps (QC): 9 12 Steps (QC): 9 Picking up an Object (QC): 4 Does the Pt use WC or Scooter?: Yes Wheel 50 feet with 2 turns (QC: 6 Type: Manual Wheel 150 feet: 6 Type: Manual PT Plan Treatment/Plan Treatment Plan: Continue Plan of Care Treatment Plan: Bed Mobility, Concurrent Therapy, Education, Functional Activity Jose Luis, Functional Strength, Group Therapy, Safety, Therapeutic Exercise, Transfers Treatment Duration: May 24, 2020 Frequency: At least 5 of 7 days/Wk (IRF) Estimated Hrs Per Day: 1.5 hours per day Patient and/or Family Agrees t: Yes Safety Risks/Education Patient Education: Transfer Techniques, Correct Positioning, W/C Management, Disease Process, Safety Issues Teaching Recipient: Patient Teaching Methods: Demonstration, Discussion Response to Teaching: Verbalize Understanding, Return Demonstration, Reinfo rcement Needed Time/GCodes Time In: 900 Time Out: 1000 Total Billed Treatment Time: 60 Total Billed Treatment 1,FA40,EX20 ANAMARIA STANLEY CONSUMER SALES REPRESENTATIVE Apr 24, 2020 10:02
--- NOTE | 2020-04-24 11:15 | NUR ---
This RN & PCT, Margaret noticed this pt down on 1st floor in w/c, wheeling self in hallway, as we were returning from discharging another pt to car. This pt asked if we would open the door to the mens restroom for him so he could go to the B/R. This racebook writer did not know, or have any knowledge of how pt transfers, other than he is a double amputee. This racebook writer asked pt to return to 2nd floor, Rehab unit, & we would transfer him to the toilet in his room. Pt became agitated, propelling himself down the cunningham away from us. Pt propelled himself in to [facility], stating that he had an appt w them. We followed pt there, & asked the nurses if pt had an appt ? They stated no, that pt does not have an appt there. Margaret notified KETTY Huffman, Steel Detailer, that pt is agitated, was refusing to return to his room. Pt eventually propelled himself out of wound clinic, & down cunningham, still agitated, did get on the elevator w Margaret & Christopher. Pt talking to Soraida Bilingual Call Center Representative when got off elevator. Then, later propelled himself down the old [facility] cunningham, PTGinger, following pt. Pt finally did become slightly less agitated & returned to room.
--- NOTE | 2020-04-24 13:31 | Physical Therapy Daily Note ---
PT Daily Note-Current Subjective Pt. up in w/c finishing lunch agrees to Rx but states he is in pain in incisional area L residual limb 10/10 off and on depending on position. Pt agrees to Rx and then wants to go back to bed Pain Numeric Pain Scale: 10-Worst Possible Pain Location: Left Location Body Site: Thigh Pain Description: Stabbing Appearance pt. holds left residual limb up in air with both hands Mental Status Patient Orientation: [place]umbles, Normal For Age Transfers SCALE: Activities may be completed with or without assistive devices. 8-Tmawypdmhy-fdhmvfk completes the activity by him/herself with no assistance from a helper. 5-Set-up or Clean-up Assistance-helper sets up or cleans up; patient completes activity. [place] assists only prior to or following the activity. 4-Supervision or Touching Assistance-helper provides verbal cues and/or touching/steadying and/or contact guard assistance as patient completes activity. Assistance may be provided throughout the activity or intermittently. 3-Partial/Moderate Assistance-helper does LESS THAN HALF the effort. [place] lifts, holds or supports trunk or limbs, but provides less than half the effort. 2-Substantial/Maximal Assistance-helper does MORE THAN HALF the effort. [place] lifts or holds trunk or limbs and provides more than half the effort. 1-Gcygkpsmi-yeobwx does ALL the effort. Patient does none of the effort to complete the activity. Or, the assistance of 2 or more helpers is required for the patient to complete the activity. If activity was not attempted, code reason: 7-Patient Refused. 9-Not Applicable-not attempted and the patient did not perform the activity before the current illness, exacerbation or injury. 10-Not Attempted due to Environmental Limitations-(lack of equipment, weather restraints, etc.). 88-Not Attempted due to Medical Conditions or Safety Concerns. TRF w/c to bed utilizing slide brd secondary to patients pain level and using assist of 2 with gait belt. Pts w/c parallel vat bed with arm removed, pt. used UEs to get to bed but fell to his side on bed with pain then slowly turned himself around, assist of 2 with pad to pull him up to head of bed Weight Bearing Right Lower Extremity: Right Non Weight Bearing Left Lower Extremity: Left Non Weight Bearing Wheelchair Training Does the Pt Use a Wheelchair?: Yes Type of Wheelchair: Manual pt. to 1st floor for ramp work in w/c pt. indep and safely demonstrated up down ramp forward facing approx 60 ft each direction , pt. was then in 10/10 pain and was pushed back to his room Balance Special Test Comments pts. trunk control in sitting continues poor and thus TRFs are at risk Assessment Current Status: Good Progress pain and ataxia limit pts progress PT Short Term Goals Short Term Goals Time Frame: May 07, 2020 Roll Left & Right: 6 Sit to lyin Lying to sitting on side of be: 5 Sit to stand: 9 Chair/oaf-fm-tbgna transfer: 4 Toilet transfer: 4 PT Continuous Yarn Dyeing Machine Operator Goals Residential Goals PT Residential Goals Time Frame: May 24, 2020 Roll Left & Right (QC): 6 Sit to Lying (QC): 6 Lying-Sitting on Side/Bed(QC): 6 Sit to Stand (QC): 9 Chair/Xzw-kl-Qpeoy Xfer(QC): 6 Toilet Transfer (QC): 6 Car Transfer (QC): 6 Does the Patient Walk: No and Walking Goal NOT indicated Walk 10 feet (QC): 9 Walk 50ft with 2 Turns (QC): 9 Walk 150 ft (QC): 9 Walking 10ft on Uneven Surface: 9 1 Step (curb) (QC): 9 4 Steps (QC): 9 12 Steps (QC): 9 Picking up an Object (QC): 4 Does the Pt use WC or Scooter?: Yes Wheel 50 feet with 2 turns (QC: 6 Type: Manual Wheel 150 feet: 6 Type: Manual PT Plan Treatment/Plan Treatment Plan: Continue Plan of Care Treatment Plan: Bed Mobility, Concurrent Therapy, Education, Functional Activity Jose Luis, Functional Strength, Group Therapy, Safety, Therapeutic Exercise, Transfers Treatment Duration: May 24, 2020 Frequency: At least 5 of 7 days/Wk (IRF) Estimated Hrs Per Day: 1.5 hours per day Patient and/or Family Agrees t: Yes Safety Risks/Education Patient Education: Transfer Techniques, Correct Positioning, W/C Management, Safety Issues Teaching Methods: Discussion Response to Teaching: Verbalize Understanding, Return Demonstration Time/GCodes Time In: 1235 Time Out: 1305 Total Billed Treatment Time: 30 Total Billed Treatment 1,FA10m,WHC20m ANAMARIA STANLEY PRODUCTION ROUSTABOUT Apr 24, 2020 13:31
--- NOTE | 2020-04-24 13:46 | Occupational Ther Daily Note ---
OT Current Status-Daily Note Subjective Pt laying in bed post PT tx, stating 10/10 pain in leg. He agreed to OT tx with focus on UE exercise in order to increase BUE strength and functional endurance. ADL-Treatment Therapy Code Descriptions/Definitions Functional [place] Measure: 0=Not Assessed/NA 4=Minimal Assistance 1=Total Assistance 5=Supervision or Setup 2=Maximal Assistance 6=Modified [place] 3=Moderate Assistance 7=Complete IndependenceSCALE: Activities may be completed with or without assistive devices. 1-Hclrcytcnl-zodqhgr completes the activity by him/herself with no assistance from a helper. 5-Set-up or Clean-up Assistance-helper sets up or cleans up; patient completes activity. [place] assists only prior to or following the activity. 4-Supervision or Touching Assistance-helper provides verbal cues and/or touching/steadying and/or contact guard assistance as patient completes activity. Assistance may be provided throughout the activity or intermittently. 3-Partial/Moderate Assistance-helper does LESS THAN HALF the effort. [place] lifts, holds or supports trunk or limbs, but provides less than half the effort. 2-Substantial/Maximal Assistance-helper does MORE THAN HALF the effort. [place] lifts or holds trunk or limbs and provides more than half the effort. 3-Buvzzczry-nqwlqu does ALL the effort. Patient does none of the effort to complete the activity. Or, the assistance of 2 or more helpers is required for the patient to complete the activity. If activity was not attempted, code reason: 7-Patient Refused. 9-Not Applicable-not attempted and the patient did not perform the activity be fore the current illness, exacerbation or injury. 10-Not Attempted due to Environmental Limitations-(lack of equipment, weather restraints, etc.). 88-Not Attempted due to Medical Conditions or Safety Concerns. Eating (QC): 6 Toileting Hygiene (QC): 5 (OT emptied pt's urinal) Other Treatment Pt in bed with HOB elevated, stated he needs a short rest break after PT. OT emptied pt's urinal and pt took a drink of water. Pt then agreed to completing BUE exercise. Pt performed x10 reps each using red theraband of the following exercises: elbow flexion, elbow extension, shoulder abduction, horizontal abduction, & shoulder flexion. Pt took rest breaks as needed with exercises and reports being tired after. Pt requested lunch tray so he could eat some of his pudding and strawberries. OT set up pt's lunch tray on his table, pt able to eat without difficulty. Post OT tx, pt in bed finishing lunch, call light in reach and all needs met Education OT Patient Education: Correct positioning, Energy conservation, Exercise program, Modified ADL techniques, Progress toward Goal/Update tx plan, Purpose of tx/functional activities Teaching Recipient: Patient Teaching Methods: Discussion Response to Teaching: Verbalize Understanding OT Short Term Goals Short Term Goals Time Frame: Apr 29, 2020 Shower/bathe self: 4 Lower body dressin OT Skilled Nursing Goals Skilled Nursing Goals Time Frame: May 13, 2020 Eating (QC): 6 Oral Hygiene (QC): 6 Toileting Hygiene (QC): 5 Shower/Bathe Self (QC): 5 Upper Body Dressing (QC): 6 Lower Body Dressing (QC): 5 On/Off Footwear (QC): 9 Additional Goals: 1-Demonstrate ADL Tasks, 2-Verbalize Understanding, 3- ImproveStrength/Jose Luis 1=Demonstrate adherence to instructed precautions during ADL tasks. 2=Patient will verbalize/demonstrate understanding of assistive devices/modifications for ADL. 3=Patient will improve strength/tolerance for activity to enable patient to perform ADL's. OT Education/Plan Problem List/Assessment Assessment: Decreased Activ Tolerance, Decreased UE Strength, Impaired I ADL's, Impaired Self-Care Skills Discharge Recommendations Plan/Recommendations: Continue POC Treatment Plan/Plan of Care Patient would benefit from OT for education, treatment and training to promote independence in ADL's, mobility, safety and/or upper extremity function for ADL's. Plan of Care: ADL Retraining, Functional Mobility, Group Exercise/Act as Ind, UE Funct Exercise/Act Treatment Duration: May 13, 2020 Frequency: At least 5 of 7 days/Wk (IRF) Estimated Hrs Per Day: 1.5 hours per day Rehab Potential: Fair Time/GCodes Start Time: 13:05 Stop Time: 13:35 Total Time Billed (hr/min): 30 Billed Treatment Time 1, EX 2 MIHAI NUNEZ OT Apr 24, 2020 13:46
[2020-04-24 16:00] VITALS: BP 109/71
[2020-04-24] MEDS: ENOXAPARIN 30 MG/0.3 ML (LOVENOX) SYR SC SCH (21:16)
[2020-04-25] MEDS: HYDROcodone/APAP 10 MG/325 MG (LORTAB) TAB PO PRN (05:13)
[2020-04-25 05:50] VITALS: BP 123/67
--- NOTE | 2020-04-25 06:15 | PM&R Progress Note ---
Subjective HPI/CC On Admission Date Seen by Provider: Apr 25, 2020 Time Seen by Provider: 10:15 Subjective/Events-last exam Pt doing pretty well Working on transfers so he can go home and he tried to leave AMA yesterday but he was reassured and he stayed Denies any significant pain except for phantom pain which is not well controlled so will start long acting Oxycontin to 10mg PO BID along with his Oxycodone and Hydrocodone and increase Gabapentin to 300mg PO TID he takes that dose at home No falls Wound care as ordered by Dr Cortes Patient agreed to secure pain control regimen this weekend and entertain NC Tuesday Checked meds and labs Reviewed therapy notes Conferred with manager analysis of Systems General: Fatigue Musculoskeletal: leg pain Neurological: Weakness, Incoordination Objective Exam Vital Signs Vital Signs Date Time Temp Pulse Resp B/P (MAP) Pulse Ox O2 Delivery O2 Flow Rate FiO2 04/25/20 05:50 37.1 68 20 123/67 (85) 95 Room Air Capillary Refill : Less Than 3 Seconds General Appearance: No Apparent Distress, WD/WN, Chronically ill, Thin HEENT: PERRL/EOMI, Normal ENT Inspection, Pharynx Normal Neck: Full Range of Motion, Normal Inspection, Non Tender, Supple, Carotid Bruit Respiratory: Chest Non Tender, Lungs Clear, No Accessory Muscle Use, No Respiratory Distress, Decreased Breath Sounds Cardiovascular: Regular Rate, Rhythm, No Gallop, No JVD, No Murmur, Normal Peripheral Pulses Gastrointestinal: Normal Bowel Sounds, No Organomegaly, No Pulsatile Mass, Non Tender, Soft Back: Normal Inspection, No CVA Tenderness, No Vertebral Tenderness Extremity: Normal Capillary Refill, Normal Inspection (except b/l AKA's), Normal Range of Motion (of thighs only), Non Tender Neurologic/Psychiatric: Alert, Oriented x3, No Motor/Sensory Deficits, Normal Mood/Affect, log skidder II-XII Norm as Tested Skin: Normal Color, Warm/Dry Lymphatic: No Adenopathy Results/Procedures Lab Patient resulted labs reviewed. FIM Transfers Therapy Code Descriptions/Definitions Functional [place] Measure: 0=Not Assessed/NA 4=Minimal Assistance 1=Total Assistance 5=Supervision or Setup 2=Maximal Assistance 6=Modified [place] 3=Moderate Assistance 7=Complete IndependenceSCALE: Activities may be completed with or without assistive devices. 7-Ynypzciahe-dtiboro completes the activity by him/herself with no assistance from a helper. 5-Set-up or Clean-up Assistance-helper sets up or cleans up; patient completes activity. [place] assists only prior to or following the activity. 4-Supervision or Touching Assistance-helper provides verbal cues and/or touching/steadying and/or contact guard assistance as patient completes activity. Assistance may be provided throughout the activity or intermittently. 3-Partial/Moderate Assistance-helper does LESS THAN HALF the effort. [place] lifts, holds or supports trunk or limbs, but provides less than half the effort. 2-Substantial/Maximal Assistance-helper does MORE THAN HALF the effort. [place] lifts or holds trunk or limbs and provides more than half the effort. 9-Dwfjpkpcj-asoizi does ALL the effort. Patient does none of the effort to complete the activity. Or, the assistance of 2 or more helpers is required for the patient to complete the activity. If activity was not attempted, code reason: 7-Patient Refused. 9-Not Applicable-not attempted and the patient did not perform the activity before the current illness, exacerbation or injury. 10-Not Attempted due to Environmental Limitations-(lack of equipment, weather restraints, etc.). 88-Not Attempted due to Medical Conditions or Safety Concerns. Roll Left to Right (QC): 6 Sit to Lying (QC): 6 Sit to Stand (QC): 88 Chair/Hno-am-[employer] Xfer(QC): 3 Car Transfer (QC): 3 Gait Training Does the Patient Walk?: No and Walking Goal NOT indicated Walk 10 feet (QC): 9 Walk 50 ft with 2 Turns(QC): 9 Walk 150 ft (QC): 9 Walking 10ft/uneven surface-QC: 9 Wheelchair Training Does the Pt Use a Wheelchair?: Yes Distance: >400' Wheel 50 ft with 2 turns (QC): 6 Wheel 150 ft (QC): 6 Type of Wheelchair: Manual Stair Training 1 Step (curb) (QC): 9 4 Steps (QC): 9 12 Steps (QC): 9 Balance Picking up an Object (QC): 88 ADL-Treatment Eating (QC): 6 Oral Hygiene (QC): 5 (set up at bed level) Shower/Bathe Self (QC): 4 (SBA sponge bath at bed level, pt able to wash all parts by rolling side to side.) Upper Body Dressing (QC): 5 (pt able to don/doff pullover shirt at bed level with HOB elevated) Lower Body Dressing (QC): 3 (pt able to doff pants/underwear without difficulty. 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
[2020-04-25] MEDS: KCL 10 MEQ TAB (MICRO K) PO SCH (06:30)
[2020-04-25] MEDS: GABAPENTIN 100 MG (NEURONTIN) CAP PO SCH (08:08)
[2020-04-25] MEDS: polyethylene glycoL POWDER 17 GM (MIRALAX) PACK PO SCH ×2 (08:09→19:43)
[2020-04-25] MEDS: SENNA W/DOCUSATE (SENOKOT S) TABLET PO SCH ×2 (08:09→19:43)
[2020-04-25] MEDS: GABAPENTIN 300 MG (NEURONTIN) CAP PO SCH ×3 (10:31→20:20)
--- NOTE | 2020-04-25 10:31 | NUR ---
GABAPENTIN NON-ADMINISTERED AT THIS TIME. 100 MG GIVEN AT 0808. WILL START 300 MG DOSING AT 1300.
[2020-04-25] MEDS: oxyCODONE ER 10 MG (OxyCONTIN CR) TAB PO SCH ×2 (10:59→20:20)
--- NOTE | 2020-04-25 11:01 | Physical Therapy Daily Note ---
PT Daily Note-Current Subjective Patient in bed pre tx, agrees to PT, has unrated pain in left leg. Will be co- treating with OT this morning to work on transfers and sitting balance activities due to poor patient strength, balance, endurance, the need to coordinate UE and LE during activity, reduce the risk of falling. Appearance Patient in WC at bedside post tx with nurse call, phone, tray, all needs met. Mental Status Patient Orientation: Person, Place, Situation Transfers SCALE: Activities may be completed with or without assistive devices. 8-Gfzztdqoiz-srftlie completes the activity by him/herself with no assistance from a helper. 5-Set-up or Clean-up Assistance-helper sets up or cleans up; patient completes activity. [place] assists only prior to or following the activity. 4-Supervision or Touching Assistance-helper provides verbal cues and/or touching/steadying and/or contact guard assistance as patient completes activity. Assistance may be provided throughout the activity or intermittently. 3-Partial/Moderate Assistance-helper does LESS THAN HALF the effort. [place] lifts, holds or supports trunk or limbs, but provides less than half the effort. 2-Substantial/Maximal Assistance-helper does MORE THAN HALF the effort. [place] lifts or holds trunk or limbs and provides more than half the effort. 5-Skikrenog-mbigyx does ALL the effort. Patient does none of the effort to complete the activity. Or, the assistance of 2 or more helpers is required for the patient to complete the activity. If activity was not attempted, code reason: 7-Patient Refused. 9-Not Applicable-not attempted and the patient did not perform the activity before the current illness, exacerbation or injury. 10-Not Attempted due to Environmental Limitations-(lack of equipment, weather restraints, etc.). 88-Not Attempted due to Medical Conditions or Safety Concerns. Roll Left & Right (QC): 6 Lying to Sitting/Side of Bed(Q: 3 Chair/Slc-yj-Psprl Xfer(QC): 3 No sliding board for transfer, pull WC sideways to therapy table or bed or directly up to the surface. Patient is shaky and uncoordinated. Patient transfers from bed to WC, WC to therapy table, therapy table to WC. Weight Bearing Right Lower Extremity: Right Non Weight Bearing Left Lower Extremity: Left Non Weight Bearing Wheelchair Training Does the Pt Use a Wheelchair?: Yes Wheel 50 ft with 2 turns (QC): 5 Wheel 150 ft (QC): 5 Type of Wheelchair: Manual 400'x2 Exercises seated sitting balance and limits of stability exercises with balloon and theraband, also seated trunk strengthening exercises in WC. PT performed bed mobility and transfers, balance and safety during balance training, OT performed seated balance training and assist with transfers. Assessment Current Status: Fair Progress poor seated balance but slowly improving PT Short Term Goals Short Term Goals Time Frame: May 07, 2020 Roll Left & Right: 6 Sit to lyin Lying to sitting on side of be: 5 Sit to stand: 9 Chair/yjw-wb-cjvpz transfer: 4 Toilet transfer: 4 PT Machine Bender Goals Nursing Home Goals PT Machine Bender Goals Time Frame: May 24, 2020 Roll Left & Right (QC): 6 Sit to Lying (QC): 6 Lying-Sitting on Side/Bed(QC): 6 Sit to Stand (QC): 9 Chair/Xua-bs-Spbbb Xfer(QC): 6 Toilet Transfer (QC): 6 Car Transfer (QC): 6 Does the Patient Walk: No and Walking Goal NOT indicated Walk 10 feet (QC): 9 Walk 50ft with 2 Turns (QC): 9 Walk 150 ft (QC): 9 Walking 10ft on Uneven Surface: 9 1 Step (curb) (QC): 9 4 Steps (QC): 9 12 Steps (QC): 9 Picking up an Object (QC): 4 Does the Pt use WC or Scooter?: Yes Wheel 50 feet with 2 turns (QC: 6 Type: Manual Wheel 150 feet: 6 Type: Manual PT Plan Problem List Problem List: Activity Tolerance, Functional Strength, Safety, Balance, Trans xiomara, Bed Mobility, ROM Treatment/Plan Treatment Plan: Continue Plan of Care Treatment Plan: Bed Mobility, Concurrent Therapy, Education, Functional Activity Jose Luis, Functional Strength, Group Therapy, Safety, Therapeutic Exercise, Transfers Treatment Duration: May 24, 2020 Frequency: At least 5 of 7 days/Wk (IRF) Estimated Hrs Per Day: 1.5 hours per day Patient and/or Family Agrees t: Yes Safety Risks/Education Patient Education: Transfer Techniques, Correct Positioning, W/C Management, Safety Issues Teaching Recipient: Patient Teaching Methods: Demonstration, Discussion Response to Teaching: Reinforcement Needed Time/GCodes Time In: 1000 Time Out: 1100 Total Billed Treatment Time: 60 Total Billed Treatment 1 visit [facility] 15' FA 15' NM 30' BHARAT MCCOLLUM PT Apr 25, 2020 11:01
--- NOTE | 2020-04-25 11:12 | Occupational Ther Daily Note ---
OT Current Status-Daily Note Subjective Pt alert, lying in bed. Pt agrees to therapy. Pt c/o R stump pain, physician and nrsg aware. Mental Status/Objective Patient Orientation: Person, Place, Time, Situation ADL-Treatment Pt declined sponge bath or oral care. Therapy Code Descriptions/Definitions Functional [place] Measure: 0=Not Assessed/NA 4=Minimal Assistance 1=Total Assistance 5=Supervision or Setup 2=Maximal Assistance 6=Modified [place] 3=Moderate Assistance 7=Complete IndependenceSCALE: Activities may be completed with or without assistive devices. 4-Lxglwugkja-emxllbw completes the activity by him/herself with no assistance from a helper. 5-Set-up or Clean-up Assistance-helper sets up or cleans up; patient completes activity. [place] assists only prior to or following the activity. 4-Supervision or Touching Assistance-helper provides verbal cues and/or touching/steadying and/or contact guard assistance as patient completes activity. Assistance may be provided throughout the activity or intermittently. 3-Partial/Moderate Assistance-helper does LESS THAN HALF the effort. [place] lifts, holds or supports trunk or limbs, but provides less than half the effort. 2-Substantial/Maximal Assistance-helper does MORE THAN HALF the effort. [place] lifts or holds trunk or limbs and provides more than half the effort. 9-Isfswafit-riqfqk does ALL the effort. Patient does none of the effort to complete the activity. Or, the assistance of 2 or more helpers is required for the patient to complete the activity. If activity was not attempted, code reason: 7-Patient Refused. 9-Not Applicable-not attempted and the patient did not perform the activity before the current illness, exacerbation or injury. 10-Not Attempted due to Environmental Limitations-(lack of equipment, weather restraints, etc.). 88-Not Attempted due to Medical Conditions or Safety Concerns. Other Treatment PT/OT co/treat ([id number]), skills of 2 clinicians are needed. PT working on transfers, strengthening and dynamic sitting. OT working on functional transfers with hand placement, strengthening and dynamic sitting. Pt has athetoid movements of upper body during transfers that compromise safety, assist x2 to ensure safety. See PT notes for transfer progress. Pt completed B UE exercises to increase strength, balance and activity tolerance for daily functional tasks. Balloon toss to challenge balance in sitting without support, PT monitoring balance during task. Medium resistance theraband exercises for B UE strengthening, 3 exercises 1 set 15 reps. [place] emelyn resistance for strengthening back. 2 sets arm chair pushups of 10 reps. Pt able to complete w/c mobility proficiently. After session, pt sitting in w/c with call light/phone in reach. All needs met in room. OT Short Term Goals Short Term Goals Time Frame: Apr 29, 2020 Shower/bathe self: 4 Lower body dressin OT Mcc Goals Mcc Goals Time Frame: May 13, 2020 Eating (QC): 6 Oral Hygiene (QC): 6 Toileting Hygiene (QC): 5 Shower/Bathe Self (QC): 5 Upper Body Dressing (QC): 6 Lower Body Dressing (QC): 5 On/Off Footwear (QC): 9 Additional Goals: 1-Demonstrate ADL Tasks, 2-Verbalize Understanding, 3- ImproveStrength/Jose Luis 1=Demonstrate adherence to instructed precautions during ADL tasks. 2=Patient will verbalize/demonstrate understanding of assistive devices/modifications for ADL. 3=Patient will improve strength/tolerance for activity to enable patient to perform ADL's. OT Education/Plan Problem List/Assessment Assessment: Decreased Activ Tolerance, Decreased UE Strength, Impaired Coordination, Impaired Funct Balance, Impaired Self-Care Skills Discharge Recommendations Plan/Recommendations: Continue POC Treatment Plan/Plan of Care Patient would benefit from OT for education, treatment and training to promote independence in ADL's, mobility, safety and/or upper extremity function for ADL's. Plan of Care: ADL Retraining, Functional Mobility, Group Exercise/Act as Ind, UE Funct Exercise/Act Treatment Duration: May 13, 2020 Frequency: At least 5 of 7 days/Wk (IRF) Estimated Hrs Per Day: 1.5 hours per day Rehab Potential: Fair Time/GCodes Start Time: 10:00 Stop Time: 11:00 Total Time Billed (hr/min): 60 Billed Treatment Time 1 visit-EX 4 (60 min) co-treat with PT 60 min ANA TELLEZ Apr 25, 2020 11:12
--- NOTE | 2020-04-25 14:00 | Physical Therapy Daily Note ---
PT Daily Note-Current Subjective Patient in WC pre tx, agrees to PT, no complaints of pain. Appearance Patient in bed post tx, has nurse call, phone, tray, all needs met, his bandage has come off, nurse notified and she goes to change it. Mental Status Patient Orientation: Person, Place, Situation Transfers SCALE: Activities may be completed with or without assistive devices. 6-Oxmlshyoax-iywdysv completes the activity by him/herself with no assistance from a helper. 5-Set-up or Clean-up Assistance-helper sets up or cleans up; patient completes activity. [place] assists only prior to or following the activity. 4-Supervision or Touching Assistance-helper provides verbal cues and/or touching/steadying and/or contact guard assistance as patient completes activi ty. Assistance may be provided throughout the activity or intermittently. 3-Partial/Moderate Assistance-helper does LESS THAN HALF the effort. [place] lifts, holds or supports trunk or limbs, but provides less than half the effort. 2-Substantial/Maximal Assistance-helper does MORE THAN HALF the effort. [place] lifts or holds trunk or limbs and provides more than half the effort. 4-Dckixywuj-itgqrl does ALL the effort. Patient does none of the effort to complete the activity. Or, the assistance of 2 or more helpers is required for the patient to complete the activity. If activity was not attempted, code reason: 7-Patient Refused. 9-Not Applicable-not attempted and the patient did not perform the activity before the current illness, exacerbation or injury. 10-Not Attempted due to Environmental Limitations-(lack of equipment, weather restraints, etc.). 88-Not Attempted due to Medical Conditions or Safety Concerns. Roll Left & Right (QC): 6 Sit to Lying (QC): 6 Chair/Rvy-hs-Ngjni Xfer(QC): 3 slide board transfer mod assist, poor balance Weight Bearing Right Lower Extremity: Right Non Weight Bearing Left Lower Extremity: Left Non Weight Bearing Wheelchair Training Does the Pt Use a Wheelchair?: Yes Wheel 50 ft with 2 turns (QC): 5 Wheel 150 ft (QC): 5 Type of Wheelchair: Manual 1500', propels outside and over sidewalk and up incline. Treatments WC mobility, bed mobility and transfers. Assessment Current Status: Fair Progress improving endurance PT Short Term Goals Short Term Goals Time Frame: May 07, 2020 Roll Left & Right: 6 Sit to lyin Lying to sitting on side of be: 5 Sit to stand: 9 Chair/ulv-vn-uowbc transfer: 4 Toilet transfer: 4 PT Chief Orthoptist Goals Chief Orthoptist Goals PT Skilled Nursing Goals Time Frame: May 24, 2020 Roll Left & Right (QC): 6 Sit to Lying (QC): 6 Lying-Sitting on Side/Bed(QC): 6 Sit to Stand (QC): 9 Chair/Inf-ff-Ynrcu Xfer(QC): 6 Toilet Transfer (QC): 6 Car Transfer (QC): 6 Does the Patient Walk: No and Walking Goal NOT indicated Walk 10 feet (QC): 9 Walk 50ft with 2 Turns (QC): 9 Walk 150 ft (QC): 9 Walking 10ft on Uneven Surface: 9 1 Step (curb) (QC): 9 4 Steps (QC): 9 12 Steps (QC): 9 Picking up an Object (QC): 4 Does the Pt use WC or Scooter?: Yes Wheel 50 feet with 2 turns (QC: 6 Type: Manual Wheel 150 feet: 6 Type: Manual PT Plan Problem List Problem List: Activity Tolerance, Functional Strength, Safety, Balance, Transfer, Bed Mobility, ROM Treatment/Plan Treatment Plan: Continue Plan of Care Treatment Plan: Bed Mobility, Concurrent Therapy, Education, Functional Activity Jose Luis, Functional Strength, Group Therapy, Safety, Therapeutic Exercise, Transfers Treatment Duration: May 24, 2020 Frequency: At least 5 of 7 days/Wk (IRF) Estimated Hrs Per Day: 1.5 hours per day Patient and/or Family Agrees t: Yes Safety Risks/Education Patient Education: Transfer Techniques, Correct Positioning, W/C Management, Safety Issues Teaching Recipient: Patient Teaching Methods: Demonstration, Discussion Response to Teaching: Reinforcement Needed Time/GCodes Time In: 1330 Time Out: 1400 Total Billed Treatment Time: 30 Total Billed Treatment 1 visit [facility] 20' FA 10' BHARAT MCCOLLUM PT Apr 25, 2020 14:00
--- NOTE | 2020-04-25 14:29 | Occupational Ther Daily Note ---
OT Current Status-Daily Note Subjective Pt alert, sitting up in bed. Pt c/o pain in L stump, nrsg aware. Pt agrees to therapy. Mental Status/Objective Patient Orientation: Person, Place, Time, Situation ADL-Treatment Therapy Code Descriptions/Definitions Functional [place] Measure: 0=Not Assessed/NA 4=Minimal Assistance 1=Total Assistance 5=Supervision or Setup 2=Maximal Assistance 6=Modified [place] 3=Moderate Assistance 7=Complete IndependenceSCALE: Activities may be completed with or without assistive devices. 0-Axaddcwoch-kpufrgu completes the activity by him/herself with no assistance from a helper. 5-Set-up or Clean-up Assistance-helper sets up or cleans up; patient completes activity. [place] assists only prior to or following the activity. 4-Supervision or Touching Assistance-helper provides verbal cues and/or touching/steadying and/or contact guard assistance as patient completes activity. Assistance may be provided throughout the activity or intermittently. 3-Partial/Moderate Assistance-helper does LESS THAN HALF the effort. [place] lifts, holds or supports trunk or limbs, but provides less than half the effort. 2-Substantial/Maximal Assistance-helper does MORE THAN HALF the effort. [place] lifts or holds trunk or limbs and provides more than half the effort. 3-Uvldjqitg-ckzjhg does ALL the effort. Patient does none of the effort to complete the activity. Or, the assistance of 2 or more helpers is required for the patient to complete the activity. If activity was not attempted, code reason: 7-Patient Refused. 9-Not Applicable-not attempted and the patient did not perform the activity before the current illness, exacerbation or injury. 10-Not Attempted due to Environmental Limitations-(lack of equipment, weather restraints, etc.). 88-Not Attempted due to Medical Conditions or Safety Concerns. Other Treatment Pt eating lunch, mod I. Attempted to discuss strategies for transferring onto toilet and into bathtub then strategies to cleanse self after toileting. Pt stated that he would figure it out when he got home. MAL[place]O reminded pt that this is what he was here for to learn how to transfer and complete ADLs safely after his L AKA. Pt adamant about being able to figure it out on his own at home. Attempted using sliding board to go from bed to w/c by placing perpendicular to w/c and pt slid backwards on it with close SBA. After session, pt left in care of PT. All needs met in room. OT Short Term Goals Short Term Goals Time Frame: Apr 29, 2020 Shower/bathe self: 4 Lower body dressin OT Prison Goals Automotive Quality Engineer Goals Time Frame: May 13, 2020 Eating (QC): 6 Oral Hygiene (QC): 6 Toileting Hygiene (QC): 5 Shower/Bathe Self (QC): 5 Upper Body Dressing (QC): 6 Lower Body Dressing (QC): 5 On/Off Footwear (QC): 9 Additional Goals: 1-Demonstrate ADL Tasks, 2-Verbalize Understanding, 3- ImproveStrength/Jose Luis 1=Demonstrate adherence to instructed precautions during ADL tasks. 2=Patient will verbalize/demonstrate understanding of assistive devices/modifications for ADL. 3=Patient will improve strength/tolerance for activity to enable patient to perform ADL's. OT Education/Plan Problem List/Assessment Assessment: Decreased Activ Tolerance, Decreased Safety Aware, Impaired Coordination, Impaired Funct Balance, Impaired Self-Care Skills Discharge Recommendations Plan/Recommendations: Continue POC Treatment Plan/Plan of Care Patient would benefit from OT for education, treatment and training to promote independence in ADL's, mobility, safety and/or upper extremity function for ADL's. Plan of Care: ADL Retraining, Functional Mobility, Group Exercise/Act as Ind, UE Funct Exercise/Act Treatment Duration: May 13, 2020 Frequency: At least 5 of 7 days/Wk (IRF) Estimated Hrs Per Day: 1.5 hours per day Rehab Potential: Fair Time/GCodes Start Time: 13:00 Stop Time: 13:30 Total Time Billed (hr/min): 30 Billed Treatment Time 1 visit-FA 2 (30 min) ANA TELLEZ Apr 25, 2020 14:29
--- NOTE | 2020-04-25 14:45 | NUR ---
CM/SS ADMISSION and PATIENT CARE CONFERENCE Patient admitted to ARU 04/22/20 from [facility] after left above knee amputation. 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 Patient resides at home with his brother MAURO in [facility] and he fully intends to return there. He has a long-standing [facility] rn case mgr, Savannah Nolan, who contributed some history of patient challenges. Patient continues to reside in an unsafe and unclean environment with bug infestations, including roaches. Per Savannah, there have been multiple adult protective reports made which conclude with patient stating he wishes to continue to live at his home in that manner. Additionally, there have been four AIR (Adverse Incident Reporting) reports made through the [employer] system describing "neglect of worker", his brother MAURO is his paid caregiver/worker. Per rn case mgr, when the stool is flushed sewage backs up in the shower. Patient apparently uses a "pee bucket" and indicates he has a process to empty that. 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 Savannah has remained very involved in trying to create the best of a worst case scenario and she will continue to partner with press writer regarding discharge. [facility] INSURANCE: [facility] Senior Sous Chef: Savannah Nolan: [phone] or [phone] Patient has Waiver services: 21.25 hours week of paid caregiving by his brother MAURO 62 Meals per month which is 2 meals daily Med Alert He would be eligible for assisted living funding, but has refused because he won't go anywhere unless he can drink and smoke. DME: Has hospital bed (needs new mattress?), med alert, wheelchair, ramp, prosthetic leg right but doesn't use, 3 in 1 commode. BARRIERS TO DISCHARGE PLAN: Home environment in relation to wound care of surgical site. Obvious concerns about anyone residing with severe turcios and other bug/critter infestations. Difficult for HHC/agencies to serve patient there. Patient indicates to press writer he can manage himself at home with his own methods, doesn't like the slide board. He said at home he has plastic on his bed and he can slide on that, he does not use sheets, just the plastic. Concerning for skin care. He eludes to toileting but doesn't clarify exactly how that is handled, especially in light of the back up dietary aide situation. CONTACTS: MAURO Aj, brother [phone] Patient understands the purpose and process of patient care conference. He has been asking about his discharge, concerning that this may be relative to his drinking/smoking desires. He did agree to a review next 04/30/20, per team recommendation, at least at this time.
[2020-04-25 17:02] VITALS: BP 121/66
[2020-04-25] MEDS: APIXABAN 5 MG (ELIQUIS) TABLET PO SCH (20:20)
[2020-04-26 05:05] VITALS: BP 110/71
[2020-04-26] MEDS: KCL 10 MEQ TAB (MICRO K) PO SCH (05:23)
--- NOTE | 2020-04-26 08:15 | Physical Therapy Daily Note ---
PT Daily Note-Current Subjective Patient in bed pre tx, agrees to PT, has 6/10 pain in left leg, would like to get into his WC Appearance Patient in WC post tx, would like to propel around on the unit for a while Mental Status Patient Orientation: Person, [place] Transfers SCALE: Activities may be completed with or without assistive devices. 1-Fkdxynrjnb-qfjbxbj completes the activity by him/herself with no assistance from a helper. 5-Set-up or Clean-up Assistance-helper sets up or cleans up; patient completes a ctivity. [place] assists only prior to or following the activity. 4-Supervision or Touching Assistance-helper provides verbal cues and/or touching/steadying and/or contact guard assistance as patient completes activity. Assistance may be provided throughout the activity or intermittently. 3-Partial/Moderate Assistance-helper does LESS THAN HALF the effort. [place] lifts, holds or supports trunk or limbs, but provides less than half the effort. 2-Substantial/Maximal Assistance-helper does MORE THAN HALF the effort. [place] lifts or holds trunk or limbs and provides more than half the effort. 9-Vpouarvgy-zkmhaq does ALL the effort. Patient does none of the effort to complete the activity. Or, the assistance of 2 or more helpers is required for the patient to complete the activity. If activity was not attempted, code reason: 7-Patient Refused. 9-Not Applicable-not attempted and the patient did not perform the activity before the current illness, exacerbation or injury. 10-Not Attempted due to Environmental Limitations-(lack of equipment, weather restraints, etc.). 88-Not Attempted due to Medical Conditions or Safety Concerns. Roll Left & Right (QC): 6 Lying to Sitting/Side of Bed(Q: 6 Chair/Hve-hr-Ctnct Xfer(QC): 3 sliding board transfer, patient has a lot of difficulty with transfers and needs extra time and cues for positioning Weight Bearing Right Lower Extremity: Right Non Weight Bearing Left Lower Extremity: Left Non Weight Bearing Exercises Supine Ex: Glut sets, Straight leg raise, Hip abd/add Supine Reps: 20 Treatments AROM, bed mobility and transfers Assessment Current Status: Poor Progress patient continues to need a lot of assist with transfers PT Short Term Goals Short Term Goals Time Frame: May 07, 2020 Roll Left & Right: 6 Sit to lyin Lying to sitting on side of be: 5 Sit to stand: 9 Chair/kbk-fe-puafi transfer: 4 Toilet transfer: 4 PT Penitentiary Goals Penitentiary Goals PT Concrete Pump Operator Helper Goals Time Frame: May 24, 2020 Roll Left & Right (QC): 6 Sit to Lying (QC): 6 Lying-Sitting on Side/Bed(QC): 6 Sit to Stand (QC): 9 Chair/Jwy-vd-Nswja Xfer(QC): 6 Toilet Transfer (QC): 6 Car Transfer (QC): 6 Does the Patient Walk: No and Walking Goal NOT indicated Walk 10 feet (QC): 9 Walk 50ft with 2 Turns (QC): 9 Walk 150 ft (QC): 9 Walking 10ft on Uneven Surface: 9 1 Step (curb) (QC): 9 4 Steps (QC): 9 12 Steps (QC): 9 Picking up an Object (QC): 4 Does the Pt use WC or Scooter?: Yes Wheel 50 feet with 2 turns (QC: 6 Type: Manual Wheel 150 feet: 6 Type: Manual PT Plan Problem List Problem List: Activity Tolerance, Functional Strength, Safety, Balance, Transfer, Bed Mobility, ROM Treatment/Plan Treatment Plan: Continue Plan of Care Treatment Plan: Bed Mobility, Concurrent Therapy, Education, Functional Activity Jose Luis, Functional Strength, Group Therapy, Safety, Therapeutic Exercise, Transfers Treatment Duration: May 24, 2020 Frequency: At least 5 of 7 days/Wk (IRF) Estimated Hrs Per Day: 1.5 hours per day Patient and/or Family Agrees t: Yes Safety Risks/Education Patient Education: Transfer Techniques, Correct Positioning, Safety Issues Teaching Recipient: Patient Teaching Methods: Demonstration, Discussion Response to Teaching: Reinforcement Needed Time/GCodes Time In: 0800 Time Out: 08 Total Billed Treatment Time: 15 Total Billed Treatment 1 visit FA BHARAT OLMOS PT Apr 26, 2020 08:15
[2020-04-26] MEDS: APIXABAN 5 MG (ELIQUIS) TABLET PO SCH ×2 (08:23→20:25)
[2020-04-26] MEDS: polyethylene glycoL POWDER 17 GM (MIRALAX) PACK PO SCH ×2 (08:23→20:24)
[2020-04-26] MEDS: SENNA W/DOCUSATE (SENOKOT S) TABLET PO SCH ×2 (08:23→20:25)
[2020-04-26] MEDS: oxyCODONE ER 10 MG (OxyCONTIN CR) TAB PO SCH ×2 (08:23→20:25)
[2020-04-26] MEDS: GABAPENTIN 300 MG (NEURONTIN) CAP PO SCH ×3 (08:23→20:25)
--- NOTE | 2020-04-26 08:27 | PM&R Progress Note ---
Subjective HPI/CC On Admission Date Seen by Provider: Apr 26, 2020 Time Seen by Provider: 10:00 Subjective/Events-last exam Pt doing pretty well Working on transfers Denies any significant pain except for phantom pain which is not well controlled so started long acting Oxycontin to 10mg PO BID along with his Oxycodone and Hydrocodone and increased Gabapentin to 300mg PO TID he takes that dose at home No falls Wound care as ordered by Dr Cortes Patient agreed to secure pain control regimen this and entertain [place] Tuesday Checked meds and labs Reviewed therapy notes Conferred with clinical nurse reviewer of Systems General: Fatigue Musculoskeletal: leg pain Objective Exam Vital Signs Vital Signs Date Time Temp Pulse Resp B/P (MAP) Pulse Ox O2 Delivery O2 Flow Rate FiO2 04/26/20 18:11 36.7 85 18 114/71 (85) 96 Room Air Capillary Refill : Less Than 3 Seconds General Appearance: No Apparent Distress, WD/WN, Chronically ill, Thin HEENT: PERRL/EOMI, Normal ENT Inspection, Pharynx Normal Neck: Full Range of Motion, Normal Inspection, Non Tender, Supple, Carotid Bruit Respiratory: Chest Non Tender, Lungs Clear, No Accessory Muscle Use, No Respiratory Distress, Decreased Breath Sounds Cardiovascular: Regular Rate, Rhythm, No Gallop, No JVD, No Murmur, Normal Peripheral Pulses Gastrointestinal: Normal Bowel Sounds, No Organomegaly, No Pulsatile Mass, Non Tender, Soft Back: Normal Inspection, No CVA Tenderness, No Vertebral Tenderness Extremity: Normal Capillary Refill, Normal Inspection (except b/l AKA's), Normal Range of Motion (of thighs only), Non Tender Neurologic/Psychiatric: Alert, Oriented x3, No Motor/Sensory Deficits, Normal Mood/Affect, risk management director II-XII Norm as Tested Skin: Normal Color, Warm/Dry Lymphatic: No Adenopathy Results/Procedures Lab Patient resulted labs reviewed. FIM Transfers Therapy Code Descriptions/Definitions Functional [place] Measure: 0=Not Assessed/NA 4=Minimal Assistance 1=Total Assistance 5=Supervision or Setup 2=Maximal Assistance 6=Modified [place] 3=Moderate Assistance 7=Complete IndependenceSCALE: Activities may be completed with or without assistive devices. 7-Qhdbpwvpej-kqyyvbe completes the activity by him/herself with no assistance from a helper. 5-Set-up or Clean-up Assistance-helper sets up or cleans up; patient completes activity. [place] assists only prior to or following the activity. 4-Supervision or Touching Assistance-helper provides verbal cues and/or touching/steadying and/or contact guard assistance as patient completes activity. Assistance may be provided throughout the activity or intermittently. 3-Partial/Moderate Assistance-helper does LESS THAN HALF the effort. [place] lifts, holds or supports trunk or limbs, but provides less than half the effort. 2-Substantial/Maximal Assistance-helper does MORE THAN HALF the effort. [place] lifts or holds trunk or limbs and provides more than half the effort. 4-Cnsnlhwms-zoxjfr does ALL the effort. Patient does none of the effort to complete the activity. Or, the assistance of 2 or more helpers is required for the patient to complete the activity. If activity was not attempted, code reason: 7-Patient Refused. 9-Not Applicable-not attempted and the patient did not perform the activity before the current illness, exacerbation or injury. 10-Not Attempted due to Environmental Limitations-(lack of equipment, weather restraints, etc.). 88-Not Attempted due to Medical Conditions or Safety Concerns. Roll Left to Right (QC): 6 Sit to Lying (QC): 6 Sit to Stand (QC): 88 Chair/Zkg-ak-Jfvet Xfer(QC): 3 Car Transfer (QC): 3 Gait Training Does the Patient Walk?: No and Walking Goal NOT indicated Walk 10 feet (QC): 9 Walk 50 ft with 2 Turns(QC): 9 Walk 150 ft (QC): 9 Walking 10ft/uneven surface-QC: 9 Wheelchair Training Does the Pt Use a Wheelchair?: Yes Distance: >400' Wheel 50 ft with 2 turns (QC): 5 Wheel 150 ft (QC): 5 Type of Wheelchair: Manual Stair Training 1 Step (curb) (QC): 9 4 Steps (QC): 9 12 Steps (QC): 9 Balance Picking up an Object (QC): 88 ADL-Treatment Eating (QC): 6 Oral Hygiene (QC): 5 (set up at bed level) Shower/Bathe Self (QC): 4 (SBA sponge bath at bed level, pt able to wash all parts by rolling side to side.) Upper Body Dressing (QC): 5 (pt able to don/doff pullover shirt at bed level with HOB elevated) Lower Body Dressing (QC): 3 (pt able to doff pants/underwear without difficulty. 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
--- NOTE | 2020-04-26 13:39 | Progress Note - Surgery ---
Subjective Time Seen by a Provider: 12:54 Subjective/Events-last exam Pt seen and examined, states leg hurts a little and is draining. Review of Systems General: No Chills, No Night Sweats Pulmonary: No Dyspnea, No Cough Cardiovascular: No: Chest Pain, Palpitations Objective Exam Vital Signs Date Time Temp Pulse Resp B/P (MAP) Pulse Ox O2 Delivery O2 Flow Rate FiO2 04/26/20 05:05 36.4 73 18 110/71 (84) 95 Room Air 04/25/20 17:02 36.9 75 18 121/66 (84) 95 Room Air I & O 04/26/20 07:00 Intake Total 2274 ml Output Total 4150 ml Balance -1876 ml Capillary Refill : Less Than 3 Seconds General Appearance: No Apparent Distress, Chronically ill, Thin HEENT: PERRL/EOMI Respiratory: No Accessory Muscle Use, No Respiratory Distress, Decreased Breath Sounds Cardiovascular: Regular Rate, Rhythm, No Murmur Extremity: Other (left AKA, no erythema, min-mod serous drainage) Skin: Warm/Dry Assessment/Plan Assessment/Plan Assessment/Plan S/P L AKA Continue current care, leg looks good and pt ok to go home Tuesday. F/U in my office. Clinical Quality Measures DVT/VTE Risk/Contraindication: Risk Factor Score Per Nursin RFS Level Per Nursing on Admit: 4+=Very High ERE HU DO Apr 26, 2020 13:39
[2020-04-26 18:11] VITALS: BP 114/71
[2020-04-26] MEDS: HYDROcodone/APAP 10 MG/325 MG (LORTAB) TAB PO PRN (23:34)
--- NOTE | 2020-04-27 00:08 | NUR ---
Denys is a 54 yo male currently inpatient on ARU post left AKA. Patient does have a history of right AKA as well, which he reported he does have a prosthetic for but fails to utilize it. He is A&O X4 and consistently is reporting his pain at a 10 and stated "it never gets better" even after PRN/scheduled pain medication. During pain assessments patient never express any cues (grimacing, wincing, etc) of pain and he appears comfortable watching TV or talking on the phone. Patient is able to utilize the slide board to transfer but did demonstrate some safety awareness issues but did not want any help from this nurse during transfers. He refused to put on any PJ's and did not wish to get cleaned up before bed. This nurse also tried to educate patient on nutritional intake (he has currently drank 4 cans of Coke this shift) but he refused to listened. He continued to refuse to use his IS stating "he doesn't need that damn thing." Denys appears to be very non-complaint and this could potentially delay his recovery at home. No further issues noted, this nurse will continue to monitor patient throughout shift.
[2020-04-27 05:18] VITALS: BP 122/75
[2020-04-27] MEDS: KCL 10 MEQ TAB (MICRO K) PO SCH (06:13)
--- NOTE | 2020-04-27 06:22 | PM&R Progress Note ---
Subjective HPI/CC On Admission Date Seen by Provider: Apr 27, 2020 Time Seen by Provider: 10:00 Subjective/Events-last exam Pt doing pretty well but labile moods Working on transfers Pain meds working but adjusting up the dose of rapid acting Oxycodone No falls Wound care as ordered by Dr Cortes Patient agreed to secure pain control regimen this and entertain [place] Tuesday Checked meds and labs Reviewed therapy notes Conferred with director mobile of Systems Musculoskeletal: leg pain Objective Exam Vital Signs Vital Signs Date Time Temp Pulse Resp B/P (MAP) Pulse Ox O2 Delivery O2 Flow Rate FiO2 04/27/20 09:00 Room Air 04/27/20 05:18 36.6 67 16 122/75 (91) 98 Capillary Refill : Less Than 3 Seconds General Appearance: No Apparent Distress, WD/WN, Chronically ill, Thin HEENT: PERRL/EOMI, Normal ENT Inspection, Pharynx Normal Neck: Full Range of Motion, Normal Inspection, Non Tender, Supple, Carotid Bruit Respiratory: Chest Non Tender, Lungs Clear, No Accessory Muscle Use, No Res piratory Distress, Decreased Breath Sounds Cardiovascular: Regular Rate, Rhythm, No Gallop, No JVD, No Murmur, Normal Peripheral Pulses Gastrointestinal: Normal Bowel Sounds, No Organomegaly, No Pulsatile Mass, Non Tender, Soft Back: Normal Inspection, No CVA Tenderness, No Vertebral Tenderness Extremity: Normal Capillary Refill, Normal Inspection (except b/l AKA's), Normal Range of Motion (of thighs only), Non Tender Neurologic/Psychiatric: Alert, Oriented x3, No Motor/Sensory Deficits, Normal Mood/Affect, senior grants officer II-XII Norm as Tested Skin: Normal Color, Warm/Dry Lymphatic: No Adenopathy Results/Procedures Lab Patient resulted labs reviewed. FIM Transfers Therapy Code Descriptions/Definitions Functional [place] Measure: 0=Not Assessed/NA 4=Minimal Assistance 1=Total Assistance 5=Supervision or Setup 2=Maximal Assistance 6=Modified [place] 3=Moderate Assistance 7=Complete IndependenceSCALE: Activities may be completed with or without assistive devices. 3-Eeijchsngo-kkyiiul completes the activity by him/herself with no assistance from a helper. 5-Set-up or Clean-up Assistance-helper sets up or cleans up; patient completes activity. [place] assists only prior to or following the activity. 4-Supervision or Touching Assistance-helper provides verbal cues and/or touching/steadying and/or contact guard assistance as patient completes activity. Assistance may be provided throughout the activity or intermittently. 3-Partial/Moderate Assistance-helper does LESS THAN HALF the effort. [place] lifts, holds or supports trunk or limbs, but provides less than half the effort. 2-Substantial/Maximal Assistance-helper does MORE THAN HALF the effort. [place] lifts or holds trunk or limbs and provides more than half the effort. 4-Cfzbpccjq-yeunkw does ALL the effort. Patient does none of the effort to complete the activity. Or, the assistance of 2 or more helpers is required for the patient to complete the activity. If activity was not attempted, code reason: 7-Patient Refused. 9-Not Applicable-not attempted and the patient did not perform the activity before the current illness, exacerbation or injury. 10-Not Attempted due to Environmental Limitations-(lack of equipment, weather restraints, etc.). 88-Not Attempted due to Medical Conditions or Safety Concerns. Roll Left to Right (QC): 6 Sit to Lying (QC): 6 Sit to Stand (QC): 88 Chair/Pvn-ru-E[place]uw Xfer(QC): 3 Car Transfer (QC): 3 Gait Training Does the Patient Walk?: No and Walking Goal NOT indicated Walk 10 feet (QC): 9 Walk 50 ft with 2 Turns(QC): 9 Walk 150 ft (QC): 9 Walking 10ft/uneven surface-QC: 9 Wheelchair Training Does the Pt Use a Wheelchair?: Yes Distance: >400' Wheel 50 ft with 2 turns (QC): 5 Wheel 150 ft (QC): 5 Type of Wheelchair: Manual Stair Training 1 Step (curb) (QC): 9 4 Steps (QC): 9 12 Steps (QC): 9 Balance Picking up an Object (QC): 88 ADL-Treatment Eating (QC): 6 Oral Hygiene (QC): 5 (set up at bed level) Shower/Bathe Self (QC): 4 (SBA sponge bath at bed level, pt able to wash all parts by rolling side to side.) Upper Body Dressing (QC): 5 (pt able to don/doff pullover shirt at bed level with HOB elevated) Lower Body Dressing (QC): 3 (pt able to doff pants/underwear without difficulty. 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
[2020-04-27] MEDS: APIXABAN 5 MG (ELIQUIS) TABLET PO SCH ×2 (08:48→20:12)
[2020-04-27] MEDS: oxyCODONE ER 10 MG (OxyCONTIN CR) TAB PO SCH ×2 (08:48→20:12)
[2020-04-27] MEDS: GABAPENTIN 300 MG (NEURONTIN) CAP PO SCH ×3 (08:48→20:12)
[2020-04-27] MEDS: polyethylene glycoL POWDER 17 GM (MIRALAX) PACK PO SCH ×2 (08:48→19:19)
[2020-04-27] MEDS: SENNA W/DOCUSATE (SENOKOT S) TABLET PO SCH ×2 (08:49→19:19)
[2020-04-27 18:48] VITALS: BP 114/75
[2020-04-27] MEDS ORDERED: GABA300C PO (21:32)
[2020-04-27] MEDS ORDERED: OXYC5TAB96 PO (21:32)
[2020-04-27] MEDS ORDERED: APIX5TAB PO (21:32)
[2020-04-27] MEDS ORDERED: SENN-20 PO (21:32)
[2020-04-27] MEDS ORDERED: OXYC10TA55 PO (21:32)
[2020-04-28 05:03] VITALS: BP 108/63
[2020-04-28] MEDS: KCL 10 MEQ TAB (MICRO K) PO SCH (05:38)
--- NOTE | 2020-04-28 06:43 | Discharge Summary ---
Diagnosis/Chief Complaint Date of Admission Apr 22, 2020 at 11:00 Date of Discharge Discharge Date: Apr 27, 2020 Discharge Summary Discharge Physical Examination Allergies: Coded Allergies: No Known Drug Allergies (Unverified , 05/23/19) Vitals & I&Os Vital Signs Date Time Temp Pulse Resp B/P (MAP) Pulse Ox O2 Delivery O2 Flow Rate FiO2 04/29/20 06:16 36.6 80 20 131/72 (91) 97 Room Air Hospital Course Labs (last 24 hrs) Laboratory Tests 04/23/20 04:40: White Blood Count 4.9, Red Blood Count 2.94L, Hemoglobin 10.7L, Hematocrit 31L, Mean Corpuscular Volume 107H, Mean Corpuscular Hemoglobin 36H, Mean Corpuscular Hemoglobin Concent 34, Red Cell Distribution Width 12.9, Platelet Count 283, Mean Platelet Volume 10.2, Neutrophils (%) (Auto) 57, Lymphocytes (%) (Auto) 30, Monocytes (%) (Auto) 11, Eosinophils (%) (Auto) 2, Basophils (%) (Auto) 1, Maggie trophils # (Auto) 2.7, Lymphocytes # (Auto) 1.4, Monocytes # (Auto) 0.5, Eosinophils # (Auto) 0.1, Basophils # (Auto) 0.0, Sodium Level 137, Potassium Level 3.3L, Chloride Level 105, Carbon Dioxide Level 22, Anion Gap 10, Blood Urea Nitrogen 3L, Creatinine 0.52L, Estimat Glomerular Filtration Rate > 60, BUN/Creatinine Ratio 6, Glucose Level 99, Calcium Level 8.0L, Corrected Calcium 9.1, Total Bilirubin 0.4, Aspartate Amino Transf (AST/SGOT) 31, Alanine Aminotransferase (ALT/SGPT) 16, Alkaline Phosphatase 108, Total Protein 5.0L, Albumin 2.6L Pending Labs Laboratory Tests 04/23/20 04:40: White Blood Count 4.9, Red Blood Count 2.94, Hemoglobin 10.7, Hematocrit 31, Mean Corpuscular Volume 107, Mean Corpuscular Hemoglobin 36, Mean Corpuscular Hemoglobin Concent 34, Red Cell Distribution Width 12.9, Platelet Count 283, Mean Platelet Volume 10.2, Neutrophils (%) (Auto) 57, Lymphocytes (%) (Auto) 30, Monocytes (%) (Auto) 11, Eosinophils (%) (Auto) 2, Basophils (%) (Auto) 1, N eutrophils # (Auto) 2.7, Lymphocytes # (Auto) 1.4, Monocytes # (Auto) 0.5, Eosinophils # (Auto) 0.1, Basophils # (Auto) 0.0, Sodium Level 137, Potassium Level 3.3, Chloride Level 105, Carbon Dioxide Level 22, Anion Gap 10, Blood Urea Nitrogen 3, Creatinine 0.52, Estimat Glomerular Filtration Rate > 60, BUN/Creatinine Ratio 6, Glucose Level 99, Calcium Level 8.0, Corrected Calcium 9 .1, Total Bilirubin 0.4, Aspartate Amino Transf (AST/SGOT) 31, Alanine Aminotransferase (ALT/SGPT) 16, Alkaline Phosphatase 108, Total Protein 5.0, Albumin 2.6 Discharge Home Medications: Active Scripts Active Oxycontin (Oxycodone HCl) 10 Mg Tab.er.12h 10 Mg PO BID Neurontin (Gabapentin) 300 Mg Capsule 300 Mg PO TID Senna-Time S Tablet (Sennosides/Docusate Sodium) 1 Each Tablet 2 Ea PO BID Oxycodone IR (Oxycodone HCl) 5 Mg Tablet 10 Mg PO Q4H PRN Eliquis (Apixaban) 5 Mg Tablet 50 Mg PO BID Reported Ibuprofen 200 Mg Capsule 400 Mg PO Q8H PRN Lopressor (Metoprolol Tartrate) 50 Mg Tablet 25 Mg PO BID TAKES OF A 50MG TAB TWICE DAILY Instructions to patient/family Please see electronic discharge instructions given to patient. Diagnosis/Problems Diagnosis/Problems (1) Left above-knee amputee Status: Acute (2) Infestation by maggots (3) Complete above-knee amputation of right lower extremity (4) Phantom limb pain Status: Acute (5) Tobacco abuse Status: Chronic (6) PVD (peripheral vascular disease) Status: Chronic (7) Chronic pain Status: Acute (8) Malaise Status: Acute Clinical Quality Measures DVT/VTE Risk/Contraindication: Risk Factor Score Per Nursin RFS Level Per Nursing on Admit: 4+=Very High BROWN SANTOYO DO Apr 28, 2020 06:43
[2020-04-28] MEDS: oxyCODONE ER 10 MG (OxyCONTIN CR) TAB PO SCH ×2 (08:00→21:23)
[2020-04-28] MEDS: SENNA W/DOCUSATE (SENOKOT S) TABLET PO SCH ×2 (08:00→21:24)
[2020-04-28] MEDS: APIXABAN 5 MG (ELIQUIS) TABLET PO SCH ×2 (08:00→21:24)
[2020-04-28] MEDS: GABAPENTIN 300 MG (NEURONTIN) CAP PO SCH ×3 (08:00→21:24)
[2020-04-28] MEDS: polyethylene glycoL POWDER 17 GM (MIRALAX) PACK PO SCH ×2 (08:00→21:24)
--- NOTE | 2020-04-28 08:33 | NUR ---
DR. HU INFORMED OF POTENTIAL DISCHARGE TODAY. PER DR. HU... OK TO [facility] HOME. DAILY DRESSING CHANGE TO LEFT AKA. ORDERS TO CLEANSE WITH NS, COVER WITH KERLIX, AND SECURE WITH NATHEN WRAP. F/U IN OFFICE. F/U SCHEDULED FOR 05/13/20 AT 09:30 AM.
--- NOTE | 2020-04-28 09:22 | Occupational Ther Daily Note ---
OT Current Status-Daily Note Subjective Pt seated upright in recliner, required mod encouragement to participate in OT session on this date. Pt reports he is going home today, reluctant to complete ADL session, stating he is already dressed. Mental Status/Objective Patient Orientation: Normal For Age ADL-Treatment Therapy Code Descriptions/Definitions Functional [place] Measure: 0=Not Assessed/NA 4=Minimal Assistance 1=Total Assistance 5=Supervision or Setup 2=Maximal Assistance 6=Modified [place] 3=Moderate Assistance 7=Complete IndependenceSCALE: Activities may be completed with or without assistive devices. 3-Lmggyrxqaf-ksotjas completes the activity by him/herself with no assistance from a helper. 5-Set-up or Clean-up Assistance-helper sets up or cleans up; patient completes activity. [place] assists only prior to or following the activity. 4-Supervision or Touching Assistance-helper provides verbal cues and/or touching/steadying and/or contact guard assistance as patient completes activity. Assistance may be provided throughout the activity or intermittently. 3-Partial/Moderate Assistance-helper does LESS THAN HALF the effort. [place] lifts, holds or supports trunk or limbs, but provides less than half the effort. 2-Substantial/Maximal Assistance-helper does MORE THAN HALF the effort. [place] lifts or holds trunk or limbs and provides more than half the effort. 8-Ckfdwxdql-ngorja does ALL the effort. Patient does none of the effort to c omplete the activity. Or, the assistance of 2 or more helpers is required for the patient to complete the activity. If activity was not attempted, code reason: 7-Patient Refused. 9-Not Applicable-not attempted and the patient did not perform the activity before the current illness, exacerbation or injury. 10-Not Attempted due to Environmental Limitations-(lack of equipment, weather restraints, etc.). 88-Not Attempted due to Medical Conditions or Safety Concerns. Eating (QC): 6 Oral Hygiene (QC): 5 (set up at tray table) Shower/Bathe Self (QC): 5 (Set up for sponge bath at bed level. Pt able to roll side to side to wash buttocks, utilizing Bilat side rails.) Upper Body Dressing (QC): 5 (set up) Lower Body Dressing (QC): 5 (set up at bed level, pt able to doff/kathleen pants/ underwear by rolling side to side) On/Off Footwear: 9 (bilat AKA) Toileting Hygiene (QC): 5 (assist to empty urinal) Other Treatment Pt seated in w/ at start of tx, urinal emptied for pt. He then brushed his teeth at tray table with set up assist. He then transferred from w/ to bed using slide board transfer. Pt required cue to turn slide board in order for it to curve the right way to support his body during transfer. Pt then transferred with SBA. Pt completed sponge bath and dressing at bed level, requesting to transfer back to the / afterwards in order to wash his hair. Pt required CGA during bed to w/c transfer, leaning towards the side where the armrest was resting in the middle of his back. Pt reports "I'm not going to fall", OT educated pt she was there for pt's safety, pt repeated again that he was not going to fall. Pt able to correct movement with increased time and SBA. OT gathered shower cap and set up for pt, he then washed his hair and dried with set up. Post OT session, pt seated in recliner, call light in reach and all needs met. Education OT Patient Education: Correct positioning, Energy conservation, Modified ADL techniques, Progress toward Goal/Update tx plan, Purpose of tx/functional activities, Safety issues, Transfer techniques Teaching Recipient: Patient Teaching Methods: Discussion Response to Teaching: Verbalize Understanding OT Short Term Goals Short Term Goals Time Frame: Apr 29, 2020 Shower/bathe self: 4 Lower body dressin OT Administrative Services Manager Goals Half-Way Goals Time Frame: May 13, 2020 Eating (QC): 6 Oral Hygiene (QC): 6 Toileting Hygiene (QC): 5 Shower/Bathe Self (QC): 5 Upper Body Dressing (QC): 6 Lower Body Dressing (QC): 5 On/Off Footwear (QC): 9 Additional Goals: 1-Demonstrate ADL Tasks, 2-Verbalize Understanding, 3- ImproveStrength/Jose Luis 1=Demonstrate adherence to instructed precautions during ADL tasks. 2=Patient will verbalize/demonstrate understanding of assistive devices/modifications for ADL. 3=Patient will improve strength/tolerance for activity to enable patient to perform ADL's. OT Education/Plan Problem List/Assessment Assessment: Decreased Activ Tolerance, Impaired Funct Balance, Impaired I ADL's, Impaired Self-Care Skills Discharge Recommendations Plan/Recommendations: Continue POC Treatment Plan/Plan of Care Patient would benefit from OT for education, treatment and training to promote independence in ADL's, mobility, safety and/or upper extremity function for ADL's. Plan of Care: ADL Retraining, Functional Mobility, Group Exercise/Act as Ind, UE Funct Exercise/Act Treatment Duration: May 13, 2020 Frequency: At least 5 of 7 days/Wk (IRF) Estimated Hrs Per Day: 1.5 hours per day Rehab Potential: Fair Time/GCodes Start Time: 08:00 Stop Time: 09:05 Total Time Billed (hr/min): 65 Billed Treatment Time 1, ADL 4 MIHAI NUNEZ OT Apr 28, 2020 09:22
--- NOTE | 2020-04-28 09:55 | Physical Therapy Daily Note ---
PT Daily Note-Current Subjective Patient in WC pre tx, agrees reluctantly to PT, has no complaints of pain. Appearance Patient in WC at bedside post tx with nurse call, phone, tray, all needs met. Mental Status Patient Orientation: Person, [place] Transfers SCALE: Activities may be completed with or without assistive devices. 7-Ftxwoprtkg-higmeuk completes the activity by him/herself with no assistance from a helper. 5-Set-up or Clean-up Assistance-helper sets up or cleans up; patient completes activity. [place] assists only prior to or following the activity. 4-Supervision or Touching Assistance-helper provides verbal cues and/or t ouching/steadying and/or contact guard assistance as patient completes activity. Assistance may be provided throughout the activity or intermittently. 3-Partial/Moderate Assistance-helper does LESS THAN HALF the effort. [place] lifts, holds or supports trunk or limbs, but provides less than half the effort. 2-Substantial/Maximal Assistance-helper does MORE THAN HALF the effort. [place] lifts or holds trunk or limbs and provides more than half the effort. 5-Jnucmujkw-qrepus does ALL the effort. Patient does none of the effort to complete the activity. Or, the assistance of 2 or more helpers is required for the patient to complete the activity. If activity was not attempted, code reason: 7-Patient Refused. 9-Not Applicable-not attempted and the patient did not perform the activity before the current illness, exacerbation or injury. 10-Not Attempted due to Environmental Limitations-(lack of equipment, weather restraints, etc.). 88-Not Attempted due to Medical Conditions or Safety Concerns. Roll Left & Right (QC): 6 Sit to Lying (QC): 6 Lying to Sitting/Side of Bed(Q: 6 Sit to Stand (QC): 9 Chair/Bjv-le-Snztx Xfer(QC): 3 Toilet Transfer (QC): 3 Car Transfer (QC): 2 Patient performs bed mobility and supine <-> sit with independence, transfers with mod assist using a sliding board, car transfer max assist. Patient is very unsteady. Weight Bearing Right Lower Extremity: Right Non Weight Bearing Left Lower Extremity: Left Non Weight Bearing Gait Training Walk 10 feet (QC): 9 Walk 50 ft with 2 Turns(QC): 9 Walk 150 ft (QC): 9 Walking 10ft/uneven surface-QC: 9 Wheelchair Training Does the Pt Use a Wheelchair?: Yes Wheel 50 ft with 2 turns (QC): 5 Wheel 150 ft (QC): 5 Type of Wheelchair: Manual Patient propelled a manual WC 1000' with setup, went over level surface and sidewalks and slight inclines Stair Training 1 Step (curb) (QC): 9 4 Steps (QC): 9 12 Steps (QC): 9 Balance Picking up an Object (QC): 9 Treatments bed mobility and transfers, WC mobility Assessment Current Status: Poor Progress Patient has a lot of difficulty with transfers, needs a significant amount of as sist, needs family training. PT Short Term Goals Short Term Goals Time Frame: May 07, 2020 Roll Left & Right: 6 Sit to lyin Lying to sitting on side of be: 5 Sit to stand: 9 Chair/ais-ls-snlne transfer: 4 Toilet transfer: 4 PT Alf Goals Alf Goals PT Alf Goals Time Frame: May 24, 2020 Roll Left & Right (QC): 6 Sit to Lying (QC): 6 Lying-Sitting on Side/Bed(QC): 6 Sit to Stand (QC): 9 Chair/Rjj-vj-Lotms Xfer(QC): 6 Toilet Transfer (QC): 6 Car Transfer (QC): 6 Does the Patient Walk: No and Walking Goal NOT indicated Walk 10 feet (QC): 9 Walk 50ft with 2 Turns (QC): 9 Walk 150 ft (QC): 9 Walking 10ft on Uneven Surface: 9 1 Step (curb) (QC): 9 4 Steps (QC): 9 12 Steps (QC): 9 Picking up an Object (QC): 4 Does the Pt use WC or Scooter?: Yes Wheel 50 feet with 2 turns (QC: 6 Type: Manual Wheel 150 feet: 6 Type: Manual PT Plan Problem List Problem List: Activity Tolerance, Functional Strength, Safety, Balance, Transfer, Bed Mobility, ROM Treatment/Plan Treatment Plan: Continue Plan of Care Treatment Plan: Bed Mobility, Concurrent Therapy, Education, Functional Activity Jose Luis, Functional Strength, Group Therapy, Safety, Therapeutic Exercise, Transfers Treatment Duration: May 24, 2020 Frequency: At least 5 of 7 days/Wk (IRF) Estimated Hrs Per Day: 1.5 hours per day Patient and/or Family Agrees t: Yes Safety Risks/Education Patient Education: Transfer Techniques, Correct Positioning, W/C Management, Safety Issues Teaching Recipient: Patient Teaching Methods: Demonstration, Discussion Response to Teaching: Reinforcement Needed Time/GCodes Time In: 914 Time Out: 1000 Total Billed Treatment Time: 45 Total Billed Treatment 1 visit FA Genia' BHARAT MCCOLLUM PT Apr 28, 2020 09:54
--- NOTE | 2020-04-28 11:13 | Physical Therapy Daily Note ---
PT Daily Note-Current Subjective Patient in WC at bedside pre tx, would like to get back into bed, has no complains of pain at rest. Appearance Patient in bed post tx with nurse call, phone, tray, all needs met. Mental Status Patient Orientation: Person, [place] Transfers SCALE: Activities may be completed with or without assistive devices. 2-Lxqaaykapl-rhxskly completes the activity by him/herself with no assistance from a helper. 5-Set-up or Clean-up Assistance-helper sets up or cleans up; patient completes activity. [place] assists only prior to or following the activity. 4-Supervision or Touching Assistance-helper provides verbal cues and/or touching/steadying and/or contact guard assistance as patient completes activity. Assistance may be provided throughout the activity or intermittently. 3-Partial/Moderate Assistance-helper does LESS THAN HALF the effort. [place] lifts, holds or supports trunk or limbs, but provides less than half the effort. 2-Substantial/Maximal Assistance-helper does MORE THAN HALF the effort. [place] lifts or holds trunk or limbs and provides more than half the effort. 4-Wovmcghda-glmapv does ALL the effort. Patient does none of the effort to complete the activity. Or, the assistance of 2 or more helpers is required for the patient to complete the activity. If activity was not attempted, code reason: 7-Patient Refused. 9-Not Applicable-not attempted and the patient did not perform the activity before the current illness, exacerbation or injury. 10-Not Attempted due to Environmental Limitations-(lack of equipment, weather restraints, etc.). 88-Not Attempted due to Medical Conditions or Safety Concerns. Roll Left & Right (QC): 6 Sit to Lying (QC): 6 Chair/Kcp-hw-Bzuxg Xfer(QC): 4 Patient was able to perform a sliding board transfer with CGA to the bed from his . Patient pulled his WC to the bed, directly in front of the WC, placed the sliding board in front of him onto the bed and was able to slide forward on to the bed with CGA. Patient had less balance issues and did not lose balance or need assist from therapist for this transfer but it was obviously very difficult for patient. Weight Bearing Right Lower Extremity: Right Non Weight Bearing Left Lower Extremity: Left Non Weight Bearing Treatments bed mobility and transfers Assessment Current Status: Fair Progress improved sliding board transfer PT Short Term Goals Short Term Goals Time Frame: May 07, 2020 Roll Left & Right: 6 Sit to lyin Lying to sitting on side of be: 5 Sit to stand: 9 Chair/jqu-rg-eskeu transfer: 4 Toilet transfer: 4 PT Jail Goals Jail Goals PT L[employer] And Recausticizing Operator Goals Time Frame: May 24, 2020 Roll Left & Right (QC): 6 Sit to Lying (QC): 6 Lying-Sitting on Side/Bed(QC): 6 Sit to Stand (QC): 9 Chair/Nti-my-Bxmxl Xfer(QC): 6 Toilet Transfer (QC): 6 Car Transfer (QC): 6 Does the Patient Walk: No and Walking Goal NOT indicated Walk 10 feet (QC): 9 Walk 50ft with 2 Turns (QC): 9 Walk 150 ft (QC): 9 Walking 10ft on Uneven Surface: 9 1 Step (curb) (QC): 9 4 Steps (QC): 9 12 Steps (QC): 9 Picking up an Object (QC): 4 Does the Pt use WC or Scooter?: Yes Wheel 50 feet with 2 turns (QC: 6 Type: Manual Wheel 150 feet: 6 Type: Manual PT Plan Problem List Problem List: Activity Tolerance, Functional Strength, Safety, Balance, Transfer, Bed Mobility, ROM Treatment/Plan Treatment Plan: Continue Plan of Care Treatment Plan: Bed Mobility, Concurrent Therapy, Education, Functional Activity Jose Luis, Functional Strength, Group Therapy, Safety, Therapeutic Ex ercise, Transfers Treatment Duration: May 24, 2020 Frequency: At least 5 of 7 days/Wk (IRF) Estimated Hrs Per Day: 1.5 hours per day Patient and/or Family Agrees t: Yes Safety Risks/Education Patient Education: Transfer Techniques, Correct Positioning, Safety Issues Teaching Recipient: Patient Teaching Methods: Demonstration, Discussion Response to Teaching: Reinforcement Needed Time/GCodes Time In: 1015 Time Out: 1025 Total Billed Treatment Time: 10 Total Billed Treatment 1 visit FA BHARAT RUSSELL PT Apr 28, 2020 11:13
--- NOTE | 2020-04-28 11:15 | Occupational Ther Daily Note ---
OT Current Status-Daily Note Subjective Pt laying in bed, mod encouragement required to participate in OT tx this AM. Pt reports his arms are worn out from propelling the w/c earlier. Mental Status/Objective Patient Orientation: Normal For Age ADL-Treatment Therapy Code Descriptions/Definitions Functional [place] Measure: 0=Not Assessed/NA 4=Minimal Assistance 1=Total Assistance 5=Supervision or Setup 2=Maximal Assistance 6=Modified [place] 3=Moderate Assistance 7=Complete IndependenceSCALE: Activities may be completed with or without assistive devices. 2-Faflkxvokg-xxlmzrh completes the activity by him/herself with no assistance from a helper. 5-Set-up or Clean-up Assistance-helper sets up or cleans up; patient completes activity. [place] assists only prior to or following the activity. 4-Supervision or Touching Assistance-helper provides verbal cues and/or touching/steadying and/or contact guard assistance as patient completes activity. Assistance may be provided throughout the activity or intermittently. 3-Partial/Moderate Assistance-helper does LESS THAN HALF the effort. [place] lifts, holds or supports trunk or limbs, but provides less than half the effort. 2-Substantial/Maximal Assistance-helper does MORE THAN HALF the effort. [place] lifts or holds trunk or limbs and provides more than half the effort. 3-Mnwyjskhw-dweyys does ALL the effort. Patient does none of the effort to complete the activity. Or, the assistance of 2 or more helpers is required for the patient to complete the activity. If activity was not attempted, code reason: 7-Patient Refused. 9-Not Applicable-not attempted and the patient did not perform the activity before the current illness, exacerbation or injury. 10-Not Attempted due to Environmental Limitations-(lack of equipment, weather restraints, etc.). 88-Not Attempted due to Medical Conditions or Safety Concerns. Other Treatment Pt laying in bed, repositioned self in bed to sitting upright, managing bed controls IND. In order to increase BUE strength and UE endurance, he then used red theraband for BUE exercies, performing x20 reps each of the following exercises: elbow extension, shoulder flexion, shoulder abduction, & elbow flexion. Pt took rest breaks as needed throughout session. Post OT Tx, pt laying in bed, call light in reach and all needs met. Education OT Patient Education: Correct positioning, Energy conservation, Progress toward Goal/Update tx plan, Purpose of tx/functional activities Teaching Recipient: Patient Teaching Methods: Discussion Response to Teaching: Verbalize Understanding OT Short Term Goals Short Term Goals Time Frame: Apr 29, 2020 Shower/bathe self: 4 Lower body dressin OT Bridge Toll Collector Goals Bridge Toll Collector Goals Time Frame: May 13, 2020 Eating (QC): 6 (met) Oral Hygiene (QC): 6 (not met) Toileting Hygiene (QC): 5 (met) Shower/Bathe Self (QC): 5 (met) Upper Body Dressing (QC): 6 (not met) Lower Body Dressing (QC): 5 (not met) On/Off Footwear (QC): 9 (9 - Not applicable, met) Additional Goals: 1-Demonstrate ADL Tasks, 2-Verbalize Understanding, 3- ImproveStrength/Jose Luis 1=Demonstrate adherence to instructed precautions during ADL tasks. 2=Patient will verbalize/demonstrate understanding of assistive devices/modifications for ADL. 3=Patient will improve strength/tolerance for activity to enable patient to perform ADL's. OT Education/Plan Problem List/Assessment Assessment: Decreased Activ Tolerance, Decreased UE Strength, Impaired I ADL's, Impaired Self-Care Skills Discharge Recommendations Plan/Recommendations: Continue POC Treatment Plan/Plan of Care Patient would benefit from OT for education, treatment and training to promote independence in ADL's, mobility, safety and/or upper extremity function for ADL's. Plan of Care: ADL Retraining, Functional Mobility, Group Exercise/Act as Ind, UE Funct Exercise/Act Treatment Duration: May 13, 2020 Frequency: At least 5 of 7 days/Wk (IRF) Estimated Hrs Per Day: 1.5 hours per day Rehab Potential: Fair Time/GCodes Start Time: 11:05 Stop Time: 11:30 Total Time Billed (hr/min): 25 Billed Treatment Time 1, EX 2 MIHAI NUNEZ OT Apr 28, 2020 11:15
--- NOTE | 2020-04-28 13:49 | Discharge Inst-Skilled Nursing ---
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 Nursing Home Facility Order: Nursing Services, Electric Welder Helper-Evaluate & Treat, Physical Therapy-Evaluate & Treat, Speech Language-Evaluate & Treat, Wound Care-Eval/Treat Oxygen Delivery Method: Room Air Discharge Diet: Regular Diet Resuscitation Status: Full Code New & Resume Previous Orders New Medications: Gabapentin (Neurontin) 300 Mg Capsule 300 MG PO TID, #90 CAP Oxycodone HCl (Oxycontin) 10 Mg Tab.er.12h 10 MG PO BID, #28 TAB Oxycodone HCl (Oxycodone IR) 5 Mg Tablet 10 MG PO Q4H PRN for PAIN-SEVERE (8-10), #40 TAB Sennosides/Docusate Sodium (Senna-Time S Tablet) 1 Each Tablet 2 EA PO BID, #60 TAB Continued Medications: Apixaban (Eliquis) 5 Mg Tablet 50 MG PO BID, #60 TAB (This prescription has been renewed) Discontinued Medications: Ibuprofen (Ibuprofen) 200 Mg Capsule 400 MG PO Q8H PRN for PAIN-MILD (1-4), CAP Metoprolol Tartrate (Lopressor) 50 Mg Tablet 25 MG PO BID, TAB TAKES OF A 50MG TAB TWICE DAILY Erna Jose Apr 28, 2020 13:49 ERNA JOSE DO Apr 28, 2020 13:49
--- NOTE | 2020-04-28 13:50 | PM&R Progress Note ---
Subjective HPI/CC On Admission Date Seen by Provider: Apr 28, 2020 Time Seen by Provider: 10:00 Subjective/Events-last exam Change of plans from DC to home but now contemplating SDP Hospital Course: Pt had an uneventful hospital course for 6 days after insisting on leaving or leaving against medical advice. Pain medication was modified for adequate pain control for the left above the knee amputation that was added to the right above the knee amputation performed three years ago. His transfers were difficult to say the least but was able to be successful enough to be discharged home in stable manor of which he reports he just wants to drink alcohol and watch TV and I hope he doesn't do that with pain medication he could be at risk for respiratory compromise. Smoking cessation counseled. Checked meds and labs Reviewed therapy notes Conferred with servomechanism designer of Systems Musculoskeletal: leg pain Objective Exam Vital Signs Vital Signs Date Time Temp Pulse Resp B/P (MAP) Pulse Ox O2 Delivery O2 Flow Rate FiO2 04/29/20 06:16 36.6 80 20 131/72 (91) 97 Room Air Capillary Refill : Less Than 3 Seconds General Appearance: No Apparent Distress, WD/WN, Chronically ill, Thin HEENT: PERRL/EOMI, Normal ENT Inspection, Pharynx Normal Neck: Full Range of Motion, Normal Inspection, Non Tender, Supple, Carotid Bruit Respiratory: Chest Non Tender, Lungs Clear, No Accessory Muscle Use, No Respiratory Distress, Decreased Breath Sounds Cardiovascular: Regular Rate, Rhythm, No Gallop, No JVD, No Murmur, Normal Peripheral Pulses Gastrointestinal: Normal Bowel Sounds, No Organomegaly, No Pulsatile Mass, Non Tender, Soft Back: Normal Inspection, No CVA Tenderness, No Vertebral Tenderness Extremity: Normal Capillary Refill, Normal Inspection (except b/l AKA's), Normal Range of Motion (of thighs only), Non Tender Neurologic/Psychiatric: Alert, Oriented x3, No Motor/Sensory Deficits, Normal Mood/Affect, motor operator II-XII Norm as Tested Skin: Normal Color, Warm/Dry Lymphatic: No Adenopathy Results/Procedures Lab Patient resulted labs reviewed. FIM Transfers Therapy Code Descriptions/Definitions Functional [place] Measure: 0=Not Assessed/NA 4=Minimal Assistance 1=Total Assistance 5=Supervision or Setup 2=Maximal Assistance 6=Modified [place] 3=Moderate Assistance 7=Complete IndependenceSCALE: Activities may be completed with or without assistive devices. 0-Clfafekmik-wtmmhww completes the activity by him/herself with no assistance from a helper. 5-Set-up or Clean-up Assistance-helper sets up or cleans up; patient completes activity. [place] assists only prior to or following the activity. 4-Supervision or Touching Assistance-helper provides verbal cues and/or touching/steadying and/or contact guard assistance as patient completes activity. Assistance may be provided throughout the activity or intermittently. 3-Partial/Moderate Assistance-helper does LESS THAN HALF the effort. [place] lifts, holds or supports trunk or limbs, but provides less than half the effort. 2-Substantial/Maximal Assistance-helper does MORE THAN HALF the effort. [place] lifts or holds trunk or limbs and provides more than half the effort. 9-Poldnxdof-dcuzli does ALL the effort. Patient does none of the effort to complete the activity. Or, the assistance of 2 or more helpers is required for the patient to complete the activity. If activity was not attempted, code reason: 7-Patient Refused. 9-Not Applicable-not attempted and the patient did not perform the activity before the current illness, exacerbation or injury. 10-Not Attempted due to Environmental Limitations-(lack of equipment, weather restraints, etc.). 88-Not Attempted due to Medical Conditions or Safety Concerns. Roll Left to Right (QC): 6 Sit to Lying (QC): 6 Sit to Stand (QC): 9 Chair/Gax-wc-Yfjeb Xfer(QC): 4 Car Transfer (QC): 2 Gait Training Does the Patient Walk?: No and Walking Goal NOT indicated Walk 10 feet (QC): 9 Walk 50 ft with 2 Turns(QC): 9 Walk 150 ft (QC): 9 Walking 10ft/uneven surface-QC: 9 Wheelchair Training Does the Pt Use a Wheelchair?: Yes Distance: >400' Wheel 50 ft with 2 turns (QC): 5 Wheel 150 ft (QC): 5 Type of Wheelchair: Manual Stair Training 1 Step (curb) (QC): 9 4 Steps (QC): 9 12 Steps (QC): 9 Balance Picking up an Object (QC): 9 ADL-Treatment Eating (QC): 6 Oral Hygiene (QC): 5 (set up at tray table) Shower/Bathe Self (QC): 5 (Set up for sponge bath at bed level. 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
--- NOTE | 2020-04-28 14:06 | Physical Therapy Daily Note ---
PT Daily Note-Current Subjective Patient agrees to PT. Mental Status Patient Orientation: Person, Time, Situation Transfers SCALE: Activities may be completed with or without assistive devices. 4-Devfliavuo-zazqloz completes the activity by him/herself with no assistance from a helper. 5-Set-up or Clean-up Assistance-helper sets up or cleans up; patient completes activity. [place] assists only prior to or following the activity. 4-Supervision or Touching Assistance-helper provides verbal cues and/or touching/steadying and/or contact guard assistance as patient completes activity. Assistance may be provided throughout the activity or intermittently. 3-Partial/Moderate Assistance-helper does LESS THAN HALF the effort. [place] lifts, holds or supports trunk or limbs, but provides less than half the effort. 2-Substantial/Maximal Assistance-helper does MORE THAN HALF the effort. [place] lifts or holds trunk or limbs and provides more than half the effort. 0-Ewuimnvfp-ibdzve does ALL the effort. Patient does none of the effort to c omplete the activity. Or, the assistance of 2 or more helpers is required for the patient to complete the activity. If activity was not attempted, code reason: 7-Patient Refused. 9-Not Applicable-not attempted and the patient did not perform the activity before the current illness, exacerbation or injury. 10-Not Attempted due to Environmental Limitations-(lack of equipment, weather restraints, etc.). 88-Not Attempted due to Medical Conditions or Safety Concerns. Roll Left & Right (QC): 5 Lying to Sitting/Side of Bed(Q: 5 Chair/Xiq-lg-Xbujt Xfer(QC): 5 Patient utilized slide board for transfer bed to w/c Weight Bearing Right Lower Extremity: Right Non Weight Bearing Left Lower Extremity: Left Non Weight Bearing Wheelchair Training Does the Pt Use a Wheelchair?: Yes Wheel 50 ft with 2 turns (QC): 6 Wheel 150 ft (QC): 6 Type of Wheelchair: Manual Assessment Patient tolerated treatment well and remains up in w/c. Patient is excited to return to home this week. PT Short Term Goals Short Term Goals Time Frame: May 07, 2020 Roll Left & Right: 6 Sit to lyin Lying to sitting on side of be: 5 Sit to stand: 9 Chair/zbc-rm-avfyl transfer: 4 Toilet transfer: 4 PT Structural Technician Goals Long-Term Goals PT Structural Technician Goals Time Frame: May 24, 2020 Roll Left & Right (QC): 6 Sit to Lying (QC): 6 Lying-Sitting on Side/Bed(QC): 6 Sit to Stand (QC): 9 Chair/Zta-eu-Gbbsa Xfer(QC): 6 Toilet Transfer (QC): 6 Car Transfer (QC): 6 Does the Patient Walk: No and Walking Goal NOT indicated Walk 10 feet (QC): 9 Walk 50ft with 2 Turns (QC): 9 Walk 150 ft (QC): 9 Walking 10ft on Uneven Surface: 9 1 Step (curb) (QC): 9 4 Steps (QC): 9 12 Steps (QC): 9 Picking up an Object (QC): 4 Does the Pt use WC or Scooter?: Yes Wheel 50 feet with 2 turns (QC: 6 Type: Manual Wheel 150 feet: 6 Type: Manual PT Plan Treatment/Plan Treatment Plan: Continue Plan of Care Treatment Plan: Bed Mobility, Concurrent Therapy, Education, Functional Activity Jose Luis, Functional Strength, Group Therapy, Safety, Therapeutic Exercise, Transfers Treatment Duration: May 24, 2020 Frequency: At least 5 of 7 days/Wk (IRF) Estimated Hrs Per Day: 1.5 hours per day Patient and/or Family Agrees t: Yes Time/GCodes Time In: 1330 Time Out: 1405 Total Billed Treatment Time: 35 Total Billed Treatment 1 visit FA 15 min WC 20 min CHHAYA EPPERSON PT Apr 28, 2020 14:06
--- NOTE | 2020-04-28 14:59 | NUR ---
REPORT TO KETTY DICEKRSON.
--- NOTE | 2020-04-28 15:20 | NUR ---
CM/SS CONCURRENT DOCUMENTATION Patient had requested to return home today so that he could "drink and watch t.v." He also told RN and copywriter that the person who delivers his food from the kitchen said he was scheduled to leave today at 2:00 p.m. Patient has not shown confusion in copywriter presence prior, unsure of this situation and how the misunderstanding evolved. [facility] visited with him and explained that services, equipment, and transportation would need to be in place before patient went home. This could be initiated but likely not finalized, and patient agreed to stay until arrangements complete. Explored options, considering that patient has healing wounds and his home environment is not conducive to a safe care plan. [facility]: [facility] has had patient on service in the past, copywriter approached them about a renewal and they will not accept. Coincidently, they report that patient's home is exactly across the street from their new location. When they last served patient they state he was aggressive verbally toward their staff, believed to be in part due to heavy drinking. They went on to say he had multiple cats, bugs, trash throughout the house, he had a bucket next to bed he was peeing in. This remains consistent with other reports from those who have accessed his home. There is one other agency in patient's service area, doubtful they would be agreeable to assist patient with a full disclosure of situation, and rightfully so. DME: Slide board needed. [facility]: Insole Buffer contacted [facility] for a short term placement for continued healing and perhaps case management opportunities for [facility]. They understand that patient desires to drink, they will allow with an order from physician within a reasonable amount. Patient states he drinks 2-3 10oz whiskey/sprite drinks daily, updated [facility]. He does smoke but they will have him quarantined to his room per protocols for two weeks. Patient states he hasn't smoked since here 04/16/20 and he thinks he could continue to abstain. [facility] is off today but will return tomorrow. We agreed we will discuss patient discharge plan tomorrow and partner together.
[2020-04-28 15:49] VITALS: BP 100/66
[2020-04-29] MEDS: KCL 10 MEQ TAB (MICRO K) PO SCH (06:04)
[2020-04-29] MEDS: HYDROcodone/APAP 10 MG/325 MG (LORTAB) TAB PO PRN (06:05)
[2020-04-29 06:16] VITALS: BP 131/72
--- NOTE | 2020-04-29 09:31 | Occupational Ther Daily Note ---
OT Current Status-Daily Note Subjective Pt laying in bed finishing breakfast, agreeable to OT tx. ADL-Treatment Therapy Code Descriptions/Definitions Functional [place] Measure: 0=Not Assessed/NA 4=Minimal Assistance 1=Total Assistance 5=Supervision or Setup 2=Maximal Assistance 6=Modified [place] 3=Moderate Assistance 7=Complete IndependenceSCALE: Activities may be completed with or without assistive devices. 6-Itghagygcn-bggehld completes the activity by him/herself with no assistance from a helper. 5-Set-up or Clean-up Assistance-helper sets up or cleans up; patient completes activity. [place] assists only prior to or following the activity. 4-Supervision or Touching Assistance-helper provides verbal cues and/or touching/steadying and/or contact guard assistance as patient completes activity. Assistance may be provided throughout the activity or intermittently. 3-Partial/Moderate Assistance-helper does LESS THAN HALF the effort. [place] lifts, holds or supports trunk or limbs, but provides less than half the effort. 2-Substantial/Maximal Assistance-helper does MORE THAN HALF the effort. [place] lifts or holds trunk or limbs and provides more than half the effort. 0-Menuxrvpp-hbxdgn does ALL the effort. Patient does none of the effort to complete the activity. Or, the assistance of 2 or more helpers is required for the patient to complete the activity. If activity was not attempted, code reason: 7-Patient Refused. 9-Not Applicable-not attempted and the patient did not perform the activity before the current illness, exacerbation or injury. 10-Not Attempted due to Environmental Limitations-(lack of equipment, weather restraints, etc.). 88-Not Attempted due to Medical Conditions or Safety Concerns. Eating (QC): 6 Upper Body Dressing (QC): 5 (set up ) Lower Body Dressing (QC): 5 (set up ) Toileting Hygiene (QC): 5 (Pt used urinal at w/c, OT emptied urinal) Other Treatment Pt laying in bed finishing breakfast. After breakfast, pt completed dressing at bed level with increased time. Pt reports increased difficulty with task due to "hole" in the bed making it harder to roll side to side and scoot up. Pt then transferred from bed to w/c using slide board. SB moved during transfer due to pt not holding it down, OT assisted with holding slideboard during transfer. Pt laid down along board with head in the seat of the w/c and then used his arms to boost himself to sit in the w/c requiring increased time and rest breaks during task. Pt used urinal at w/c level, then requested to get some fresh air. Pt self-propelled w/c to therapy gym where OT placed 1lb wrist cuffs on pt's wrists in order to increase functional endurance and strength. In order to increase independence with functional/community mobility, UE strength and functional endurance, pt performed functional mobility in the w/c. He self-propelled w/c to elevator, pressing correct buttons in order to go to the 1st floor, then he performed functional mobility around the 1st floor over various surfaces (flat, ramp, textured, sidewalk, etc), taking rest breaks as needed. Pt then returned to his room, requiring cues to find the elevator, he was then able to manage the elevator buttons and find his way back to his room. Post OT tx, pt seated in w/c, call light in reach and all needs met. Education OT Patient Education: Correct positioning, Energy conservation, Exercise program, Modified ADL techniques, Progress toward Goal/Update tx plan, Purpose of tx/functional activities, Safety issues, Transfer techniques, W/C management Teaching Recipient: Patient Teaching Methods: Discussion Response to Teaching: Verbalize Understanding OT Short Term Goals Short Term Goals Time Frame: Apr 29, 2020 Shower/bathe self: 4 Lower body dressin OT Fdc Goals Supervisor Slashing Department Goals Time Frame: May 13, 2020 Eating (QC): 6 (met) Oral Hygiene (QC): 6 (not met) Toileting Hygiene (QC): 5 (met) Shower/Bathe Self (QC): 5 (met) Upper Body Dressing (QC): 6 (not met) Lower Body Dressing (QC): 5 (not met) On/Off Footwear (QC): 9 (9 - Not applicable, met) Additional Goals: 1-Demonstrate ADL Tasks, 2-Verbalize Understanding, 3- ImproveStrength/Jose Luis 1=Demonstrate adherence to instructed precautions during ADL tasks. 2=Patient will verbalize/demonstrate understanding of assistive devices/modifications for ADL. 3=Patient will improve strength/tolerance for activity to enable patient to perform ADL's. OT Education/Plan Problem List/Assessment Assessment: Decreased Activ Tolerance, Decreased UE Strength, Impaired Funct Balance, Impaired I ADL's, Impaired Self-Care Skills Discharge Recommendations Plan/Recommendations: Continue POC Treatment Plan/Plan of Care Patient would benefit from OT for education, treatment and training to promote independence in ADL's, mobility, safety and/or upper extremity function for ADL's. Plan of Care: ADL Retraining, Functional Mobility, Group Exercise/Act as Ind, UE Funct Exercise/Act Treatment Duration: May 13, 2020 Frequency: At least 5 of 7 days/Wk (IRF) Estimated Hrs Per Day: 1.5 hours per day Rehab Potential: Fair Time/GCodes Start Time: 08:00 Stop Time: 09:30 Total Time Billed (hr/min): 90 Billed Treatment Time 1, ADL 3 (50'), FA 3 (40') MIHAI NUNEZ OT Apr 29, 2020 09:30
[2020-04-29] MEDS: APIXABAN 5 MG (ELIQUIS) TABLET PO SCH (09:37)
[2020-04-29] MEDS: GABAPENTIN 300 MG (NEURONTIN) CAP PO SCH ×2 (09:37→12:51)
[2020-04-29] MEDS: oxyCODONE ER 10 MG (OxyCONTIN CR) TAB PO SCH (09:37)
[2020-04-29] MEDS: polyethylene glycoL POWDER 17 GM (MIRALAX) PACK PO SCH (09:37)
[2020-04-29] MEDS: SENNA W/DOCUSATE (SENOKOT S) TABLET PO SCH (09:38)
--- NOTE | 2020-04-29 09:49 | Discharge Summary ---
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 Anemia post op acute blood loss Dysarthria Severe pain left thigh amputation site Plan: Monitor hgb Pain meds Regular diet IRF protocol Maintain on increased pain meds DC to NH was refused will DC home (1) Left above-knee amputee Status: Acute (2) Infestation by maggots (3) Complete above-knee amputation of right lower extremity (4) Phantom limb pain Status: Acute (5) Tobacco abuse Status: Chronic (6) PVD (peripheral vascular disease) Status: Chronic (7) Chronic pain Status: Acute (8) Malaise Status: Acute Discharge Summary Discharge Physical Examination Allergies: Coded Allergies: No Known Drug Allergies (Unverified , 05/23/19) Vitals & I&Os Vital Signs Date Time Temp Pulse Resp B/P (MAP) Pulse Ox O2 Delivery O2 Flow Rate FiO2 04/29/20 16:55 36.9 75 16 106/74 98 Room Air General Appearance: Alert, Oriented X3, Cooperative Respiratory: Clear to Auscultation Cardiovascular: Regular Rate Hospital Course Was the Problem List Reviewed?: Yes Hospital Course: Pt had an uneventful hospital course for 6 days after insisting on leaving or leaving against medical advice. Pain medication was modified for adequate pain control for the left above the knee amputation that was added to the right above the knee amputation performed three years ago. His transfers were difficult to say the least but was able to be successful enough to be discharged home in stable manor of which he reports he just wants to drink alcohol and watch TV and I hope he doesn't do that with pain medication he could be at risk for respiratory compromise. Smoking cessation counseled. Labs (last 24 hrs) Laboratory Tests 04/23/20 04:40: White Blood Count 4.9, Red Blood Count 2.94L, Hemoglobin 10.7L, Hematocrit 31L, Mean Corpuscular Volume 107H, Mean Corpuscular Hemoglobin 36H, Mean Corpuscular Hemoglobin Concent 34, Red Cell Distribution Width 12.9, Platelet Count 283, Mean Platelet Volume 10.2, Neutrophils (%) (Auto) 57, Lymphocytes (%) (Auto) 30, Monocytes (%) (Auto) 11, Eosinophils (%) (Auto) 2, Basophils (%) (Auto) 1, Neutrophils # (Auto) 2.7, Lymphocytes # (Auto) 1.4, Monocytes # (Auto) 0.5, Eosinophils # (Auto) 0.1, Basophils # (Auto) 0.0, Sodium Level 137, Potassium Level 3.3L, Chloride Level 105, Carbon Dioxide Level 22, Anion Gap 10, Blood Urea Nitrogen 3L, Creatinine 0.52L, Estimat Glomerular Filtration Rate > 60, BUN/Creatinine Ratio 6, Glucose Level 99, Calcium Level 8.0L, Corrected Calcium 9.1, Total Bilirubin 0.4, Aspartate Amino Transf (AST/SGOT) 31, Alanine Aminotransferase (ALT/SGPT) 16, Alkaline Phosphatase 108, Total Protein 5.0L, Albumin 2.6L Pending Labs Laboratory Tests 04/23/20 04:40: White Blood Count 4.9, Red Blood Count 2.94, Hemoglobin 10.7, Hematocrit 31, Mean Corpuscular Volume 107, Mean Corpuscular Hemoglobin 36, Mean Corpuscular Hemoglobin Concent 34, Red Cell Distribution Width 12.9, Platelet Count 283, Mean Platelet Volume 10.2, Neutrophils (%) (Auto) 57, Lymphocytes (%) (Auto) 30, Monocytes (%) (Auto) 11, Eosinophils (%) (Auto) 2, Basophils (%) (Auto) 1, Neutrophils # (Auto) 2.7, Lymphocytes # (Auto) 1.4, Monocytes # (Auto) 0.5, Eosinophils # (Auto) 0.1, Basophils # (Auto) 0.0, Sodium Level 137, Potassium Level 3.3, Chloride Level 105, Carbon Dioxide Level 22, Anion Gap 10, Blood Urea Nitrogen 3, Creatinine 0.52, Estimat Glomerular Filtration Rate > 60, BUN/Creatinine Ratio 6, Glucose Level 99, Calcium Level 8.0, Corrected Calcium 9.1, Total Bilirubin 0.4, Aspartate Amino Transf (AST/SGOT) 31, Alanine Aminotransferase (ALT/SGPT) 16, Alkaline Phosphatase 108, Total Protein 5.0, Albumin 2.6 Discharge Home Medications: Active Scripts Active Oxycontin (Oxycodone HCl) 10 Mg Tab.er.12h 10 Mg PO BID Neurontin (Gabapentin) 300 Mg Capsule 300 Mg PO TID Senna-Time S Tablet (Sennosides/Docusate Sodium) 1 Each Tablet 2 Ea PO BID Oxycodone IR (Oxycodone HCl) 5 Mg Tablet 10 Mg PO Q4H PRN Eliquis (Apixaban) 5 Mg Tablet 50 Mg PO BID Instructions to patient/family Please see electronic discharge instructions given to patient. Diagnosis/Problems Diagnosis/Problems (1) Left above-knee amputee Status: Acute (2) Infestation by maggots (3) Complete above-knee amputation of right lower extremity (4) Phantom limb pain Status: Acute (5) Tobacco abuse Status: Chronic (6) PVD (peripheral vascular disease) Status: Chronic (7) Chronic pain Status: Acute (8) Malaise Status: Acute Clinical Quality Measures DVT/VTE Risk/Contraindication: Risk Factor Score Per Nursin RFS Level Per Nursing on Admit: 4+=Very High BROWN SANTOYO DO Apr 29, 2020 09:49
--- NOTE | 2020-04-29 10:49 | Therapy Team Discharge Summary ---
Therapy Discharge Summary Discharge Recommendations Date of Discharge Occupational Therapy Pt admitted to ARU s/p L AKA. Pt was independent with all ADLs and functional mobility at [facility]. At admission, pt required set up assistance with feeding and oral hygiene, Min A sponge bath, set up upper body dressing, min A lower body dressing, SBA toilet hygiene. Footwear not applicable due to pt having bilat AKA. OT tx with focus on increasing independence and safety with ADLs/functional mobility, & increasing BUE strength and endurance. At d/c, pt was independent with feeding &set up assist for oral hygiene, sponge bath, upper body dressing, lower body dressing, and toileting hygiene. Pt met goals of independent feeding, set up sponge bath, set up lower body dressing and set up toilet hygiene. He did not meet other goals but made progress towards them. Pt is discharging from this facility on this date, thus d/c from OT at this time. Decreased Activ Tolerance, Decreased UE Strength, Impaired Funct Balance, Impaired I ADL's, Impaired Self-Care Skills PT Drapery Supervisor Goals Intermediate Goals PT [place] Supervisor Goals Time Frame: May 24, 2020 Roll Left to Right (QC): 6 Sit to Lying (QC): 6 Lying-Sitting on Side/Bed(QC): 6 Sit to Stand (QC): 9 Chair/Jed-hy-Fxcfr Xfer(QC): 6 Car Transfer (QC): 6 Does the Patient Walk: No and Walking Goal NOT indicated Walk 10 feet (QC): 9 Walk 10ft-Uneven Surface(QC): 9 Walk 50ft with 2 Turns (QC): 9 Walk 150 ft (QC): 9 Does the Pt use WC or Scooter?: Yes Wheel 50 feet with 2 turns (QC: 6 1 Step (curb) (QC): 9 4 Steps (QC): 9 12 Steps (QC): 9 Picking up an Object (QC): 4 OT Intermediate Goals Intermediate Goals Time Frame: May 13, 2020 Eating (FIM): 6 Eating (QC): 6 (met) Oral Hygiene (QC): 6 (not met) Shower/Bathe Self (QC): 5 (met) Upper Body Dressing (QC): 6 (not met) Lower Body Dressing (QC): 5 (not met) On/Off Footwear (QC): 9 (9 - Not applicable, met) Toileting Hygiene (QC): 5 (met) Toilet/Commode Transfer (QC): 6 Additional Goals: 1-Demonstrate ADL Tasks, 2-Verbalize Understanding, 3- ImproveStrength/Jose Luis 1=Demonstrate adherence to instructed precautions during ADL tasks. 2=Patient will verbalize/demonstrate understanding of assistive devices/mo difications for ADL. 3=Patient will improve strength/tolerance for activity to enable patient to perform ADL's. MIHAI NUNEZ OT Apr 29, 2020 10:49
--- NOTE | 2020-04-29 11:05 | Therapy Team Discharge Summary ---
Therapy Discharge Summary Discharge Recommendations Date of Discharge Physical Therapy Patient came to rehab with a left AKA. Upon evaluation patient performed bed mobility with SBA, supine <-> sit min assist, transfers min assist, propelled a manual WC over 400' with setup. Patient has been performing bed mobility and transfer training, balance and endurance training, functional strengthening, and education. Patient has made some progress and has met his [facility] goals for WC mobility and now performs bed mobility and transfers with SBA and propels a manual WC with independence. Patient is discharging from this facility today and will be discharged from PT at this time. Occupational Therapy Decreased Activ Tolerance, Decreased UE Strength, Impaired Funct Balance, Impaired I ADL's, Impaired Self-Care Skills PT Coke Burner Goals Long-Term Goals PT Long-Term Goals Time Frame: May 24, 2020 Roll Left to Right (QC): 6 Sit to Lying (QC): 6 Lying-Sitting on Side/Bed(QC): 6 Sit to Stand (QC): 9 Chair/Ovt-nu-Xyrdm Xfer(QC): 6 Car Transfer (QC): 6 Does the Patient Walk: No and Walking Goal NOT indicated Walk 10 feet (QC): 9 Walk 10ft-Uneven Surface(QC): 9 Walk 50ft with 2 Turns (QC): 9 Walk 150 ft (QC): 9 Does the Pt use WC or Scooter?: Yes Wheel 50 feet with 2 turns (QC: 6 1 Step (curb) (QC): 9 4 Steps (QC): 9 12 Steps (QC): 9 Picking up an Object (QC): 4 OT Coke Burner Goals Coke Burner Goals Time Frame: May 13, 2020 Eating (FIM): 6 Eating (QC): 6 (met) Oral Hygiene (QC): 6 (not met) Shower/Bathe Self (QC): 5 (met) Upper Body Dressing (QC): 6 (not met) Lower Body Dressing (QC): 5 (not met) On/Off Footwear (QC): 9 (9 - Not applicable, met) Toileting Hygiene (QC): 5 (met) Toilet/Commode Transfer (QC): 6 Additional Goals: 1-Demonstrate ADL Tasks, 2-Verbalize Understanding, 3- ImproveStrength/Jose Luis 1=Demonstrate adherence to instructed precautions during ADL tasks. 2=Patient will verbalize/demonstrate understanding of assistive devices/modifications for ADL. 3=Patient will improve strength/tolerance for activity to enable patient to perform ADL's. BHARAT MCCOLLUM PT Apr 29, 2020 11:05
--- NOTE | 2020-04-29 12:26 | NUR ---
CM/SS DISCHARGE Patient is returning to his home with his brother MAURO Aj as before. Transport has been arranged through [employer]. Patient does not have his wheelchair here nor does his brother have transportation to get it here. The arrangement is that Transport will send a regular vehicle and [facility] staff will assist patient to transfer into the car. Manager Wound updated his brother MAURO who is on standby with his wheelchair at home and will assist getting patient from car into the chair/house. Unit RN and Aide updated and understand they may call warehouse handler or other Aide for assist as needed for discharge loading. Multiple calls with Wood Router Hand/Savannah Nolan who has been instrumental in assisting with discharge planning. Because patient is not a candidate for a [facility] agency to provide in his home, Savannah suggested pursuing wound management/oversight through his PCP MAYRA SCHULTZ. Spoke with Fátima there ([phone]) several times, PCP Krista Barcenas would only agree to see patient if he comes 3xweek faithfully. If he misses any appointments, they will no longer see him. Savannah has agreed to facilitate this due to the issue of transportation, she will attempt to schedule Tuesday and Tuesday this week, then - next week. [facility] does transport at times but they do not have available vehicle this week. Savannah has means to facilitate flexible transport and will do this for patient. She has requested patient's physician appointment schedule so she can oversee he gets transportation to [facility] as well as Dr. Cortes for post surgical followup. Savannah will also followup with DCF/APS regarding outstanding reports. Savannah email: [email or web address]/[facility] My [facility]: [phone] Trip #[id number] Manager Wound notified [facility] of patient's adamant decision he will only return to his home. They are available to admit from home if that is needed. Patient was pleasant this date but fully exercising self-determination about returning home. Savannah will visit him at home tomorrow. His SKIL 20 hours will be resumed with his brother as his caregiver. DME: Sl[employer] Board has been coordinated through [facility] under Savannah direction. They will deliver to patient's house. Patient updated intermittently of arrangements.
[2020-04-29 15:30] VITALS: BP 106/74
[2020-04-29 16:55] VITALS: BP 106/74
== END 2020-04-29 14:15 | disposition home or self-care (01) | DRG 560 ==
PROVIDERS: ADMIT Internal Medicine; ATTEND Internal Medicine
DX: Z47.81 Encounter for orthopedic aftercare following surgical amputation (principal); D62 Acute posthemorrhagic anemia; Z89.612 Acquired absence of left leg above knee; G54.6 Phantom limb syndrome with pain; Z89.611 Acquired absence of right leg above knee; E11.51 Type 2 diabetes mellitus with diabetic peripheral angiopathy without gangrene; E11.40 Type 2 diabetes mellitus with diabetic neuropathy, unspecified; R47.1 Dysarthria and anarthria; F17.210 Nicotine dependence, cigarettes, uncomplicated; J44.9 Chronic obstructive pulmonary disease, unspecified; K21.9 Gastro-esophageal reflux disease without esophagitis; Z79.4 Long term (current) use of insulin; Z87.820 Personal history of traumatic brain injury; Z87.01 Personal history of pneumonia (recurrent)
CPT/HCPCS: 36415; 80053; 85025; 94760

== ENCOUNTER → 2020-05-07 | Outpatient (CLI) | payer MEDICAID ==
[~2020-05-07] MED LIST changes: +ACHYD1T PO; +GABA-486 PO; +GABA300C PO; +IBUP-2185 PO; +OXYC10TA55 PO; +OXYC5TAB96 PO; +SENN-20 PO
--- NOTE | 2020-05-07 12:03 | Diagnostic Imaging Report ---
INDICATION: Low oxygen saturation. TIME OF EXAM: 11:26 a.m. COMPARISON: Comparison is made with prior chest 04/19/2020. FINDINGS: Heart size is stable. Lungs appear to be clear. No infiltrates are detected. The pulmonary vascularity is normal. No effusion or pneumothorax is identified. IMPRESSION: No acute cardiopulmonary process is detected. Dictated by: Dictated on workstation # [id number]
--- NOTE | 2020-05-07 12:13 | Diagnostic Imaging Report ---
INDICATION: Fall and right hip pain. TIME OF EXAM: 11:22 a.m. TECHNIQUE: Two views of the right hip are obtained. FINDINGS: Severe demineralization is noted. Femoroacetabular alignment is normal. No definite hip fracture is detected. There are surgical clips overlying the femoral neck. There is a lytic-appearing lesion in the subtrochanteric region of the proximal right femur. There appears to be associated endosteal scalloping present as well. No definite pathologic fracture is identified. Right-sided rami are intact. IMPRESSION: No acute hip fracture is identified. However, there is a lytic-appearing lesion of the subtrochanteric proximal right femur with associated endosteal scalloping. Dedicated right femur radiographs would be recommended, as this is not entirely included on this study. Dictated by: Dictated on workstation # [id number]
== END ==
LOC: RAD FS 10:45
PROVIDERS: ATTEND Nurse Practitioner Family
DX: M25.551 Pain in right hip (principal); M89.9 Disorder of bone, unspecified; R06.89 Other abnormalities of breathing; R79.81 Abnormal blood-gas level; W19.XXXA Unspecified fall, initial encounter; Z98.890 Other specified postprocedural states
CPT/HCPCS: 71046; 73502

== ENCOUNTER → 2020-06-02 | Outpatient (CLI) | payer MEDICAID | LOC: WOUNDCARE 13:03 | PROVIDERS: ATTEND Surgery | DX: I96 Gangrene, not elsewhere classified (principal); L89.313 Pressure ulcer of right buttock, stage 3; L89.323 Pressure ulcer of left buttock, stage 3; L97.222 Non-pressure chronic ulcer of left calf with fat layer exposed; T81.31XA Disruption of external operation (surgical) wound, not elsewhere classified, initial encounter; G82.21 Paraplegia, complete; E44.0 Moderate protein-calorie malnutrition | CPT/HCPCS: 99214 ==

== ENCOUNTER → 2020-06-12 | Outpatient (CLI) | payer MEDICAID | LOC: WOUNDCARE 14:27 | PROVIDERS: ATTEND Surgery | DX: L89.323 Pressure ulcer of left buttock, stage 3 (principal); L97.122 Non-pressure chronic ulcer of left thigh with fat layer exposed; T81.31XA Disruption of external operation (surgical) wound, not elsewhere classified, initial encounter; E44.0 Moderate protein-calorie malnutrition; F17.210 Nicotine dependence, cigarettes, uncomplicated; Z89.512 Acquired absence of left leg below knee; J44.9 Chronic obstructive pulmonary disease, unspecified; I10 Essential (primary) hypertension; I73.9 Peripheral vascular disease, unspecified; M06.9 Rheumatoid arthritis, unspecified; G62.9 Polyneuropathy, unspecified; Z95.1 Presence of aortocoronary bypass graft ==

== ENCOUNTER → 2020-06-19 | Outpatient (CLI) | payer MEDICAID | LOC: WOUNDCARE 14:08 | PROVIDERS: ATTEND Surgery | DX: L89.323 Pressure ulcer of left buttock, stage 3 (principal); L97.122 Non-pressure chronic ulcer of left thigh with fat layer exposed; T81.31XA Disruption of external operation (surgical) wound, not elsewhere classified, initial encounter; E44.0 Moderate protein-calorie malnutrition; F17.210 Nicotine dependence, cigarettes, uncomplicated; Z89.512 Acquired absence of left leg below knee; J44.9 Chronic obstructive pulmonary disease, unspecified; I73.9 Peripheral vascular disease, unspecified; M06.9 Rheumatoid arthritis, unspecified; G62.9 Polyneuropathy, unspecified; Z95.1 Presence of aortocoronary bypass graft ==

== ENCOUNTER → 2020-07-03 | Outpatient (CLI) | payer MEDICAID | LOC: WOUNDCARE 13:14 | PROVIDERS: ATTEND Surgery | DX: L97.822 Non-pressure chronic ulcer of other part of left lower leg with fat layer exposed (principal); T81.31XA Disruption of external operation (surgical) wound, not elsewhere classified, initial encounter; I96 Gangrene, not elsewhere classified; R68.89 Other general symptoms and signs ==

== ENCOUNTER → 2020-07-18 | Outpatient (CLI) | payer MEDICAID | LOC: WOUNDCARE 11:45 | PROVIDERS: ATTEND Surgery | DX: L03.116 Cellulitis of left lower limb (principal); L97.122 Non-pressure chronic ulcer of left thigh with fat layer exposed; T81.31XA Disruption of external operation (surgical) wound, not elsewhere classified, initial encounter; I96 Gangrene, not elsewhere classified; R68.89 Other general symptoms and signs ==

== ENCOUNTER → 2020-07-30 | Outpatient (CLI) | payer MEDICAID | LOC: WOUNDCARE 11:00 | PROVIDERS: ATTEND Surgery | DX: L97.122 Non-pressure chronic ulcer of left thigh with fat layer exposed (principal); T81.31XA Disruption of external operation (surgical) wound, not elsewhere classified, initial encounter; R68.89 Other general symptoms and signs ==

== ENCOUNTER → 2020-08-06 | Outpatient (CLI) | payer MEDICAID | LOC: WOUNDCARE 11:00 | PROVIDERS: ATTEND Surgery | DX: I96 Gangrene, not elsewhere classified (principal); L97.122 Non-pressure chronic ulcer of left thigh with fat layer exposed; L92.8 Other granulomatous disorders of the skin and subcutaneous tissue; T81.31XA Disruption of external operation (surgical) wound, not elsewhere classified, initial encounter; R68.89 Other general symptoms and signs ==

== ENCOUNTER 2021-01-12 05:30 | Outpatient (RCR) | payer MEDICAID ==
[~2021-01-12 05:30] MED LIST changes: +OXC5T PO; -OXYC5TAB96 PO
[2021-04-09] MEDS ORDERED: HYDR-3817 PO (10:31)
[2021-04-09] MEDS ORDERED: RT-ALBUINH INH (11:45)
[2021-04-09] MEDS ORDERED: MULT-1136 PO (11:45)
[2021-04-09] MEDS ORDERED: ONDA4TAB11 PO (11:45)
[2021-04-09] MEDS ORDERED: SULF1TAB35 PO (11:45)
[2021-04-09] MEDS ORDERED: APIX5TAB PO (11:45)
== END 2021-04-12 | disposition home or self-care (01) ==
LOC: PREOP 05:30
PROVIDERS: ATTEND Surgery
DX: Z01.818 Encounter for other preprocedural examination (principal)

== ENCOUNTER → 2021-04-08 | Outpatient (CLI) | payer MEDICAID ==
[~2021-04-08] MED LIST changes: +HYDR-3817 PO; +MULT-1136 PO; +ONDA4TAB11 PO; +RT-ALBUINH INH; +SULF1TAB35 PO
== END ==
LOC: PREOP 09:43
PROVIDERS: ATTEND Surgery
DX: Z01.818 Encounter for other preprocedural examination (principal); K40.90 Unilateral inguinal hernia, without obstruction or gangrene, not specified as recurrent

== ENCOUNTER 2021-04-09 10:05 | Day surgery (SDC) | payer MEDICAID ==
[~2021-04-09 10:05] MED LIST changes: -HYDR-3817 PO; -MULT-1136 PO; -ONDA4TAB11 PO; -RT-ALBUINH INH; -SULF1TAB35 PO
[2021-04-09] MEDS ORDERED: HYDROcodone/APAP 5 MG/325 MG (LORTAB) TAB PO ONE (10:30)
[2021-04-09] MEDS ORDERED: ONDANSETRON 4 MG/2 ML (SDV) Z0FRAN IVP PRN (10:30)
[2021-04-09] MEDS ORDERED: morphine INJ 10 MG/ML 1ML (SYR OR VIAL) IVP PRN (10:30)
[2021-04-09] MEDS ORDERED: ACETAMINOPHEN 325 MG TABLET PO PRN (10:30)
--- NOTE | 2021-04-09 10:30 | Progress Note-Pre Operative ---
Pre-Operative Progress Note H&P Reviewed The H&P was reviewed, patient examined and no changes noted. Date Seen by Provider: April 09, 2021 Time Seen by Provider: 10:25 Date H&P Reviewed: April 09, 2021 Time H&P Reviewed: 10:20 Pre-Operative Diagnosis: Symptomatic Left inguinal hernia JOSÉ LUIS ROPER APRN April 09, 2021 10:30
[2021-04-09] MEDS ORDERED: HYDR-3817 PO (10:31)
--- NOTE | 2021-04-09 10:32 | Discharge Inst-Surgical ---
D/C Lap Instructions-KIDO Reconcile Patient Problems Problems Reviewed?: Yes New, Converted, or Re-Newed RX: RX on Chart Follow Up Appt in 2 weeks Activity as tolerated No driving for 24 hours No driving while on pain medications Incentive Spirometry use every 2 hours while awake Regular Diet Symptoms to Report: Fever over 101 degree F, Nausea/Vomiting Infection Signs and Symptoms to report: Increased redness, Foul odor of wound, Increased drainage Bathing instructions: May shower Operative Area Clean/Dry; Keep incision clean/dry If any problems/questions: Contact your physician or go to Emergency Room JOSÉ LUIS ROPER APRN April 09, 2021 10:32
[2021-04-09 10:38] LABS: BASOPHILS # (AUTO) 0.1 10^3/uL (0.0-0.1); BASOPHILS % (AUTO) 1 % (0-10); EOSINOPHILS % (AUTO) 0 % (0-10); HEMATOCRIT 47 % (40-54); HEMOGLOBIN 16.9 g/dL (13.3-17.7); LYMPHOCYTES # (AUTO) 1.4 10^3/uL (1.0-4.0); LYMPHOCYTES % (AUTO) 19 % (12-44); MEAN CORPUSCULAR HEMOGLOBIN 41 pg (25-34); MEAN CORPUSCULAR HGB CONC 36 g/dL (32-36); MEAN CORPUSCULAR VOLUME 113 fL (80-99); MEAN PLATELET VOLUME 10.8 fL (9.0-12.2); MONOCYTES # (AUTO) 0.5 10^3/uL (0.0-1.0); MONOCYTES % (AUTO) 6 % (0-12); NEUTROPHILS # (AUTO) 5.5 10^3/uL (1.8-7.8); NEUTROPHILS % (AUTO) 73 % (42-75); PLATELET COUNT 153 10^3/uL (130-400); WHITE BLOOD COUNT 7.5 10^3/uL (4.3-11.0)
[2021-04-09 10:50] LABS: AMPHETAMINE SCREEN, URINE NEGATIVE (NEGATIVE); BARBITURATE SCREEN URINE NEGATIVE (NEGATIVE); BENZODIAZEPINES SCREEN URINE NEGATIVE (NEGATIVE); CANNABINOID SCREEN, URINE POSITIVE (NEGATIVE); COCAINE SCREEN URINE NEGATIVE (NEGATIVE); METHADONE STAT NEGATIVE (NEGATIVE); METHAMPHETAMINE SCREEN URINE S NEGATIVE (NEGATIVE); OPIATE SCREEN URINE NEGATIVE (NEGATIVE); OXYCODONE STAT POSITIVE (NEGATIVE); PROPOXYPHENE STAT NEGATIVE (NEGATIVE); TRICYCLIC ANTIDEPRESSANTS SCRE NEGATIVE (NEGATIVE)
[2021-04-09 10:55] VITALS: BP 137/96
[2021-04-09] MEDS ORDERED: ceFAZolin INJECTION 1,000 MG in WATER (STERILE) FOR INJECTION 10 ML IV ONE (11:00)
[2021-04-09] MEDS ORDERED: MULT-1136 PO (11:45)
[2021-04-09] MEDS ORDERED: RT-ALBUINH INH (11:45)
[2021-04-09] MEDS ORDERED: APIX5TAB PO (11:45)
[2021-04-09] MEDS ORDERED: ONDA4TAB11 PO (11:45)
[2021-04-09] MEDS ORDERED: SULF1TAB35 PO (11:45)
[2021-04-09 11:51] LABS: ALANINE AMINOTRANSFERASE 42 U/L (0-55); ALBUMIN 3.9 GM/DL (3.2-4.5); ALKALINE PHOSPHATASE 129 U/L (40-136); BILIRUBIN,TOTAL 1.1 MG/DL (0.1-1.0); BUN/CREATININE RATIO 7; CARBON DIOXIDE 22 MMOL/L (21-32); CHLORIDE 95 MMOL/L (98-107); CREATININE SERUM 0.57 MG/DL (0.60-1.30); GFR ESTIMATED > 60; GLUCOSE 84 MG/DL (70-105); SODIUM 135 MMOL/L (135-145); TOTAL PROTEIN 6.7 GM/DL (6.4-8.2)
--- NOTE | 2021-04-09 12:42 | Diagnostic Imaging Report ---
INDICATION: PRE-OP COMPARISON: 05/07/2020 FINDINGS: Frontal and lateral views of the chest demonstrate normal heart size and pulmonary vascularity. Evaluation of lung mg demonstrates hyperinflation with flattening of diaphragms consistent with background COPD changes. There is suggestion of spiculated nodular opacity within the lingula of the left upper lobe that measures 1.6 cm. Note is also made of calcified aortic atherosclerosis. Osseous structures show no acute abnormalities. IMPRESSION: 1. No evidence of failure or focal infiltrate. 2. Background COPD changes. 3. Suspicious area of spiculated nodular opacity in the lingula of the left upper lobe. Findings could be artifactual related to pericardial fat or atelectasis. CT of the chest is recommended to exclude soft tissue nodule. Dictated by: Dictated on workstation # [id number]
== END 2021-04-09 17:10 | disposition home or self-care (01) ==
LOC: SDC 10:05
PROVIDERS: ATTEND Surgery
DX: K40.90 Unilateral inguinal hernia, without obstruction or gangrene, not specified as recurrent (principal); Z53.8 Procedure and treatment not carried out for other reasons
CPT/HCPCS: 71046; 80053; 80306; 85025; 87081; 93005; G0480; 36415; 80320

== ENCOUNTER 2021-08-28 13:30 | Inpatient (IN) | payer MEDICAID ==
[~2021-08-28] VITALS: Ht 142.2 cm; Wt 53.0 kg
[~2021-08-28 13:30] MED LIST changes: +HYDR-3817 PO; +MULT-1136 PO; +ONDA4TAB11 PO; +RT-ALBUINH INH; +SULF1TAB38 PO
--- OUTSIDE RECORDS SUMMARY | 2021-08-28 13:38 | XMS REPORT | Clinical Summary ---
Author Author [facility] Organization [facility] Address Unknown Phone Unavailable Care Team Providers Care Electric Meter Reader Name Role Phone Monisha Arredondo MD PCP Source Comments Some departments are not documenting in the electronic medical record. If you d o not see the information that you expected, contact [facility] [employer] Information Management department at [phone] for further assistan ce in locating additional records.[facility] Allergies No Known Active Allergies Medications End Date Status Medication Sig Dispensed Refills Start Date Active albuterol (VENTOLIN HFA, Inhale 2 0 PROAIR HFA, PROVENTIL Puffs by HFA) 90 mcg/actuation mouth into inhaler the lungs every 6 hours as needed for Wheezing or Shortness of Breath. Shake well before use. Active gabapentin (NEURONTIN) Take 1 0 01/26/ 01 300 mg capsule capsule by 8 mouth three times daily. Active metoprolol XL (TOPROL XL) Take 25 mg by 0 07/15 25 mg extended release mouth twice 7 tablet daily. Active furosemide (LASIX) 20 mg Take 20 mg by 0 01/26 tablet mouth daily. 8 Active traMADol (ULTRAM) 50 mg Take 50 mg by 0 tablet mouth twice [address]. [address] (CYMBALTA) Take 30 mg by 0 01/26 30 mg capsule mouth daily. 8 Active cyanocobalamin (VITAMIN Take 1,000 0 B-12) 500 mcg tablet mcg by mouth daily. Active promethazine (PHENERGAN) Take 1 tablet 30 tablet 3 25 mg tabletIndications: by mouth 8 Chronic post-traumatic every 8 hours headache, not intractable as needed for Nausea or Vomiting (for migraine, take with benadryl 25mg and naproxen 440mg). 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 Chronic post-traumatic headache, not intractable Cerebellar ataxia 02/28/2018 Surgical History Surgery Date Site/Laterality Comments LEG AMPUTATION THROUGH 07/15/2017 - Right FEMUR 08/13/2017 Medical History Medical History Date Comments Arthritis Tobar's disease Headache Hypertension Atherosclerotic peripheral vascular disease with rest pain (HCC) Amputated right leg (HCC) w/prosthesis Family History Medical History Relation Name Comments Hypertension Father Stroke Father Stroke Mother Relation Name Status Comments Father Mother Social History Date Tobacco Use Types Packs/Day Years Used Current Every Day Smoker Cigarettes 1.5 62 Smokeless Tobacco: Never Used Comments Alcohol Use Standard Drinks/Week per week Yes 6 (1 standard drink = 0.6 o z pure alcohol) Alcohol Habits Answer Date Recorded How often do you have a drink containing alcohol? No t asked How many drinks containing alcohol do you have on No t asked a typical day when you are drinking? How often do you have six or more drinks on one Not asked occasion? Comment: per week 02/27/2018 Sex Assigned at Date Recorded Not on file Last Filed Vital Signs Reading Time Taken Comments Vital Sign 149/90 05/30/2018 12:51 PM CDT Blood Pressure 90 05/30/2018 12:51 PM CDT Pulse - - Temperature - - Respiratory Rate 99% 05/30/2018 12:51 PM CDT Oxygen Saturation - - Inhaled Oxygen Concentration 56.7 kg (125 lb) 05/30/2018 12:51 PM CDT Weight 177.8 cm (5' 10") 05/30/2018 12:51 PM CDT Height 17.94 05/30/2018 12:51 PM CDT Body Mass Index Plan of Treatment Health Maintenance Due Date Last Done Comments HIV SCREENING 1979 DTAP/TDAP VACCINES (1 - 1982 Tdap) HEPATITIS C SCREENING 1982 PHYSICAL (COMPREHENSIVE) 1982 EXAM COLORECTAL CANCER 2014 SCREENING SHINGLES RECOMBINANT 2014 VACCINE (1 of 2) INFLUENZA VACCINE 06/14/2021 Results Not on filefrom Last 3 Months Insurance Type Payer Benefit Subscriber ID Effective Phone Address Plan / Dates Group Medicaid [employer] [place] [place] [employer] [id number] 2010- STATE Present [id number] [id number] 1 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
[2021-08-28 14:19] LABS: WHITE BLOOD COUNT 8.7 10^3/uL (4.3-11.0)
[2021-08-28 14:20] LABS: BASOPHILS % (AUTO) 0 % (0-10); EOSINOPHILS % (AUTO) 0 % (0-10); HEMATOCRIT 32 % (40-54); HEMOGLOBIN 11.2 g/dL (13.3-17.7); LYMPHOCYTES # (AUTO) 1.1 X 10^3 (1.0-4.0); LYMPHOCYTES % (AUTO) 13 % (12-44); MEAN CORPUSCULAR HEMOGLOBIN 37 pg (25-34); MEAN CORPUSCULAR HGB CONC 35 g/dL (32-36); MEAN CORPUSCULAR VOLUME 106 fL (80-99); MEAN PLATELET VOLUME 11.5 fL (9.0-12.2); MONOCYTES # (AUTO) 0.4 X 10^3 (0.0-1.0); MONOCYTES % (AUTO) 5 % (0-12); NEUTROPHILS % (AUTO) 81 % (42-75); PLATELET COUNT 141 10^3/uL (130-400)
[2021-08-28 14:41] LABS: POTASSIUM 2.8 MMOL/L (3.6-5.0)
[2021-08-28 14:42] LABS: ALBUMIN 3.3 GM/DL (3.2-4.5); BILIRUBIN,TOTAL 0.9 MG/DL (0.1-1.0); CALCIUM 8.5 MG/DL (8.5-10.1); CREATININE SERUM 0.41 MG/DL (0.60-1.30); MAGNESIUM 1.2 MG/DL (1.6-2.4); TOTAL PROTEIN 6.5 GM/DL (6.4-8.2)
--- NOTE | 2021-08-28 15:03 | Diagnostic Imaging Report ---
PROCEDURE: CT head and CT cervical spine without contrast. TECHNIQUE: Multiple contiguous axial images were obtained through the brain and cervical spine without the use of intravenous contrast. Sagittal and coronal reformations through the cervical spine were then performed. Auto Exposure Controls were utilized during the CT exam to meet ALARA standards for radiation dose reduction. INDICATION: Repeated falls. COMPARISON: None. CT head: Age-related cerebral volume loss and chronic microvascular changes are present. There is no focus of acute ischemia or hemorrhage. There is no midline shift or mass effect. No extra-axial fluid collection or mass is seen. There is no skull fracture. The paranasal sinuses and mastoids are clear. IMPRESSION: No acute intracranial abnormality. CT cervical spine: Alignment is normal. There is no subluxation or fracture. Degenerative disc disease and facet degenerative arthropathy is seen throughout. Carotid artery atherosclerotic disease is present. The central canal is preserved. Centrilobular emphysema is seen in the upper lung zones. Soft tissues are otherwise unremarkable. IMPRESSION: No traumatic malalignment or fracture. Dictated by: Dictated on workstation # [id number]
[2021-08-28] MEDS ORDERED: POTASSIUM CL 10MEQ/50ML IVPB 50 ML IV ONE ×2 (15:15→17:15)
[2021-08-28] MEDS ORDERED: NS IV 1000 ML 1,000 ML IV SCH ×2 (15:15→17:45)
--- NOTE | 2021-08-28 15:16 | Diagnostic Imaging Report ---
PROCEDURE: CT pelvis without contrast. TECHNIQUE: Multiple contiguous axial images were obtained through the pelvis without the use of intravenous contrast. Sagittal and coronal reformations were performed. Auto Exposure Controls were utilized during the CT exam to meet ALARA standards for radiation dose reduction. INDICATION: Repeated falls and hip pain. FINDINGS: There is a fracture of the left hip. The fracture line appears to be in the basicervical region and involvement of the greater trochanter. The right hip is intact. Femoroacetabular alignment is normal. There is no dislocation. Superior and inferior pubic rami are intact. SI joints and symphysis are non-widened. There is significant demineralization and rarefaction of bilateral hips. IMPRESSION: Left hip fracture in the basicervical location. No other significant abnormality is detected. Dictated by: Dictated on workstation # [id number]
[2021-08-28] MEDS ORDERED: MAGNESIUM OXIDE (MAG-OX)400 MG TAB PO ONE (15:45)
[2021-08-28] MEDS ORDERED: NS IV 1000 ML 1,000 ML ONE (17:13)
--- NOTE | 2021-08-28 17:16 | ED General ---
General Chief Complaint: Skin/Wound Problems Stated Complaint: EVAL FOR SNF REFERRAL Nursing Triage Note: Patient brought to the ED via EMS for chief complaint of being unable care for himself at home. Patient is a bilateral above the knee amputee and states he is unable to safely stay by himself at home. He reports repeated falls and poor hygiene, large non-healing wound to left leg stump with exposed bone, multiple open pressure sores to buttocks/sacrum/scrotum. Patient states he wants to be directly admitted to [facility], states he does not want to be admitted to the hospital because they will not let him drink alcohol while he is admitted. Source of Information: Patient, EMS, Old Records Exam Limitations: No Limitations History of Present Illness Date Seen by Provider: Aug 28, 2021 Time Seen by Provider: 13:31 Initial Comments This 55-year-old gentleman presents to the emergency room via EMS from home with multiple recent falls. He describes 2 notable falls in the last week, one in which he fell off the porch and landed in a somersault. He has a scabbed abrasion on his head from that fall. He also describes some hip and pelvic discomfort and skin integrity issues in the sacral region. He additionally has bilateral AKA amputations with bone exposed on the left. He states this has been a chronic problem. Patient reports he and his sister have been visiting with [facility] about fdc placement and they were hopeful that a medical screening in the ER today could facilitate placement in the fdc. Patient consumes alcohol daily in large quantities per his report. He is afebrile, alert, oriented, and in no distress. Allergies and Home Medications Allergies Coded Allergies: No Known Drug Allergies (Unverified , 05/23/19) Patient Home Medication List Home Medication List Reviewed: Yes Albuterol Sulfate (Ventolin Hfa) 1 Puff Puff, 2 PUFF INH Q4H PRN for WHEEZING, (Reported) Entered as Reported by: ESSENCE BECERRIL on 04/09/21 1145 Apixaban (Eliquis) 5 Mg Tablet, 5 MG PO BID, (Reported) Entered as Reported by: ESSENCE BECERRIL on 04/09/21 1145 Gabapentin (Neurontin) 300 Mg Capsule, 300 MG PO TID Prescribed by: BROWN SANTOYO on 04/27/202131 Hydrocodone/Acetaminophen (Hydrocodone-Acetamin 7.5-325) 1 Each Tablet, 1 EACH PO Q4H PRN for PAIN-BREAKTHROUGH Prescribed by: JOSÉ LUIS ROPER on 04/09/21 1031 Multivitamin (Multivitamin) 1 Each Tablet, 1 EACH PO DAILY, (Reported) Entered as Reported by: ESSENCE BECERRIL on 04/09/21 1145 Ondansetron (Ondansetron Odt) 4 Mg Tab.rapdis, 4 MG PO Q4H PRN for NAUSEA/VOMITING-1ST LINE, (Reported) Entered as Reported by: ESSENCE BECERRIL on 04/09/21 1145 Oxycodone HCl (Oxycontin) 10 Mg Tab.er.12h, 10 MG PO BID Prescribed by: BROWN SANTOYO on 04/27/202131 Sennosides/Docusate Sodium (Senna-Time S Tablet) 1 Each Tablet, 2 EA PO BID Prescribed by: BROWN SANTOYO on 04/27/202131 Sulfamethoxazole/Trimethoprim (Bactrim Ds Tablet) 1 Each Tablet, 1 EACH PO DAILY, (Reported) Entered as Reported by: ESSENCE BECERRIL on 04/09/21 1145 Review of Systems Review of Systems Constitutional: no symptoms reported EENTM: see HPI Respiratory: no symptoms reported Cardiovascular: no symptoms reported Gastrointestinal: no symptoms reported Genitourinary: no symptoms reported Musculoskeletal: see HPI Skin: see HPI Psychiatric/Neurological: See HPI Hematologic/Lymphatic: No Symptoms Reported Immunological/Allergic: no symptoms reported Past Jprjfwo-Rwddah-Zyckmz Hx Patient Social History Tobacco Use?: Yes Tobacco type used: Cigarettes Smoking Status: Current Everyday Smoker Substance use?: No Alcohol Use?: Yes Alcohol type: Hard Liquor Alcohol Frequency: Daily Pt feels they are or have been: No Seasonal Allergies Seasonal Allergies: No Past Medical History Surgeries: Yes Amputation (Bilateral AKA), Orthopedic Respiratory: No (Hypoxia) Currently Using CPAP: No Currently Using BIPAP: No Cardiac: Yes (Buerger Disease) Hypertension, Peripheral Vascular Neurological: Yes Neuropathy, Stroke Genitourinary: No Gastrointestinal: Yes (Chronic Alcohol gastritis) Gastroesophageal Reflux Musculoskeletal: Yes (Right above the knee amputation) Amputee Endocrine: Yes Diabetes, 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 oz. 53.044245oz; 15.78 BMI Method:Stated General Appearance: No Apparent Distress, WD/WN, Other (appears intoxicated) HEENT: PERRL/EOMI, Normal ENT Inspection, Other (poor dentition with missing teeth) Neck: Normal Inspection Respiratory: Lungs Clear, Normal Breath Sounds, No Accessory Muscle Use Cardiovascular: Regular Rate, Rhythm, No Edema, No Murmur Gastrointestinal: Non Tender, Soft; No Distended Extremity: Other (bilateral AKA. Chronic appearing inflammatory changes about the distal left stump with femur bone exposed through the wound.) Neurologic/Psychiatric: Alert, Oriented x3, Normal Mood/Affect, fulfillment associate II-XII Norm as Tested, Other (speach appears slurred from intoxication and hyponatremia) Skin: Normal Color, Warm/Dry, Other (Dusky skin over the sacrum. Decubitous ulcers on the left buttock. Skin under brief soiled with stool. Erythema about the genitals. See extremity exam.) Progress/Results/Core Measures Suspected Sepsis SIRS Temperature: Pulse: 104 Respiratory Rate: 18 Laboratory Tests 08/28/21 14:10: White Blood Count 8.7 Blood Pressure 122 /76 Mean: 91 Laboratory Tests 08/28/21 14:10: Creatinine 0.41L, Platelet Count 141, Total Bilirubin 0.9 Results/Orders Lab Results Laboratory Tests Test 08/28/21 14:10 Range/Units White Blood Count 8.7 4.3-11.0 10^3/uL Red Blood Count 3.04 L 4.30-5.52 10^6/uL Hemoglobin 11.2 L 13.3-17.7 g/dL Hematocrit 32 L 40-54 % Mean Corpuscular Volume 106 H 80-99 fL Mean Corpuscular Hemoglobin 37 H 25-34 pg Mean Corpuscular Hemoglobin Concent 35 32-36 g/dL Red Cell Distribution Width 13.0 10.0-14.5 % Platelet Count 141 130-400 10^3/uL Mean Platelet Volume 11.5 9.0-12.2 fL Immature Granulocyte % (Auto) 1 % Neutrophils (%) (Auto) 81 H 42-75 % Lymphocytes (%) (Auto) 13 12-44 % Monocytes (%) (Auto) 5 0-12 % Eosinophils (%) (Auto) 0 0-10 % Basophils (%) (Auto) 0 0-10 % Neutrophils # (Auto) 7.0 1.8-7.8 X 10^3 Lymphocytes # (Auto) 1.1 1.0-4.0 X 10^3 Monocytes # (Auto) 0.4 0.0-1.0 X 10^3 Eosinophils # (Auto) 0.0 0.0-0.3 10^3/uL Basophils # (Auto) 0.0 0.0-0.1 10^3/uL Immature Granulocyte # (Auto) 0.1 0.0-0.1 10^3/uL Sodium Level 122 *L 135-145 MMOL/L Potassium Level 2.8 L 3.6-5.0 MMOL/L Chloride Level 84 L 98-107 MMOL/L Carbon Dioxide Level 23 21-32 MMOL/L Anion Gap 15 H 5-14 MMOL/L Blood Urea Nitrogen 8 7-18 MG/DL Creatinine 0.41 L 0.60-1.30 MG/DL Estimat Glomerular Filtration Rate 216 BUN/Creatinine Ratio 20 Glucose Level 99 70-105 MG/DL Calcium Level 8.5 8.5-10.1 MG/DL Corrected Calcium 9.1 8.5-10.1 MG/DL Magnesium Level 1.2 L 1.6-2.4 MG/DL Total Bilirubin 0.9 0.1-1.0 MG/DL Aspartate Amino Transf (AST/SGOT) 37 H 5-34 U/L Alanine Aminotransferase (ALT/SGPT) 14 0-55 U/L Alkaline Phosphatase 137 H 40-136 U/L Total Creatine Kinase 213 H 30-200 U/L C-Reactive Protein 8.94 H <0.50 MG/DL Total Protein 6.5 6.4-8.2 GM/DL Albumin 3.3 3.2-4.5 GM/DL Serum Alcohol 128 H <10 MG/DL My Orders Orders - AXEL CARTER MD Ct Head/Cervical Spine Wo (08/28/21 13:51) Ct Pelvis Wo (08/28/21 13:51) Alcohol (08/28/21 13:51) Cbc With Automated Diff (08/28/21 13:51) Comprehensive Metabolic Panel (08/28/21 13:51) Magnesium (08/28/21 13:51) Ua Culture If Indicated (08/28/21 13:51) Crp Fs (08/28/21 13:51) Ed Iv/Invasive Line Start (08/28/21 13:51) Ns Iv 1000 Ml (Sodium Chloride 0.9%) (08/28/21 15:15) Potassium Cl 10meq/50ml Ivpb (Kcl 10 Meq (08/28/21 15:15) Magnesium Oxide Tablet (Mag Ox Tablet) (08/28/21 15:45) Potassium Cl 10meq/50ml Ivpb (Kcl 10 Meq (08/28/21 17:15) Ns Iv 1000 Ml (Sodium Chloride 0.9%) (08/28/21 17:13) Hydrocodone/Apap 5/325 Tablet (Lortab 5 (08/28/21 17:30) Hydrocodone/Apap 5/325 Tablet (Lortab 5 (08/28/21 17:32) Ns Iv 1000 Ml (Sodium Chloride 0.9%) (08/28/21 17:45) Creatine Kinase (08/28/21 14:10) Medications Given in ED Vital Signs/I&O 08/28/21 08/28/21 14:00 18:09 Temp 37.2 Pulse 104 100 Resp 18 16 B/P (MAP) 122/76 (91) 94/52 Pulse Ox 94 95 O2 Delivery Room Air Room Air 08/29/21 00:00 Intake Total 1050 ml Balance 1050 ml Capillary Refill : Blood Pressure Mean: 91 Progress Note : Time: 17:31 Progress Note Patient was seen and examined upon arrival. Due to his falls and potential injuries, CT scanning of the head, cervical spine, and pelvis were obtained. There was no injury identified of the head or cervical spine. CT of the pelvis did not show any tissue or bony destruction from infection but there was a nondisplaced left hip fracture noted. This was discussed with Dr. Edgar, orthopedic surgeon on-call. He and I are in agreement that this is a nonsurgical injury given patient's comorbidities and nonweightbearing status. Patient was found to have rather severe electrolyte disturbances with hyponatremia, hypokalemia, and hypomagnesemia. Electrolyte replacement was started with a liter of LR and 20 mEq of potassium chloride. While these were infusing he was also given an oral dose of Mag-Ox 400 mg. Patient was alert and hungry. He ate pizza while in the ER. Patient was cleaned up and skin integrity issues were noted on the sacrum and the buttocks. Sacral skin was dusky but intact. There were multiple shallow decubitus ulcers on the left buttock. He also has an open wound on the left AKA site with bone exposed. Patient's intention with coming to the hospital today was to get medical jamia arance for admission to a fdc. [facility] [place] [facility]. Nursing staff did contact [facility] and the director stated admission was already declined and that would not change based on evaluation in the ER. I explained to the patient that it would not be safe for him to return home at this time due to his signi ficant electrolyte disturbances and wound integrity issues. At first he intended to leave AGAINST MEDICAL ADVICE but then reconsidered and decided to be admitted for care through the weekend until he could be placed in a fdc with proper assessment of his wound status and replacement of his electrolytes. Diagnostic Imaging Diagonstic Imaging: CT Plain Films/CT/US/NM/MRI: c-spine, head Comments CT head and cervical spine viewed by me and report reviewed. See report below: NAME: [facility] REC#: [id number] PT STATUS: REG ER : 1965 PHYSICIAN: AXEL CARTER MD ADMIT DATE: 08/28/21/ER FS Signed Date of Exam:08/28/21 CT HEAD/CERVICAL SPINE WO PROCEDURE: CT head and CT cervical spine without contrast. TECHNIQUE: Multiple contiguous axial images were obtained through the brain and cervical spine without the use of intravenous contrast. Sagittal and coronal reformations through the cervical spine were then performed. Auto Exposure Controls were utilized during the CT exam to meet ALARA standards for radiation dose reduction. INDICATION: Repeated falls. COMPARISON: None. CT head: Age-related cerebral volume loss and chronic microvascular changes are present. There is no focus of acute ischemia or hemorrhage. There is no midline shift or mass effect. No extra-axial fluid collection or mass is seen. There is no skull fracture. The paranasal sinuses and mastoids are clear. IMPRESSION: No acute intracranial abnormality. CT cervical spine: Alignment is normal. There is no subluxation or fracture. Degenerative disc disease and facet degenerative arthropathy is seen throughout. Carotid artery atherosclerotic disease is present. The central canal is preserved. Centrilobular emphysema is seen in the upper lung zones. Soft tissues are otherwise unremarkable. IMPRESSION: No traumatic malalignment or fracture. Dictated by: Dictated on workstation # [id number] Dict: 08/28/21 1445 Trans: 08/28/21 1510 [facility] [id number] Interpreted by: RENETTA AGUILA Electronically signed by: RENETTA AGUILA 08/28/21 1518 Diagonstic Imaging: CT Plain Films/CT/US/NM/MRI: pelvis Comments CT pelvis viewed by me and report reviewed. See report below: NAME: [facility] REC#: [id number] PT STATUS: REG ER : 1965 PHYSICIAN: AXEL CARTER MD ADMIT DATE: 08/28/21/ER FS Signed Date of Exam:08/28/21 CT HEAD/CERVICAL SPINE WO PROCEDURE: CT head and CT cervical spine without contrast. TECHNIQUE: Multiple contiguous axial images were obtained through the brain and cervical spine without the use of intravenous contrast. Sagittal and coronal reformations through the cervical spine were then performed. Auto Exposure Controls were utilized during the CT exam to meet ALARA standards for radiation dose reduction. INDICATION: Repeated falls. COMPARISON: None. CT head: Age-related cerebral volume loss and chronic microvascular changes are present. There is no focus of acute ischemia or hemorrhage. There is no midline shift or mass effect. No extra-axial fluid collection or mass is seen. There is no skull fracture. The paranasal sinuses and mastoids are clear. IMPRESSION: No acute intracranial abnormality. CT cervical spine: Alignment is normal. There is no subluxation or fracture. Degenerative disc disease and facet degenerative arthropathy is seen throughout. Carotid artery atherosclerotic disease is present. The central canal is preserved. Centrilobular emphysema is seen in the upper lung zones. Soft tissues are otherwise unremarkable. IMPRESSION: No traumatic malalignment or fracture. Dictated by: Dictated on workstation # [id number] Dict: 08/28/21 1445 Trans: 08/28/21 1510 [facility] [id number] Interpreted by: RENETTA AGUILA Electronically signed by: RENETTA AGUILA 08/28/21 1510 Departure Communication (Admissions) Time/Spoke to Admitting Phy: 17:00 Dr. Santoyo Time/Spoke to Consulting Phy: 17:00 Dr. Ponce Impression Primary Impression: Electrolyte disturbance Additional Impressions: Hypokalemia Hyponatremia Hypomagnesemia Multiple falls Alcohol dependence Qualified Codes: F10.29 - Alcohol dependence with unspecified alcohol- induced disorder Decubitus ulcers Qualified Codes: L89.322 - Pressure ulcer of left buttock, stage 2 Hip fracture, left Qualified Codes: S72.002A - Fracture of unspecified part of neck of left femur, initial encounter for closed fracture Disposition: ADMITTED INPATIENT Condition: Stable Admissions Decision to Admit Reason: Admit from ER (General) Decision to Admit/Date: Aug 28, 2021 Time/Decision to Admit Time: 17:00 Departure-Patient Inst. Referrals: [facility] (PCP/Family) Primary Care Physician AXEL CARTER MD Aug 28, 2021 17:16
[2021-08-28] MEDS ORDERED: HYDROcodone/APAP 5 MG/325 MG (LORTAB) TAB PO ONE (17:30)
[2021-08-28] MEDS ORDERED: HYDROcodone/APAP 5 MG/325 MG (LORTAB) TAB ONE (17:32)
[2021-08-28 19:45] VITALS: BP 101/62
--- NOTE | 2021-08-28 19:57 | CONSULTATION REPORT ---
DATE OF SERVICE: ATTENDING PRIMARY TELEMETRY TECHNICIAN: Janette Barcenas APRN. ADMITTING PHYSICIAN: Dr. Jose. HISTORY OF PRESENT ILLNESS: The patient is a 55-year-old, who presented to [facility] with multiple recent falls. He has a number of medical problems as well as a longstanding history of noncompliance as well as a known alcoholism. He has a history of severe peripheral vascular disease and Buerger's disease and does have bilateral lgszf-gdu-vkhg amputations. The initial plan was to evaluate him to send him to an extended care facility; however, due to his active medical problems, recommendation was to proceed with admission and stabilize him more before transferring him to a group home. The patient is nonambulatory. Lives by himself and again does have repeated falls and very poor hygiene. He has a nonhealing left stump with exposed bone. He also has multiple decubitus ulcers including the buttocks, sacrum and scrotum. Both rdtdm-hxs-jmfn amputations were performed by another surgeon. He again has Buerger's disease, severe peripheral vascular disease and continues to smoke. He also does have a dislocated left hip. PAST MEDICAL HISTORY: Buerger's disease, peripheral vascular disease, hypertension, alcoholism, neuropathy, and COPD. PAST SURGICAL HISTORY: Bilateral usttj-kfp-djjf amputation. ALLERGIES: No known drug allergies. MEDICATIONS: 1. Albuterol two puffs q.4 hours p.r.n. 2. Eliquis 5 mg b.i.d. 3. Gabapentin 300 mg t.i.d. 4. Hydrocodone p.r.n. 5. Zofran 4 mg p.r.n. 6. Oxycodone 10 mg b.i.d. 7. Senna two tabs b.i.d. 8. Bactrim daily. SOCIAL HISTORY: Positive smoke 40 pack years. He does drink hard liquor on a daily basis. FAMILY HISTORY: Noncontributory. REVIEW OF SYSTEMS: A thin-appearing male, who does answer a majority of questions appropriately; however, appears to be disengaged. He states no shortness of breath or difficulty in breathing. He does have a chronic cough, likely due to COPD. No cough and no sputum production. No nausea, vomiting. No known diarrhea, constipation, no red blood per rectum, and no dark tarry stools. No fever, chills, and no recent inadvertent weight loss. All other review of systems negative. PHYSICAL EXAMINATION: VITAL SIGNS: Temperature 37.2, blood pressure 122/76, pulse 104, respirations 18, and pulse ox 94% on room air. CHEST: Distant breath sounds bilaterally with scattered wheezes. HEART: Regular, no murmurs. EXTREMITIES: Bilateral lbpfy-epe-bgnj amputations with exposed bone at the tip of the left stump. There is a mild amount of redness and erythema; however, there is no fluctuance to indicate any abscess. He also does have a dislocated left hip. HEENT: No scleral icterus. NECK: No cervical lymphadenopathy. ABDOMEN: Soft, nontender, and nondistended. SKIN: Warm and dry. LABORATORY DATA: WBC 8.7, hemoglobin 11.2, hematocrit 42, and platelets 141. Sodium 122. Potassium 2.8. BUN 8, creatinine 0.41, and magnesium 1.2. ASSESSMENT AND PLAN: A 55-year-old male with multiple medical problems including hyponatremia, hypokalemia, hypomagnesemia with a longstanding history of alcoholism. He cannot get around and is severely noncompliant and the plan was to proceed with transferring him to an extended care facility; however, due to his current acute issues, they would not take him and the patient is being admitted to correct his medical problems. At this time, we feel that there is no surgical indication. The stump appears to be chronic. He has a normal white count, but he also has a left-sided hip dislocation. He also does have Buerger's disease and continues to smoke and his healing potential is very poor. We will reevaluate his decubitus ulcers. If there are signs of infection or necrotic debris, then he may need debridement as well as wound care. For now, we will recommend dressing changes as well as IV antibiotics. Job ID: [id number] DocumentID: [id number] Dictated Date: 08/28/2021 19:02:43 Extractor Machine Operator Date: 08/28/2021 19:56:42 Dictated By: ZACARIAS FUCHS MD [facility]
[2021-08-28] MEDS ORDERED: ANTACID SUSP 30 ML UDC (MYLANTA) PO PRN (20:15)
[2021-08-28] MEDS ORDERED: HYDROcodone/APAP 5 MG/325 MG (LORTAB) TAB PO PRN (20:15)
[2021-08-28] MEDS ORDERED: LORazepam INJ 2 MG/ML (ATIVAN) VIAL IV PRN (20:15)
[2021-08-28] MEDS ORDERED: D5 1/2 NS 1000 ML IV SOLUTION 1,000 ML IV PRN (20:15)
[2021-08-28] MEDS ORDERED: LORazepam 1 MG (ATIVAN) TAB PO PRN (20:15)
[2021-08-28] MEDS ORDERED: CATHETER FLUSH 10 ML SYR IV PRN (20:15)
[2021-08-28] MEDS ORDERED: 1/2 NS IV SOLUTION 1,000 ML IV PRN (20:15)
[2021-08-28] MEDS ORDERED: ONDANSETRON 4 MG/2 ML (SDV) Z0FRAN IV PRN ×2 (20:15)
[2021-08-28] MEDS ORDERED: ONDANSETRON 4 MG (ZOFRAN) ORAL DISSOLVE TAB SL PRN (20:15)
[2021-08-28] MEDS ORDERED: SENNA W/DOCUSATE (SENOKOT S) TABLET PO PRN (20:15)
[2021-08-28] MEDS ORDERED: LORazepam INJ 2 MG/ML (ATIVAN) VIAL IM/IV PRN (20:15)
[2021-08-28] MEDS: MAGNESIUM OXIDE (MAG-OX)400 MG TAB PO SCH (20:32)
[2021-08-28] MEDS: POTASSIUM CL 10 MEQ/50 ML IVPB (PRE-MIX) IV SCH ×2 (20:32→21:49)
[2021-08-28 20:45] VITALS: BP 103/75
[2021-08-28 20:56] VITALS: BP 99/69
[2021-08-28] MEDS: APIXABAN 5 MG (ELIQUIS) TABLET PO SCH (21:18)
[2021-08-28 21:41] VITALS: BP 101/73
[2021-08-28] MEDS: NS IV 1000 ML 1,000 ML IV SCH (21:49)
[2021-08-28] MEDS ORDERED: KCL 20 MEQ TAB (K-DUR) PO NR (22:15)
[2021-08-28] MEDS: MAGNESIUM 1 GM/D5W 100 ML IVPB IV SCH (23:21)
[2021-08-28 23:35] VITALS: BP_SYST 104; BP_DIAS 54; BP_DIAS 64
[2021-08-29] MEDS: MAGNESIUM 1 GM/D5W 100 ML IVPB IV SCH ×2 (00:34→01:50)
[2021-08-29] MEDS: NS IV 1000 ML 1,000 ML IV SCH ×2 (01:51→11:30)
[2021-08-29 04:44] VITALS: BP 97/60
[2021-08-29 05:39] LABS: BASOPHILS % (AUTO) 0 % (0-10); EOSINOPHILS % (AUTO) 0 % (0-10); HEMOGLOBIN 9.8 g/dL (13.3-17.7); MEAN CORPUSCULAR HEMOGLOBIN 37 pg (25-34); NEUTROPHILS # (AUTO) 4.1 10^3/uL (1.8-7.8)
[2021-08-29 05:41] LABS: HEMATOCRIT 29 % (40-54); LYMPHOCYTES # (AUTO) 0.9 10^3/uL (1.0-4.0); LYMPHOCYTES % (AUTO) 17 % (12-44); MEAN CORPUSCULAR HGB CONC 34 g/dL (32-36); MEAN CORPUSCULAR VOLUME 110 fL (80-99); MEAN PLATELET VOLUME 11.6 fL (9.0-12.2); MONOCYTES # (AUTO) 0.4 10^3/uL (0.0-1.0); MONOCYTES % (AUTO) 6 % (0-12); NEUTROPHILS % (AUTO) 76 % (42-75); PLATELET COUNT 105 10^3/uL (130-400); WHITE BLOOD COUNT 5.4 10^3/uL (4.3-11.0)
[2021-08-29 05:45] LABS: ALBUMIN 2.7 GM/DL (3.2-4.5)
[2021-08-29 05:46] LABS: POTASSIUM 3.6 MMOL/L (3.6-5.0)
[2021-08-29 05:47] LABS: CALCIUM 7.8 MG/DL (8.5-10.1)
[2021-08-29 05:48] LABS: TOTAL PROTEIN 5.4 GM/DL (6.4-8.2)
[2021-08-29 05:50] LABS: BILIRUBIN,TOTAL 0.5 MG/DL (0.1-1.0)
[2021-08-29 05:52] LABS: CREATININE SERUM 0.51 MG/DL (0.60-1.30)
[2021-08-29 05:54] LABS: MAGNESIUM 2.1 MG/DL (1.6-2.4)
[2021-08-29] MEDS: THIAMINE 100 MG (VITAMIN B-1) TAB PO SCH (06:12)
[2021-08-29] MEDS: MULTIVIT W/MINERALS TAB (THERAGRAN M) PO SCH (06:12)
[2021-08-29 07:21] VITALS: BP 125/78
[2021-08-29] MEDS: APIXABAN 5 MG (ELIQUIS) TABLET PO SCH ×2 (08:42→20:06)
[2021-08-29] MEDS: FOLIC ACID 1 MG TAB PO SCH (08:42)
[2021-08-29] MEDS: MAGNESIUM OXIDE (MAG-OX)400 MG TAB PO SCH ×2 (08:43→20:06)
--- NOTE | 2021-08-29 10:27 | History & Physical-Hospitalist ---
History of Present Illness HPI/Chief Complaint Chief complaint: Weakness History of present illness: This is a 55-year-old white male known alcoholic who presented the [place] [facility] with weakness was found to have sodium level 122 and high risk for alcohol withdrawal. He was admitted for supportive care. Currently we are modifying his home medications of gabapentin and hydrocodone. Source: patient Date Seen 08/29/21 Time Seen by a Provider: 11:00 Attending Physician Erna Jose DO PCP Janette Barcenas Aprn Referring Physician Date of Admission Aug 28, 2021 at 19:42 Home Medications & Allergies Home Medications Reviewed patient Home Medication Reconciliation performed by pharmacy medication reconciliations environmental field services technician and/or nursing. Patients Allergies have been reviewed. Allergies Allergies Coded Allergies No Known Drug Allergies (Unverified05/23/19) Past Bzkjyzx-Rvrqin-Qhtpoo Hx Patient Social History Marrital Status: single Employed/Student: unemployed Tobacco Use?: Yes Tobacco type used: Cigarettes Smoking Status: Current Everyday Smoker Substance use?: Yes Substance type: Marijuana Alcohol Use?: Yes Alcohol type: Hard Liquor Additional alcohol type: HALF GALLON OF WHISKEY EVERY OTHER DAY Alcohol Frequency: Couple times a week Pt feels they are or have been: Yes Immunizations Up To Date Date of Influenza Vaccine: Aug 13, 2021 First/Initial COVID19 Vaccinat: FEBRUARY 2021 Second COVID19 Vaccination Dio: FEBRUARY 2021 Seasonal Allergies Seasonal Allergies: No Current Status Advance Directives: No Communicates: Verbally Primary Language: Italian Preferred Spoken Language: Italian Is interpretation needed?: No Sensory deficits: Speech impairment Implanted or Applied Medical D: None Past Medical History Surgeries: Amputation (Bilateral AKA), Orthopedic Currently Using CPAP: No Currently Using BIPAP: No Hypertension, Peripheral Vascular Neuropathy, Stroke Gastroesophageal Reflux Amputee Diabetes, 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) Blood Disorders: No Family Medical History Cancer, Hypertension Review of Systems Constitutional: see HPI, malaise, weakness EENTM: no symptoms reported Respiratory: no symptoms reported Cardiovascular: no symptoms reported Gastrointestinal: no symptoms reported Genitourinary: no symptoms reported Musculoskeletal: no symptoms reported Skin: no symptoms reported Psychiatric/Neurological: No Symptoms Reported All Other Systems Reviewed Negative Unless Noted: Yes Physical Exam Physical Exam Vital Signs Vital Signs - First Documented 08/28/21 14:00 Temp 37.2 Pulse 104 Resp 18 B/P (MAP) 122/76 (91) Pulse Ox 94 O2 Delivery Room Air Capillary Refill : Height, Weight, BMI Height: 5'9.50" Weight: 117lbs. oz. 53.641043wl; 26.21 BMI Method:Stated General Appearance: No Apparent Distress, Chronically ill Eyes: Right Eye Normal Inspection, Right Eye PERRL HEENT: PERRL/EOMI, Normal ENT Inspection, Pharynx Normal, Moist Mucous Membranes Neck: Full Range of Motion, Normal Inspection, Non Tender Respiratory: Chest Non Tender, Lungs Clear, Normal Breath Sounds, No Accessory Muscle Use, No Respiratory Distress Cardiovascular: Regular Rate, Rhythm, No Edema, No Gallop, No JVD, No Murmur, Normal Peripheral Pulses Gastrointestinal: Normal Bowel Sounds, No Organomegaly, No Pulsatile Mass, Non Tender, Soft Back: Normal Inspection, No CVA Tenderness, No Vertebral Tenderness Extremity: Normal Capillary Refill, Normal Inspection, Normal Range of Motion (Bilateral amputee's lower extremity), Non Tender, No Calf Tenderness, No Pedal Edema Neurologic/Psychiatric: Alert, Oriented x3, No Motor/Sensory Deficits, Normal Mood/Affect Skin: Normal Color, Warm/Dry Lymphatic: No Adenopathy Results Results/Procedures Labs Laboratory Tests 08/28/21 14:10 08/29/21 05:30 08/30/21 05:53 Patient resulted labs reviewed. Assessment/Plan Admission Diagnosis Assessment: Severe weakness Hyponatremia 122 Bilateral lower extremity amputations remote Alcoholism Noncompliance Diabetes Neuropathy Plan: Home meds Supportive care Admission Status: Inpatient Order (span 2 midnights) Reason for Inpatient Admission: Hyponatremia alcoholism ERNA JOSE DO Aug 29, 2021 10:27
[2021-08-29 11:25] VITALS: BP 118/72
[2021-08-29] MEDS ORDERED: GABAPENTIN 300 MG (NEURONTIN) CAP PO SCH (13:00)
[2021-08-29] MEDS: GABAPENTIN 600 MG (NEURONTIN) TAB PO SCH ×2 (13:48→20:06)
[2021-08-29 15:42] VITALS: BP 117/72
[2021-08-29 20:00] VITALS: BP 98/60
[2021-08-30 00:15] VITALS: BP 91/74
[2021-08-30 04:29] VITALS: BP 99/65
[2021-08-30] MEDS: THIAMINE 100 MG (VITAMIN B-1) TAB PO SCH (05:49)
[2021-08-30] MEDS: MULTIVIT W/MINERALS TAB (THERAGRAN M) PO SCH (05:49)
[2021-08-30 06:15] LABS: BASOPHILS % (AUTO) 0 % (0-10); EOSINOPHILS % (AUTO) 0 % (0-10); HEMATOCRIT 25 % (40-54); HEMOGLOBIN 8.5 g/dL (13.3-17.7); LYMPHOCYTES # (AUTO) 0.7 10^3/uL (1.0-4.0); LYMPHOCYTES % (AUTO) 13 % (12-44); MEAN CORPUSCULAR HEMOGLOBIN 37 pg (25-34); MEAN CORPUSCULAR HGB CONC 35 g/dL (32-36); MEAN CORPUSCULAR VOLUME 108 fL (80-99); MEAN PLATELET VOLUME 11.3 fL (9.0-12.2); MONOCYTES # (AUTO) 0.4 10^3/uL (0.0-1.0); MONOCYTES % (AUTO) 6 % (0-12); NEUTROPHILS # (AUTO) 4.5 10^3/uL (1.8-7.8); NEUTROPHILS % (AUTO) 80 % (42-75); PLATELET COUNT 109 10^3/uL (130-400); WHITE BLOOD COUNT 5.6 10^3/uL (4.3-11.0)
[2021-08-30 06:30] LABS: ALBUMIN 2.3 GM/DL (3.2-4.5)
[2021-08-30 06:31] LABS: POTASSIUM 3.9 MMOL/L (3.6-5.0)
[2021-08-30 06:32] LABS: CALCIUM 7.6 MG/DL (8.5-10.1)
[2021-08-30 06:33] LABS: TOTAL PROTEIN 4.6 GM/DL (6.4-8.2)
[2021-08-30 06:35] LABS: BILIRUBIN,TOTAL 0.7 MG/DL (0.1-1.0)
[2021-08-30 06:36] LABS: CREATININE SERUM 0.41 MG/DL (0.60-1.30)
--- NOTE | 2021-08-30 06:38 | Progress Note - Hospitalist ---
Subjective HPI/CC On Admission Date Seen by Provider: Aug 30, 2021 Time Seen by Provider: 12:00 Chief complaint: Weakness History of present illness: This is a 55-year-old white male known alcoholic who presented the [facility] with weakness was found to have sodium level 122 and high risk for alcohol withdrawal. He was admitted for supportive care. Currently we are modifying his home medications of gabapentin and hydrocodone. Subjective/Events-last exam Patient doing well Fluid restriction at 1000 cc a day Sodium level 124 Denies any other issues Check meds and labs Review of Systems General: Fatigue, Malaise Neurological: Weakness, Incoordination Objective Exam Vital Signs Vital Signs Date Time Temp Pulse Resp B/P (MAP) Pulse Ox O2 Delivery O2 Flow Rate FiO2 08/31/21 04:41 36.7 101 16 111/75 (87) 93 Room Air Capillary Refill : General Appearance: No Apparent Distress, WD/WN, Chronically ill Respiratory: Chest Non Tender, Lungs Clear, Normal Breath Sounds, No Accessory Muscle Use, No Respiratory Distress Cardiovascular: Regular Rate, Rhythm, No Edema, No Gallop, No JVD, No Murmur, Normal Peripheral Pulses Neurologic/Psychiatric: Alert, Oriented x3, No Motor/Sensory Deficits, Normal Mood/Affect Results/Procedures Lab Laboratory Tests 08/30/21 05:53 Patient resulted labs reviewed. Assessment/Plan Assessment and Plan Assess & Plan/Chief Complaint Assessment: Severe weakness Hyponatremia 122 Bilateral lower extremity amputations remote Alcoholism Noncompliance Diabetes Neuropathy Plan: Home meds Supportive care 08/30/21: Fluid restriction Monitor sodium level BROWN SANTOYO DO Aug 30, 2021 06:38
[2021-08-30 08:00] VITALS: BP 113/74
[2021-08-30] MEDS: GABAPENTIN 600 MG (NEURONTIN) TAB PO SCH ×3 (09:02→19:59)
[2021-08-30] MEDS: APIXABAN 5 MG (ELIQUIS) TABLET PO SCH ×2 (09:02→19:59)
[2021-08-30] MEDS: FOLIC ACID 1 MG TAB PO SCH (09:02)
[2021-08-30] MEDS: MAGNESIUM OXIDE (MAG-OX)400 MG TAB PO SCH ×2 (09:02→19:59)
--- NOTE | 2021-08-30 10:20 | Progress Note ---
Subjective Date Seen by a Provider: Aug 30, 2021 Time Seen by a Provider: 09:30 Subjective/Events-last exam Patient seen with Dr. Ponce. Patient reports doing ok but having left lower extremity stump pain. Tolerating diet. Objective Exam Vital Signs Date Time Temp Pulse Resp B/P (MAP) Pulse Ox O2 Delivery O2 Flow Rate FiO2 08/30/21 04:29 36.9 98 20 99/65 (76) 92 Room Air 08/30/21 00:15 36.8 103 22 91/74 (80) 93 Room Air 08/29/21 20:00 37.0 91 20 98/60 (73) 96 Room Air 08/29/21 20:00 96 Room Air 08/29/21 15:42 36.0 98 22 117/72 (87) 97 Room Air 08/29/21 11:25 35.9 100 20 118/72 (87) 96 Room Air I & O 08/30/21 07:00 Intake Total 1350 ml Output Total 1250 ml Balance 100 ml Capillary Refill : General Appearance: No Apparent Distress, WD/WN, Thin, Other (unkept) Neck: Normal Inspection, Supple Respiratory: No Accessory Muscle Use, No Respiratory Distress Cardiovascular: Regular Rate, Rhythm, No Edema Gastrointestinal: normal bowel sounds, non tender, soft Extremity: Other (Bilateral lower extremity AKA) Neurologic/Psychiatric: Alert, Oriented x3 Skin: Other (Left lower extremity stump wound with exposed bone, tender to palpation, No signs of infection. Rt buttock x1 and left buttock x2 pressure ulcer stage 2. These are approx 1-1.5 cm in diameter) Results Lab Laboratory Tests 08/30/21 05:53: White Blood Count 5.6, Red Blood Count 2.27L, Hemoglobin 8.5L, Hematocrit 25L, Mean Corpuscular Volume 108H, Mean Corpuscular Hemoglobin 37H, Mean Corpuscular Hemoglobin Concent 35, Red Cell Distribution Width 13.2, Platelet Count 109L, Mean Platelet Volume 11.3, Immature Granulocyte % (Auto) 1, Neutrophils (%) (Auto) 80H, Lymphocytes (%) (Auto) 13, Monocytes (%) (Auto) 6, Eosinophils (%) (Auto) 0, Basophils (%) (Auto) 0, Neutrophils # (Auto) 4.5, Lymphocytes # (Auto) 0.7L, Monocytes # (Auto) 0.4, Eosinophils # (Auto) 0.0, Basophils # (Auto) 0.0, Immature Granulocyte # (Auto) 0.0, Sodium Level 124*L, Potassium Level 3.9, Chloride Level 93L, Carbon Dioxide Level 22, Anion Gap 9, Blood Urea Nitrogen 4L , Creatinine 0.41L, Estimat Glomerular Filtration Rate 216, BUN/Creatinine Ratio 10, Glucose Level 101, Calcium Level 7.6L, Corrected Calcium 9.0, Total Bilirubin 0.7, Aspartate Amino Transf (AST/SGOT) 28, Alanine Aminotransferase (ALT/SGPT) 12, Alkaline Phosphatase 96, Total Protein 4.6L, Albumin 2.3L Assessment/Plan Assessment/Plan Assess & Plan/Chief Complaint A 55-year-old male with multiple medical problems including hyponatremia, hypokalemia, hypomagnesemia with a longstanding history of alcoholism, tobacco use, Medical non-compliance VSS WBC - WNL NA - 124 - managed by medical Continue dressing changes to left lower extremity stump, and pressure ulcers IV abx Due to pts poor healing and medical non-compliance, we would not recommend any surgical intervention at this time JOSÉ LUIS ROPER HYDROMETER TESTER Aug 30, 2021 10:20
[2021-08-30 12:00] VITALS: BP 126/77
[2021-08-30 16:00] VITALS: BP 123/57
[2021-08-30 19:32] VITALS: BP 119/82
[2021-08-31 00:12] VITALS: BP 93/52
[2021-08-31 04:41] VITALS: BP 111/75
[2021-08-31] MEDS: MULTIVIT W/MINERALS TAB (THERAGRAN M) PO SCH (05:29)
[2021-08-31] MEDS: THIAMINE 100 MG (VITAMIN B-1) TAB PO SCH (05:29)
[2021-08-31 05:36] LABS: HEMATOCRIT 28 % (40-54); HEMOGLOBIN 9.4 g/dL (13.3-17.7); MEAN CORPUSCULAR HEMOGLOBIN 37 pg (25-34); MEAN CORPUSCULAR HGB CONC 34 g/dL (32-36); MEAN CORPUSCULAR VOLUME 110 fL (80-99); MEAN PLATELET VOLUME 11.6 fL (9.0-12.2); PLATELET COUNT 111 10^3/uL (130-400); WHITE BLOOD COUNT 6.7 10^3/uL (4.3-11.0)
[2021-08-31 05:50] LABS: ALBUMIN 2.5 GM/DL (3.2-4.5); POTASSIUM 3.9 MMOL/L (3.6-5.0)
[2021-08-31 05:52] LABS: CALCIUM 8.3 MG/DL (8.5-10.1)
[2021-08-31 05:53] LABS: TOTAL PROTEIN 5.2 GM/DL (6.4-8.2)
[2021-08-31 05:55] LABS: BILIRUBIN,TOTAL 0.6 MG/DL (0.1-1.0)
[2021-08-31 05:56] LABS: CREATININE SERUM 0.46 MG/DL (0.60-1.30)
[2021-08-31 08:00] VITALS: BP 136/72
[2021-08-31] MEDS: MAGNESIUM OXIDE (MAG-OX)400 MG TAB PO SCH (08:38)
[2021-08-31] MEDS: FOLIC ACID 1 MG TAB PO SCH (08:38)
[2021-08-31] MEDS: GABAPENTIN 600 MG (NEURONTIN) TAB PO SCH ×3 (08:38→21:23)
[2021-08-31] MEDS: APIXABAN 5 MG (ELIQUIS) TABLET PO SCH ×2 (08:38→21:23)
[2021-08-31] MEDS ORDERED: HYDR-3820 PO (09:27)
[2021-08-31] MEDS ORDERED: GBPN600T PO (09:27)
--- NOTE | 2021-08-31 10:52 | Progress Note - Hospitalist ---
Subjective HPI/CC On Admission Date Seen by Provider: Aug 31, 2021 Time Seen by Provider: 10:00 Chief complaint: Weakness History of present illness: This is a 55-year-old white male known alcoholic who presented the [facility] ER with weakness was found to have sodium level 122 and high risk for alcohol withdrawal. He was admitted for supportive care. Currently we are modifying his home medications of gabapentin and hydrocodone. Subjective/Events-last exam Patient doing well DC planned to [place] Bed bug infestation causing delay in acceptance to facility No change in pain No withdrawal noted Sodium level noted Review of Systems General: Fatigue, Malaise Musculoskeletal: leg pain Objective Exam Vital Signs Vital Signs Date Time Temp Pulse Resp B/P (MAP) Pulse Ox O2 Delivery O2 Flow Rate FiO2 09/01/21 04:02 35.6 108 18 123/66 (85) 98 Room Air Capillary Refill : General Appearance: No Apparent Distress, WD/WN, Chronically ill Respiratory: Chest Non Tender, Lungs Clear, Normal Breath Sounds, No Accessory Muscle Use, No Respiratory Distress Cardiovascular: Regular Rate, Rhythm, No Edema, No Gallop, No JVD, No Murmur, Normal Peripheral Pulses Neurologic/Psychiatric: Alert, Oriented x3, No Motor/Sensory Deficits, Normal Mood/Affect Results/Procedures Lab Patient resulted labs reviewed. Assessment/Plan Assessment and Plan Assess & Plan/Chief Complaint Assessment: Severe weakness Hyponatremia 122 Bilateral lower extremity amputations remote Alcoholism Noncompliance Diabetes Neuropathy Plan: Home meds Supportive care 08/30/21: Fluid restriction Monitor sodium level 08/31/21: DC planned BROWN SANTOYO DO Aug 31, 2021 10:52
[2021-08-31 11:20] VITALS: BP 92/54
[2021-08-31 15:14] VITALS: BP 107/69
[2021-08-31 20:38] VITALS: BP 95/67
[2021-09-01] VITALS (7 sets, daily range): BP systolic 93–133; BP diastolic 62–80
[2021-09-01] MEDS: MULTIVIT W/MINERALS TAB (THERAGRAN M) PO SCH (05:17)
[2021-09-01 05:51] LABS: BASOPHILS % (AUTO) 0 % (0-10); EOSINOPHILS % (AUTO) 1 % (0-10); MONOCYTES % (AUTO) 8 % (0-12)
[2021-09-01 05:53] LABS: HEMATOCRIT 28 % (40-54); LYMPHOCYTES # (AUTO) 0.9 10^3/uL (1.0-4.0); LYMPHOCYTES % (AUTO) 17 % (12-44); MEAN CORPUSCULAR HEMOGLOBIN 38 pg (25-34); MEAN CORPUSCULAR HGB CONC 32 g/dL (32-36); MEAN CORPUSCULAR VOLUME 119 fL (80-99); MEAN PLATELET VOLUME 11.5 fL (9.0-12.2); MONOCYTES # (AUTO) 0.4 10^3/uL (0.0-1.0); NEUTROPHILS # (AUTO) 3.9 10^3/uL (1.8-7.8); NEUTROPHILS % (AUTO) 74 % (42-75); PLATELET COUNT 135 10^3/uL (130-400); WHITE BLOOD COUNT 5.3 10^3/uL (4.3-11.0)
[2021-09-01 06:03] LABS: ALBUMIN 2.4 GM/DL (3.2-4.5)
[2021-09-01 06:04] LABS: POTASSIUM 3.8 MMOL/L (3.6-5.0)
[2021-09-01 06:05] LABS: CALCIUM 8.3 MG/DL (8.5-10.1)
[2021-09-01 06:06] LABS: TOTAL PROTEIN 5.1 GM/DL (6.4-8.2)
[2021-09-01 06:08] LABS: BILIRUBIN,TOTAL 0.4 MG/DL (0.1-1.0)
[2021-09-01 06:09] LABS: CREATININE SERUM 0.46 MG/DL (0.60-1.30)
[2021-09-01 06:22] LABS: SMEAR SCAN COMMENT YES
[2021-09-01] MEDS: FOLIC ACID 1 MG TAB PO SCH (09:15)
[2021-09-01] MEDS: APIXABAN 5 MG (ELIQUIS) TABLET PO SCH ×2 (09:15→20:37)
[2021-09-01] MEDS: GABAPENTIN 600 MG (NEURONTIN) TAB PO SCH ×3 (09:15→20:37)
--- NOTE | 2021-09-01 10:41 | Progress Note - Hospitalist ---
Subjective HPI/CC On Admission Date Seen by Provider: Sep 01, 2021 Time Seen by Provider: 10:00 Chief complaint: Weakness History of present illness: This is a 55-year-old white male known alcoholic who presented the [facility] ER with weakness was found to have sodium level 122 and high risk for alcohol withdrawal. He was admitted for supportive care. Currently we are modifying his home medications of gabapentin and hydrocodone. Subjective/Events-last exam Patient doing well BM+ No new pain just chronic issues Sodium level 129 MLF at DC? Review of Systems General: Fatigue, Malaise Musculoskeletal: leg pain Objective Exam Vital Signs Vital Signs Date Time Temp Pulse Resp B/P (MAP) Pulse Ox O2 Delivery O2 Flow Rate FiO2 09/02/21 04:00 36.4 90 20 116/69 (85) 95 Room Air Capillary Refill : General Appearance: No Apparent Distress, WD/WN, Chronically ill Respiratory: Chest Non Tender, Lungs Clear, Normal Breath Sounds, No Accessory Muscle Use, No Respiratory Distress Cardiovascular: Regular Rate, Rhythm, No Edema, No Gallop, No JVD, No Murmur, Normal Peripheral Pulses Neurologic/Psychiatric: Alert, Oriented x3, No Motor/Sensory Deficits, Normal Mood/Affect Results/Procedures Lab Laboratory Tests 09/01/21 05:25 Patient resulted labs reviewed. Assessment/Plan Assessment and Plan Assess & Plan/Chief Complaint Assessment: Severe weakness Hyponatremia 122 Bilateral lower extremity amputations remote Alcoholism Noncompliance Diabetes Neuropathy Plan: Home meds Supportive care 08/30/21: Fluid restriction Monitor sodium level 08/31/21: DC planned 09/01/21: BROWN Bonilla DO Sep 01, 2021 10:40
[2021-09-01] MEDS: DOCUSATE SODIUM 100 MG (COLACE) CAP PO SCH ×2 (14:30→21:24)
[2021-09-01] MEDS: SENNA W/DOCUSATE (SENOKOT S) TABLET PO SCH ×2 (14:30→20:37)
[2021-09-01] MEDS: polyethylene glycoL POWDER 17 GM (MIRALAX) PACK PO SCH (21:24)
[2021-09-02 04:00] VITALS: BP 116/69
[2021-09-02 05:30] LABS: BASOPHILS % (AUTO) 1 % (0-10); EOSINOPHILS % (AUTO) 0 % (0-10); HEMATOCRIT 31 % (40-54); HEMOGLOBIN 10.4 g/dL (13.3-17.7); LYMPHOCYTES % (AUTO) 18 % (12-44); MEAN CORPUSCULAR HEMOGLOBIN 37 pg (25-34); MEAN CORPUSCULAR HGB CONC 34 g/dL (32-36); MEAN CORPUSCULAR VOLUME 110 fL (80-99); MEAN PLATELET VOLUME 11.5 fL (9.0-12.2); MONOCYTES # (AUTO) 0.5 10^3/uL (0.0-1.0); MONOCYTES % (AUTO) 9 % (0-12); NEUTROPHILS # (AUTO) 3.9 10^3/uL (1.8-7.8); NEUTROPHILS % (AUTO) 72 % (42-75); PLATELET COUNT 175 10^3/uL (130-400); WHITE BLOOD COUNT 5.5 10^3/uL (4.3-11.0)
[2021-09-02 05:42] LABS: ALBUMIN 2.8 GM/DL (3.2-4.5); POTASSIUM 4.4 MMOL/L (3.6-5.0)
[2021-09-02 05:46] LABS: BILIRUBIN,TOTAL 0.6 MG/DL (0.1-1.0)
[2021-09-02 05:48] LABS: CREATININE SERUM 0.48 MG/DL (0.60-1.30)
[2021-09-02] MEDS: MULTIVIT W/MINERALS TAB (THERAGRAN M) PO SCH (05:50)
[2021-09-02 07:40] VITALS: BP 125/71
[2021-09-02] MEDS: polyethylene glycoL POWDER 17 GM (MIRALAX) PACK PO SCH (09:00)
[2021-09-02] MEDS: DOCUSATE SODIUM 100 MG (COLACE) CAP PO SCH ×2 (09:00→13:00)
[2021-09-02] MEDS: SENNA W/DOCUSATE (SENOKOT S) TABLET PO SCH ×2 (09:00→13:00)
[2021-09-02] MEDS: FOLIC ACID 1 MG TAB PO SCH (09:39)
[2021-09-02] MEDS: APIXABAN 5 MG (ELIQUIS) TABLET PO SCH (09:39)
[2021-09-02] MEDS: GABAPENTIN 600 MG (NEURONTIN) TAB PO SCH ×2 (09:39→12:44)
[2021-09-02] MEDS ORDERED: SODIUM CHLORIDE 1 GM TABLET PO NR (10:20)
[2021-09-02 11:02] VITALS: BP 134/71
--- NOTE | 2021-09-02 11:16 | Progress Note - Hospitalist ---
Subjective HPI/CC On Admission Date Seen by Provider: Sep 02, 2021 Time Seen by Provider: 10:00 Chief complaint: Weakness History of present illness: This is a 55-year-old white male known alcoholic who presented the [facility] ER with weakness was found to have sodium level 122 and high risk for alcohol withdrawal. He was admitted for supportive care. Currently we are modifying his home medications of gabapentin and hydrocodone. Subjective/Events-last exam Discharge planned Objective Exam Vital Signs Vital Signs Date Time Temp Pulse Resp B/P (MAP) Pulse Ox O2 Delivery O2 Flow Rate FiO2 09/02/21 18:10 09/02/21 16:26 37.0 94 20 96 Room Air Capillary Refill : General Appearance: No Apparent Distress, WD/WN, Chronically ill Results/Procedures Lab Patient resulted labs reviewed. Assessment/Plan Assessment and Plan Assess & Plan/Chief Complaint Assessment: Severe weakness Hyponatremia 122 Bilateral lower extremity amputations remote Alcoholism Noncompliance Diabetes Neuropathy Plan: Home meds Supportive care 08/30/21: Fluid restriction Monitor sodium level 08/31/21: DC planned 09/01/21: BROWN Bonilla DO Sep 02, 2021 11:16
[2021-09-02] MEDS ORDERED: HYDR-3820 PO (12:30)
[2021-09-02] MEDS ORDERED: SENN1TAB76 PO (12:30)
[2021-09-02] MEDS ORDERED: GBPN600T PO (12:30)
[2021-09-02] MEDS ORDERED: FOLI1TAB33 PO (12:30)
[2021-09-02] MEDS ORDERED: MULT1TAB63 PO (12:30)
[2021-09-02] MEDS ORDERED: NF-NACL1GT PO (12:30)
--- NOTE | 2021-09-02 12:31 | Discharge Inst-Skilled Nursing ---
Discharge Inst-Skilled NF Reconcile Patient Problems Problems Reviewed?: Yes Chief Complaint Chief complaint: Weakness History of present illness: This is a 55-year-old white male known alcoholic who presented the [facility] ER with weakness was found to have sodium level 122 and high risk for alcohol withdrawal. He was admitted for supportive care. Currently we are modifying his home medications of gabapentin and hydrocodone. Patient Instructions Patient Problems: Debility Bilateral lower extremity amputations Goal: [facility] Consult/Follow Up/Orders Skilled NF Admit to: [facility] Certification (SNF) I certify that SNF services are required to be given on an inpatient basis because of the above named patient's need for alf care on a continuing basis for the conditions(s) for which he/she was receiving inpatient hospital services prior to his/her transfer to the SNF. [facility] Facility Order: Nursing Services, Furnace Repair Mechanic-Evaluate & Treat, Physical Therapy-Evaluate & Treat, Speech Language-Evaluate & Treat, Wound Care-Eval/Treat Oxygen Delivery Method: Room Air Discharge Diet: No Restrictions Daily Activity as Tolerated: Yes Resuscitation Status: Do Not Resuscitate New & Resume Previous Orders New Medications: Folic Acid (Folic Acid) 1 Mg Tablet 1 MG PO DAILY, #90 TAB Multivitamin/Iron/Folic Acid (Certavite-Antioxidant Tablet) 1 Each Tablet 1 EA PO DAILY@0700, #90 TAB Sennosides/Docusate Sodium (Stool Softener-Laxative Tablet) 1 Each Tablet 2 EA PO BID PRN for CONSTIPATION-5TH LINE, #30 TAB Sodium Chloride (Sodium Chloride) 1 Gm Tab 1 GM PO BID, #60 TAB Continued Medications: Albuterol Sulfate (Ventolin Hfa) 1 Puff Puff 2 PUFF INH Q4H PRN for WHEEZING, PUFF 1 PUFF = 90 MCG Gabapentin (Gabapentin) 600 Mg Tablet 600 MG PO TID, #90 TAB (This prescription has been renewed) Hydrocodone/Acetaminophen (Hydrocodone-Acetamin 10-325 mg) 1 Each Tablet 1 EACH PO Q6H PRN for PAIN-MODERATE (5-7), #60 TAB (This prescription has been renewed) Erna Jose Sep 02, 2021 12:30 ERNA JOSE DO Sep 02, 2021 12:31
--- NOTE | 2021-09-02 12:32 | Discharge Summary ---
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 Sodium level did improve that SIADH is also a source of the hyponatremia. He was ultimately deemed stable for discharge to the halfway for long-term care. Labs and Pending Lab Test: Laboratory Tests 09/02/21 05:00: White Blood Count 5.5, Red Blood Count 2.78L, Hemoglobin 10.4L, Hematocrit 31L, Mean Corpuscular Volume 110H, Mean Corpuscular Hemoglobin 37H, Mean Corpuscular Hemoglobin Concent 34, Red Cell Distribution Width 13.4, Platelet Count 175, Mean Platelet Volume 11.5, Immature Granulocyte % (Auto) 1, Neutrophils (%) (Auto) 72, Lymphocytes (%) (Auto) 18, Monocytes (%) (Auto) 9, Eosinophils (%) (Auto) 0, Basophils (%) (Auto) 1, Neutrophils # (Auto) 3.9, Lymphocytes # (Auto) 1.0, Monocytes # (Auto) 0.5, Eosinophils # (Auto) 0.0, Basophils # (Auto) 0.0, Immature Granulocyte # (Auto) 0.0, Sodium Level 126L, Potassium Level 4.4, Chloride Level 94L, Carbon Dioxide Level 22, Anion Gap 10, Blood Urea Nitrogen 7, Creatinine 0.48L, Estimat Glomerular Filtration Rate 180, BUN/Creatinine Ratio 15, Glucose Level 102, Calcium Level 9.0, Corrected Calcium 10.0, Total Bilirubin 0.6, Aspartate Amino Transf (AST/SGOT) 28, Alanine Aminotransferase (ALT/SGPT) 14, Alkaline Phosphatase 139H, Total Protein 6.0L, Albumin 2.8L Home Meds Active Certavite-Antioxidant Tablet (Multivitamin/Iron/Folic Acid) 1 Each Tablet 1 Ea PO DAILY@0700 Folic Acid 1 Mg Tablet 1 Mg PO DAILY Stool Softener-Laxative Tablet (Sennosides/Docusate Sodium) 1 Each Tablet 2 Ea PO BID PRN Sodium Chloride 1 Gm Tab 1 Gm PO BID Hydrocodone-Acetamin 10-325 mg (Hydrocodone/Acetaminophen) 1 Each Tablet 1 Each PO Q6H PRN Gabapentin 600 Mg Tablet 600 Mg PO TID Reported Ventolin Hfa (Albuterol Sulfate) 1 Puff Puff 2 Puff INH Q4H PRN 1 PUFF = 90 MCG Assessment/Pt Instructions half-way rounds Discharge Planning: <30 minutes discharge planning Discharge Instructions Discharge Diet: No Restrictions Discharge Physical Examination Vital Signs Vital Signs Date Time Temp Pulse Resp B/P (MAP) Pulse Ox O2 Delivery O2 Flow Rate FiO2 09/02/21 11:02 37.1 103 18 134/71 (92) 95 Room Air General Appearance: No Apparent Distress, WD/WN, Chronically ill Allergies: Coded Allergies: No Known Drug Allergies (Unverified , 05/23/19) Discharge Summary Date of Admission Aug 28, 2021 at 19:42 Date of Discharge Discharge Date: Sep 02, 2021 Admission Diagnosis Assessment: Severe weakness Hyponatremia 122 Bilateral lower extremity amputations remote Alcoholism Noncompliance Diabetes Neuropathy Plan: Home meds Supportive care Discharge Diagnosis Assessment: Severe weakness Hyponatremia 122 Bilateral lower extremity amputations remote Alcoholism Noncompliance Diabetes Neuropathy Plan: Home meds Supportive care 08/30/21: Fluid restriction Monitor sodium level 08/31/21: DC planned 09/01/21: DC BROWN Ma DO Sep 02, 2021 12:32
[2021-09-02 16:26] VITALS: BP 111/77
[2021-09-02] MEDS ORDERED: SODIUM CHLORIDE 1 GM TABLET PO SCH (21:00)
== END 2021-09-02 18:07 | DRG 896 ==
LOC: EDUNIT# 13:30 → ER FS 13:31 → 4TH 19:42
PROVIDERS: ADMIT Internal Medicine; ATTEND Internal Medicine
DX: F10.29 Alcohol dependence with unspecified alcohol-induced disorder (principal); S72.042A Displaced fracture of base of neck of left femur, initial encounter for closed fracture; E22.2 Syndrome of inappropriate secretion of antidiuretic hormone; E87.6 Hypokalemia; E83.42 Hypomagnesemia; L89.322 Pressure ulcer of left buttock, stage 2; L89.312 Pressure ulcer of right buttock, stage 2; L89.159 Pressure ulcer of sacral region, unspecified stage; Y90.6 Blood alcohol level of 120-199 mg/100 ml; I73.1 Thromboangiitis obliterans [Buerger's disease]; Z91.19 Patient's noncompliance with other medical treatment and regimen; I10 Essential (primary) hypertension; K21.9 Gastro-esophageal reflux disease without esophagitis; Z86.73 Personal history of transient ischemic attack (TIA), and cerebral infarction without residual deficits; F17.210 Nicotine dependence, cigarettes, uncomplicated; Z79.899 Other long term (current) drug therapy; Z89.612 Acquired absence of left leg above knee; Z89.611 Acquired absence of right leg above knee; J44.9 Chronic obstructive pulmonary disease, unspecified; E11.42 Type 2 diabetes mellitus with diabetic polyneuropathy; G89.29 Other chronic pain; Z66 Do not resuscitate; W18.39XA Other fall on same level, initial encounter
CPT/HCPCS: 36415; 70450; 72125; 72192; 80053; 80320; 82550; 83735; 85025; 85027; 86141; 96360

== ENCOUNTER → 2021-09-09 | Outpatient (CLI) | payer MEDICAID ==
[~2021-09-09] MED LIST changes: +FOLI1TAB30 PO; +FOLI1TAB33 PO; +GBPN600T PO; +HYDR-3820 PO; +NF-NACL1GT PO; +SENN1TAB76 PO
== END ==
LOC: WOUNDCARE 12:38
PROVIDERS: ATTEND Family Medicine
DX: L97.824 Non-pressure chronic ulcer of other part of left lower leg with necrosis of bone (principal); I70.241 Atherosclerosis of native arteries of left leg with ulceration of thigh; L89.152 Pressure ulcer of sacral region, stage 2; T51.8X2A Toxic effect of other alcohols, intentional self-harm, initial encounter; T65.292A Toxic effect of other tobacco and nicotine, intentional self-harm, initial encounter; Y83.5 Amputation of limb(s) as the cause of abnormal reaction of the patient, or of later complication, without mention of misadventure at the time of the procedure
CPT/HCPCS: A6212; G0463; 99214

== ENCOUNTER → 2021-09-10 | Outpatient (CLI) | payer MEDICAID ==
--- NOTE | 2021-09-10 11:27 | Diagnostic Imaging Report ---
INDICATION: Left-sided [id number] amputation. FINDINGS: The left common femoral artery is occluded. The left superficial femoral artery is occluded. There is thrombus with subtotal occlusion in the profunda femora. There is [id number] amputation. IMPRESSION: Occlusive thrombus throughout the residual left superficial femoral artery as well as common femoral artery. Thrombus partially occludes the femoral profunda. Dictated by: Dictated on workstation # [id number]
== END ==
PROVIDERS: ATTEND Family Medicine
DX: I74.8 Embolism and thrombosis of other arteries (principal); L97.824 Non-pressure chronic ulcer of other part of left lower leg with necrosis of bone; L89.152 Pressure ulcer of sacral region, stage 2; T51.8X2A Toxic effect of other alcohols, intentional self-harm, initial encounter; T65.292A Toxic effect of other tobacco and nicotine, intentional self-harm, initial encounter; Y83.5 Amputation of limb(s) as the cause of abnormal reaction of the patient, or of later complication, without mention of misadventure at the time of the procedure
CPT/HCPCS: 93926

== ENCOUNTER → 2021-09-22 | Outpatient (CLI) | payer MEDICAID ==
[~2021-09-22] MED LIST changes: +MORP-69 PO; +POLY119P5 PO; +SENN-145 PO
== END ==
LOC: WOUNDCARE 09:27
PROVIDERS: ATTEND Family Medicine
DX: L97.824 Non-pressure chronic ulcer of other part of left lower leg with necrosis of bone (principal); I70.241 Atherosclerosis of native arteries of left leg with ulceration of thigh; T51.8X2A Toxic effect of other alcohols, intentional self-harm, initial encounter; T65.292A Toxic effect of other tobacco and nicotine, intentional self-harm, initial encounter; E43 Unspecified severe protein-calorie malnutrition; I96 Gangrene, not elsewhere classified; Y83.5 Amputation of limb(s) as the cause of abnormal reaction of the patient, or of later complication, without mention of misadventure at the time of the procedure
CPT/HCPCS: 99213

== ENCOUNTER 2021-09-23 05:36 | Outpatient (CLI) | payer MEDICAID ==
[~2021-09-23 05:36] MED LIST changes: -MORP-69 PO; -POLY119P5 PO; -SENN-145 PO
[2021-09-24] MEDS ORDERED: FOLI1TAB33 PO (14:58)
[2021-09-24] MEDS ORDERED: MORP-69 PO (14:58)
[2021-09-24] MEDS ORDERED: POLY119P5 PO (14:58)
[2021-09-24] MEDS ORDERED: SENN-145 PO (14:58)
[2021-09-24] MEDS ORDERED: MULT-1136 PO (14:58)
[2021-09-24] MEDS ORDERED: GBPN600T PO (14:58)
[2021-09-24] MEDS ORDERED: NF-NACL1GT PO (14:58)
== END 2021-09-24 15:01 | disposition home or self-care (01) ==
LOC: PREOP 05:36
PROVIDERS: ATTEND Surgery
DX: Z01.818 Encounter for other preprocedural examination (principal)

== ENCOUNTER → 2021-09-24 | Outpatient (CLI) | payer MEDICAID ==
[~2021-09-24] MED LIST changes: +MORP-69 PO; +POLY119P5 PO; +SENN-145 PO
== END ==
LOC: CARD 13:00
PROVIDERS: ATTEND Internal Medicine Cardiovascular Disease
DX: I11.9 Hypertensive heart disease without heart failure (principal); I35.1 Nonrheumatic aortic (valve) insufficiency
CPT/HCPCS: 93306

== ENCOUNTER 2021-09-30 07:21 | Inpatient (IN) | payer MEDICAID ==
[2021-09-30] VITALS (11 sets, daily range): BP systolic 118–141; BP diastolic 80–97
[~2021-09-30] VITALS: Ht 121 cm; Wt 35.5 kg
[2021-09-30] MEDS ORDERED: ceFAZolin 2 GM IV Premixed 50 ML ONE (07:59)
--- NOTE | 2021-09-30 08:12 | Progress Note-Pre Operative ---
Pre-Operative Progress Note H&P Reviewed The H&P was reviewed, patient examined and no changes noted. Time Seen by Provider: 08:11 Date H&P Reviewed: Sep 30, 2021 Time H&P Reviewed: 08:11 Pre-Operative Diagnosis: Left AKA stump revision, site marked REE HU DO Sep 30, 2021 08:12
[2021-09-30] MEDS ORDERED: ceFAZolin 2 GM IV Premixed 50 ML IV ONE (08:15)
[2021-09-30] MEDS ORDERED: LACTATED RINGERS 1,000 ML IV PRN (08:15)
[2021-09-30] MEDS ORDERED: proPOfol 200 MG/20 ML (DIPRIVAN) VIAL IV ONE (08:39)
[2021-09-30] MEDS ORDERED: LIDOCAINE PF 2% 5 ML (XYLOCAINE) VIAL ONE (08:39)
[2021-09-30] MEDS ORDERED: fentaNYL INJ 100 MCG/2 ML AMP ONE (08:39)
[2021-09-30] MEDS ORDERED: ONDANSETRON 4 MG/2 ML (SDV) Z0FRAN ONE (08:39)
[2021-09-30] MEDS ORDERED: MIDAZOLAM 2 MG/2 ML (VERSED) VIAL ONE (08:39)
--- NOTE | 2021-09-30 10:32 | Progress Note-Post Operative ---
Post-Operative Progess Note Surgeon (s)/Appliance Repairer (s) Surgeon REE HU DO Appliance Repairer: Rene Pre-Operative Diagnosis Left AKA stump revision, site marked Post-Operative Diagnosis same Procedure & Operative Findings Date of Procedure 09/30/21 Procedure Performed/Findings Left AKA stump revision Anesthesia Type LMA Estimated Blood Loss Estimated blood loss (mL): scant Specimens/Packing Specimens Removed portion of femur REE HU DO Sep 30, 2021 10:32
--- NOTE | 2021-09-30 10:34 | Discharge Inst-Surgical ---
Discharge Inst-Surgical Depart Medication/Instructions New, Converted or Re-Newed RX: Other (use home meds) Patient Instructions Follow up Appt: Make appointment for 1 week. [phone] Instructions: No lifting greater than 20 pounds. No strenuous activity. May shower in 24 hours, no tub bath or soaking. Use incentive spirometer at home as directed. No Smoking Skin/Wound Care: May remove bandages in am. You need to leave the sutures in place and come to office to have them removed Symptoms to Report: Appetite Changes, Extremity Discoloration, Numbness/Tingling, Swelling Increased, Bleeding Excessive, Eyesight Changes, Pain Increased, Urine Color Change, Constipation(Persistent), Fever over 101 degree F, Pain/Pressure in chest, Urinating Difficulty, Cough Up/Vomit Blood, Heart Beat Irreg/Pounding, Pain/Pressure in jaw, Cramps in feet or legs, Lightheadedness, Pain/Pressure in shoulder, Diarrhea(Persistent), Memory Changes Suddenly, Questions/Concerns, Weight gain consecutive days, Dizziness/Fainting, Nausea/Vomiting, Shortness of Breath, Weight gain over 2 pounds If questions or concerns contact your physician Or seek help at emergency department. Activity Activity as Tolerated: Yes Activity Instructions: Avoid Stress to Incision Diet Discharge Diet: No Restrictions Diet After 24 Hours: Clear Liquid if Nauseous If Any Problems/Questions/Issu: Contact Your Physician, Go to Emergency Room Skin/Wound Care Infection Signs and Symptoms: Increased Redness, Foul Odor of Wound, Increased Drainage, Skin Itchy or Has a Rash, Increased Swelling, Temperature Above 101 F Bathing Instructions: Shower Stitches/[place]/Dermabond Dis: Care of Stitches REE HU DO Sep 30, 2021 10:34
[2021-09-30] MEDS ORDERED: SEVOFLURANE (ULTANE) 15 ML INHAL SOLN ONE (10:35)
--- NOTE | 2021-09-30 10:52 | Anesthesia-General Post-Op ---
General Patient Condition Mental Status/LOC: Same as Preop Cardiovascular: Satisfactory Nausea/Vomiting: Absent Respiratory: Satisfactory Pain: Controlled Complications: Absent Post Op Complications Complications None Follow Up Care/Instructions Patient Instructions None needed. Anesthesia/Patient Condition Patient Condition Patient is doing well, no complaints, stable vital signs, no apparent adverse anesthesia problems. No complications reported per nursing. BALDO FAITH CRNA Sep 30, 2021 10:52
[2021-09-30] MEDS ORDERED: morphine INJ 10 MG/ML 1ML (SYR OR VIAL) IVP ONE (11:00)
[2021-09-30] MEDS ORDERED: ONDANSETRON 4 MG/2 ML (SDV) Z0FRAN IVP PRN (11:00)
[2021-09-30] MEDS ORDERED: MEPERIDINE (DEMEROL) INJ 50 MG/ML IVP ONE (11:00)
[2021-09-30] MEDS ORDERED: HYDROmorphone 2 MG/ML VIAL (DILAUDID) IV ONE (11:00)
[2021-09-30] MEDS ORDERED: PROMETHAZINE INJ 25 MG/ML (PHENERGAN) AMP IVP ONE (11:00)
[2021-09-30] MEDS ORDERED: fentaNYL INJ 100 MCG/2 ML AMP IVP ONE (11:00)
[2021-09-30] MEDS ORDERED: HYDROmorphone 2 MG/ML VIAL (DILAUDID) ONE (11:05)
[2021-09-30] MEDS ORDERED: morphine INJ 4 MG/ML 1 ML (VIAL/SYRINGE) IVP ONE (12:30)
--- NOTE | 2021-09-30 17:36 | OPERATIVE REPORT ---
DATE OF SERVICE: 09/30/2021 PREOPERATIVE DIAGNOSES: AKA open wound, protrusion of the femur. POSTOPERATIVE DIAGNOSES: Aka open wound, protrusion of the femur. PROCEDURE PERFORMED: Left AKA stump revision. SURGEON: Toby Cortes DO. CALL CENTER PROFESSIONAL: Obdulio López DO. ANESTHESIA: General endotracheal tube. SPECIMEN: Left femur. BLOOD LOSS: Scant. FLUIDS: Per anesthesia. POSTOPERATIVE CONDITION: Stable. INDICATION FOR PROCEDURE: The patient is a 55-year-old male, who had a previous left AKA and had the tissue retracted, bone protruding through. He unfortunately continued to smoke and drink with poor peripheral vasculature making this more likely to happen. FINDINGS: The patient had a portion of the left femur removed. Site had been marked, timeout and everyone agreed prior to the procedure starting. PROCEDURE NOTE: After informed consent was obtained, the patient was brought to the operating room, placed on the operating table in supine position, sterilely prepped and draped in a normal fashion. I elected to start with an elliptical incision, carried through the skin, going down into the subcutaneous tissue, deepened down to subcutaneous tissue with Bovie electrocautery towards the femur, going down to the femur and then used a periosteal elevator as well as blunt dissection and Bovie electrocautery to free the tissue off of the femur. The femur stuck out of the skin about 2 inches. We went another two inches up above, where it came out of the skin, got around circumferentially going through muscle, tied the nerve, did not encounter the vasculature, and then used a bone saw to come straight through this. This was then passed off table and then used a bone saw and angulated to cut off and shaved the bone and then used the rasp to rasp the bone down, copiously irrigated with normal saline, placed some bone wax on the bone to control bleeding, then closed tissue, muscle and fascia over the bone with 0 Vicryl three [id number] sutures and then closed the skin with 0 Prolene vertical mattress sutures and then vinayak. Area was cleaned and dried, dressing was placed. The patient tolerated the procedure. He was transferred to the recovery room in a stable condition. Sponge, instrument, and needle count were correct at the end of the case. Dr. López assisted in this case helping to make incisions, close incisions, identify anatomy, and hold anatomy out of the way. Job ID: [id number] DocumentID: [id number] Dictated Date: 09/30/2021 12:00:42 Auto Travel Counselor Date: 09/30/2021 17:35:33 Dictated By: TOBY CORTES DO
== END 2021-09-30 16:25 | DRG 475 ==
LOC: 4TH 07:21 → SURG 07:22 → 4TH 11:16
PROVIDERS: ADMIT Surgery; ATTEND Surgery
PROC: 0Y6D0Z2 Detachment at Left Upper Leg, Mid, Open Approach (ICD-10-PCS; principal; 2021-09-30 09:43)
DX: T87.89 Other complications of amputation stump (principal); I69.354 Hemiplegia and hemiparesis following cerebral infarction affecting left non-dominant side; I12.9 Hypertensive chronic kidney disease with stage 1 through stage 4 chronic kidney disease, or unspecified chronic kidney disease; N18.9 Chronic kidney disease, unspecified; F17.210 Nicotine dependence, cigarettes, uncomplicated; K40.90 Unilateral inguinal hernia, without obstruction or gangrene, not specified as recurrent; D64.9 Anemia, unspecified; I73.9 Peripheral vascular disease, unspecified; I69.328 Other speech and language deficits following cerebral infarction; Z89.611 Acquired absence of right leg above knee; Z95.1 Presence of aortocoronary bypass graft
CPT/HCPCS: 87081

== ENCOUNTER 2021-12-29 01:34 | Emergency (ER) | payer MEDICAID ==
--- NOTE | 2021-12-29 01:39 | ED General ---
General Stated Complaint: FALL History of Present Illness Date Seen by Provider: Dec 29, 2021 Time Seen by Provider: 01:38 Initial Comments 56 yr M with PMH of Bilateral BKA/ Alcoholism, is brought in by EMS with c/o drinking vodka in large unknown amounts, and pt falling out of his wheelchair, hitting his head and neck on the ground. Pt denies chest pain, palpitations, nausea, vomiting, fever, dizziness. Allergies and Home Medications Allergies Coded Allergies: No Known Drug Allergies (Unverified , 09/30/21) Patient Home Medication List Home Medication List Reviewed: Yes Albuterol Sulfate (Ventolin Hfa) 1 Puff Puff, 2 PUFF INH Q4H PRN for WHEEZING, (Reported) Entered as Reported by: ESSENCE BECERRIL on 04/09/21 1145 Folic Acid (Folic Acid) 1 Mg Tablet, 1 MG PO DAILY, (Reported) Entered as Reported by: SHERRON TREADWELL on 09/24/21 1458 Gabapentin (Gabapentin) 600 Mg Tablet, 600 MG PO TID, (Reported) Entered as Reported by: SHERRON TREADWELL on 09/24/21 1458 Morphine Sulfate (Morphine Sulfate ER) 30 Mg Tablet.er, 30 MG PO BID, (Reported) Entered as Reported by: SHERRON TREADWELL on 09/24/21 1458 Multivitamin (Multivitamin) 1 Each Tablet, 1 EACH PO DAILY, (Reported) Entered as Reported by: SHERRON TREADWELL on 09/24/21 1458 Polyethylene Glycol 3350 (Miralax) 119 Gm Powder, 17 GM PO DAILY PRN for CONSTIPATION-1ST LINE, (Reported) Entered as Reported by: SHERRON TREADWELL on 09/24/21 1458 Sennosides/Docusate Sodium (Senna S Tablet) 1 Each Tablet, 1 EACH PO BID PRN for CONSTIPATION-1ST LINE, (Reported) Entered as Reported by: SHERRON TREADWELL on 09/24/21 1458 Sodium Chloride (Sodium Chloride) 1 Gm Tab, 1 GM PO BID, (Reported) Entered as Reported by: SHERRON TREADWELL on 09/24/21 1458 Review of Systems Review of Systems Constitutional: other (drunk/ disheveled, poor hygiene) EENTM: no symptoms reported Respiratory: no symptoms reported Cardiovascular: no symptoms reported Gastrointestinal: no symptoms reported Genitourinary: no symptoms reported Musculoskeletal: other (bilateral BKA) Skin: no symptoms reported Psychiatric/Neurological: Other (drunk) Hematologic/Lymphatic: No Symptoms Reported Immunological/Allergic: no symptoms reported Past Sggsktd-Yzdyge-Murhyc Hx Immunizations Up To Date First/Initial COVID19 Vaccinat: FEBRUARY 2021 Second COVID19 Vaccination Dio: FEBRUARY 2021 Third COVID19 Vaccination Date: FEBRUARY 2021 Seasonal Allergies Seasonal Allergies: No Past Medical History Surgeries: Yes Amputation, Orthopedic, Vascular Surgery Respiratory: No (Hypoxia) Currently Using CPAP: No Currently Using BIPAP: No Cardiac: Yes (Buerger Disease) Hypertension, Peripheral Vascular Neurological: Yes Neuropathy, Stroke Genitourinary: No Gastrointestinal: Yes (Chronic Alcohol gastritis) Gastroesophageal Reflux Musculoskeletal: Yes (Right above the knee amputation) Amputee Endocrine: No HEENT: No Cancer: No Psychosocial: Yes (Substance abuse, Alcohol dependence) Integumentary: No (exposed bone) Blood Disorders: No Family Medical History Cancer, Hypertension Physical Exam Vital Signs Vital Signs - First Documented 12/29/21 01:39 Temp 36.1 Pulse 88 Resp 18 B/P (MAP) 120/76 (91) Pulse Ox 96 O2 Delivery Room Air Capillary Refill : Height, Weight, BMI Height: 5'9.50" Weight: 117lbs. oz. 53.200525wv; 24.24 BMI Method:Stated General Appearance: No Apparent Distress HEENT: PERRL/EOMI Neck: Tender Lateral Respiratory: Chest Non Tender, Lungs Clear, Normal Breath Sounds Cardiovascular: Regular Rate, Rhythm Gastrointestinal: Normal Bowel Sounds, Non Tender, Soft Extremity: Normal Capillary Refill Neurologic/Psychiatric: Alert, Oriented x3, No Motor/Sensory Deficits, Other (sm) Skin: Normal Color, Other (poor hygiene) Progress/Results/Core Measures Suspected Sepsis SIRS Temperature: Pulse: Respiratory Rate: Laboratory Tests 12/29/21 02:04: White Blood Count 8.0 Blood Pressure / Mean: Laboratory Tests 12/29/21 02:04: Creatinine 0.30L, Platelet Count 222, Total Bilirubin 0.6 Results/Orders Lab Results Laboratory Tests Test 12/29/21 02:04 Range/Units White Blood Count 8.0 4.3-11.0 10^3/uL Red Blood Count 4.10 L 4.30-5.52 10^6/uL Hemoglobin 13.0 L 13.3-17.7 g/dL Hematocrit 38 L 40-54 % Mean Corpuscular Volume 92 80-99 fL Mean Corpuscular Hemoglobin 32 25-34 pg Mean Corpuscular Hemoglobin Concent 34 32-36 g/dL Red Cell Distribution Width 16.1 H 10.0-14.5 % Platelet Count 222 130-400 10^3/uL Mean Platelet Volume 10.3 9.0-12.2 fL Immature Granulocyte % (Auto) 0 % Neutrophils (%) (Auto) 69 42-75 % Lymphocytes (%) (Auto) 22 12-44 % Monocytes (%) (Auto) 8 0-12 % Eosinophils (%) (Auto) 1 0-10 % Basophils (%) (Auto) 0 0-10 % Neutrophils # (Auto) 5.5 1.8-7.8 10^3/uL Lymphocytes # (Auto) 1.7 1.0-4.0 10^3/uL Monocytes # (Auto) 0.7 0.0-1.0 10^3/uL Eosinophils # (Auto) 0.1 0.0-0.3 10^3/uL Basophils # (Auto) 0.0 0.0-0.1 10^3/uL Immature Granulocyte # (Auto) 0.0 0.0-0.1 10^3/uL Sodium Level 128 L 135-145 MMOL/L Potassium Level 3.3 L 3.6-5.0 MMOL/L Chloride Level 90 L 98-107 MMOL/L Carbon Dioxide Level 22 21-32 MMOL/L Anion Gap 16 H 5-14 MMOL/L Blood Urea Nitrogen 4 L 7-18 MG/DL Creatinine 0.30 L 0.60-1.30 MG/DL Estimat Glomerular Filtration Rate 139 BUN/Creatinine Ratio 13 Glucose Level 114 H 70-105 MG/DL Calcium Level 9.7 8.5-10.1 MG/DL Corrected Calcium 9.9 8.5-10.1 MG/DL Total Bilirubin 0.6 0.1-1.0 MG/DL Aspartate Amino Transf (AST/SGOT) 19 5-34 U/L Alanine Aminotransferase (ALT/SGPT) 12 0-55 U/L Alkaline Phosphatase 137 H 40-136 U/L Total Protein 6.8 6.4-8.2 GM/DL Albumin 3.7 3.2-4.5 GM/DL Serum Alcohol 142 H <10 MG/DL My Orders Orders - DIANA COOK MD Ct Head/Cervical Spine Wo (12/29/21 01:41) Ed Iv/Invasive Line Start (12/29/21 01:41) Ns Iv 1000 Ml (Sodium Chloride 0.9%) (12/29/21 01:45) Alcohol (12/29/21 01:41) Creatine Kinase (12/29/21 01:41) Comprehensive Metabolic Panel (12/29/21 01:41) Cbc With Automated Diff (12/29/21 01:41) Ua Culture If Indicated (12/29/21 01:41) Drug Screen Stat (Urine) (12/29/21 01:41) Thiamine Injection (Vitamin B-1 Injectio (12/29/21 02:00) Folic Acid Tablet (Folic Acid Tablet) (12/29/21 02:00) Potassium Chloride (Tablet) (K Dur Table (12/29/21 03:00) Fentanyl Inj (Sublimaze Injection) (12/29/21 03:15) Medications Given in ED Current Medications Medications Dose Ordered Sig/Junior Route Start Time Stop Time Status Last Admin Dose Admin Fentanyl Citrate 25 mcg Q2HR PRN IVP 12/29/21 03:15 12/29/21 03:17 25 MCG Thiamine HCl 100 mg ONCE ONCE IV 12/29/21 02:00 12/29/21 02:01 DC 12/29/21 02:04 100 MG Vital Signs/I&O 12/29/21 01:39 Temp 36.1 Pulse 88 Resp 18 B/P (MAP) 120/76 (91) Pulse Ox 96 O2 Delivery Room Air Capillary Refill : Progress Note : Progress Note 1. FALL: TYPE 2 DISPLACED ODONTOID FRACTURE - Cervical collar ON PATIENT - CT HEAD AND C-SPINE: type 2 displaced odontoid fracture with 3.2mm posterior displacement of dens, and CT head shows an osteolytic lesions of skull that may indicate malignancy. Discussed with radiologist over the phone. - Fentanyl 15mg iv Q2H prn pain - Will transfer to [facility]. 2. ETOH INTOXICATION: - causing mild hypokalemia and hyponatremia - s. ETOH OF 142 - UDS/ UA - potassium and sodium repletion and NS IVF bolus - Thiamine and folic acid given Diagnostic Imaging Diagonstic Imaging: CT Plain Films/CT/US/NM/MRI: head Comments CT HEAD and C-spine: CT HEAD AND C-SPINE: type 2 displaced odontoid fracture with osteolytic lesions of skull that may indicate malignancy Departure Impression Primary Impression: Alcohol intoxication Qualified Codes: F10.929 - Alcohol use, unspecified with intoxication, unspecified Additional Impression: Posterior displaced Type II dens fracture Qualified Codes: S12.111A - Posterior displaced type ii dens fracture, initial encounter for closed fracture Disposition: XFER SHT-TRM HOSP Condition: Stable Transfer Transfer Reason: Exceeds level of care Time Spoke to Accepting Phy: 04:05 Transfer Progress Notes Accepting physician for trauma is Dr. Butler Transfer Facility: [facility] Method of Transfer: EMS Departure-Patient Inst. Referrals: KRISTIAN BOYD APRN (PCP) Primary Care Physician [facility] (Family) Primary Care Physician Patient Instructions: Neck Fracture DIANA COOK MD Dec 29, 2021 01:39
[2021-12-29] MEDS ORDERED: NS IV 1000 ML 1,000 ML IV SCH (01:45)
[2021-12-29] MEDS ORDERED: THIAMINE 100 MG/ML 2 ML (VITAMIN B-1) VIAL IV ONE (02:00)
[2021-12-29] MEDS ORDERED: FOLIC ACID 1 MG TAB PO ONE (02:00)
[2021-12-29 02:09] LABS: BASOPHILS % (AUTO) 0 % (0-10); EOSINOPHILS # (AUTO) 0.1 10^3/uL (0.0-0.3); EOSINOPHILS % (AUTO) 1 % (0-10); HEMATOCRIT 38 % (40-54); LYMPHOCYTES # (AUTO) 1.7 10^3/uL (1.0-4.0); LYMPHOCYTES % (AUTO) 22 % (12-44); MEAN CORPUSCULAR HEMOGLOBIN 32 pg (25-34); MEAN CORPUSCULAR HGB CONC 34 g/dL (32-36); MEAN CORPUSCULAR VOLUME 92 fL (80-99); MEAN PLATELET VOLUME 10.3 fL (9.0-12.2); MONOCYTES # (AUTO) 0.7 10^3/uL (0.0-1.0); MONOCYTES % (AUTO) 8 % (0-12); NEUTROPHILS # (AUTO) 5.5 10^3/uL (1.8-7.8); NEUTROPHILS % (AUTO) 69 % (42-75); PLATELET COUNT 222 10^3/uL (130-400)
[2021-12-29 02:40] LABS: BILIRUBIN,TOTAL 0.6 MG/DL (0.1-1.0); CALCIUM 9.7 MG/DL (8.5-10.1); CREATININE SERUM 0.3 MG/DL (0.60-1.30); POTASSIUM 3.3 MMOL/L (3.6-5.0); TOTAL PROTEIN 6.8 GM/DL (6.4-8.2)
[2021-12-29 02:41] LABS: ALBUMIN 3.7 GM/DL (3.2-4.5)
[2021-12-29] MEDS ORDERED: KCL 20 MEQ TAB (K-DUR) PO ONE (03:00)
[2021-12-29] MEDS ORDERED: fentaNYL INJ 100 MCG/2 ML AMP IVP PRN (03:15)
[2021-12-29 03:47] LABS: BILIRUBIN,URINE NEGATIVE (NEGATIVE); CLARITY,URINE CLEAR; COLOR,URINE YELLOW; GLUCOSE, URINE (UA) NEGATIVE (NEGATIVE); KETONES,URINE NEGATIVE (NEGATIVE); LEUKOCYTE ESTERASE ,URINE 1+ (NEGATIVE); NITRITE,URINE NEGATIVE (NEGATIVE); PH,URINE 6.5 (5-9); PROTEIN,URINE NEGATIVE (NEGATIVE)
[2021-12-29 03:53] LABS: BACTERIA,URINE NEGATIVE /HPF
[2021-12-29 04:01] LABS: AMPHETAMINE SCREEN, URINE NEGATIVE (NEGATIVE); BARBITURATE SCREEN URINE NEGATIVE (NEGATIVE); BENZODIAZEPINES SCREEN URINE NEGATIVE (NEGATIVE); CANNABINOID SCREEN, URINE POSITIVE (NEGATIVE); COCAINE SCREEN URINE NEGATIVE (NEGATIVE); METHADONE STAT NEGATIVE (NEGATIVE); METHAMPHETAMINE SCREEN URINE S NEGATIVE (NEGATIVE); OPIATE SCREEN URINE NEGATIVE (NEGATIVE); OXYCODONE STAT POSITIVE (NEGATIVE); PROPOXYPHENE STAT NEGATIVE (NEGATIVE); TRICYCLIC ANTIDEPRESSANTS SCRE NEGATIVE (NEGATIVE)
[2021-12-29 04:15] VITALS: BP 127/75
[2021-12-29] MEDS ORDERED: KETOROLAC 30 MG/ML VIAL IVP ONE (04:15)
--- NOTE | 2021-12-29 06:52 | Diagnostic Imaging Report ---
PROCEDURE: CT head and CT cervical spine without contrast. TECHNIQUE: Multiple contiguous axial images were obtained through the brain and cervical spine without the use of intravenous contrast. Sagittal and coronal reformations through the cervical spine were then performed. Auto Exposure Controls were utilized during the CT exam to meet ALARA standards for radiation dose reduction. INDICATION: Fall from wheelchair. Compared with head and cervical CT 08/28/2021. CT HEAD: There is no intracranial hemorrhage and no calvarial fracture deformity. No extra-axial fluid collection. No mass effect, shift herniation or hydrocephalus. There is no evidence for an elevation to the intracerebral pressures. Orbits and paranasal sinuses nonacute. This patient, however has new osteolytic lesions to the right calvarium posteriorly the more caudal lesion measures 2.6 cm along the more cephalad lesion measures 3 cm. These each extend through the inner calvarial table as well as the outer table. There is not even a hint of these lesions on the comparison study these are unrelated to trauma and are suspect for metastatic disease. No other suspicious bony pathology. No findings of intracranial parenchymal mass. Cervical spine: There is mild posterior displacement of new type II odontoid fracture. The superior/distal fragment is displaced posteriorly about 3 mm without angulation, given head tilting the alignment otherwise stable. There is extensive degenerative changes to the discs, endplates and facets throughout the mid to lower cervical spine chronic. There are heavy vascular calcifications of the carotids. At the lowest cut of the exam, there is suggestion of lytic process involving the posterior elements of T2. No other potential lytic bone lesion is found. Craniocervical relationship unremarkable. The central skull base appeared intact. C1 ring intact. IMPRESSION: CT HEAD: 1. No hemorrhage or calvarial fracture deformity. 2. However, new lytic lesions in the right calvarium posteriorly road through the inner and outer tables suspicious for neoplasm. CT cervical spine: New mildly displaced but non-angulated type II odontoid fracture. No other cervical fracture found. Suspicion for lytic process at the partially visualized posterior elements of T2 and suspicion for lytic changes to the left 1st rib posteriorly. Correlate for myeloma versus metastatic neoplasm. I agree with preliminary. Dictated by: Dictated on workstation # [id number]
== END 2021-12-29 04:30 | disposition short-term general hospital (02) ==
LOC: EDUNIT# 01:34 → ER FS 01:37
DX: S12.111A Posterior displaced Type II dens fracture, initial encounter for closed fracture (principal); F10.129 Alcohol abuse with intoxication, unspecified; I10 Essential (primary) hypertension; Z86.73 Personal history of transient ischemic attack (TIA), and cerebral infarction without residual deficits; W22.8XXA Striking against or struck by other objects, initial encounter
CPT/HCPCS: 36415; 70450; 72125; 80053; 80306; 81000; 82550; 85025; 99284; G0480; 80320

== ENCOUNTER 2022-02-01 18:55 | Emergency (ER) | payer MEDICAID ==
[2022-02-01] MEDS ORDERED: NS IV 1000 ML 1,000 ML IV STA ×2 (19:12→20:13)
[2022-02-01 19:20] LABS: BASOPHILS # (AUTO) 0.1 10^3/uL (0.0-0.1); BASOPHILS % (AUTO) 0 % (0-10); EOSINOPHILS % (AUTO) 0 % (0-10); HEMATOCRIT 45 % (40-54); HEMOGLOBIN 14.8 g/dL (13.3-17.7); LYMPHOCYTES # (AUTO) 2.5 10^3/uL (1.0-4.0); LYMPHOCYTES % (AUTO) 13 % (12-44); MEAN CORPUSCULAR HEMOGLOBIN 33 pg (25-34); MEAN CORPUSCULAR HGB CONC 33 g/dL (32-36); MEAN CORPUSCULAR VOLUME 100 fL (80-99); MEAN PLATELET VOLUME 12.5 fL (9.0-12.2); MONOCYTES # (AUTO) 1.4 10^3/uL (0.0-1.0); MONOCYTES % (AUTO) 7 % (0-12); NEUTROPHILS # (AUTO) 15.4 10^3/uL (1.8-7.8); NEUTROPHILS % (AUTO) 79 % (42-75); PLATELET COUNT 171 10^3/uL (130-400); WHITE BLOOD COUNT 19.5 10^3/uL (4.3-11.0)
[2022-02-01 19:25] LABS: CLARITY,URINE CLEAR; COLOR,URINE YELLOW; GLUCOSE, URINE (UA) NEGATIVE (NEGATIVE); KETONES,URINE NEGATIVE (NEGATIVE); LEUKOCYTE ESTERASE ,URINE NEGATIVE (NEGATIVE); NITRITE,URINE NEGATIVE (NEGATIVE); PH,URINE 5.5 (5-9); PROTEIN,URINE NEGATIVE (NEGATIVE)
--- NOTE | 2022-02-01 19:26 | ED General ---
General Stated Complaint: AMS,LOW BLOOD SUGAR Source of Information: EMS, Old Records Exam Limitations: Other (altered mental status) History of Present Illness Date Seen by Provider: Feb 01, 2022 Time Seen by Provider: 19:07 Initial Comments 56 yo male brought in by EMS with complaint of altered mental status. EMS was called out for patient not having eaten or drink for 4 days. On arrival was noted that his blood sugar was 32. After several attempts for IV access and to give him glucose if he had several IVs infiltrate or not threatened. EMS did not give him dose of glucagon. And when they brought him to the ED had an IV was established and he was given an amp of D50. He continued to have altered mental status and decreased responsiveness. He was tachycardic with heart rate in the 120s to 130s. Unable to obtain history or information for the patient. Per EMS his roommate was talking to the department of family services to try and get the patient to a longterm. He had also told EMS that he wanted the patient committed to a longterm rather than coming back to their apartment. Patient recently was transferred to [facility] with a C2 fracture. He has not been wearing any cervical collar or neck protection. He continues to drink alcohol and not take care of himself Timing/Duration: 4-5 Days Allergies and Home Medications Allergies Coded Allergies: No Known Drug Allergies (Unverified , 09/30/21) Patient Home Medication List Home Medication List Reviewed: Yes Albuterol Sulfate (Ventolin Hfa) 1 Puff Puff, 2 PUFF INH Q4H PRN for WHEEZING, (Reported) Entered as Reported by: ESSENCE BECERRIL on 04/09/21 1145 Folic Acid (Folic Acid) 1 Mg Tablet, 1 MG PO DAILY, (Reported) Entered as Reported by: SHERRON TREADWELL on 09/24/21 1458 Gabapentin (Gabapentin) 600 Mg Tablet, 600 MG PO TID, (Reported) Entered as Reported by: SHERRON TREADWELL on 09/24/21 1458 Morphine Sulfate (Morphine Sulfate ER) 30 Mg Tablet.er, 30 MG PO BID, (Reported) Entered as Reported by: SHERRON TREADWELL on 09/24/21 1458 Multivitamin (Multivitamin) 1 Each Tablet, 1 EACH PO DAILY, (Reported) Entered as Reported by: SHERRON TREADWELL on 09/24/21 1458 Polyethylene Glycol 3350 (Miralax) 119 Gm Powder, 17 GM PO DAILY PRN for CONSTIPATION-1ST LINE, (Reported) Entered as Reported by: SHERRON TREADWELL on 09/24/21 1458 Sennosides/Docusate Sodium (Senna S Tablet) 1 Each Tablet, 1 EACH PO BID PRN for CONSTIPATION-1ST LINE, (Reported) Entered as Reported by: SHERRON TREADWELL on 09/24/21 1458 Sodium Chloride (Sodium Chloride) 1 Gm Tab, 1 GM PO BID, (Reported) Entered as Reported by: SHERRON TREADWELL on 09/24/21 1458 Review of Systems Review of Systems Constitutional: malaise, weakness Unable to obtain ROS as pt is not answering questions and has altered mental status on arrival. 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 oz. 53.521585tv; BMI Method:Stated General Appearance: Cachetic, Other (altered mental status with speaking gibberish and not following commands) Eyes: Bilateral Eye PERRL HEENT: No Moist Mucous Membranes (dry mucous membranes); Other (widespread dental decay and poor dentition) Neck: Non Tender Respiratory: Chest Non Tender, No Accessory Muscle Use, No Respiratory Distress, Decreased Breath Sounds Cardiovascular: Normal Peripheral Pulses, Tachycardia Gastrointestinal: Normal Bowel Sounds, No Pulsatile Mass, Non Tender, Soft Rectal: Deferred Extremity: Other (mottled bilateral Above knee amputations to lower extremities) Neurologic/Psychiatric: Alert; No Disoriented (not answering questions) Skin: Warm/Dry, Mottled (bilateral lower extremity AKA stumps) Focused Exam Lactate Level 02/01/22 20:25: Lactic Acid Level 2.45*H Lactic Acid Level Laboratory Tests Test 02/01/22 20:25 Lactic Acid Level 2.45 MMOL/L (0.50-2.00) *H Progress/Results/Core Measures Suspected Sepsis SIRS Temperature: Pulse: Respiratory Rate: Laboratory Tests 02/01/22 19:10: White Blood Count 19.5H Blood Pressure / Mean: 02/01/22 20:25: Lactic Acid Level 2.45*H Laboratory Tests 02/01/22 19:10: Creatinine 0.79, Platelet Count 171, Total Bilirubin 1.7H Results/Orders Lab Results Laboratory Tests Test 02/01/22 19:10 02/01/22 19:15 02/01/22 19:17 02/01/22 20:25 Range/Units White Blood Count 19.5 H 4.3-11.0 10^3/uL Red Blood Count 4.56 4.30-5.52 10^6/uL Hemoglobin 14.8 13.3-17.7 g/dL Hematocrit 45 40-54 % Mean Corpuscular Volume 100 H 80-99 fL Mean Corpuscular Hemoglobin 33 25-34 pg Mean Corpuscular Hemoglobin Concent 33 32-36 g/dL Red Cell Distribution Width 14.0 10.0-14.5 % Platelet Count 171 130-400 10^3/uL Mean Platelet Volume 12.5 H 9.0-12.2 fL Immature Granulocyte % (Auto) 1 % Neutrophils (%) (Auto) 79 H 42-75 % Lymphocytes (%) (Auto) 13 12-44 % Monocytes (%) (Auto) 7 0-12 % Eosinophils (%) (Auto) 0 0-10 % Basophils (%) (Auto) 0 0-10 % Neutrophils # (Auto) 15.4 H 1.8-7.8 10^3/uL Lymphocytes # (Auto) 2.5 1.0-4.0 10^3/uL Monocytes # (Auto) 1.4 H 0.0-1.0 10^3/uL Eosinophils # (Auto) 0.0 0.0-0.3 10^3/uL Basophils # (Auto) 0.1 0.0-0.1 10^3/uL Immature Granulocyte # (Auto) 0.2 H 0.0-0.1 10^3/uL Neutrophils % (Manual) 80 % Lymphocytes % (Manual) 14 % Monocytes % (Manual) 4 % Eosinophils % (Manual) 0 % Basophils % (Manual) 0 % Metamyelocytes % 1 % Myelocytes % 1 % Band Neutrophils 0 % Sodium Level 149 H 135-145 MMOL/L Potassium Level 3.1 L 3.6-5.0 MMOL/L Chloride Level 103 98-107 MMOL/L Carbon Dioxide Level 34 H 21-32 MMOL/L Anion Gap 12 5-14 MMOL/L Blood Urea Nitrogen 44 H 7-18 MG/DL Creatinine 0.79 0.60-1.30 MG/DL Estimat Glomerular Filtration Rate 104 BUN/Creatinine Ratio 56 Glucose Level 456 *H 70-105 MG/DL Calcium Level 16.5 *H 8.5-10.1 MG/DL Corrected Calcium 17.3 H 8.5-10.1 MG/DL Magnesium Level 1.4 L 1.6-2.4 MG/DL Total Bilirubin 1.7 H 0.1-1.0 MG/DL Aspartate Amino Transf (AST/SGOT) 17 5-34 U/L Alanine Aminotransferase (ALT/SGPT) 11 0-55 U/L Alkaline Phosphatase 155 H 40-136 U/L Troponin I < 0.30 <0.30 NG/ML Pro-B-Type Natriuretic Peptide 2479.0 H <75.0 PG/ML Total Protein 6.8 6.4-8.2 GM/DL Albumin 3.0 L 3.2-4.5 GM/DL Lipase 9 8-78 U/L Salicylates Level < 0.3 L 5.0-20.0 MG/DL Acetaminophen Level < 10 L 10-30 UG/ML Serum Alcohol < 10 <10 MG/DL Urine Color YELLOW Urine Clarity CLEAR Urine pH 5.5 5-9 Urine Specific [place] 1.025 H 1.016-1.022 Urine Protein NEGATIVE NEGATIVE Urine Glucose (UA) NEGATIVE NEGATIVE Urine Ketones NEGATIVE NEGATIVE Urine Nitrite NEGATIVE NEGATIVE Urine Bilirubin 2+ H NEGATIVE Urine Urobilinogen 4.0 < = 1.0 MG/DL Urine Leukocyte Esterase NEGATIVE NEGATIVE Urine RBC (Auto) NEGATIVE NEGATIVE Urine RBC NONE /HPF Urine WBC 0-2 /HPF Urine Squamous Epithelial Cells 0-2 /HPF Urine Crystals NONE /LPF Urine Bacteria NEGATIVE /HPF Urine Casts PRESENT /LPF Urine Hyaline Casts 0-2 H /LPF Urine Mucus NEGATIVE /LPF Urine Culture Indicated NO Urine Opiates Screen NEGATIVE NEGATIVE Urine Oxycodone Screen NEGATIVE NEGATIVE Urine Methadone Screen NEGATIVE NEGATIVE Urine Propoxyphene Screen NEGATIVE NEGATIVE Urine Barbiturates Screen NEGATIVE NEGATIVE Ur Tricyclic Antidepressants Screen NEGATIVE NEGATIVE Urine Phencyclidine Screen NEGATIVE NEGATIVE Urine Amphetamines Screen NEGATIVE NEGATIVE Urine Methamphetamines Screen NEGATIVE NEGATIVE Urine Benzodiazepines Screen NEGATIVE NEGATIVE Urine Cocaine Screen NEGATIVE NEGATIVE Urine Cannabinoids Screen NEGATIVE NEGATIVE Glucometer 246 H 70-110 MG/DL Lactic Acid Level 2.45 *H 0.50-2.00 MMOL/L My Orders Orders - TERESA HUGHES MD Ua Culture If Indicated (02/01/22 19:10) Cbc With Automated Diff (02/01/22 19:10) Comprehensive Metabolic Panel (02/01/22 19:10) Alcohol (02/01/22 19:10) Drug Screen Stat (Urine) (02/01/22 19:10) Acetaminophen (02/01/22 19:10) Salicylate (02/01/22 19:10) Ekg Tracing (02/01/22 19:10) Ed Iv/Invasive Line Start (02/01/22 19:10) Monitor-Rhythm Ecg Trace Only (02/01/22 19:10) Yu Cath (02/01/22 19:10) Accucheck Stat ONCE (02/01/22 19:10) Troponin I Fs (02/01/22 19:10) Probnp Fs (02/01/22 19:10) Chest 1 View Ap/Pa Only (02/01/22 19:10) Ct Head/Cervical Spine Wo (02/01/22 19:10) Magnesium (02/01/22 19:10) Lipase (02/01/22 19:10) Ns Iv 1000 Ml (Sodium Chloride 0.9%) (02/01/22 19:12) O2 (02/01/22 19:12) Manual Differential (02/01/22 19:10) Ns Iv 1000 Ml (Sodium Chloride 0.9%) (02/01/22 20:13) Magnesium 1 Gm/100 Ml Ivpb (Magnesium Diop (02/01/22 20:13) Blood Culture (02/01/22 20:13) Lactic Acid Analyzer (02/01/22 20:13) Ceftriaxone 1 Gm Pre-Mix (Rocephin 1 Gm (02/01/22 20:59) Vital Signs/I&O 02/01/22 02/01/22 18:55 19:15 Temp 35.6 Pulse 136 Resp 13 B/P (MAP) 131/86 (101) Pulse Ox 93 85 O2 Delivery Room Air Nasal Cannula O2 Flow Rate 2.50 Capillary Refill : Progress Note #1: Progress Note After receiving an amp of D50 as well as the glucagon by EMS his sugar did go up to 246. He however will continue to have altered mental status and was unable to answer questions or follow commands. He continued to be tachycardic with heart rate in the 1 20-1 30 range. He was making some dark-colored urine when Yu catheter was placed to monitor his urine output. Obtain labs including alcohol and drug screen and CT scan of his head and cervical spine. Chest x-ray and electrocardiogram to evaluate his chest. Supplemental oxygen to help with breathing. Normal saline 1 L IV fluid bolus to help with hydration and perfusion. Progress Note #2: Progress Note Labs shows elevated white blood cell count to 19.5 thousand with a left shift. He also appears to be hemoconcentrated with his hemoglobin up to 14.8 were as he usually runs anemic and was 13 for his hemoglobin 4 weeks ago. His chemistry panel shows elevated sodium to 149 with a mild hypokalemia 3.1. His BUN is elevated to 44 whereas a month ago he was 4 for his BUN. His creatinine is normal at 0.79. His calcium is elevated to 16.5 and corrected to 17.3. His troponin was less than 0.3. Has no acute process on his chest x-ray. Electrocardiogram shows sinus tachycardia with multifocal PVCs which is new from his last tracing in 2019. His urinalysis was concentrated with a specific gravity of 1.025 but did not show signs of infection. Due to the elevated white blood cell count blood cultures and lactic acid were added. Since he was having low urine output a second liter of normal saline was added. Progress Note #3: Progress Note CT scan of his head and cervical spine shows no acute intracranial process but he has advancement of lytic lesions of his skull and bones. He also has increased displacement of the C2 fracture compared to December. He has no acute stroke or intracranial hemorrhage. Will place in Cervical collar and secure his EJ IV access. For his elevated WBC count give Rocephin 1 gm IV in addition to his blood cultures and lactic acid being ordered. Will call [facility] Access Center at 2024 to initiate transfer process. I spoke with Laila Kristian and she took initial information and then asked for face sheet and will call back once she has Hospitalist on the phone. Progress Note #4: Time: 20:48 Progress Note I spoke with Resident Dr Boucher and she accepted on behalf of Dr. Cooney. Will continue with IVF for hydration, give 1 gm of Magnesium Sulfate to help replace low mag of 1.4. Continue with IVF to help with hydration and elevated WBC. His Lactic acid did come back at 2.[address] Boucher so will order Rocephin 1 gm IV to give him a broad spectrum antibiotic while blood culture are pending. ECG Initial ECG Impression Date: Feb 01, 2022 Initial ECG Impression Time: 19:35 Initial ECG Rate: 120 Initial ECG Rhythm: S.Tach Initial ECG Comparisson: Changed (tachycardia and multiform PVCs now) Comment Sinus tachycardia with a heart rate of 120 bpm. Multiform PVCs. CO interval 136 ms. Old inferior infarct findings. QT interval 376 ms with a QTc interval of 532 ms. This is a change from his prior tracing in 2019. Diagnostic Imaging Diagonstic Imaging: CT Plain Films/CT/US/NM/MRI: c-spine, head Comments NAME: JOHN PAUL VILLAVICENCIO [facility] REC#: [id number] PT STATUS: REG ER : 1965 PHYSICIAN: TERESA HUGHES MD ADMIT DATE: 02/01/22/ER FS Draft Date of Exam:02/01/22 CT HEAD/CERVICAL SPINE WO EXAMINATION: CT head and CT cervical spine without contrast. TECHNIQUE: Multiple contiguous axial images were obtained through the brain and cervical spine without the use of intravenous contrast. Sagittal and coronal reformations through the cervical spine were then performed. All CT scans use one or more of the following dose optimizing techniques: automated exposure control, MA and/or KvP adjustment based on patient size and exam type or iterative reconstruction. HISTORY: Altered mental status, recent fracture COMPARISON: 12/29/2021 FINDINGS: The laird-white matter differentiation is normal. No mass effect or midline shift. There is age related cerebral atrophy with ex vacuo dilation of the ventricles. Basilar cisterns are patent. There are no intra- or extra-axial fluid collections. There is no intracranial hemorrhage. The orbits are normal. Paranasal sinuses are normal. Mastoid air cells are clear. The calvarial lesion near the vertex measures 3.0 x 2.0 cm, previously 2.3 x 1.5 cm. There is erosion to the inner cortex of the calvarium. A second lesion measures 2.7 x 1.7 cm, previously 1.7 x 1.2 cm. There is progressive displacement of a type II odontoid fracture. There is now 8 mm of posterior displacement of the tip of the dens, previously 3 mm. There is increased posterior subluxation of the arch at C1 on the lateral masses of C2. There is increasing now moderate stenosis at this level. There is moderate degenerative disc disease throughout cervical spine. No new fracture is seen. There is a lytic lesion in T3. Left 1st rib lesion is seen. Vertebral body heights are normal. No soft tissue abnormality is seen in the neck. Limited views of the superior thorax are normal. IMPRESSION: 1. No intracranial hemorrhage. 2. Increase in size of calvarial masses. 3. Progressive displacement of the type II dens fracture with now moderate stenosis at the level of C1/C2 due to posterior displacement of the dens and C1 relative to the lateral masses of C2 indicative of an unstable fracture. 4. Lytic lesion in T3 of the left 1st rib lesion has increased in size. Dictated on workstation # [id number] Dict: 02/01/221936 Trans: 02/01/221951 [facility] [id number] Interpreted by: JJ SOLIS MD Electronically signed by: Jerri Imaging: Xray Plain Films/CT/US/NM/MRI: chest Comments NAME: NAIMA VILLAVICENCIONatalya Alfredo [facility] REC#: [id number] PT STATUS: REG ER : 1965 PHYSICIAN: TERESA HUGHES MD ADMIT DATE: 02/01/22/ER FS Signed Date of Exam:02/01/22 CHEST 1 VIEW AP/PA ONLY HISTORY: Tachycardia, altered mental status. COMPARISONS: 04/19/2020, 04/09/2021 TECHNIQUE: Frontal view of the chest. FINDINGS: Lung volumes are large. No consolidation is seen. There is no pleural effusion or pneumothorax. Cardiac silhouette is normal in size. There is aortic atherosclerosis. IMPRESSION: 1. Findings of chronic obstructive disease with no acute pulmonary abnormality seen. Dictated by: Dictated on workstation # [id number] Dict: 02/01/221938 Trans: 02/01/221947 [facility] [id number] Interpreted by: SMITA ARAGON MD Electronically signed by: SMITA ARAGON MD 02/01/221947 Reviewed: Reviewed by Me Critical Care Note Critical Care Total Time (minutes) 75 minutes Progress 75 minutes of critical care time was spent with the patient. This time excludes separately billable procedures. Time was spent obtaining history of the patient from records, staff, EMS, ordering test and reviewing results, ordering interventions and reviewing response, discussion with consultants, documentation in the chart. Patient was at imminent risk of neurologic as well as cardiac and metabolic failure. He required my direct interaction and monitoring to help stabilize and maintain his status. Departure Impression Primary Impression: Altered mental status Qualified Codes: R41.0 - Disorientation, unspecified Additional Impressions: Hypoglycemia Dehydration Encephalopathy acute Hypomagnesemia Hypercalcemia Lytic bone lesions on xray Decreased urine output Disposition: T-[facility] Condition: Critical Transfer Transfer Reason: Exceeds level of care (C2 unstable fracture, Encephalopathy, Hypercalcemia, Hypomagnesemia) Time Spoke to Accepting Phy: 20:48 Transfer Progress Notes d/w Dr. Boucher, resident physician for Dr. Cooney. She accepted patient for transfer. Will continue IVF for hydration and continue cardiac monitoring. Placed in cervical collar to help stabilize his unstable C2 fracture seen on imaging. Lytic lesions of bones and skull could be multiple myeloma or metastatic process and may be responsible for his hypercalcemia. Supplement Magnesium and continue with IV hydration. Transfer Facility: [facility] Method of Transfer: EMS Departure-Patient Inst. Referrals: KRISTIAN BOYD APRN (PCP) Primary Care Physician [facility] (Family) Primary Care Physician TERESA HUGHES MD Feb 01, 2022 19:26
[2022-02-01 19:38] LABS: AMPHETAMINE SCREEN, URINE NEGATIVE (NEGATIVE); BARBITURATE SCREEN URINE NEGATIVE (NEGATIVE); BENZODIAZEPINES SCREEN URINE NEGATIVE (NEGATIVE); CANNABINOID SCREEN, URINE NEGATIVE (NEGATIVE); COCAINE SCREEN URINE NEGATIVE (NEGATIVE); METHADONE STAT NEGATIVE (NEGATIVE); METHAMPHETAMINE SCREEN URINE S NEGATIVE (NEGATIVE); OPIATE SCREEN URINE NEGATIVE (NEGATIVE); OXYCODONE STAT NEGATIVE (NEGATIVE); PROPOXYPHENE STAT NEGATIVE (NEGATIVE); TRICYCLIC ANTIDEPRESSANTS SCRE NEGATIVE (NEGATIVE)
[2022-02-01 19:39] LABS: BACTERIA,URINE NEGATIVE /HPF; BILIRUBIN,URINE 2+ (NEGATIVE); HYALINE CASTS, URINE 0-2 /LPF; SQUAMOUS EPITHELIAL CELL,UR 0-2 /HPF; WBC,URINE 0-2 /HPF
[2022-02-01 19:46] LABS: NEUTROPHILS % (MANUAL) 80 %
[2022-02-01 19:47] LABS: BAND NEUTROPHILS 0 %; BASOPHILS % (MANUAL) 0 %; EOSINOPHILS % (MANUAL) 0 %; LYMPHOCYTES % (MANUAL) 14 %; METAMYELOCYTES % 1 %; MONOCYTES % (MANUAL) 4 %; MYELOCYTES % 1 %
--- NOTE | 2022-02-01 19:49 | Diagnostic Imaging Report ---
HISTORY: Tachycardia, altered mental status. COMPARISONS: 04/19/2020, 04/09/2021 TECHNIQUE: Frontal view of the chest. FINDINGS: Lung volumes are large. No consolidation is seen. There is no pleural effusion or pneumothorax. Cardiac silhouette is normal in size. There is aortic atherosclerosis. IMPRESSION: 1. Findings of chronic obstructive disease with no acute pulmonary abnormality seen. Dictated by: Dictated on workstation # [id number]
[2022-02-01 19:52] LABS: CARBON DIOXIDE 34 MMOL/L (21-32); CHLORIDE 103 MMOL/L (98-107); POTASSIUM 3.1 MMOL/L (3.6-5.0); SODIUM 149 MMOL/L (135-145)
[2022-02-01 19:53] LABS: BUN/CREATININE RATIO 56; CREATININE SERUM 0.79 MG/DL (0.60-1.30); GFR ESTIMATED 104
--- NOTE | 2022-02-01 19:53 | Diagnostic Imaging Report ---
EXAMINATION: CT head and CT cervical spine without contrast. TECHNIQUE: Multiple contiguous axial images were obtained through the brain and cervical spine without the use of intravenous contrast. Sagittal and coronal reformations through the cervical spine were then performed. All CT scans use one or more of the following dose optimizing techniques: automated exposure control, MA and/or KvP adjustment based on patient size and exam type or iterative reconstruction. HISTORY: Altered mental status, recent fracture COMPARISON: 12/29/2021 FINDINGS: The laird-white matter differentiation is normal. No mass effect or midline shift. There is age related cerebral atrophy with ex vacuo dilation of the ventricles. Basilar cisterns are patent. There are no intra- or extra-axial fluid collections. There is no intracranial hemorrhage. The orbits are normal. Paranasal sinuses are normal. Mastoid air cells are clear. The calvarial lesion near the vertex measures 3.0 x 2.0 cm, previously 2.3 x 1.5 cm. There is erosion to the inner cortex of the calvarium. A second lesion measures 2.7 x 1.7 cm, previously 1.7 x 1.2 cm. There is progressive displacement of a type II odontoid fracture. There is now 8 mm of posterior displacement of the tip of the dens, previously 3 mm. There is increased posterior subluxation of the arch at C1 on the lateral masses of C2. There is increasing now moderate stenosis at this level. There is moderate degenerative disc disease throughout cervical spine. No new fracture is seen. There is a lytic lesion in T3. Left 1st rib lesion is seen. Vertebral body heights are normal. No soft tissue abnormality is seen in the neck. Limited views of the superior thorax are normal. IMPRESSION: 1. No intracranial hemorrhage. 2. Increase in size of calvarial masses. 3. Progressive displacement of the type II dens fracture with now moderate stenosis at the level of C1/C2 due to posterior displacement of the dens and C1 relative to the lateral masses of C2 indicative of an unstable fracture. 4. Lytic lesion in T3 of the left 1st rib lesion has increased in size. Dictated by: Dictated on workstation # [id number]
[2022-02-01 19:54] LABS: GLUCOSE 456 MG/DL (70-105)
[2022-02-01 19:55] LABS: ALANINE AMINOTRANSFERASE 11 U/L (0-55); ALKALINE PHOSPHATASE 155 U/L (40-136); BILIRUBIN,TOTAL 1.7 MG/DL (0.1-1.0); CALCIUM 16.5 MG/DL (8.5-10.1); TOTAL PROTEIN 6.8 GM/DL (6.4-8.2)
[2022-02-01 19:56] LABS: ACETAMINOPHEN < 10 UG/ML (10-30); SALICYLATE < 0.3 MG/DL (5.0-20.0)
[2022-02-01 19:57] LABS: MAGNESIUM 1.4 MG/DL (1.6-2.4)
[2022-02-01] MEDS ORDERED: MAGNESIUM 1 GM/100 ML IVPB 100 ML IV STA (20:13)
[2022-02-01] MEDS ORDERED: cefTRIAXone 1 GM PRE-MIX 50 ML IV STA (20:59)
[2022-02-01 21:55] VITALS: BP 116/80
== END 2022-02-01 21:55 | disposition short-term general hospital (02) ==
LOC: EDUNIT# 19:07 → ER FS 19:08
DX: R41.0 Disorientation, unspecified (principal); E16.2 Hypoglycemia, unspecified; E86.0 Dehydration; G93.40 Encephalopathy, unspecified; E83.42 Hypomagnesemia; E83.52 Hypercalcemia; R39.12 Poor urinary stream; M89.8X8 Other specified disorders of bone, other site; F10.20 Alcohol dependence, uncomplicated; Z89.611 Acquired absence of right leg above knee; Z89.612 Acquired absence of left leg above knee; Y90.0 Blood alcohol level of less than 20 mg/100 ml
CPT/HCPCS: 36415; 51702; 70450; 71045; 72125; 80053; 80306; 81000; 82947; 83605; 83690; 83735; 83880; 84484; 85007; 85027; 87040; 93041; G0480 ×3; L0150; 80320; 80329; 93005; 99291